=== PATIENT | female | born 1950 | race Caucasian/White ===

== ENCOUNTER → 2020-09-19 | Outpatient (CLI) | payer MEDICARE ==
[2020-09-19 16:04] LABS: African American GFR (CKD) >90 (>60 ml/min/1.73 sqM); Blood Urea Nitrogen 12 mg/dL (7-17); Non-African American GFR(CKD) >90 (>60 ml/min/1.73 sqM)
--- NOTE | 2020-09-20 07:43 | CT ---
EXAMINATION TYPE: CT ChestAbdPelvis w con DATE OF EXAM: 09/19/2020 COMPARISON: None HISTORY: Stomach ca, observe for mets CT DLP: 1131 mGycm CONTRAST: CT scan of the chest, abdomen and pelvis is performed with Oral Contrast and with IV Contrast, patien t injected with 100 mL of Isovue 300. CT Chest: LUNGS: The lungs are clear and free of infiltrate or atelectasis. No pulmonary nodule or mass is det ected. No pleural effusion or CT evidence of interstitial lung disease. MEDIASTINUM: Thoracic aorta is of normal caliber. The heart is not enlarged. No evidence for media stinal mass or adenopathy. HILAR STRUCTURES: No evidence for mass. No hilar adenopathy is appreciated. OTHER: No significant abnormality. CONTRAST CT ABDOMEN AND PELVIS FINDINGS: LIVER/GB: The gallbladder is surgically absent. No space occupying hepatic lesion. Biliary tree is of normal caliber. PANCREAS: No inflammation. No distinct mass. SPLEEN: No splenic enlargement. No lesion seen. ADRENALS: No nodule. There is evidence of bilateral adrenal glandular thickening which may reflect a drenal hyperplasia. KIDNEYS/BLADDER: No hydronephrosis. No nephrolithiasis. No disctinct renal mass. BOWEL: Partial gastrectomy changes are noted. There is a fluid collection noted adjacent to the liver at its caudate lobe measuring 5.8 x 1.9 cm. This could reflect a postoperative seroma. I do not see evidence for recurrent or residual mass. There is no evidence for obstruction. Contrast is noted to f low into the distal small bowel. GENITAL ORGANS: No gross abnormality. LYMPH NODES: No greater than 1cm abdominal or pelvic lymph nodes are appreciated. AORTA: No significant abnormality. OSSEOUS STRUCTURES: Degenerative changes lower lumbar spine with vacuum disc identified. OTHER: No significant additional abnormality is seen. IMPRESSION: 1. Partial gastrectomy changes are noted. There is a fluid collection noted adjacent to the liver at its caudate lobe measuring 5.8 x 1.9 cm. This could reflect a postoperative seroma. I do not see evid ence for recurrent or residual mass. 2. No evidence for metastatic disease.
== END | disposition home or self-care (01) ==
LOC: RADCTMAIN 15:19
PROVIDERS: ATTEND Internal Medicine Hematology & Oncology
DX: K76.89 Other specified diseases of liver (principal); Z90.3 Acquired absence of stomach [part of]; C16.3 Malignant neoplasm of pyloric antrum
CPT/HCPCS: 82565; 84520; 71260; 74177; 36415; Q9967

== ENCOUNTER → 2020-10-09 | Outpatient (CLI) | payer MEDICARE ==
--- NOTE | 2020-10-10 08:17 | MR ---
EXAMINATION TYPE: MR brain wo/w con DATE OF EXAM: 10/09/2020 COMPARISON: None HISTORY: Visual disturbances history stomach cancer CONTRAST: Performed utilizing 6 mL intravenous Gadavist gadolinium contrast. TECHNIQUE: Multiplanar, multiecho imaging on a 3.0 Vivienne magnet is performed through the brain. Stud y is performed within 24 hours of arrival to the hospital. The craniovertebral junction is normal. The pituitary is normal. Diffusion-weighted imaging is performed. No abnormal hyperintensity is present to suggest an acute i ntracranial infarct or acute ischemic change. Couple of subcortical hyperintensities are present not out of proportion patient age. Findings could be related to microvascular ischemic change. Abnormal enhancement is not identified at these locatio ns. Differential diagnosis could include but is not limited to multiple sclerosis, vasculitis, migrai ne headaches, Lyme disease. Ventricles and sulci are appropriate for the patient age. No suspicious enhancement is evident suggest metastatic disease. IMPRESSIONS: 1. No suspicious changes to suggest metastatic disease. 2. Scattered subcortical white matter changes most likely on the basis of chronic white matter ischem ic change.
== END | disposition home or self-care (01) ==
LOC: RADMRIMAIN 13:15
PROVIDERS: ATTEND Internal Medicine Hematology & Oncology
DX: C16.3 Malignant neoplasm of pyloric antrum (principal); R90.89 Other abnormal findings on diagnostic imaging of central nervous system; H53.9 Unspecified visual disturbance
CPT/HCPCS: 70553; A9585

== ENCOUNTER → 2020-10-09 | Outpatient (CLI) | payer MEDICARE | END | disposition home or self-care (01) | LOC: RADMRIMAIN 08:38 | PROVIDERS: ATTEND Internal Medicine Hematology & Oncology | DX: Z53.9 Procedure and treatment not carried out, unspecified reason (principal) ==

== ENCOUNTER → 2021-01-07 | Outpatient (CLI) | payer MEDICARE, OTHER ==
[2021-01-07 11:34] LABS: African American GFR (CKD) >90 (>60 ml/min/1.73 sqM); Blood Urea Nitrogen 13 mg/dL (7-17); Non-African American GFR(CKD) >90 (>60 ml/min/1.73 sqM)
--- NOTE | 2021-01-07 13:11 | CT ---
EXAMINATION TYPE: CT ChestAbdPelvis w con DATE OF EXAM: 01/07/2021 COMPARISON: 09/19/2020 HISTORY: Stomach CA CT DLP: 555.1 mGycm CONTRAST: CT scan of the chest, abdomen and pelvis is performed with Oral Contrast and with IV Contrast, patien t injected with 100 mL of Isovue 300. CT Chest: LUNGS: The lungs are clear and free of infiltrate or atelectasis. No pulmonary nodule or mass is det ected. No pleural effusion or CT evidence of interstitial lung disease. MEDIASTINUM: Thoracic aorta is of normal caliber. The heart is not enlarged. No evidence for media stinal mass or adenopathy. HILAR STRUCTURES: No evidence for mass. No hilar adenopathy is appreciated. OTHER: No significant abnormality. CONTRAST CT ABDOMEN AND PELVIS FINDINGS: LIVER/GB: The gallbladder is surgically absent. No space occupying hepatic lesion. Biliary tree is of normal caliber. PANCREAS: No inflammation. No distinct mass. SPLEEN: No splenic enlargement. No lesion seen. ADRENALS: No nodule. No thickening. KIDNEYS/BLADDER: No hydronephrosis. No nephrolithiasis. No disctinct renal mass. BOWEL: Normal appendix. Partial gastrectomy changes are redemonstrated. No evidence for recurrent or residual mass. Fluid collection seen previously adjacent to the liver has resolved. Gastrointestinal tract is of normal caliber. No inflammatory change seen. GENITAL ORGANS: No gross abnormality. LYMPH NODES: No greater than 1cm abdominal or pelvic lymph nodes are appreciated. AORTA: No significant abnormality. OSSEOUS STRUCTURES: No significant abnormality is seen. OTHER: No significant additional abnormality is seen. IMPRESSION: 1. Partial gastrectomy changes are redemonstrated. No evidence for recurrent or residual mass. Fluid collection seen previously adjacent to the liver has resolved. 2. No evidence for metastatic disease to the chest abdomen or pelvis at this time.
== END | disposition home or self-care (01) ==
LOC: RADPROMAIN 10:26
PROVIDERS: ATTEND Internal Medicine Hematology & Oncology
DX: C16.3 Malignant neoplasm of pyloric antrum (principal); Z90.3 Acquired absence of stomach [part of]
CPT/HCPCS: 82565; 84520; 71260; 74177; J1642; Q9967 ×2

== ENCOUNTER 2021-02-07 10:00 | Inpatient (IN) | payer MEDICARE, OTHER ==
[2021-02-07] MEDS ORDERED: HYDROmorphone 1 MG/ML 1 ML SYRINGE IVP STA ×2 (10:15→11:17)
--- NOTE | 2021-02-07 10:20 | ED ---
Fall HPI - General Chief Complaint: Fall Stated Complaint: Fall/R hip pain Time Seen by Provider: 02/07/21 10:03 Source: patient, EMS, RN notes reviewed Mode of arrival: EMS Limitations: physical limitation - History of Present Illness Initial Comments: This a 70-year-old female presents emergency Department chief complaint of trip and fall. Patient states her dog causing her to trip and fall onto her right hip. Patient has only complaint of right hip pain no head injury no loss consciousness no blood thinners. Patient states that she's had no prior orthopedic surgeries denies any abdominal pain denies back pain. Patient was given fentanyl by EMS states that did not help her pain at this time. - Related Data Home Medications Medication Instructions Recorded Confirmed Cyanocobalamin (Vitamin B-12) 1,000 mcg PO DAILY 02/07/21 02/07/21 [Vitamin B-12] Escitalopram Oxalate [Lexapro] 40 mg PO HS 02/07/21 02/07/21 Pantoprazole Sodium [Protonix] 40 mg PO DAILY 02/07/21 02/07/21 Vitamin E 400 unit PO DAILY 02/07/21 02/07/21 clonazePAM [KlonoPIN] 1 mg PO HS 02/07/21 02/07/21 Allergies Allergy/AdvReac Type Severity Reaction Status Date / Time No Known Allergies Allergy Verified 02/07/21 11:37 Review of Systems ROS Statement: Those systems with pertinent positive or pertinent negative responses have been documented in the HPI. ROS Other: All systems not noted in ROS Statement are negative. Past Medical History Past Medical History: Cancer, Hyperlipidemia Additional Past Medical History / Comment(s): stomach ca. History of Any Multi-Drug Resistant Organisms: None Reported Past Surgical History: Cholecystectomy, Orthopedic Surgery, Tonsillectomy Additional Past Surgical History / Comment(s): stomach resection, Past Psychological History: Anxiety, Depression Smoking Status: Never smoker Past Alcohol Use History: None Reported Past Drug Use History: None Reported General Exam Limitations: physical limitation General appearance: alert, in no apparent distress Head exam: Present: atraumatic, normocephalic, normal inspection Eye exam: Present: normal appearance, PERRL, EOMI. Absent: scleral icterus, conjunctival injection, periorbital swelling Neck exam: Present: normal inspection, full ROM. Absent: tenderness, meningismus, lymphadenopathy Respiratory exam: Present: normal lung sounds bilaterally. Absent: respiratory distress, wheezes, rales, rhonchi, stridor Cardiovascular Exam: Present: regular rate, normal rhythm, normal heart sounds. Absent: systolic murmur, diastolic murmur, rubs, gallop, clicks Extremities exam: Present: other (Patient's right leg is shortened, severe times the right hip pulses are palpable the lower extremities equal bilaterally) Neurological exam: Present: alert, reflexes normal. Absent: motor sensory deficit Skin exam: Present: warm, dry, intact, normal color. Absent: rash Course Vital Signs 02/07/21 02/07/21 02/07/21 10:01 10:32 11:20 Temperature 98.7 F Pulse Rate 62 88 88 Respiratory 20 18 18 Rate Blood Pressure 149/61 135/86 115/57 O2 Sat by Pulse 98 97 97 Oximetry Medical Decision Making - Medical Decision Making Patient has evidence of right hip fracture. Case discussed with lópez for [facility] orth[facility] will be admitted to Dr. Olsen with medicine consult Disposition Clinical Impression: Fall, Fracture of neck of left femur Disposition: ADMITTED IP TO THIS [facility] Condition: Fair Referrals: Aliyah Fink MD [Primary Care Provider] - 1-2 days
--- NOTE | 2021-02-07 10:58 | XR ---
EXAMINATION TYPE: XR Hip RT and AP Pelvis DATE OF EXAM: 02/07/2021 COMPARISON: CT January 07, 2021 HISTORY: Pelvic and right hip pain after fall injury. TECHNIQUE: A single AP view of the pelvis is obtained. Two views of the right hip are obtained. FINDINGS: There is acute displaced subcapital impacted fracture right proximal femur. No hip joint d islocation. Moderate to severe axial joint space loss right greater than left. Pubic symphysis intact . Sacroiliac joints maintained. Overlying soft tissue is unremarkable. IMPRESSION: There is acute impacted subcapital fracture right proximal femur.
[2021-02-07] MEDS ORDERED: NALOXONE 0.4 MG/ML 1 ML VIAL IV PRN (11:43)
[2021-02-07] MEDS ORDERED: ONDANSETRON 4 MG/2 ML VIAL IVP PRN (11:43)
[2021-02-07] MEDS ORDERED: HYDROmorphone 0.5 MG/0.5 ML SYRINGE IVP PRN (11:43)
--- NOTE | 2021-02-07 11:52 | XR ---
EXAMINATION TYPE: XR chest 1V portable DATE OF EXAM: 02/07/2021 COMPARISON: None INDICATION: Presurgical TECHNIQUE: Single frontal view of the chest is obtained. FINDINGS: The heart size is normal. The pulmonary vasculature is normal. The lungs are clear. IMPRESSION: 1. No acute pulmonary process.
[2021-02-07 11:58] LABS: Basophils % (A) 0 %; Eosinophils % (A) 0 %; HCT 38.1 % (34.0-46.0); HGB 12.7 gm/dL (11.4-16.0); Lymphocytes % (A) 22 %; MCH 30.5 pg (25.0-35.0); MCHC 33.4 g/dL (31.0-37.0); MCV 91.6 fL (80.0-100.0); Mean Platelet Volume 6.9; Monocytes # (A) 0.5 k/uL (0-1.0); Monocytes % (A) 5 %; Neutrophils # (A) 6.3 k/uL (1.3-7.7); Neutrophils % (A) 71 %; Platelet Count 238 k/uL (150-450); RBC 4.16 m/uL (3.80-5.40); RDW 13.7 % (11.5-15.5); WBC 8.9 k/uL (3.8-10.6)
[2021-02-07 12:09] LABS: ALT 15 U/L (4-34); AST 28 U/L (14-36); African American GFR (CKD) >90 (>60 ml/min/1.73 sqM); Albumin 3.7 g/dL (3.5-5.0); Alkaline Phosphatase 109 U/L (38-126); Anion Gap 6 mmol/L; Blood Urea Nitrogen 13 mg/dL (7-17); Calcium 9.2 mg/dL (8.4-10.2); Carbon Dioxide 27 mmol/L (22-30); Chloride 109 mmol/L (98-107); Glucose 106 mg/dL (74-99); Non-African American GFR(CKD) >90 (>60 ml/min/1.73 sqM); Potassium 4.3 mmol/L (3.5-5.1); Sodium 142 mmol/L (137-145); Total Bilirubin 0.6 mg/dL (0.2-1.3); Total Protein 6.1 g/dL (6.3-8.2)
[2021-02-07] MEDS: HYDROcodone/APAP 5-325MG 1 EACH TAB PO PRN ×2 (12:11→17:34)
[2021-02-07 12:29] LABS: Appearance,Urine Clear (Clear); Bilirubin,Urine Negative (Negative); Blood,Urine Negative (Negative); Color,Urine Yellow; Glucose,Urine (UA) Negative (Negative); Ketones,Urine Negative (Negative); Leukocyte Esterase,Urine Large (Negative); Mucus,Urine Rare /hpf; Nitrite,Urine Negative (Negative); Protein,Urine Negative (Negative); Specific Gravity,Urine 1.017 (1.001-1.035); Squamous Epithelial Cell,Urine 1 /hpf (0-4); Urobilinogen,Urine <2.0 mg/dL (<2.0); WBC,Urine 14 /hpf (0-5)
[2021-02-07 12:45] LABS: INR 0.9 (<1.2); Prothrombin Time 9.9 sec (9.0-12.0)
[2021-02-07] MEDS: HYDROmorphone 1 MG/ML 1 ML SYRINGE IVP PRN ×4 (13:07→23:29)
[2021-02-07] MEDS: CYANOCOBALAMIN 500 MCG TAB PO SCH (14:40)
[2021-02-07] MEDS: VITAMIN E (DL,TOCOPHERYL ACET) 400 UNIT CAP PO SCH (15:21)
--- NOTE | 2021-02-07 17:03 | P.HPOR ---
History of Present Illness H&P Date: 02/07/21 Chief Complaint: Right hip pain Patient is a 70-year-old female presenting to the ER today status post fall at house. Patient was playing with dog when dog bumped into her slipped and fell and landed on her hip. Patient states she came in the ER and has severe pain with this shortened externally rotated leg. She says pain is severe, 10/10. She denies any numbness or tingling in feet. She denies any loss of bladder/bowel control. She denies any perineal numbness/tingling. She denies any chest pain, shortness breath, fever, nausea, vomiting, change in vision. The pedal pulse present 2+. Patient denies any history of blood clots. Patient denies being on any blood thinning. She does have a history of gastric cancer she has been treated for an currently in remission. Review of Systems See HPI Past Medical History Past Medical History: Cancer, COPD, Hyperlipidemia, Osteoarthritis (OA) Additional Past Medical History / Comment(s): 03/2020 diagnosed with stomach ca ncer/had resection and chemo and is currently in remission/sees Dr. Bay every 6 weeks, benign colon polyps, hemorroids, bronchitis, UTIs History of Any Multi-Drug Resistant Organisms: None Reported Past Surgical History: Breast Surgery, Cholecystectomy, Orthopedic Surgery, Tonsillectomy Additional Past Surgical History / Comment(s): stomach resection, R upper chest port, EGD, colonoscopies/benign polypectomies, bilateral breast benign biopsies, RK bilateral eyes Past Anesthesia/Blood Transfusion Reactions: No Reported Reaction Additional Past Anesthesia/Blood Transfusion Reaction / Comment(s): Pt has clausterphobia Smoking Status: Former smoker - Past Family History Father Family Medical History: Cancer Additional Family Medical History / Comment(s): Stomach cancer. Father of blood clot that travelled to his heart. Mother Family Medical History: Cancer Additional Family Medical History / Comment(s): Bone cancer Sister(s) Family Medical History: Cancer Additional Family Medical History / Comment(s): Breast cancer Medications and Allergies Home Medications Medication Instructions Recorded Confirmed Type Cyanocobalamin (Vitamin B-12) 1,000 mcg PO DAILY 02/07/21 02/07/21 History [Vitamin B-12] Escitalopram Oxalate [Lexapro] 40 mg PO HS 02/07/21 02/07/21 History Pantoprazole Sodium [Protonix] 40 mg PO DAILY 02/07/21 02/07/21 History Vitamin E 400 unit PO DAILY 02/07/21 02/07/21 History clonazePAM [KlonoPIN] 1 mg PO HS 02/07/21 02/07/21 History Allergies Allergy/AdvReac Type Severity Reaction Status Date / Time No Known Allergies Allergy Verified 02/07/21 11:37 Physical Examination On examination right leg shortened and externally rotated. Patient has pain during external and internal rotation of hip. Patient is unable to logroll onto right side due to pain. During minimal flexion and extension of knee patient has severe pain at hip. Dorsalis pedis pulses present bilaterally 2+. Skin over hip is non-erythematous, no ecchymosis. No sign/evidence of open fracture. Results - Labs Labs: Abnormal Lab Results - Last 24 Hours (Table) 02/07/21 02/07/21 02/07/21 Range/Units 11:39 11:39 11:39 APTT 21.0 L (22.0-30.0) sec Chloride 109 H (98-107) mmol/L Glucose 106 H (74-99) mg/dL Total Protein 6.1 L (6.3-8.2) g/dL Ur Leukocyte Esterase Large H (Negative) Urine WBC 14 H (0-5) /hpf Urine Mucus Rare H (None) /hpf H & H 02/07/21 Range/Units 11:39 Hgb 12.7 (11.4-16.0) gm/dL Hct 38.1 (34.0-46.0) % Coagulation 02/07/21 Range/Units 11:39 INR 0.9 (<1.2) Result Diagrams: 02/07/21 11:39 02/07/21 11:39 Assessment and Plan Assessment: Displaced subcapital fracture right proximal femur Plan: 1. Displaced subcapital fracture right proximal femur - surgery planned for tomorrow, 02/08/2021. Nothing by mouth after midnight. PT INR ordered; CBC with differential ordered; EKG and chest x-ray ordered. Need cardiac and medical clearance 2. History of gastric cancer - patient has been treated for gastric cancer which is currently in remission. After surgery oncology will plan to follow up. 3. Appreciate medical management 4. Pain management - stable at this time 5. PT/OT - plan for after surgery Time with Patient: Less than 30
[2021-02-07] MEDS: clonazePAM 1 MG TAB PO SCH (20:37)
[2021-02-07] MEDS: ESCITALOPRAM 20 MG TAB PO SCH (21:08)
--- NOTE | 2021-02-07 21:58 | P.CONS ---
History of Present Illness - Reason for Consult Consult date: 02/07/21 Medical management. - Chief Complaint Fall and Rt hip pain - History of Present Illness Patient is a 70-year-old female with a known history of COPD, hyperlipidemia, osteoarthritis and history of gastric cancer diagnosed in March 2020 status post resection and chemo currently in remission, previous history of smoking presents to ER status post fall. Patient states that she was walking her dog and chain tangled into her legs and fell on her right hip. Denied any head injury. Denied any right rib cage pain. Denied any loss of consciousness. No palpitations or dizziness or lightheadedness. Denies any recent illnesses. No fever no chills. No cough or sputum production. No nausea vomiting abdominal pain or diarrhea. Denies any dysuria or hematuria. Blood pressure was 149/61 on admission and pulse ox 98% on room air. X-ray of the pelvis showed there is acute impacted subcapital fracture right proximal femur. EKG showed normal sinus rhythm with heart rate 65 Chest x-ray showed no acute cardiopulmonary process. Laboratory data showed WBC 8.9 hemoglobin 12.7 platelets 238 Sodium 142 potassium 4.3 chloride 103 blood glucose is 106 BUN 13 and creatinine 0.63 urinalysis showed large leukocyte esterase and WBCs 14. Review of Systems Constitutional: Patient denies any fever or chills . No generalized weakness or weight loss. Abdomen: Patient denied nausea vomiting and diarrhea and abdominal pain. Cardiovascular: Patient denies any chest pain or short of breath no palpitations. Respiratory: patient denied any cough or sputum production. No shortness of breath Neurologic: Patient denied any numbness or tingling headache. Musculoskeletal: Patient denies any complaints of joint swelling or deformity. Skin: Negative Psychiatric: Negative Endocrine: No heat or cold intolerance. No recent weight gain. Genitourinary: No dysuria or hematuria. All other 14 point ROS negative except the above Past Medical History Past Medical History: Cancer, COPD, Hyperlipidemia, Osteoarthritis (OA) Additional Past Medical History / Comment(s): 03/2020 diagnosed with stomach cancer/had resection and chemo and is currently in remission/sees Dr. Bay every 6 weeks, benign colon polyps, hemorroids, bronchitis, UTIs History of Any Multi-Drug Resistant Organisms: None Reported Past Surgical History: Breast Surgery, Cholecystectomy, Orthopedic Surgery, Tonsillectomy Additional Past Surgical History / Comment(s): stomach resection, R upper chest port, EGD, colonoscopies/benign polypectomies, bilateral breast benign biopsies, RK bilateral eyes Past Anesthesia/Blood Transfusion Reactions: No Reported Reaction Additional Past Anesthesia/Blood Transfusion Reaction / Comm: Pt has clausterphobia Smoking Status: Former smoker - Past Family History Father Family Medical History: Cancer Additional Family Medical History / Comment(s): Stomach cancer. Father of blood clot that travelled to his heart. Mother Family Medical History: Cancer Additional Family Medical History / Comment(s): Bone cancer Sister(s) Family Medical History: Cancer Additional Family Medical History / Comment(s): Breast cancer Medications and Allergies Home Medications Medication Instructions Recorded Confirmed Type Cyanocobalamin (Vitamin B-12) 1,000 mcg PO DAILY 02/07/21 02/07/21 History [Vitamin B-12] Escitalopram Oxalate [Lexapro] 40 mg PO HS 02/07/21 02/07/21 History Pantoprazole Sodium [Protonix] 40 mg PO DAILY 02/07/21 02/07/21 History Vitamin E 400 unit PO DAILY 02/07/21 02/07/21 History clonazePAM [KlonoPIN] 1 mg PO HS 02/07/21 02/07/21 History Allergies Allergy/AdvReac Type Severity Reaction Status Date / Time No Known Allergies Allergy Verified 02/07/21 11:37 Physical Exam Vitals: Vital Signs Temp Pulse Pulse Resp BP BP Pulse Ox 02/07/21 14:51 60 22 02/07/21 14:08 98.7 F 67 22 103/51 94 L 02/07/21 14:00 98.4 F 60 133/68 97 02/07/21 13:12 66 22 128/59 96 02/07/21 11:20 88 18 115/57 97 02/07/21 10:32 88 18 135/86 97 02/07/21 10:01 98.7 F 62 20 149/61 98 Intake and Output 02/07/21 02/07/21 02/07/21 06:59 14:59 22:59 Other: Voiding Method Indwelling Catheter Weight 62.596 kg PHYSICAL EXAMINATION: Patient is lying in the bed comfortably, no acute distress, awake alert and oriented.. HEENT: Normocephalic. Neck is supple. Pupils reactive. Nostrils clear. Oral cavity is moist. Ears reveal no drainage. Neck reveals no JVD, carotid bruits, or thyromegaly. CHEST EXAMINATION: Trachea is central. Symmetrical expansion. Bibasilar diminished sounds otherwise Lung yip clear to auscultation and percussion. CARDIAC: Normal S1, S2 with no gallops. No murmurs ABDOMEN: Soft. Bowel sounds normal. No organomegaly. No abdominal bruits. Extremities: reveal no edema. No clubbing or cyanosis Neurologically awake, alert, oriented x3 with well-coordinated movements. No f ocal deficits noted Skin: No rash or skin lesions. Psychiatric: Coperative. Nonsuicidal Musculoskeletal: No joint swelling or deformity. Tenderness over the right greater trochanter. Decreased range of motion of the right hip.. Results CBC & Chem 7: 02/07/21 11:39 02/07/21 11:39 Labs: Abnormal Lab Results - Last 24 Hours (Table) 02/07/21 02/07/21 02/07/21 Range/Units 11:39 11:39 11:39 APTT 21.0 L (22.0-30.0) sec Chloride 109 H (98-107) mmol/L Glucose 106 H (74-99) mg/dL Total Protein 6.1 L (6.3-8.2) g/dL Ur Leukocyte Esterase Large H (Negative) Urine WBC 14 H (0-5) /hpf Urine Mucus Rare H (None) /hpf Assessment and Plan Assessment: Status post mechanical fall subcapital fracture of right proximal femur. COPD with prior history of smoking Hyperlipidemia Osteoarthritis Gastric cancer diagnosed in December 2019 status post resection and chemo currently in remission. Anxiety/depression Prior history of smoking DVT prophylaxis Plan: Patient will be continued on pain management, bowel regimen. Will be started on incentive spirometry. Continue with home medications and GI/DVT prophylaxis. Patient does not have any active symptoms of chest pain or shortness of breath. Able to climb 1 flight of stairs without shortness of breath prior to fall. Renal function stable. No history of prior CVA are coronary artery disease. Patient is at low risk for moderate low risk orthopedic surgery. We will continue to follow and further recommendations based on the clinical course. Thank you for your consult. Time with Patient: Greater than 30
[2021-02-08] MEDS: HYDROcodone/APAP 5-325MG 1 EACH TAB PO PRN ×3 (00:05→19:50)
[2021-02-08] MEDS: HYDROmorphone 1 MG/ML 1 ML SYRINGE IVP PRN ×6 (02:23→21:05)
[2021-02-08] MEDS ORDERED: ePHEDrine SULFATE/0.9% NACL/PF 50 MG/5 ML SYRINGE IV ONE (09:17)
[2021-02-08] MEDS ORDERED: MIDAZOLAM 2 MG/2 ML VIAL ONE (09:17)
[2021-02-08] MEDS ORDERED: PROPOFOL 10 MG/ML 20 ML VIAL IV ONE (09:17)
[2021-02-08] MEDS ORDERED: KETAMINE 10 MG/ML 20 ML VIAL ONE (09:17)
[2021-02-08] MEDS ORDERED: LACTATED RINGERS 1,000 ML IV ONE ×2 (09:17→10:36)
[2021-02-08] MEDS ORDERED: SODIUM CHLORIDE 0.9% 50 ML with ceFAZolin 2,000 MG IV ONE ×2 (09:17)
[2021-02-08] MEDS ORDERED: NALOXONE 0.4 MG/ML 1 ML VIAL IV PRN (10:45)
--- NOTE | 2021-02-08 11:14 | P.OP ---
Date of Procedure: 02/08/21 Preoperative Diagnosis: Displaced right subcapital femoral neck fracture Postoperative Diagnosis: Same Procedure(s) Performed: Right total hip arthroplastypress-fitlateral approach Implants: Depuy Corail size 11 collared press-fit standard femoral stem, 36+1.5 cobalt chrome femoral head, 52 mm [place] acetabular shell with neutral polyethylene liner. Anesthesia: spinal Surgeon: Wilton Reed Manager Process Excellence #1: Ish Blackburn Estimated Blood Loss (ml): 150 Pathology: other (Femoral head) Condition: stable Disposition: PACU Indications for Procedure: The patient's a 70-year-old female presents after falling injuring her right hi p. Upon evaluation she was noted of evidence of a displaced subcapital femoral neck fracture. A discussion of the risks and benefits of operative intervention was made with the patient. She opted to proceed. Operative options were discussed to include hemiarthroplasty versus total hip arthroplasty. Due to her young age and high activity level she opted to proceed with total hip arthroplasty. Specific risks of surgery to include infection, neurovascular injury, development of blood clots, leg length discrepancy, fracture, instability, and possible need for subsequent procedures was discussed. Informed consent was obtained. Operative Findings: As below Description of Procedure: The patient was brought to the operating room, and after induction of spinal anesthesia was placed in a lateral decubitus position. The bony prominences were appropriately padded. The pelvis was stable perpendicular to the floor with a pegboard. The right lower extremity was prepped and draped in normal fashion. A 12 cm incision was then made centered over the greater trochanter extending superiorly to level the ASIS and distally in line with the femoral shaft. The skin and subcutaneous tissues were divided sharply. Electrocautery was used for hemostasis. The fascia eun and gluteus shey fascia was split in line with the skin incision. The muscle fibers were bluntly dissected proximally. A self-retaining retractor was placed. The anterior and posterior margins of the gluteus medius muscles identified and the anterior two thirds was detached from the greater trochanter with electrocautery. The gluteus minimus tendon was identified and detached in a similar fashion. A wide capsulotomy was performed. The femoral neck fracture was identified in the lower neck cut was made approximately 1 1/2 cm above the level of the lesser trochanter with a sagittal saw at a 45 the shaft. The head was then extracted with a corkscrew. Attention was then paid towards preparing the acetabular. Anterior and posterior retractors were placed. The remaining capsular labral tissues debrided sharply clearly defining the acetabular margins. Began reaming with a 45 mm reamer taking care to initially medialize, then reaming at 45 of abduction and 20 of anteversion. Sequential reaming is performed up to 51 mm. This was down to bleeding bony surface. A trial 52 mm acetabular shell was inserted at 45 of abduction and 20 of anteversion. This was fully seated. There was good rim fit and stability. A neutral polyethylene liner was then impacted. Care taken to avoid any soft tissue interposition. Attention was then paid towards preparing the proximal femur. A box chisel was used to open the metaphyseal region. A canal finder was used to find the femoral canal. Sequential broaching was performed up to a size 11. This is placed in 15 of anteversion with the leg perpendicular floor judging off the trans-epicondylar axis. There is good rotational stability. A calcar mill was used to fashion the medial calcar. A trial standard neck along with a 36 mm + 1.5 trial head was placed. The hip was gently reduced. It was taken through range of motion. I felt to be stable in flexion and extension with internal and external rotation. I felt there was adequate latter day of soft tissue tension. The hip was gently dislocated. The trial components removed. Pulsatile lavage was utilized. The final size 11 standard collared femoral stem was inserted again with the leg perpendicular to the floor in 15 of anteversion. Again there was good rotational stability. A 36 mm + 1.5 cobalt chrome femoral head was gently impacted. The hip was gently reduced. Again it was taken through motion and felt to be stable in flexion and extension with internal and external rotation. Pulsatile lavage was again utilized. With the leg in abduction the gluteus minimus and medius tendons reattached to the greater trochanter with #2 Ethibond suture. There was minimal drainage therefore a deep drain was not placed. The fascia eun and gluteus shey fascia was closed with #2 Ethibond suture. The subcutaneous tissues were reapproximated interrupted 2-0 Vicryl sutures. The skin was reapproximated with 3-0 subcuticular strata fix suture. Skin tape and adhesive was applied. A sterile dressing was applied. The patient was awoken from sedation and transferred to recovery room in good condition. Blood loss was estimated 150 mL. No complications were incurred. Sponge and needle counts were correct in the case. Ish HALEY assisted during the major composes case to include exposure, implantation, and closure.
[2021-02-08] MEDS ORDERED: HYDROmorphone 1 MG/ML 1 ML SYRINGE IVP ONE (11:21)
[2021-02-08] MEDS ORDERED: diphenhydrAMINE 50 MG/ML 1 ML VIAL IVP ONE (11:25)
--- NOTE | 2021-02-08 11:27 | XR ---
EXAMINATION TYPE: XR Hip Limited RT DATE OF EXAM: 02/08/2021 COMPARISON: None HISTORY: Post right hip replacement TECHNIQUE: AP right hip FINDINGS: Femoral prosthesis and acetabular component of the place. No acute fractures are evident. P ostsurgical soft tissue changes are present bilaterally. IMPRESSION: 1. No acute fractures post right hip replacement
[2021-02-08] MEDS: PANTOPRAZOLE 40 MG TABLET PO SCH (13:31)
[2021-02-08] MEDS: VITAMIN E (DL,TOCOPHERYL ACET) 400 UNIT CAP PO SCH (13:31)
[2021-02-08] MEDS: CYANOCOBALAMIN 500 MCG TAB PO SCH (13:31)
[2021-02-08] MEDS: clonazePAM 1 MG TAB PO SCH (21:04)
[2021-02-08] MEDS: ESCITALOPRAM 20 MG TAB PO SCH (21:05)
[2021-02-08] MEDS: SENNOSIDES-DOCUSATE SODIUM 1 EACH TAB PO SCH (21:05)
--- NOTE | 2021-02-08 22:33 | P.PN ---
Subjective Progress Note Date: 02/08/21 Principal diagnosis: Status post right total hip arthroplasty Patient is a 70-year-old female with a known history of COPD, hyperlipidemia, osteoarthritis and history of gastric cancer diagnosed in March 2020 status post resection and chemo currently in remission, previous history of smoking presents to ER status post fall. Patient states that she was walking her dog and chain tangled into her legs and fell on her right hip. Denied any head injury. Denied any right rib cage pain. Denied any loss of consciousness. No palpitations or dizziness or lightheadedness. Denies any recent illnesses. No fever no chills. No cough or sputum production. No nausea vomiting abdominal pain or diarrhea. Denies any dysuria or hematuria. Blood pressure was 149/61 on admission and pulse ox 98% on room air. X-ray of the pelvis showed there is acute impacted subcapital fracture right proximal femur. EKG showed normal sinus rhythm with heart rate 65 Chest x-ray showed no acute cardiopulmonary process. Laboratory data showed WBC 8.9 hemoglobin 12.7 platelets 238 Sodium 142 potassium 4.3 chloride 103 blood glucose is 106 BUN 13 and creatinine 0.63 urinalysis showed large leukocyte esterase and WBCs 14. 02/08/2021 Patient is currently lying in the bed awake alert and oriented but drowsy due to anesthesia. Status post right total hip arthroplasty. Pain is controlled with medications. Patient has been afebrile. Systolic blood pressure is in low 90s. Denies any dizziness or lightheadedness. Urine culture showed no growth. No complaints of chest pain or shortness of. Increase incentive spirometry. Follow-up CBC tomorrow. Patient is tolerating oral diet. Current medications reviewed. Objective - Vital Signs Vital signs: Vital Signs Temp 97.9 F 02/08/21 12:15 Pulse 78 02/08/21 12:48 Resp 16 02/08/21 12:15 BP 93/61 02/08/21 12:48 Pulse Ox 100 02/08/21 12:48 Intake & Output 02/07/21 02/08/21 02/08/21 18:59 06:59 18:59 Intake Total 480 0 1200 Output Total 240 300 275 Balance 240 -300 925 Weight 62.596 kg Intake: IV 1200 Oral 480 0 Output: Urine 240 300 125 Uretheral (Wilks) 300 Estimated Blood Loss 150 Other: Voiding Method Indwelling Catheter Indwelling Catheter Indwelling Catheter - Exam PHYSICAL EXAMINATION: Patient is lying in the bed comfortably, no acute distress, awake alert and oriented.. HEENT: Normocephalic. Neck is supple. Pupils reactive. Nostrils clear. Oral cavity is moist. Ears reveal no drainage. Neck reveals no JVD, carotid bruits, or thyromegaly. CHEST EXAMINATION: Trachea is central. Symmetrical expansion. Bibasilar diminished sounds otherwise Lung yip clear to auscultation and percussion. CARDIAC: Normal S1, S2 with no gallops. No murmurs ABDOMEN: Soft. Bowel sounds normal. No organomegaly. No abdominal bruits. Extremities: reveal no edema. No clubbing or cyanosis Neurologically awake, alert, oriented x3 with well-coordinated movements. No focal deficits noted Skin: No rash or skin lesions. Psychiatric: Coperative. Nonsuicidal Musculoskeletal: No joint swelling or deformity. Tenderness over the right greater trochanter. Decreased range of motion of the right hip..surgical site packed - Labs CBC & Chem 7: 02/07/21 11:39 02/07/21 11:39 Labs: Microbiology - Last 24 Hours (Table) 02/07/21 11:39 Urine Culture - Preliminary Urine,Voided Assessment and Plan Assessment: Status post mechanical fall subcapital fracture of right proximal femur.Status post right total hip arthroplasty on 02/08/21 COPD with prior history of smoking Hyperlipidemia Osteoarthritis Gastric cancer diagnosed in December 2019 status post resection and chemo currently in remission. Anxiety/depression Prior history of smoking DVT prophylaxis Plan: Patient will be continued on pain management, bowel regimen. continue on in centive spirometry. Avoid IV narcotic pain medication due to hypotension. Continue with home medications and GI/DVT prophylaxis. further recommendations based on the clinical course. Thank you for your consult.
[2021-02-09] MEDS: HYDROmorphone 1 MG/ML 1 ML SYRINGE IVP PRN ×3 (02:17→22:08)
[2021-02-09] MEDS: HYDROcodone/APAP 5-325MG 1 EACH TAB PO PRN ×3 (06:28→19:33)
[2021-02-09] MEDS ORDERED: CYCLOBENZAPRINE 10 MG TAB PO STA (07:02)
--- NOTE | 2021-02-09 07:44 | P.CONS ---
History of Present Illness - Reason for Consult Consult date: 02/09/21 gastric cancer, s/p hip surgery for fracture Requesting physician: Wilton Reed - Chief Complaint Fall - History of Present Illness Mrs. Mcconnell is a very's pleasant 70-year-old female with a history of gastric cancer, follows with Dr. Bay, status post chemo RT, as well as COPD, hyperlipidemia, osteoarthritis, who is here for fall. She tripped on her dog and fell. Workup revealed a hip fracture. She was taken to the OR and had surgery on 02/08/21. Continues to have severe pain and muscle spasms postop today. Otherwise has been doing well. She has a prior history of smoking, no current smoking. She does have family history of malignancy including gastric cancer in her father, breast cancer in her sister, and some type of bone cancer in her mother. Her cancer history is as follows: She follows with Dr. Bay. This is a very nice lady who was diagnosed with gastric cancer in when she presented with persistent nausea/vomting and weight loss of few months duration. On 03/14/2020,CT scan of abdomen/pelvis revealed gastric thickening at proximal duodenum and gastric distention. 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 On 03/29/2020,EUS revealed stage T3N0 disease. On 04/03/2020,CT scan of chest was negative. She started on FLOT regimen,had total of 4 cycles,repeat CT scan of chest/abdomen/plevis on 06/30/2020 revealed decrease in neoplastic process of gastric anrum and decrease in size of previosly borderline enlarged and morpholo gically abnormal gastric hepatic ligament nodes. On 07/25/2020,she underwent gastrectomy,pathology revealed poorly diferentiated carcinoma,diffuse type,10/12 nodes were positive,pT3N3a disease.Negative marigins,+LVI. The above treatment was done at [facility]. She moved to [place] to live close to her family and came to see me to resume treatment closer to home. She recovered from surgery well. On ,repeat CT scan of chest/abdomen/pelvis revealed postop seroma,no evidence of disease, She resumed adjuvant FLOT on 09/25/2020 until 10/08/2020 (stopped due to significant fatigue and progressing neuropathy),she had total of 6 cycles perioperatively. On 10/09/2020,brain MRI (done because of dizzyness) was negative for metastatic disease. On 01/07/2021,repeat CT scan of chest/abdomen/pelvis revealed no evidence of disease. Last seen 01/14/21. Doing well, and plan on continued surveillance. Past Medical History Past Medical History: Cancer, COPD, Hyperlipidemia, Osteoarthritis (OA) Additional Past Medical History / Comment(s): 03/2020 diagnosed with stomach cancer/had resection and chemo and is currently in remission/sees Dr. Bay every 6 weeks, benign colon polyps, hemorroids, bronchitis, UTIs History of Any Multi-Drug Resistant Organisms: None Reported Past Surgical History: Breast Surgery, Cholecystectomy, Orthopedic Surgery, Tonsillectomy Additional Past Surgical History / Comment(s): stomach resection, R upper chest port, EGD, colonoscopies/benign polypectomies, bilateral breast benign biopsies, RK bilateral eyes Past Anesthesia/Blood Transfusion Reactions: No Reported Reaction Additional Past Anesthesia/Blood Transfusion Reaction / Comm: Pt has clauste rphobia Smoking Status: Former smoker - Past Family History Father Family Medical History: Cancer Additional Family Medical History / Comment(s): Stomach cancer. Father of blood clot that travelled to his heart. Mother Family Medical History: Cancer Additional Family Medical History / Comment(s): Bone cancer Sister(s) Family Medical History: Cancer Additional Family Medical History / Comment(s): Breast cancer Medications and Allergies Home Medications Medication Instructions Recorded Confirmed Type Cyanocobalamin (Vitamin B-12) 1,000 mcg PO DAILY 02/07/21 02/07/21 History [Vitamin B-12] Escitalopram Oxalate [Lexapro] 40 mg PO HS 02/07/21 02/07/21 History Pantoprazole Sodium [Protonix] 40 mg PO DAILY 02/07/21 02/07/21 History Vitamin E 400 unit PO DAILY 02/07/21 02/07/21 History clonazePAM [KlonoPIN] 1 mg PO HS 02/07/21 02/07/21 History Allergies Allergy/AdvReac Type Severity Reaction Status Date / Time No Known Allergies Allergy Verified 02/07/21 11:37 Physical Exam Vitals: Vital Signs Temp Pulse Pulse Pulse Resp BP Pulse Ox 02/09/21 04:25 98.4 F 80 16 124/74 94 L 02/08/21 20:40 98.9 F 73 16 134/64 99 02/08/21 12:48 78 93/61 100 02/08/21 12:15 97.9 F 78 16 91/57 100 02/08/21 11:45 81 16 93/54 98 02/08/21 11:29 77 16 102/51 95 02/08/21 11:15 74 16 112/43 96 02/08/21 11:05 97.0 F L 83 16 101/61 93 L 02/08/21 08:00 66 16 Intake and Output 02/08/21 02/09/21 02/09/21 22:59 06:59 14:59 Intake Total 170 Output Total 400 Balance -400 170 Intake: Intake, IV Titration 170 Amount Lactated Ringers 1,000 ml 120 @ 0 mls/hr IV .[facility] Rx#:[id number] ceFAZolin 2 gm In Sodium 50 Chloride 0.9% 50 ml @ 100 mls/hr IVPB Q8HR [facility] Rx# :[id number] Output: Urine 400 Other: Voiding Method Indwelling Catheter Gen.: In mild distress due to hip pain. HEENT: Mucosa moist. Neck: Supple. Lungs: No respiratory distress. Heart: Regular rate. Abdomen: Soft. MSK: No obvious deformities. Neuro: Alert and oriented 3. Psych: Appropriate affect. Results CBC & Chem 7: 02/07/21 11:39 02/07/21 11:39 Labs: Microbiology - Last 24 Hours (Table) 02/07/21 11:39 Urine Culture - Final Urine,Voided Comments: Hip Xray upon admission with right proximal femoral fracture. Chest x-ray: report reviewed Assessment and Plan Assessment: 1. Traumatic hip fracture status post repair 2. Fall, mechanical 3. Gastric cancer currently in remission Plan: Ms. Mcconnell is a very pleasant 70 yo female who is here after traumatic fall, tripping over her dog, found to have a right hip fracture, s/p repair by Ortho on 02/08/21. She has a history of gastric cancer, s/p chemoRT, last scan from 01/2021 [facility]. She was seen by Dr. Bay on 01/14/21, and routine surveillance was recommended. Would recommend follow up with Dr. Bay after discharge as previously planned. She does have significant pain despite receiving norco and dilaudid about 30-60 min prior to my seeing her. Describes as muscle spasms. She is in some distress. Will give 1x order of flexeril and defer pain management to ortho surgery. Discussed with pt and she is agreeable to the plan.
[2021-02-09] MEDS: RIVAROXABAN 10 MG TAB PO SCH (08:03)
[2021-02-09] MEDS: CYANOCOBALAMIN 500 MCG TAB PO SCH (08:03)
[2021-02-09] MEDS: VITAMIN E (DL,TOCOPHERYL ACET) 400 UNIT CAP PO SCH (08:03)
[2021-02-09] MEDS: PANTOPRAZOLE 40 MG TABLET PO SCH (08:03)
[2021-02-09 08:12] LABS: Basophils % (A) 0 %; Eosinophils % (A) 0 %; HCT 31.3 % (34.0-46.0); HGB 10.8 gm/dL (11.4-16.0); Lymphocytes # (A) 1.3 k/uL (1.0-4.8); Lymphocytes % (A) 14 %; MCH 31.9 pg (25.0-35.0); MCHC 34.5 g/dL (31.0-37.0); MCV 92.5 fL (80.0-100.0); Mean Platelet Volume 7.3; Monocytes # (A) 0.8 k/uL (0-1.0); Monocytes % (A) 8 %; Neutrophils # (A) 7.3 k/uL (1.3-7.7); Neutrophils % (A) 77 %; Platelet Count 197 k/uL (150-450); RBC 3.38 m/uL (3.80-5.40); RDW 13.1 % (11.5-15.5); WBC 9.5 k/uL (3.8-10.6)
--- NOTE | 2021-02-09 12:51 | P.PN ---
Subjective Progress Note Date: 02/09/21 Principal diagnosis: Displaced subcapital fracture right proximal femur s/p fall postoperative day 1 - right total hip arthroplasty status post displaced subcapital fracture right proximal femur while entering room patient is lying supine in bed. She says her right hip is in pain. She says anytime she moves her leg even the contralateral leg that she gets pain referred to her right hip. She says she has not had anything to eat because she has not felt hungry. she does says she has been passing gas though. patient does say she has been drinking fluids. she says she has been using the incentive spirometer throughout the day. She says she did get up to chair for about an hour earlier this morning. She denies any saddle anesthesia. denies any chest pain, shortness of breath, fever, chills, change in vision. Objective - Vital Signs Vital signs: Vital Signs Temp 98.5 F 02/09/21 11:18 Pulse 95 02/09/21 11:18 Resp 18 02/09/21 11:18 BP 119/70 02/09/21 11:18 Pulse Ox 94 L 02/09/21 11:18 Intake & Output 02/08/21 02/09/21 02/09/21 18:59 06:59 18:59 Intake Total 1200 170 Output Total 675 700 Balance 525 -530 Intake: IV 1200 Intake, IV Titration 170 Amount Lactated Ringers 1,000 ml 120 @ 0 mls/hr IV [facility] Rx#:[id number] ceFAZolin 2 gm In Sodium 50 Chloride 0.9% 50 ml @ 100 mls/hr IVPB Q8HR [facility] Rx# :[id number] Output: Urine 525 700 Estimated Blood Loss 150 Other: Voiding Method Indwelling Catheter Indwelling Catheter Indwelling Catheter - Exam Incision is clean, dry, and intact. The exofin fusion tape is in good condition. There is minimal soft tissue swelling and ecchymosis surrounding the medial and lateral aspects of the incision. Calf is soft, no tenderness with palpation. Plantar flexion, dorsiflexion, EHL, FHL are intact. Sensory exam to light touch throughout the extremity is intact, dorsal pedis pulses 2+. - Labs CBC & Chem 7: 02/09/21 07:10 02/07/21 11:39 Labs: Abnormal Lab Results - Last 24 Hours (Table) 02/09/21 Range/Units 07:10 RBC 3.38 L (3.80-5.40) m/uL Hgb 10.8 L (11.4-16.0) gm/dL Hct 31.3 L (34.0-46.0) % Microbiology - Last 24 Hours (Table) 02/07/21 11:39 Urine Culture - Final Urine,Voided Assessment and Plan Assessment: right total hip arthroplasty status post Displaced subcapital fracture right proximal femur Plan: 1. Displaced subcapital fracture right proximal femur - right total hip arthroplasty performed yesterday, 02/08/2021. Incision site clean, dry, intact. 2. pain management - stable at this time 3. GI prophylaxis/ DVT prophylaxis - continue Xarelto while in hospital. we will monitor blood counts daily 4. appreciate medical management 5. PT/OT - up and out of bed 4 times a day 6. encourage incentive spirometer use 7. discharge planning Time with Patient: Less than 30
[2021-02-09] MEDS: ESCITALOPRAM 20 MG TAB PO SCH (19:33)
[2021-02-09] MEDS: SENNOSIDES-DOCUSATE SODIUM 1 EACH TAB PO SCH (19:33)
[2021-02-09] MEDS: clonazePAM 1 MG TAB PO SCH (22:08)
--- NOTE | 2021-02-09 22:26 | P.PN ---
Subjective Progress Note Date: 02/09/21 Principal diagnosis: Status post right total hip arthroplasty Patient is a 70-year-old female with a known history of COPD, hyperlipidemia, osteoarthritis and history of gastric cancer diagnosed in March 2020 status post resection and chemo currently in remission, previous history of smoking presents to ER status post fall. Patient states that she was walking her dog and chain tangled into her legs and fell on her right hip. Denied any head injury. Denied any right rib cage pain. Denied any loss of consciousness. No palpitations or dizziness or lightheadedness. Denies any recent illnesses. No fever no chills. No cough or sputum production. No nausea vomiting abdominal pain or diarrhea. Denies any dysuria or hematuria. Blood pressure was 149/61 on admission and pulse ox 98% on room air. X-ray of the pelvis showed there is acute impacted subcapital fracture right proximal femur. EKG showed normal sinus rhythm with heart rate 65 Chest x-ray showed no acute cardiopulmonary process. Laboratory data showed WBC 8.9 hemoglobin 12.7 platelets 238 Sodium 142 potassium 4.3 chloride 103 blood glucose is 106 BUN 13 and creatinine 0.63 urinalysis showed large leukocyte esterase and WBCs 14. 02/08/2021 Patient is currently lying in the bed awake alert and oriented but drowsy due to anesthesia. Status post right total hip arthroplasty. Pain is controlled with medications. Patient has been afebrile. Systolic blood pressure is in low 90s. Denies any dizziness or lightheadedness. Urine culture showed no growth. No complaints of chest pain or shortness of. Increase incentive spirometry. Follow-up CBC tomorrow. Patient is tolerating oral diet. 02/09/2021 Patient is postoperative day 1 right total hip arthroplasty. Patient was admitted with fall and found to have displaced subcapital fracture of the right proximal femur. Patient is currently resting in the bed. Complains of pain unable to move her right hip. No complaints of nausea vomiting abdominal pain or diarrhea. Patient is able to be use incentive spirometry. Patient was able to get out of bed. No complaints of chest pain or shortness of breath. Patient has been afebrile. Laboratory showed WBC 9.5 hemoglobin 10.8. Urine culture showed no growth. Current medications reviewed. Objective - Vital Signs Vital signs: Vital Signs Temp 98.2 F 02/09/21 20:00 Pulse 82 02/09/21 20:00 Resp 16 02/09/21 20:00 BP 138/72 02/09/21 20:00 Pulse Ox 99 02/09/21 20:00 Intake & Output 02/09/21 02/09/21 02/10/21 06:59 18:59 06:59 Intake Total 170 Output Total 700 1300 Balance -530 -1300 Intake: Intake, IV Titration 170 Amount Lactated Ringers 1,000 ml 120 @ 0 mls/hr IV .[facility] Rx#:[id number] ceFAZolin 2 gm In Sodium 50 Chloride 0.9% 50 ml @ 100 mls/hr IVPB Q8HR [facility] Rx# :[id number] Output: Urine 700 1300 Other: Voiding Method Indwelling Catheter Indwelling Catheter - Exam PHYSICAL EXAMINATION: Patient is lying in the bed comfortably, no acute distress, awake alert and oriented.. HEENT: Normocephalic. Neck is supple. Pupils reactive. Nostrils clear. Oral cavity is moist. Ears reveal no drainage. Neck reveals no JVD, carotid bruits, or thyromegaly. CHEST EXAMINATION: Trachea is central. Symmetrical expansion. Bibasilar diminished sounds otherwise Lung yip clear to auscultation and percussion. CARDIAC: Normal S1, S2 with no gallops. No murmurs ABDOMEN: Soft. Bowel sounds normal. No organomegaly. No abdominal bruits. Extremities: reveal no edema. No clubbing or cyanosis Neurologically awake, alert, oriented x3 with well-coordinated movements. No focal deficits noted Skin: No rash or skin lesions. Psychiatric: Coperative. Nonsuicidal Musculoskeletal: No joint swelling or deformity. Tenderness over the right greater trochanter. Decreased range of motion of the right hip..surgical site packed - Labs CBC & Chem 7: 02/09/21 07:10 02/07/21 11:39 Labs: Abnormal Lab Results - Last 24 Hours (Table) 02/09/21 Range/Units 07:10 RBC 3.38 L (3.80-5.40) m/uL Hgb 10.8 L (11.4-16.0) gm/dL Hct 31.3 L (34.0-46.0) % Microbiology - Last 24 Hours (Table) 02/07/21 11:39 Urine Culture - Final Urine,Voided Assessment and Plan Assessment: Status post mechanical fall subcapital fracture of right proximal femur.Status post right total hip arthroplasty on 02/08/21 COPD with prior history of smoking Hyperlipidemia Osteoarthritis Gastric cancer diagnosed in December 2019 status post resection and chemo currently in remission. Anxiety/depression Prior history of smoking DVT prophylaxis on Xarelto Plan: Patient will be continued on pain management, bowel regimen. continue on incentive spirometry. Avoid IV narcotic pain medication due to hypotension. Continue with home medications and GI/DVT prophylaxis. further recommendations based on the clinical course. We will continue to follow with you. Time with Patient: Greater than 30
[2021-02-10] MEDS: VITAMIN E (DL,TOCOPHERYL ACET) 400 UNIT CAP PO SCH (08:51)
[2021-02-10] MEDS: RIVAROXABAN 10 MG TAB PO SCH (08:51)
[2021-02-10] MEDS: PANTOPRAZOLE 40 MG TABLET PO SCH (08:51)
[2021-02-10] MEDS: CYANOCOBALAMIN 500 MCG TAB PO SCH (08:51)
--- NOTE | 2021-02-10 09:21 | P.PN ---
Subjective Progress Note Date: 02/10/21 Principal diagnosis: Displaced subcapital fracture right proximal femur s/p fall postoperative day 1 - right total hip arthroplasty status post displaced subcapital fracture right proximal femur On entering room, patient is lying semirecumbent in bed. She says she is doing a little bit better. She says yesterday she was able to get up and out of bed with assistance using walker 2 separate times and sitting in chair. She says she has been able to eat something and she was eating breakfast when I entered the room. She does say she has been using incentive spirometer. She denies any saddle anesthesia denies any chest pain, shortness of breath, fever, chills, change in vision Objective - Vital Signs Vital signs: Vital Signs Temp 98.5 F 02/10/21 04:10 Pulse 85 02/10/21 04:10 Resp 18 02/10/21 04:10 BP 129/74 02/10/21 04:10 Pulse Ox 99 02/10/21 04:10 Intake & Output 02/09/21 02/10/21 02/10/21 18:59 06:59 18:59 Intake Total 290 Output Total 1300 1000 Balance -1300 -710 Intake: Oral 290 Output: Urine 1300 1000 Uretheral ([place]) 1000 Other: Voiding Method Indwelling Catheter Indwelling Catheter - Exam Incision is clean, dry, and intact. The exofin fusion tape is in good condition. There is minimal soft tissue swelling and ecchymosis surrounding the medial and lateral aspects of the incision. Calf is soft, no tenderness with palpation. Plantar flexion, dorsiflexion, EHL, FHL are intact. Sensory exam to light touch throughout the extremity is intact, dorsal pedis pulses 2+. Patient is able to forward elevate the right leg pff of bed about 10 more than yesterday - Labs CBC & Chem 7: 02/09/21 07:10 02/07/21 11:39 Assessment and Plan Assessment: right total hip arthroplasty status post Displaced subcapital fracture right proximal femur Plan: 1. Displaced subcapital fracture right proximal femur - right total hip arthroplasty performed 02/08/2021. Incision site clean, dry, intact. 2. pain management - stable at this time 3. GI prophylaxis/ DVT prophylaxis - continue Xarelto while in hospital. we will monitor blood counts daily 4. appreciate medical management 5. PT/OT - up and out of bed 4 times a day 6. encourage incentive spirometer use 7. discharge planning Time with Patient: Less than 30
--- NOTE | 2021-02-10 10:27 | P.PN ---
Subjective Progress Note Date: 02/10/21 Principal diagnosis: Right hip fracture, status post orthopedic intervention Status post orthopedic intervention for right hip fracture after a fall. Patient completed treatment for gastric cancer a few months ago, is currently on surveillance, her scans last month showed no evidence of disease. In follow-up she is still experiencing pain but, she is anxious to get moving with some rehabilitation. She is on prophylactic postoperative dose of anticoagulation, she denies any acute bleeding. No other complaints. Objective - Vital Signs Vital signs: Vital Signs Temp 98.5 F 02/10/21 04:10 Pulse 85 02/10/21 04:10 Resp 18 02/10/21 04:10 BP 129/74 02/10/21 04:10 Pulse Ox 99 02/10/21 04:10 Intake & Output 02/09/21 02/10/21 02/10/21 18:59 06:59 18:59 Intake Total 290 Output Total 1300 1000 Balance -1300 -710 Intake: Oral 290 Output: Urine 1300 1000 Uretheral (Wilks) 1000 Other: Voiding Method Indwelling Catheter Indwelling Catheter Indwelling Catheter - Constitutional General appearance: Present: average body habitus, cooperative, no acute distress - EENT Eyes: Present: anicteric sclerae, EOMI ENT: Present: hearing grossly normal - Respiratory Respiratory: bilateral: CTA - Cardiovascular Heart sounds: normal: S1, S2 - Peripheral edema leg Peripheral Edema: bilateral: None - Gastrointestinal General gastrointestinal: Present: normal bowel sounds, soft - Neurologic Neurologic: Present: CNII-XII intact - Musculoskeletal Musculoskeletal: Present: generalized weakness - Psychiatric Psychiatric: Present: A&O x's 3, appropriate affect, intact judgment & insight - Labs CBC & Chem 7: 02/09/21 07:10 02/07/21 11:39 Assessment and Plan (1) Fall Current Visit: Yes Status: Acute Priority: High Code(s): W19.XXXA - UNSPECIFIED FALL, INITIAL ENCOUNTER SNOMED Code(s): 2053014 (2) Fracture of right hip requiring operative repair Narrative/Plan: Defer to Orthopedics for management of the same. Current Visit: Yes Status: Acute Priority: High Code(s): S72.001A - FRACTURE OF UNSP PART OF NECK OF RIGHT FEMUR, INIT SNOMED Code(s): 390221589 (3) Gastric adenocarcinoma Narrative/Plan: Patient's history of gastric cancer, status post treatment, currently on surveillance. Imaging last month, no evidence of disease. Plan is to continue follow-up and imaging as scheduled. Agree with postoperative anticoagulation. No need for full dose as patient does not have an active malignancy. Patient's CBC has remained fairly stable postoperatively. Continue to monitor. Bone marrow may have delayed response secondary to history of chemotherapy as well as additional stress including fracture and surgery. Current Visit: No Status: Chronic Priority: Low Code(s): C16.9 - MALIGNANT NEOPLASM OF STOMACH, UNSPECIFIED SNOMED Code(s): 857242253 Plan: Doctor attests: I performed a history and physical examination of this patient, developed impression and plan of care. Discussed with dictator. I agree with dictators note, documented as a scribe.
[2021-02-10] MEDS: HYDROcodone/APAP 5-325MG 1 EACH TAB PO PRN ×2 (18:03→21:59)
[2021-02-10 20:02] VITALS: RESP 16
[2021-02-10] MEDS: ESCITALOPRAM 20 MG TAB PO SCH (22:00)
[2021-02-10] MEDS: SENNOSIDES-DOCUSATE SODIUM 1 EACH TAB PO SCH (22:00)
[2021-02-10] MEDS: clonazePAM 1 MG TAB PO SCH (23:21)
[2021-02-11 04:30] VITALS: TEMP 98.7
[2021-02-11 07:04] LABS: Basophils % (A) 0 %; Eosinophils # (A) 0.1 k/uL (0-0.7); Eosinophils % (A) 1 %; HCT 27.8 % (34.0-46.0); HGB 9.7 gm/dL (11.4-16.0); Lymphocytes # (A) 1.6 k/uL (1.0-4.8); Lymphocytes % (A) 20 %; MCHC 34.8 g/dL (31.0-37.0); MCV 91.8 fL (80.0-100.0); Monocytes # (A) 0.5 k/uL (0-1.0); Monocytes % (A) 6 %; Neutrophils # (A) 5.6 k/uL (1.3-7.7); Neutrophils % (A) 71 %; Platelet Count 210 k/uL (150-450); RBC 3.03 m/uL (3.80-5.40); WBC 7.9 k/uL (3.8-10.6)
--- NOTE | 2021-02-11 07:37 | P.PN ---
Subjective Progress Note Date: 02/11/21 Principal diagnosis: status post right total hip arthroplasty Patient was evaluated today at bedside, she was sleeping upon arrival, she was easily awoken. I was contacted by nursing staff history regarding the need to keep the Wilks and due to her need for assistance with getting out of bed. I discussed the patient today that we need to start moving more, the urinary catheter will be discontinued this morning. We'll discontinue the IV narcotics. She remains on a low-dose [place] at this time. We discussed weight-bear as tolerated, out of bed for all meals. Our plan is for discharge to rehab today. Patient denies any headaches, lightheadedness, chest pain, shortness of breath, nausea vomiting, fever or chills. Objective - Vital Signs Vital signs: Vital Signs Temp 98.7 F 02/11/21 04:27 Pulse 72 02/11/21 04:27 Resp 16 02/11/21 04:27 BP 92/59 02/11/21 04:27 Pulse Ox 98 02/11/21 04:27 Intake & Output 02/10/21 02/11/21 02/11/21 18:59 06:59 18:59 Intake Total 400 Output Total 1775 1400 Balance -1775 -1000 Intake: Oral 400 Output: Urine 1775 1400 Uretheral (Wilks) 700 Other: Voiding Method Indwelling Catheter Indwelling Catheter - Exam Right lower extremity: Incision is clean, dry, and intact. The exofin fusion tape is in good condition. There is minimal soft tissue swelling and ecchymosis surrounding the medial and lateral aspects of the incision. Calf is soft, no tenderness with palpation. Plantar flexion, dorsiflexion, EHL, FHL are intact. Sensory exam to light touch throughout the extremity is intact, dorsal pedis pulses 2+. - Labs CBC & Chem 7: 02/11/21 06:34 02/07/21 11:39 Labs: Abnormal Lab Results - Last 24 Hours (Table) 02/11/21 Range/Units 06:34 RBC 3.03 L (3.80-5.40) m/uL Hgb 9.7 L (11.4-16.0) gm/dL Hct 27.8 L (34.0-46.0) % Assessment and Plan Assessment: Postoperative day #3 status post right total hip arthroplasty Plan: Pain control, plan for discharge on [place] 5 mg/325 mg GI and DVT prophylaxis, Eliquis 10 mg daily for 28 days Wound care instructions, please keep the exofin covered and dry while showering Weight-bear as tolerated with walker, posterior hip precautions Anticipated daily therapy at subacute rehab Medical recommendations Discharge planning: Plan for discharge today Time with Patient: Less than 30
[2021-02-11] MEDS: HYDROcodone/APAP 5-325MG 1 EACH TAB PO PRN (09:08)
[2021-02-11] MEDS: CYANOCOBALAMIN 500 MCG TAB PO SCH (09:09)
[2021-02-11] MEDS: PANTOPRAZOLE 40 MG TABLET PO SCH (09:09)
[2021-02-11] MEDS: VITAMIN E (DL,TOCOPHERYL ACET) 400 UNIT CAP PO SCH (09:09)
[2021-02-11] MEDS: RIVAROXABAN 10 MG TAB PO SCH (09:09)
[2021-02-11 11:47] VITALS: BP 95/61; PULSE 76
--- NOTE | 2021-02-12 13:22 | P.DS ---
Providers Date of admission: 02/07/21 11:45 Expected date of discharge: 02/11/21 Attending physician: Wilton Reed Consults: 02/07/21 11:43 Consult Physician Urgent Consulting Provider: Adam Palacios Consult Reason/Comments: Surgical clearance Do you want consulting provider notified?: Yes 02/08/21 10:55 Consult Physician Routine Consulting Provider: Aliyah Fink Consult Reason/Comments: Medical Management Do you want consulting provider notified?: Yes 02/08/21 10:56 Consult Physician Routine Consulting Provider: Nisha Bay Consult Reason/Comments: Medical Management - s/p right total hip arthroplasty Do you want consulting provider notified?: Yes Primary care physician: Aliyah Fink Hospital Course: Date of admission: 02/07/2021 Date of discharge: 02/11/2021 Admission diagnosis: Displaced right subcapital femur fracture Discharge diagnosis: Status post right total hip arthroplasty Attending physician: Dr. Reed Surgical procedures: Right total hip arthroplasty Brief history: Patient is a 70-year-old female who presented to [facility] after tripping over her dog at home and injuring her right lower extremity. It was determined after imaging test that the patient had a displaced subcapital femur fracture on the right side. She was admitted under orthopedic care with plan for surgical intervention. Hospital course: Details of patient's surgery can be found in operative report. Patient tolerated the procedure well and was subsequently transported to orthopedic floor. Patient's orthopeidc and medical care was provided daily. Patient had daily laboratory tests performed for evaluation of overall blood counts. Patient had daily physical therapy to include strengthening range of motion as well as education with walker ambulation. Patient was treated with Xarelto for their postoperative DVT prophylaxis during their inpatient stay. Patient was noted to have a relatively uneventful postoperative course. Patient reported satisfactory pain control with oral pain medications by postoperative day 0. Patient showed satisfactory progress with physical therapy. Patient moved steadily through the program and had no difficulty meeting the goals by postoperative day 1. Given patient's otherwise satisfactory course and having met physical therapy goals, plan is to discharge patient rehab on postoperative day 3. Discharge condition/disposition: Patient will be discharged to rehab in stable condition. Discharge medications: Instructions are given on resumption of patient's normal daily medications per primary care recommendation, in addition patient will be prescribed [place] 5 mg/325 mg, Xarelto 10 mg, Colace 100 mg. Discharge instructions: 1. Wound care and infection precautions, keep incision dry and covered while showering, no lotions, creams, moisturizers. No soaking, tubs, pools, hottubs. Do not scrub over the incision. 2. Weight-bear as tolerated with walker / cane until follow-up. Posterior hip precautions, this to include no sleeping on the right side, do not cross the right leg, avoid flexion of the hip past 90, avoid deep-seated chairs 3. Ice and elevate when necessary. Do not exceed 20 minutes per hour with ice pack. 4. Utilize compression sleeve until seen at first follow up appointment. 5. Visiting nursing care. 6. Home physical therapy. 7. Pain meds and anticoagulants per prescription. 8. Pain medication has potential to cause constipation. Increase oral fluid and fiber intake. Contact primary care provider if you have not had a bowel movement within 48 hours after discharge 9. No anti-inflammatory medication until discussed at first post operative visit, this including Motrin, Aleve, Mobic, Diclofenac. 10. Follow up in office at 2 weeks postop with Micah Pa PA-C/Ish Boyce 11. Follow up with your primary care doctor 7-10 days after discharge. 12. Contact [facility] with any questions, . Procedures: Right total hip arthroplasty, lateral approach Patient Condition at Discharge: Good Plan - Discharge Summary New Discharge Prescriptions: New HYDROcodone/APAP 5-325MG [[place] 5-325] 1 tab PO Q6HR PRN #28 tab PRN Reason: Pain Rivaroxaban [Xarelto] 10 mg PO DAILY #28 tab Docusate [Colace] 100 mg PO DAILY #30 capsule Ferrous Sulfate [Feosol] 325 mg PO DAILY #30 tab Continue Vitamin E 400 unit PO DAILY Pantoprazole Sodium [Protonix] 40 mg PO DAILY Cyanocobalamin (Vitamin B-12) [Vitamin B-12] 1,000 mcg PO DAILY Escitalopram Oxalate [Lexapro] 40 mg PO HS clonazePAM [KlonoPIN] 1 mg PO HS #3 tab Discharge Medication List Cyanocobalamin (Vitamin B-12) [Vitamin B-12] 1,000 mcg PO DAILY 02/07/21 [History] Escitalopram Oxalate [Lexapro] 40 mg PO HS 02/07/21 [History] Pantoprazole Sodium [Protonix] 40 mg PO DAILY 02/07/21 [History] Vitamin E 400 unit PO DAILY 02/07/21 [History] Docusate [Colace] 100 mg PO DAILY #30 capsule 02/11/21 [Rx] Ferrous Sulfate [Feosol] 325 mg PO DAILY #30 tab 02/11/21 [Rx] HYDROcodone/APAP 5-325MG [[place] 5-325] 1 tab PO Q6HR PRN #28 tab 02/11/21 [Rx] Rivaroxaban [Xarelto] 10 mg PO DAILY #28 tab 02/11/21 [Rx] clonazePAM [KlonoPIN] 1 mg PO HS #3 tab 02/11/21 [Rx] Follow up Appointment(s)/Referral(s): Aliyah Fink MD [Primary Care Provider] - 1-2 days Richy Pa PAC [PHYSICIAN VISUAL MANAGER] - 2 Weeks Nisha Bay MD [STAFF PHYSICIAN] - 02/18/21 9:00 am Activity/Diet/Wound Care/Special Instructions: Orthopedic Discharge Instructions: 1. Wound care and infection precautions, keep incision dry and covered while showering, no lotions, creams, moisturizers. No soaking, pools, hot tubs. Do not scrub over incision. 2. Weight-bear as tolerated with walker / cane until follow-up. 3. Ice and elevate when necessary. Do not exceed 20 minutes per hour with ice pack. 4. Utilize compression sleeve until seen at first follow up appointment. 5. Pain meds and anticoagulants per prescription. 6. Pain medication has potential to cause constipation. Increase oral fluid and fiber intake. Contact primary care provider if you have not had a bowel movement within 48 hours after discharge. 7. No anti-inflammatory medication until discussed at first post operative visit, this including Motrin, Aleve, Mobic, Diclofenac. 8. Follow up in office at 2 weeks postop with Micah Pa PA-C/Ish Blackburn PA-C 9. Follow up with your primary care doctor 7-10 days after discharge. 10. Contact [facility] with any questions, . Posterior hip precautions: 1. Avoid bending the waist 2. Avoid deep-seated chairs 3. Do not sleep on the right side 4. Avoid crossing the legs Discharge Disposition: TRANSFER TO SNF/ECF
== END 2021-02-11 14:30 | DRG 522 ==
LOC: EC 10:00 → 5NMEDONC 11:45
PROVIDERS: ADMIT Orthopaedic Surgery; ATTEND Orthopaedic Surgery
PROC: 0SR90JA Replacement of Right Hip Joint with Synthetic Substitute, Uncemented, Open Approach (ICD-10-PCS; principal; 2021-02-08 08:30)
DX: S72.011A Unspecified intracapsular fracture of right femur, initial encounter for closed fracture (principal); W01.0XXA Fall on same level from slipping, tripping and stumbling without subsequent striking against object, initial encounter; Z85.028 Personal history of other malignant neoplasm of stomach; Z87.891 Personal history of nicotine dependence; Z92.21 Personal history of antineoplastic chemotherapy; E78.5 Hyperlipidemia, unspecified; F32.9 Major depressive disorder, single episode, unspecified; F40.240 Claustrophobia; F41.9 Anxiety disorder, unspecified; M19.90 Unspecified osteoarthritis, unspecified site; J44.9 Chronic obstructive pulmonary disease, unspecified; Z79.899 Other long term (current) drug therapy; Z80.0 Family history of malignant neoplasm of digestive organs; Z80.3 Family history of malignant neoplasm of breast; Z86.010 Personal history of colon polyps; Z20.822 Contact with and (suspected) exposure to COVID-19; Z83.2 Family history of diseases of the blood and blood-forming organs and certain disorders involving the immune mechanism; Z87.440 Personal history of urinary (tract) infections; Z90.89 Acquired absence of other organs; Z90.49 Acquired absence of other specified parts of digestive tract
CPT/HCPCS: 36415; 71045; 73501; 73502; 80053; 81001; 85025; 85610; 85730; 87086; 87635; 88305; 88311; 93005; 94760; 96374; 99285

== ENCOUNTER → 2021-04-09 | Outpatient (CLI) | payer MEDICARE, OTHER ==
[2021-04-09 09:39] LABS: African American GFR (CKD) >90 (>60 ml/min/1.73 sqM); Blood Urea Nitrogen 10 mg/dL (7-17); Non-African American GFR(CKD) >90 (>60 ml/min/1.73 sqM)
--- NOTE | 2021-04-09 11:50 | CT ---
EXAMINATION TYPE: CT ChestAbdPelvis w con DATE OF EXAM: 04/09/2021 COMPARISON: 01/07/2021 HISTORY: follow up stomach cancer CT DLP: 532.4 mGycm CONTRAST: CT scan of the chest, abdomen and pelvis is performed with Oral Contrast and with IV Contrast, patien t injected with 100 mL of Isovue 300. CT Chest: LUNGS: The lungs are clear and free of infiltrate or atelectasis. Parenchymal scar left lower lobe. No pulmonary nodule or mass is detected. No pleural effusion or CT evidence of interstitial lung dis ease. MEDIASTINUM: Thoracic aorta is of normal caliber. The heart is not enlarged. No evidence for media stinal mass or adenopathy. HILAR STRUCTURES: No evidence for mass. No hilar adenopathy is appreciated. OTHER: No significant abnormality. CONTRAST CT ABDOMEN AND PELVIS FINDINGS: LIVER/GB: The gallbladder is surgically absent. All No space occupying hepatic lesion. Biliary tree i s of normal caliber. PANCREAS: No inflammation. No distinct mass. SPLEEN: No splenic enlargement. No lesion seen. ADRENALS: Bilateral adrenal nodularity is stable. KIDNEYS/BLADDER: No hydronephrosis. No nephrolithiasis. No disctinct renal mass. BOWEL: Partial gastrectomy changes redemonstrated. Normal appendix. Normal bowel caliber. No inflam mation. GENITAL ORGANS: No gross abnormality. LYMPH NODES: No greater than 1cm abdominal or pelvic lymph nodes are appreciated. AORTA: No significant abnormality. OSSEOUS STRUCTURES: Right hip prosthesis is in place. Severe degenerative change lumbar spine. OTHER: No significant additional abnormality is seen. IMPRESSION: 1. Stable appearance of the chest abdomen and pelvis without evidence for metastatic disease.
== END | disposition home or self-care (01) ==
LOC: RADCTMAIN 08:51
PROVIDERS: ATTEND Internal Medicine Hematology & Oncology
DX: C16.9 Malignant neoplasm of stomach, unspecified (principal)
CPT/HCPCS: 82565; 84520; 71260; 74177; J1642; Q9967

== ENCOUNTER → 2021-09-01 | Outpatient (CLI) | payer MEDICARE, OTHER ==
--- NOTE | 2021-09-01 14:44 | BD ---
EXAMINATION TYPE: Axial Bone Density DATE OF EXAM: 09/01/2021 COMPARISON: NONE CLINICAL HISTORY: Height: 5 FT 5 IN Weight: 128 FRAX RISK QUESTIONS: Alcohol (3 or more units per day): NO Family History (Parent hip fracture): NO Glucocorticoids (More than 3mos): NO (Ex: prednisone, prednisolone, methylprednisolone, dexamethasone, and hydrocortisone). History of Fracture in Adulthood: YES Secondary Osteoporosis: 1. Type 1 Diabetes: NO 2. Hyperthyroidism: NO 3. Menopause before 45: YES 4. Malnutrition: NO 5. Chronic liver disease: NO Rheumatoid Arthritis: NO Current Tobacco Use: NO RISK FACTORS HISTORY OF: Hip Fracture (Right/Left): RT HIP When: 2020 Surgery to Spine/Hip(right/left)/Wrist (right/left): RT HIP 2020 Family History of Osteoporosis: NO Active: YES Diet low in dairy products/other sources of calcium: NO Postmenopausal woman: YES Take estrogen and/or progesterone medications: TOOK HRT FOR APPROX 2 YEARS Lost more than 2 inches in height since high school: YES Frequent falls: NO Poor Health: GOOD Hyperparathyroidism: NO Adrenal Insufficiency: NO MEDICATIONS: Additional Medications: LOVASTATAN,EFFEXOR, PANTOPRAZOLE, XERALTO, B12,ALBUTEROL, Additional History: STOMACH CANCER 2020 CHEMO EXAM MEASUREMENTS: Bone mineral densitometry was performed using the Topera System. Bone mineral density as measured about the Lumbar spine is: ----- L1-L4(G/cm2): 1.072 T Score Values are as follows: ----- L2: -1.4 ----- L3: -0.4 ----- L4: -0.2 ----- L1-L4: -0.9 Bone mineral density has: DECREASED -9.3 % since study of: 2012 Bone mineral density about the L hip (g/cm2): 0.750 T Score values are as follows: -----L Neck: -2.1 -----L Total: -1.6 Bone mineral density has: DECREASED -6.6 % since study of: 2013 IMPRESSION: Osteopenia NOTE: T-SCORE=SD OF THE YOUNG ADULT MEAN.
--- NOTE | 2021-09-05 12:37 | MM ---
Reason for exam: screening (asymptomatic). Last mammogram was performed 2 years and 2 months ago. History: Patient is postmenopausal and history of other cancer. Family history of premenopausal breast cancer in sister at age 48. Benign right US cyst aspiration of the right breast, August 31, 2006. Benign stereotactic core biopsy of the left breast, November 21, 2001. 3 cyst aspirations of the left breast. Cyst aspiration of the right breast. Core biopsy of the left breast. Took estrogen for 2 years 3 months beginning at age 54. Took progesterone for 2 years 3 months beginning at age 54. Physical Findings: A clinical breast exam by your physician is recommended on an annual basis and results should be correlated with mammographic findings. MG 3D Screening Mammo W/Cad Bilateral CC and MLO view(s) were taken. Prior study comparison: February 22, 2013, CAD bilateral diagnostic mammogram. November 18, 2009, bilateral digital screening mammogram. The breast tissue is heterogeneously dense. This may lower the sensitivity of mammography. Previous mammotome biopsy in the left breast. No significant changes when compared with prior studies. ASSESSMENT: Benign, BI-RAD 2 RECOMMENDATION: Routine screening mammogram of both breasts in 1 year.
== END | disposition home or self-care (01) ==
LOC: RADMAMWWP 09:53
PROVIDERS: ATTEND Family Medicine
DX: Z12.31 Encounter for screening mammogram for malignant neoplasm of breast (principal); M85.89 Other specified disorders of bone density and structure, multiple sites; Z78.0 Asymptomatic menopausal state; Z80.3 Family history of malignant neoplasm of breast
CPT/HCPCS: 77063; 77067; 77080

== ENCOUNTER → 2021-09-01 | Outpatient (CLI) | payer MEDICARE, OTHER ==
[2021-09-01 11:51] LABS: African American GFR (CKD) >90 (>60 ml/min/1.73 sqM); Blood Urea Nitrogen 13 mg/dL (7-17); Non-African American GFR(CKD) >90 (>60 ml/min/1.73 sqM)
--- NOTE | 2021-09-03 20:52 | CT ---
EXAMINATION TYPE: CT ChestAbdPelvis w con DATE OF EXAM: 09/01/2021 INDICATION: Stomach carcinoma COMPARISON: 04/09/2021 CT DLP: 491.9 mGycm CONTRAST: Performed with Oral Contrast and with IV Contrast, patient injected with 100 mL of Isovue 300. TECHNIQUE: Axial images at 5 mm thick sections. Reconstructed images in the coronal plane. Delayed images through the kidneys. FINDINGS: CT CHEST: Portion of the thyroid visualized is normal. No suspicious lung nodules or focal infiltrates are present. No enlarged mediastinal or hilar adenopathy is evident. The ascending aorta diameter at the level of the main pulmonary artery is 3.4 cm. The main pulmonary artery diameter at the bifurcation is 2.6 cm. Mild coronary artery calcification is present CT ABDOMEN: There is diffuse thickening through the stomach. Stomach is nondistended which may limit the evaluation. Partial gastrectomy is evident distal stomach. Findings appear stable from comparison . Liver: Normal Spleen: Normal Pancreas: Normal Adrenal glands: Left adrenal gland is mildly prominent 1.2 cm. This is stable comparison. Right adren al may contain a small nodule inferiorly with a transverse dimension of 0.8 cm. Gallbladder: Not identified. Kidneys: No masses are evident. No hydronephrosis is present. No cysts are present. Delayed images were obtained through the kidneys, which remain unremarkable. Aorta: Vascular calcification is within the aorta. Inferior vena cava: Normal. CT PELVIS: Loops of bowel within the abdomen and pelvis are normal. Scattered diverticula within sigmoid colon There is incomplete distention of the sigmoid colon. Some mild colitis of the proximal sigmoid colon is not excluded. There are loops of bowel which are incompletely distended or lack oral contrast herrera iting their evaluation. Appendix: Not identified. No dilated tubular structure or inflammatory changes are evident. Urinary bladder: Normal. Genitourinary structures: Uterus is normal. Adnexa are normal. Osseous structures: No suspicious lytic or sclerotic lesions. The margin artifact from the right hip prosthesis is noted. Sacroiliac joints is some degenerative change. IMPRESSIONS: 1. Nondistended stomach may have some thickening through the fundus. Findings however are stable over the interval. Postsurgical changes are within the stomach. 2. No suspicious changes for metastatic gastric cancer.
== END | disposition home or self-care (01) ==
LOC: RADPROMAIN 09:22
PROVIDERS: ATTEND Internal Medicine Hematology & Oncology
DX: C16.3 Malignant neoplasm of pyloric antrum (principal)
CPT/HCPCS: 82565; 84520; 71260; 74177; J1642; Q9967

== ENCOUNTER → 2021-09-08 | Outpatient (CLI) | payer MEDICARE, OTHER ==
--- NOTE | 2021-09-10 08:49 | P.ARTDOP ---
Arterial Doppler LOWER EXTREMITY ARTERIAL DOPPLER: DATE OF SERVICE: 09/08/2021 Reason for study: Foot discoloration and decreased pressures. Doppler waveforms: Multiphasic bilaterally throughout.. Pulse volume recording: []. Pressure gradients: Mild gradient across the knee bilaterally. Ankle-brachial indices: 0.85 on the right and 0.82 on the left. Toe brachial indices: 0.62 on the right, 0.67 on the left Impression: Mild bilateral fem-pop disease. Tissue perfusion adequate for healing. Clinical correlation recommended..
== END | disposition home or self-care (01) ==
LOC: RADUSWWP 12:36
PROVIDERS: ATTEND Family Medicine
DX: R09.89 Other specified symptoms and signs involving the circulatory and respiratory systems (principal)
CPT/HCPCS: 93923

== ENCOUNTER 2021-09-23 07:57 | Day surgery (SDC) | payer MEDICARE, OTHER ==
[2021-09-19 10:11] VITALS: BMI 21.2
[~2021-09-23 07:57] MED LIST: LACTATED RINGERS 1,000 ML IV SCH; LIDOCAINE 1% (10MG/ML) FOR IV START INTRADERMA PRN
[2021-09-23 08:26] VITALS: RESP 16; TEMP 96.8
[2021-09-23] MEDS ORDERED: PROPOFOL 10 MG/ML 20 ML VIAL IV ONE (09:06)
--- NOTE | 2021-09-23 09:11 | P.GSHP ---
History of Present Illness H&P Date: 09/23/21 Chief Complaint: GERD, nausea 71-year-old female with history of gastric cancer. Underwent surgery last year in [place]. He has had persistent nausea and occasional episodes of vomiting since that procedure. Symptoms may have been worse lately. Also described some dysphasia. Past Medical History Past Medical History: Cancer, COPD, Hyperlipidemia, Osteoarthritis (OA) Additional Past Medical History / Comment(s): 03/2020 diagnosed with stomach cancer/had resection and chemo and is currently in remission/sees Dr. Bay every 6 weeks, hemorroids, UTIs, hx stomach ulcer History of Any Multi-Drug Resistant Organisms: None Reported Past Surgical History: Breast Surgery, Cholecystectomy, Joint Replacement, Orthopedic Surgery, Tonsillectomy Additional Past Surgical History / Comment(s): stomach resection, R upper chest port/later removed, EGD, colonoscopies, bilateral breast benign biopsies, RK bilateral eyes, rt hip replacement Past Anesthesia/Blood Transfusion Reactions: Motion Sickness Additional Past Anesthesia/Blood Transfusion Reaction / Comment(s): Pt has claustrophobia Smoking Status: Former smoker - Past Family History Father Family Medical History: Cancer, Deep Vein Thrombosis (DVT) Additional Family Medical History / Comment(s): Stomach cancer. Father of blood clot that travelled to his heart. Mother Family Medical History: Cancer Additional Family Medical History / Comment(s): Bone cancer Sister(s) Family Medical History: Cancer Additional Family Medical History / Comment(s): Breast cancer Medications and Allergies Home Medications Medication Instructions Recorded Confirmed Type Cyanocobalamin (Vitamin B-12) 1,000 mcg PO DAILY 02/07/21 09/19/21 History [Vitamin B-12] Vitamin E 400 unit PO DAILY 02/07/21 09/19/21 History Calcium +D3 1 tab PO DAILY 09/19/21 09/19/21 History [place] 3 1 cap PO DAILY 09/19/21 09/19/21 History Omeprazole 20 mg PO QAM 09/19/21 09/19/21 History Pramipexole Di-HCl [Mirapex] 0.125 mg PO HS 09/19/21 09/23/21 History Venlafaxine HCl [Effexor] 75 mg PO QAM 09/19/21 09/19/21 History Allergies Allergy/AdvReac Type Severity Reaction Status Date / Time No Known Allergies Allergy Verified 09/19/21 09:59 Surgical - Exam Vital Signs Temp Pulse Resp BP Pulse Ox 96.8 F L 82 16 121/70 97 09/23/21 08:25 09/23/21 08:25 09/23/21 08:25 09/23/21 08:25 09/23/21 08:25 Physical exam: General: Well-developed, well-nourished HEENT: Normocephalic, sclerae nonicteric Abdomen: Nontender, nondistended Extremities: No edema Neuro: Alert and oriented Assessment and Plan (1) Intractable nausea and vomiting Narrative/Plan: Will proceed with upper endoscopy at this time. Current Visit: Yes Status: Acute Code(s): R11.2 - NAUSEA WITH VOMITING, UNSPECIFIED SNOMED Code(s): 600486684
--- NOTE | 2021-09-23 09:19 | P.PCN ---
Date of Procedure: 09/23/21 Procedure(s) Performed: Preoperative Dx: Intractable nausea with history of cancer Postoperative Dx: Gastritis, Roman's esophagus Procedure: EGD with Bx Anesthesia: Sedation Endoscopist: Dr. Fink Specimens: Body of stomach, Roman's esophagus Endoscopic Procedure: The patient was on the endoscopy table in the left decubitus position. The Olympus gastroscope was inserted into the oropharynx and passed under direct visualization to the loop gastrojejunostomy. Both limbs of the jejunum appeared normal. The anastomosis was widely patent. Her was no evidence of marginal ulceration. The patient had a moderate amount of bile within the stomach. The distal aspect of the body of the stomach revealed mild inflammatory changes without ulcerations. Biopsies were taken. Retroflexion revealed a normal hiatus. The patient's esophagus was examined. There was a 2.5 cm length section of Roman's esophagus without inflammation or nodularity. Biopsies were taken. The remainder the esophagus appeared normal without evidence of neoplastic inflammatory or stricture. The patient was then taken to the recovery room in stable condition per anesthesia guidelines. Recommendations: Await biopsy results. Continue antiacid therapy. Add Carafate.
[2021-09-23 09:44] VITALS: BP 125/82; PULSE 68
== END 2021-09-23 10:30 | disposition home or self-care (01) ==
LOC: ORWHC2ENDO 07:57
PROVIDERS: ATTEND Surgery
DX: K22.70 Barrett's esophagus without dysplasia (principal); K29.70 Gastritis, unspecified, without bleeding; E61.1 Iron deficiency; G25.81 Restless legs syndrome; F41.9 Anxiety disorder, unspecified; K21.9 Gastro-esophageal reflux disease without esophagitis; J44.9 Chronic obstructive pulmonary disease, unspecified; E78.5 Hyperlipidemia, unspecified; M19.90 Unspecified osteoarthritis, unspecified site; Z87.440 Personal history of urinary (tract) infections; Z98.890 Other specified postprocedural states; Z85.028 Personal history of other malignant neoplasm of stomach; Z92.21 Personal history of antineoplastic chemotherapy; Z90.3 Acquired absence of stomach [part of]; Z80.0 Family history of malignant neoplasm of digestive organs; Z80.3 Family history of malignant neoplasm of breast; Z80.8 Family history of malignant neoplasm of other organs or systems; Z87.891 Personal history of nicotine dependence; K64.9 Unspecified hemorrhoids; Z87.11 Personal history of peptic ulcer disease; Z90.49 Acquired absence of other specified parts of digestive tract; Z96.641 Presence of right artificial hip joint; Z79.810 Long term (current) use of selective estrogen receptor modulators (SERMs); Z79.899 Other long term (current) drug therapy; Z82.49 Family history of ischemic heart disease and other diseases of the circulatory system
CPT/HCPCS: 88305; 43239; J1642; J2704

== ENCOUNTER → 2021-12-23 | Outpatient (CLI) | payer MEDICARE, OTHER ==
[2021-12-23 09:23] LABS: African American GFR (CKD) >90 (>60 ml/min/1.73 sqM); Blood Urea Nitrogen 12 mg/dL (7-17); Non-African American GFR(CKD) >90 (>60 ml/min/1.73 sqM)
--- NOTE | 2021-12-23 12:51 | CT ---
EXAMINATION TYPE: CT ChestAbdPelvis w con DATE OF EXAM: 12/23/2021 COMPARISON: CT dated 09/01/2021 HISTORY: Stomach cancer follow up, remission CT DLP: 1233 mGycm Automated exposure control for dose reduction was used. CONTRAST: CT scan of the chest, abdomen and pelvis is performed with Oral Contrast and with IV Contrast, patien t injected with 100 mL of Isovue 300. FINDINGS: LUNGS: Centrilobular emphysematous changes seen in the upper lobes, please correlate with smoking his tory. Grossly unremarkable lungs otherwise. Patent trachea and main bronchi. No pleural effusion MEDIASTINUM: No pathologically enlarged lymph nodes in the chest. No gross cardiomegaly. Right-sided Port-A-Cath with the tip is seen at the atriocaval junction. Arterial and coronary atherosclerotic ca lcifications. No pericardial effusion. OTHER: Osteopenia. No aggressive bone lesion. Chronic healed fracture of the humeral neck. LIVER/GB: No definite hepatic focal lesion. Previous cholecystectomy. PANCREAS: Subtle hypodensity seen in the uncinate process of the pancreas measuring 11 mm, not well a ppreciated previously. Underlying pancreatic lesion at that location can't be excluded. Recommend fur ther MRI assessment. Unremarkable remainder of the pancreas. SPLEEN: No significant abnormality is seen. ADRENALS: Unchanged bilateral adrenal nodular thickening. KIDNEYS: Unremarkable kidneys. BOWEL: Previous gastrojejunostomy with no evidence of local tumor recurrence. Thickening of the resi dual portion of the stomach, nonspecific without measurable mass. Unremarkable small bowel with no ev idence of bowel obstruction. Colonic diverticulosis with segments of nonspecific colonic wall thicken ing most evident seen in the sigmoid colon and right hemicolon, for correlation with colonoscopy resu lts. REPRODUCTIVE ORGANS: Obscured by right hip prosthesis. Congested left gonadal and left pelvic veins w hich could be due to varices or pelvic congestion syndrome. LYMPH NODES: No greater than 1 cm abdominal or pelvic lymph nodes are appreciated. OSSEOUS STRUCTURES: Osteopenia. Degenerative changes of the lower lumbar spine. Right total hip arthr oplasty. No aggressive bone lesion. OTHER: Arterial atherosclerotic calcifications. No sizable ascites. Small fat-containing umbilical he rnia. IMPRESSION: No evidence of local tumor recurrence or metastatic disease in the chest, abdomen or the pelvis. Subtle hypodensity seen in the uncinate process of the pancreas, not well appreciated previously and could represent artifact however a subtle underlying pancreatic lesion can't be excluded. Recommend f urther MRI assessment. Other incidental findings as described above.
== END | disposition home or self-care (01) ==
LOC: RADPROMAIN 08:13
PROVIDERS: ATTEND Internal Medicine Hematology & Oncology
DX: C16.3 Malignant neoplasm of pyloric antrum (principal)
CPT/HCPCS: 82565; 84520; 71260; 74177; J1642; Q9967

== ENCOUNTER 2022-03-25 19:05 | Inpatient (IN) | payer MEDICARE, OTHER ==
[2022-03-25] MEDS ORDERED: MORPHINE SULFATE 4 MG/ML SYRINGE IV STA ×2 (19:31→21:02)
[2022-03-25] MEDS ORDERED: ONDANSETRON 4 MG/2 ML VIAL IVP STA (19:31)
[2022-03-25] MEDS ORDERED: SODIUM CHLORIDE 0.9% 1,000 ML IV ONE (19:32)
--- NOTE | 2022-03-25 19:49 | ED ---
Abdominal Pain HPI - General Stated Complaint: Abd Pain Time Seen by Provider: 03/25/22 19:26 Source: RN notes reviewed - History of Present Illness Initial Comments: This is a pleasant 71-year-old female with a history of stomach cancer, status post resection, in remission. She presents to the emergency room today co mplaining of sharp left lower quadrant pain, constipation, nausea, and vomiting. Patient denying any chest pain. Denies any upper abdominal pain. Pain does radiate toward the back on the left flank. No hematochezia or melena. Patient is passing flatus. No hematemesis or coffee-ground emesis. She is describing bilious vomiting. She states is going on for about a week and seems to be getting worse. Patient states she has not been eating much as well. No headache, no fever or chills, no changes in vision or hearing, no sore throat or difficulty with speech, no neck pain, no chest pain or shortness of breath, no changes in urination, no numbness or tingling, no extremity pain, no skin rashes or lesions. MD Complaint: abdominal pain - Related Data Home Medications Medication Instructions Recorded Confirmed Cyanocobalamin (Vitamin B-12) 1,000 mcg PO DAILY 02/07/21 09/19/21 [Vitamin B-12] Vitamin E 400 unit PO DAILY 02/07/21 09/19/21 Calcium +D3 1 tab PO DAILY 09/19/21 09/19/21 [place] 3 1 cap PO DAILY 09/19/21 09/19/21 Omeprazole 20 mg PO QAM 09/19/21 09/19/21 Pramipexole Di-HCl [Mirapex] 0.125 mg PO HS 09/19/21 09/23/21 Venlafaxine HCl [Effexor] 75 mg PO QAM 09/19/21 09/19/21 Previous Rx's Medication Instructions Recorded Sucralfate [Carafate] 1 gm PO ACHS #60 tab 09/23/21 Allergies Allergy/AdvReac Type Severity Reaction Status Date / Time No Known Allergies Allergy Verified 09/19/21 09:59 Review of Systems ROS Statement: Those systems with pertinent positive or pertinent negative responses have been documented in the HPI. ROS Other: All systems not noted in ROS Statement are negative. Past Medical History Past Medical History: Cancer, COPD, Hyperlipidemia, Osteoarthritis (OA) Additional Past Medical History / Comment(s): 03/2020 diagnosed with stomach cancer/had resection and chemo and is currently in remission/sees Dr. Bay every 6 weeks, hemorroids, UTIs, hx stomach ulcer History of Any Multi-Drug Resistant Organisms: None Reported Past Surgical History: Breast Surgery, Cholecystectomy, Joint Replacement, Ortho pedic Surgery, Tonsillectomy Additional Past Surgical History / Comment(s): stomach resection, R upper chest port/later removed, EGD, colonoscopies, bilateral breast benign biopsies, RK bilateral eyes, rt hip replacement Past Anesthesia/Blood Transfusion Reactions: Motion Sickness Additional Past Anesthesia/Blood Transfusion Reaction / Comment(s): Pt has claustrophobia Smoking Status: Former smoker - Past Family History Father Family Medical History: Cancer, Deep Vein Thrombosis (DVT) Additional Family Medical History / Comment(s): Stomach cancer. Father of blood clot that travelled to his heart. Mother Family Medical History: Cancer Additional Family Medical History / Comment(s): Bone cancer Sister(s) Family Medical History: Cancer Additional Family Medical History / Comment(s): Breast cancer General Exam General appearance: alert, in distress Head exam: Present: atraumatic, normocephalic, normal inspection Eye exam: Present: normal appearance, PERRL, EOMI. Absent: scleral icterus, conjunctival injection, periorbital swelling ENT exam: Present: normal exam, mucous membranes moist, normal external ear exam Neck exam: Present: normal inspection, full ROM. Absent: tenderness, meningismus, lymphadenopathy Respiratory exam: Present: normal lung sounds bilaterally. Absent: respiratory distress, wheezes, rales, rhonchi, stridor, chest wall tenderness, accessory muscle use, decreased breath sounds, prolonged expiratory Cardiovascular Exam: Present: regular rate, normal rhythm, normal heart sounds. Absent: systolic murmur, diastolic murmur, rubs, gallop, clicks GI/Abdominal exam: Present: soft, tenderness (Left lower quadrant), guarding, normal bowel sounds. Absent: distended, rebound, rigid Extremities exam: Present: normal inspection, full ROM, normal capillary refill. Absent: tenderness, pedal edema, joint swelling, calf tenderness Back exam: Present: normal inspection Neurological exam: Present: alert, oriented X3, CN II-XII intact Psychiatric exam: Present: normal affect, normal mood Skin exam: Present: warm, dry, intact, normal color. Absent: rash Course Vital Signs 03/25/22 19:05 Temperature 98.3 F Pulse Rate 68 Respiratory 16 Rate Blood Pressure 156/72 O2 Sat by Pulse 100 Oximetry - Reevaluation(s) Reevaluation #1: 03/25/22 23:17 Medical record is reviewed Symptoms are improved here in the emergency department Patient is informed of results and questions answered Patient in no distress Reevaluation #2: 03/26/22 00:14 Medical record is reviewed Symptoms are improved here in the emergency department Patient is informed of results and questions answered Patient in no distress Medical Decision Making - Medical Decision Making General abdominal workup ordered. We'll order a CT based on the patient's previous history of cancer. The case was discussed in detail with ED attending physician. Presentation, findings, treatment plan discussed in detail. Senior Center Director, Dr. Fuchs The case was discussed in detail with ED attending physician. Presentation, findings, treatment plan discussed in detail. Case discussed in detail with Dr. Castro as well as on-call urology, Dr. Ga - Lab Data Result diagrams: 03/25/22 19:30 03/25/22 19:30 Lab Results 03/25/22 03/25/22 03/25/22 Range/Units 19:30 19:30 19:30 WBC 14.0 H (3.8-10.6) k/uL RBC 4.92 (3.80-5.40) m/uL Hgb 15.8 (11.4-16.0) gm/dL Hct 46.7 H (34.0-46.0) % MCV 94.9 (80.0-100.0) fL MCH 32.1 (25.0-35.0) pg MCHC 33.8 (31.0-37.0) g/dL RDW 12.7 (11.5-15.5) % Plt Count 271 (150-450) k/uL MPV 7.6 Neutrophils % 79 % Lymphocytes % 13 % Monocytes % 6 % Eosinophils % 0 % Basophils % 0 % Neutrophils # 11.1 H (1.3-7.7) k/uL Lymphocytes # 1.9 (1.0-4.8) k/uL Monocytes # 0.8 (0-1.0) k/uL Eosinophils # 0.1 (0-0.7) k/uL Basophils # 0.0 (0-0.2) k/uL Sodium 136 L (137-145) mmol/L Potassium 3.8 (3.5-5.1) mmol/L Chloride 102 (98-107) mmol/L Carbon Dioxide 27 (22-30) mmol/L Anion Gap 7 mmol/L BUN 13 (7-17) mg/dL Creatinine 0.89 (0.52-1.04) mg/dL Est GFR (CKD-EPI)AfAm 77 (>60 ml/min/1.73 sqM) Est GFR (CKD-EPI)NonAf 66 (>60 ml/min/1.73 sqM) Glucose 103 H (74-99) mg/dL Plasma Lactic Acid [place] 1.0 (0.7-2.0) mmol/L Calcium 9.3 (8.4-10.2) mg/dL Total Bilirubin 1.0 (0.2-1.3) mg/dL AST 26 (14-36) U/L ALT 16 (4-34) U/L Alkaline Phosphatase 117 (38-126) U/L Total Protein 6.5 (6.3-8.2) g/dL Albumin 4.1 (3.5-5.0) g/dL Lipase 67 (23-300) U/L Urine Color Urine Appearance (Clear) Urine pH (5.0-8.0) Ur Specific [place] (1.001-1.035) Urine Protein (Negative) Urine Glucose (UA) (Negative) Urine Ketones (Negative) Urine Blood (Negative) Urine Nitrite (Negative) Urine Bilirubin (Negative) Urine Urobilinogen (<2.0) mg/dL Ur Leukocyte Esterase (Negative) 03/25/22 Range/Units 22:45 WBC (3.8-10.6) k/uL RBC (3.80-5.40) m/uL Hgb (11.4-16.0) gm/dL Hct (34.0-46.0) % MCV (80.0-100.0) fL MCH (25.0-35.0) pg MCHC (31.0-37.0) g/dL RDW (11.5-15.5) % Plt Count (150-450) k/uL MPV Neutrophils % % Lymphocytes % % Monocytes % % Eosinophils % % Basophils % % Neutrophils # (1.3-7.7) k/uL Lymphocytes # (1.0-4.8) k/uL Monocytes # (0-1.0) k/uL Eosinophils # (0-0.7) k/uL Basophils # (0-0.2) k/uL Sodium (137-145) mmol/L Potassium (3.5-5.1) mmol/L Chloride (98-107) mmol/L Carbon Dioxide (22-30) mmol/L Anion Gap mmol/L BUN (7-17) mg/dL Creatinine (0.52-1.04) mg/dL Est GFR (CKD-EPI)AfAm (>60 ml/min/1.73 sqM) Est GFR (CKD-EPI)NonAf (>60 ml/min/1.73 sqM) Glucose (74-99) mg/dL Plasma Lactic Acid [place] (0.7-2.0) mmol/L Calcium (8.4-10.2) mg/dL Total Bilirubin (0.2-1.3) mg/dL AST (14-36) U/L ALT (4-34) U/L Alkaline Phosphatase (38-126) U/L Total Protein (6.3-8.2) g/dL Albumin (3.5-5.0) g/dL Lipase (23-300) U/L Urine Color Yellow Urine Appearance Clear (Clear) Urine pH 6.0 (5.0-8.0) Ur Specific [place] 1.018 (1.001-1.035) Urine Protein Trace H (Negative) Urine Glucose (UA) Negative (Negative) Urine Ketones 2+ H (Negative) Urine Blood Negative (Negative) Urine Nitrite Negative (Negative) Urine Bilirubin Negative (Negative) Urine Urobilinogen 2.0 (<2.0) mg/dL Ur Leukocyte Esterase Negative (Negative) - Radiology Data Radiology results: report reviewed, image reviewed Disposition Clinical Impression: Hydronephrosis, Obstructive uropathy, Constipation Disposition: ADMITTED IP TO THIS [facility] Condition: Fair Time of Disposition: 23:17 Decision to Admit Reason: Admit from EC Decision Time: 23:17
[2022-03-25 21:44] LABS: Basophils % (A) 0 %; Eosinophils # (A) 0.1 k/uL (0-0.7); Eosinophils % (A) 0 %; HCT 46.7 % (34.0-46.0); HGB 15.8 gm/dL (11.4-16.0); Lymphocytes # (A) 1.9 k/uL (1.0-4.8); Lymphocytes % (A) 13 %; MCH 32.1 pg (25.0-35.0); MCHC 33.8 g/dL (31.0-37.0); MCV 94.9 fL (80.0-100.0); Mean Platelet Volume 7.6; Monocytes # (A) 0.8 k/uL (0-1.0); Monocytes % (A) 6 %; Neutrophils # (A) 11.1 k/uL (1.3-7.7); Neutrophils % (A) 79 %; Platelet Count 271 k/uL (150-450); RBC 4.92 m/uL (3.80-5.40); RDW 12.7 % (11.5-15.5)
[2022-03-25 21:47] LABS: Albumin 4.1 g/dL (3.5-5.0); Calcium 9.3 mg/dL (8.4-10.2); Potassium 3.8 mmol/L (3.5-5.1); Total Protein 6.5 g/dL (6.3-8.2)
[2022-03-25] MEDS ORDERED: HYDROmorphone 1 MG/ML 1 ML SYRINGE IVP STA (21:56)
[2022-03-25 22:30] LABS: Appearance,Urine Clear (Clear); Bilirubin,Urine Negative (Negative); Blood,Urine Negative (Negative); Color,Urine Yellow; Glucose,Urine (UA) Negative (Negative); Ketones,Urine 2+ (Negative); Leukocyte Esterase,Urine Negative (Negative); Nitrite,Urine Negative (Negative); Protein,Urine Trace (Negative); Specific Gravity,Urine 1.018 (1.001-1.035)
--- NOTE | 2022-03-25 22:57 | CT ---
EXAMINATION TYPE: CT abdomen pelvis w con DATE OF EXAM: 03/25/2022 COMPARISON: 12/23/2021 HISTORY: pain CT DLP: 631 mGycm Automated exposure control for dose reduction was used. CONTRAST: Performed with IV Contrast, patient injected with 100 mL of Isovue 300. The lung bases are clear. No pleural effusion. Heart size is normal. No pericardial effusion. Liver spleen stomach and pancreas appear intact. The bile ducts are not dilated. There is no adrenal mass. There is bilateral enlargement of the left and right renal pelvis. Delayed images show a delayed left side pyelogram. I do not see a definite ureteral calculus. There is metal artifact which obscures the floor of the urinary bladder. There is a mild right-sided hydroureter wit hout evidence of a calculus. There is no retroperitoneal adenopathy. Abdominal aorta is atheromatous. There is some stranding in the right and left anterior pararenal space. No evidence of any significant fluid in the pelvis. No pelvic mass. No free air. I do not see evidence for a bowel obstruction. Appendix not seen. The lumbar vertebrae have normal alignment. No compression fracture. There is vacuum disc at L4-5 an d L5-S1. IMPRESSION: There is retroperitoneal fat stranding and fluid bilaterally. There is evidence for left-sided renal obstruction with delayed pyelogram. There is also right-sided hydronephrosis but no significant delay ed pyelogram. This could relate to bilateral acute and chronic renal obstructions. The retroperitonea l edema and fluid however is of uncertain origin and significance. No significant edema seen adjacent to the kidneys. I do not see evidence for pancreatitis.
[2022-03-25] MEDS ORDERED: MAGNESIUM CITRATE 296 ML BOTTLE PO ONE (23:16)
[2022-03-26] MEDS ORDERED: ACETAMINOPHEN TAB 325 MG TAB PO PRN (00:06)
[2022-03-26] MEDS ORDERED: DOCUSATE 100 MG CAP PO PRN (00:06)
[2022-03-26] MEDS ORDERED: MORPHINE SULFATE 4 MG/ML SYRINGE IV PRN (00:06)
[2022-03-26] MEDS ORDERED: NALOXONE 0.4 MG/ML 1 ML VIAL IV PRN (00:06)
[2022-03-26] MEDS ORDERED: NA PHOS,M-B/NA PHOS,DI-BA 133 ML ENEMA RECTAL PRN (00:06)
[2022-03-26] MEDS: ONDANSETRON 4 MG/2 ML VIAL IVP PRN ×2 (02:33→12:15)
[2022-03-26] MEDS: PRAMIPEXOLE 0.125 MG TAB PO SCH ×2 (03:57→20:37)
[2022-03-26] MEDS: SODIUM CHLORIDE 0.9% 1,000 ML IV SCH ×3 (08:30→17:01)
[2022-03-26] MEDS: HYDROmorphone 1 MG/ML 1 ML SYRINGE IVP PRN ×2 (08:30→20:36)
[2022-03-26] MEDS: PANTOPRAZOLE 40 MG TABLET PO SCH (08:30)
[2022-03-26] MEDS ORDERED: cefTRIAXone IN SWFI 1,000 MG/10 ML SYRINGE IVP SCH (09:00)
--- NOTE | 2022-03-26 10:03 | P.HPIM ---
History of Present Illness This is a pleasant 71 years old female with past medical history of COPD, Hyperlipidemia, Osteoarthritis (,on 03/2020 diagnosed with stomach cancer/had resection and chemo and is currently in remission/sees Dr. Bay every 6 weeks, hemorroids, UTIs, hx stomach ulcer s/p stomach resection, Patient states she came to the hospital because of left flank pain slightly getting worse over the last few days, pain radiates around to the back, felt severe 10/10 on admission, currently feels better with treatment down to 5/10. Characteristic is a stabbing. Associated with some suprapubic discomfort after voiding. No dysuria or change in frequency or urgency. Associated with recurrent vomiting since yesterday. No chest pain or dyspnea. No headache or dizziness or numbness or weakness. Denies drinking alcohol or illicit drugs however she smokes cigarettes and her smoking pack last three days, Patient is counseled and agrees to quit but she declined nicotine patch Admission vitals are stable and afebrile. Labs showed leukocytosis of 14 0. Rest of CBC is unremarkable. Sodium 136, rest of BMP, liver enzymes are unremarkable. Creatinine 1.0. Urinalysis showed 2+ ketones. CT of the abdomen and pelvis: There is retroperitoneal fat stranding and fluid bilaterally. There is evidence of left-sided renal obstruction with delayed pyelogram. There is also right sided hydronephrosis but no significant delayed pyelogram. This could relate to bilateral acute and chronic renal obstruction. Retroperitoneal edema and fluid however is of uncertain origin and significance. No significant edema seen adjacent to the kidneys. I don't see evidence for pancreatitis Review of Systems Review of systems CONSTITUTIONAL: No fever, no malaise, no fatigue. HEENT: No recent visual problems or hearing problems. Denied any sore throat. CARDIOVASCULAR: No orthopnea, PND, no palpitations, no syncope. PULMONARY: No shortness of breath, no cough, no hemoptysis. GASTROINTESTINAL: No diarrhea, no nausea, no vomiting, no abdominal pain. Normoactive bowel sounds. NEUROLOGICAL: No headaches, no weakness, no numbness. HEMATOLOGICAL: Denies any bleeding or petechiae. GENITOURINARY: Denies any burning micturition, frequency, or urgency. MUSCULOSKELETAL/RHEUMATOLOGICAL: Denies any joint pain, swelling, or any muscle pain. ENDOCRINE: Denies any polyuria or polydipsia. Past Medical History Past Medical History: Cancer, COPD, Hyperlipidemia, Osteoarthritis (OA) Additional Past Medical History / Comment(s): 03/2020 diagnosed with stomach cancer/had resection and chemo and is currently in remission/sees Dr. Bay every 6 weeks, hemorroids, UTIs, hx stomach ulcer History of Any Multi-Drug Resistant Organisms: None Reported Past Surgical History: Breast Surgery, Cholecystectomy, Joint Replacement, Orthopedic Surgery, Tonsillectomy Additional Past Surgical History / Comment(s): stomach resection, R upper chest port/later removed, EGD, colonoscopies, bilateral breast benign biopsies, RK bilateral eyes, rt hip replacement Past Anesthesia/Blood Transfusion Reactions: Motion Sickness Additional Past Anesthesia/Blood Transfusion Reaction / Comment(s): Pt has claustrophobia Smoking Status: Former smoker - Past Family History Father Family Medical History: Cancer, Deep Vein Thrombosis (DVT) Additional Family Medical History / Comment(s): Stomach cancer. Father of blood clot that travelled to his heart. Mother Family Medical History: Cancer Additional Family Medical History / Comment(s): Bone cancer Sister(s) Family Medical History: Cancer Additional Family Medical History / Comment(s): Breast cancer Medications and Allergies Home Medications Medication Instructions Recorded Confirmed Type Cyanocobalamin (Vitamin B-12) 1,000 mcg PO MOWEFR 02/07/21 03/26/22 History [Vitamin B-12] Vitamin E 400 unit PO DAILY 02/07/21 03/26/22 History [place] 3 1 cap PO DAILY 09/19/21 03/26/22 History Pramipexole Di-HCl [Mirapex] 0.125 mg PO HS 09/19/21 03/26/22 History Venlafaxine HCl [Effexor] 75 mg PO DAILY 09/19/21 03/26/22 History Albuterol Inhaler [Ventolin Hfa 2 puff INHALATION RT-Q6H PRN 03/26/22 03/26/22 History Inhaler] Lovastatin [Mevacor] 40 mg PO HS 03/26/22 03/26/22 History Sucralfate [Carafate] 1 gm PO BID 03/26/22 03/26/22 History Allergies Allergy/AdvReac Type Severity Reaction Status Date / Time No Known Allergies Allergy Verified 03/26/22 08:05 Physical Exam Vitals: Vital Signs Temp Pulse Resp BP Pulse Ox 03/25/22 19:05 98.3 F 68 16 156/72 100 Intake and Output 03/25/22 03/25/22 03/26/22 14:59 22:59 06:59 Other: Weight 59.5 kg GENERAL: The patient is alert and oriented x3, not in any acute distress. Well developed, well nourished. HEENT: Pupils are round and equally reacting to light. EOMI. No scleral icterus. No conjunctival pallor. Normocephalic, atraumatic. No pharyngeal erythema. No thyromegaly. CARDIOVASCULAR: S1 and S2 present. No murmurs, rubs, or gallops. PULMONARY: Chest is clear to auscultation, no wheezing or crackles. -ABDOMEN: Soft, nontender, nondistended, normoactive bowel sounds. No palpable organomegaly. Left flank tenderness MUSCULOSKELETAL: No joint swelling or deformity. EXTREMITIES: No cyanosis, clubbing, or pedal edema. NEUROLOGICAL: Gross neurological examination did not reveal any focal deficits. SKIN: No rashes. no petechiae. Results CBC & Chem 7: 03/25/22 19:30 03/25/22 19:30 Labs: Abnormal Lab Results - Last 24 Hours (Table) 03/25/22 03/25/22 03/25/22 Range/Units 19:30 19:30 22:45 WBC 14.0 H (3.8-10.6) k/uL Hct 46.7 H (34.0-46.0) % Neutrophils # 11.1 H (1.3-7.7) k/uL Sodium 136 L (137-145) mmol/L Glucose 103 H (74-99) mg/dL Urine Protein Trace H (Negative) Urine Ketones 2+ H (Negative) Assessment and Plan Assessment: Bilateral kidney disease with Left side renal obstruction and right-sided hydronephrosis without evidence of calculus Retroperitoneal fat stranding, Possible pyelonephritis History of stomach ulcer on chemotherapy. Hypertension Hyperlipidemia History of COPD, not acute issue. History of stomach ulcer Status post stomach resection Plan: This is a pleasant 71 years old female who presents with abdominal pain and evidence of hydronephrosis and renal obstruction. Continue with IV fluids and antibiotic urology consult Hematology/oncology team consult Check a pro-calcitonin Check bladder scan Labs and medication were reviewed.. Continue same treatment. Continue with symptomatic treatment. Resume home medication. Monitor lytes and vitals. DVT and GI prophylaxis. Further recommendations as per clinical course of the patient DVT prophylaxis: Subcutaneous heparin GI Prophylaxis: Pepcid PT/OT: Pending Prognosis is guarded
--- NOTE | 2022-03-26 20:02 | P.GSCN ---
History of Present Illness Consult date: 03/26/22 Reason for Consult: Hydronephrosis Requesting physician: Leo E Sheet History of present illness: The patient is a 71-year-old white female diagnosed with gastric cancer in March 2020. She underwent resection and has received systemic chemotherapy. She is followed by Dr. Bay and appears to be in remission. She is now admitted with a 3 day history of left-sided abdominal pain radiating to the left flank. She also reports diffuse abdominal cramping. She has been constipated for approximately 1 week. She also reports nausea and vomiting. She has been treated for UTIs in the past. She denies any history of urolithiasis. She denies dysuria and hematuria. Review of Systems - Constitutional Denies chills, Denies fever - Gastrointestinal Reports constipation, Reports nausea, Reports vomiting - Genitourinary Genitourinary: Reports as per HPI Past Medical History Past Medical History: Cancer, COPD, Hyperlipidemia, Osteoarthritis (OA) Additional Past Medical History / Comment(s): 03/2020 diagnosed with stomach cancer/had resection and chemo and is currently in remission/sees Dr. Bay every 6 weeks, hemorroids, UTIs, hx stomach ulcer History of Any Multi-Drug Resistant Organisms: None Reported Past Surgical History: Breast Surgery, Cholecystectomy, Joint Replacement, Orthopedic Surgery, Tonsillectomy Additional Past Surgical History / Comment(s): stomach resection, R upper chest port/later removed, EGD, colonoscopies, bilateral breast benign biopsies, RK bilateral eyes, rt hip replacement Past Anesthesia/Blood Transfusion Reactions: Motion Sickness Additional Past Anesthesia/Blood Transfusion Reaction / Comm: Pt has claustrophobia Smoking Status: Former smoker - Past Family History Father Family Medical History: Cancer, Deep Vein Thrombosis (DVT) Additional Family Medical History / Comment(s): Stomach cancer. Father of blood clot that travelled to his heart. Mother Family Medical History: Cancer Additional Family Medical History / Comment(s): Bone cancer Sister(s) Family Medical History: Cancer Additional Family Medical History / Comment(s): Breast cancer Medications and Allergies Home Medications Medication Instructions Recorded Confirmed Type Cyanocobalamin (Vitamin B-12) 1,000 mcg PO MOWEFR 02/07/21 03/26/22 History [Vitamin B-12] Vitamin E 400 unit PO DAILY 02/07/21 03/26/22 History [place] 3 1 cap PO DAILY 09/19/21 03/26/22 History Pramipexole Di-HCl [Mirapex] 0.125 mg PO HS 09/19/21 03/26/22 History Venlafaxine HCl [Effexor] 75 mg PO DAILY 09/19/21 03/26/22 History Albuterol Inhaler [Ventolin Hfa 2 puff INHALATION RT-Q6H PRN 03/26/22 03/26/22 History Inhaler] Lovastatin [Mevacor] 40 mg PO HS 03/26/22 03/26/22 History Sucralfate [Carafate] 1 gm PO BID 03/26/22 03/26/22 History Allergies Allergy/AdvReac Type Severity Reaction Status Date / Time No Known Allergies Allergy Verified 03/26/22 08:05 Surgical - Exam Vital Signs Temp Pulse Resp BP Pulse Ox 98.3 F 68 16 156/72 100 03/25/22 19:05 03/25/22 19:05 03/25/22 19:05 03/25/22 19:05 03/25/22 19:05 - General well developed, well nourished, moderate distress - Neck no masses, trachea midline - Respiratory normal respiratory effort - Abdomen Soft, non-distended, no mass. Diffuse tenderness, greater on the left, without guarding or rebound. - Psychiatric oriented to time, oriented to person, oriented to place, speech is normal, memory intact Results - Labs 03/25/22 19:30 03/25/22 19:30 Abnormal Lab Results - Last 24 Hours (Table) 03/25/22 03/25/22 03/25/22 Range/Units 19:30 19:30 22:45 WBC 14.0 H (3.8-10.6) k/uL Hct 46.7 H (34.0-46.0) % Neutrophils # 11.1 H (1.3-7.7) k/uL Sodium 136 L (137-145) mmol/L Glucose 103 H (74-99) mg/dL Urine Protein Trace H (Negative) Urine Ketones 2+ H (Negative) Diabetes panel 03/25/22 Range/Units 19:30 Sodium 136 L (137-145) mmol/L Potassium 3.8 (3.5-5.1) mmol/L Chloride 102 (98-107) mmol/L Carbon Dioxide 27 (22-30) mmol/L BUN 13 (7-17) mg/dL Creatinine 0.89 (0.52-1.04) mg/dL Glucose 103 H (74-99) mg/dL Calcium 9.3 (8.4-10.2) mg/dL AST 26 (14-36) U/L ALT 16 (4-34) U/L Alkaline Phosphatase 117 (38-126) U/L Total Protein 6.5 (6.3-8.2) g/dL Albumin 4.1 (3.5-5.0) g/dL Calcium panel 03/25/22 Range/Units 19:30 Calcium 9.3 (8.4-10.2) mg/dL Albumin 4.1 (3.5-5.0) g/dL Pituitary panel 03/25/22 Range/Units 19:30 Sodium 136 L (137-145) mmol/L Potassium 3.8 (3.5-5.1) mmol/L Chloride 102 (98-107) mmol/L Carbon Dioxide 27 (22-30) mmol/L BUN 13 (7-17) mg/dL Creatinine 0.89 (0.52-1.04) mg/dL Glucose 103 H (74-99) mg/dL Calcium 9.3 (8.4-10.2) mg/dL Adrenal panel 03/25/22 Range/Units 19:30 Sodium 136 L (137-145) mmol/L Potassium 3.8 (3.5-5.1) mmol/L Chloride 102 (98-107) mmol/L Carbon Dioxide 27 (22-30) mmol/L BUN 13 (7-17) mg/dL Creatinine 0.89 (0.52-1.04) mg/dL Glucose 103 H (74-99) mg/dL Calcium 9.3 (8.4-10.2) mg/dL Total Bilirubin 1.0 (0.2-1.3) mg/dL AST 26 (14-36) U/L ALT 16 (4-34) U/L Alkaline Phosphatase 117 (38-126) U/L Total Protein 6.5 (6.3-8.2) g/dL Albumin 4.1 (3.5-5.0) g/dL - Imaging CT scan - abdomen: report reviewed, image reviewed Assessment and Plan (1) Hydronephrosis Current Visit: Yes Status: Acute Code(s): N13.30 - UNSPECIFIED HYDRONEPHROSIS SNOMED Code(s): 45975834 Plan: I have reviewed Mrs. Mcconnell's CT scan, which shows bilateral hydroureteronephrosis down to the pelvic inlet, with delayed pyelogram on the left. I discussed these findings with Mrs. Mcconnell, explaining that she could have ureteral obstruction due to an intraluminal tumor, scarring, or extrinsic compression. No calculi are seen. I have suggested she undergo cystoscopy with bilateral retrograde pyelograms, possible ureteroscopy, possible ureteral stent insertion. The rationale for this approach has been reviewed with her, along with potential risks which include anesthesia and ureteral injury. She wishes to proceed, and I am hopeful that this can be performed tomorrow. Time with Patient: Greater than 30
--- NOTE | 2022-03-26 20:09 | P.CONS ---
History of Present Illness - Reason for Consult Consult date: 03/26/22 Gastric Cancer Requesting physician: Leo E Sheet - History of Present Illness his is a very nice lady who was diagnosed with gastric cancer in when she presented with persistent nausea/vomting and weight loss of few months duration. On 03/14/2020,CT scan of abdomen/pelvis revealed gastric thickening at proximal duodenum and gastric distention. 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 On 03/29/2020,EUS revealed stage T3N0 disease. On 04/03/2020,CT scan of chest was negative. She started on FLOT regimen,had total of 4 cycles,repeat CT scan of chest/abdomen/plevis on 06/30/2020 revealed decrease in neoplastic process of gastric anrum and decrease in size of previosly borderline enlarged and morphologically abnormal gastric hepatic ligament nodes. On 07/25/2020,she underwent gastrectomy,pathology revealed poorly diferentiated carcinoma,diffuse type,10/12 nodes were positive,pT3N3a disease.Negative marigins,+LVI. The above treatment was done at [facility]. She moved to [place] to live close to her family and came to see me to resume treatment closer to home. She recovered from surgery well. On ,repeat CT scan of chest/abdomen/pelvis revealed postop seroma,no evidence of disease, Her genetic testing were negative She resumed adjuvant FLOT on 09/25/2020 until 10/08/2020 (stopped due to significant fatigue and progressing neuropathy),she had total of 6 cycles perioperatively. On 10/09/2020,brain MRI (done because of dizzyness) was negative for metastatic disease. On 01/07/2021,repeat CT scan of chest/abdomen/pelvis revealed no evidence of disease. On 04/09/2021,repeat CT scan of chest/abdomen/pelvis revealed no evidence of d isease. On 09/03/2021,repeat CT scan of chest/abdomen/pelvis revealed no evidence of recurrence. On 09/23/2021,EGD revealed gastritis and Roman esophagous. Biopsy of small abdominal wall lesion in 12/2021 camce back negative. On 12/23/2021,CT scan of chest/abdomen/pelvis was negative for recurrence. She presented with pain in lower back and pelvis. CT of the abdomen and pelvis: There is retroperitoneal fat stranding and fluid bilaterally. There is evidence of left-sided renal obstruction with delayed pyelogram. There is also right sided hydronephrosis but no significant delayed pyelogram. This could relate to bilateral acute and chronic renal obstruction. Retroperitoneal edema and fluid however is of uncertain origin and significance. No significant edema seen adjacent to the kidneys. Radiologist notes no significant evidence for pancreatitis Review of Systems All systems: negative Constitutional: Reports as per HPI Past Medical History Past Medical History: Cancer, COPD, Hyperlipidemia, Osteoarthritis (OA) Additional Past Medical History / Comment(s): 03/2020 diagnosed with stomach cancer/had resection and chemo and is currently in remission/sees Dr. Bay every 6 weeks, hemorroids, UTIs, hx stomach ulcer History of Any Multi-Drug Resistant Organisms: None Reported Past Surgical History: Breast Surgery, Cholecystectomy, Joint Replacement, Orthopedic Surgery, Tonsillectomy Additional Past Surgical History / Comment(s): stomach resection, R upper chest port/later removed, EGD, colonoscopies, bilateral breast benign biopsies, RK bilateral eyes, rt hip replacement Past Anesthesia/Blood Transfusion Reactions: Motion Sickness Additional Past Anesthesia/Blood Transfusion Reaction / Comm: Pt has claustropho tiara Smoking Status: Former smoker - Past Family History Father Family Medical History: Cancer, Deep Vein Thrombosis (DVT) Additional Family Medical History / Comment(s): Stomach cancer. Father of blood clot that travelled to his heart. Mother Family Medical History: Cancer Additional Family Medical History / Comment(s): Bone cancer Sister(s) Family Medical History: Cancer Additional Family Medical History / Comment(s): Breast cancer Medications and Allergies Home Medications Medication Instructions Recorded Confirmed Type Cyanocobalamin (Vitamin B-12) 1,000 mcg PO MOWEFR 02/07/21 03/26/22 History [Vitamin B-12] Vitamin E 400 unit PO DAILY 02/07/21 03/26/22 History [place] 3 1 cap PO DAILY 09/19/21 03/26/22 History Pramipexole Di-HCl [Mirapex] 0.125 mg PO HS 09/19/21 03/26/22 History Venlafaxine HCl [Effexor] 75 mg PO DAILY 09/19/21 03/26/22 History Albuterol Inhaler [Ventolin Hfa 2 puff INHALATION RT-Q6H PRN 03/26/22 03/26/22 History Inhaler] Lovastatin [Mevacor] 40 mg PO HS 03/26/22 03/26/22 History Sucralfate [Carafate] 1 gm PO BID 03/26/22 03/26/22 History Allergies Allergy/AdvReac Type Severity Reaction Status Date / Time No Known Allergies Allergy Verified 03/26/22 08:05 Physical Exam Vitals: Vital Signs Temp Pulse Pulse Resp BP BP Pulse Ox 03/26/22 08:00 98 F 68 16 130/77 94 L 03/25/22 19:05 98.3 F 68 16 156/72 100 Intake and Output 03/25/22 03/26/22 03/26/22 22:59 06:59 14:59 Other: Weight 59.5 kg - Constitutional General appearance: cooperative, no acute distress - EENT Eyes: EOMI, PERRLA ENT: NA/AT, normal oropharynx - Neck Neck: normal ROM - Respiratory Respiratory: bilateral: CTA - Cardiovascular Rhythm: regular - Gastrointestinal General gastrointestinal: soft, tenderness - Integumentary Integumentary: pale - Neurologic Neurologic: CNII-XII intact - Musculoskeletal Musculoskeletal: generalized weakness - Psychiatric Psychiatric: A&O x's 3 Results CBC & Chem 7: 03/25/22 19:30 03/25/22 19:30 Labs: Abnormal Lab Results - Last 24 Hours (Table) 03/25/22 03/25/22 03/25/22 Range/Units 19:30 19:30 22:45 WBC 14.0 H (3.8-10.6) k/uL Hct 46.7 H (34.0-46.0) % Neutrophils # 11.1 H (1.3-7.7) k/uL Sodium 136 L (137-145) mmol/L Glucose 103 H (74-99) mg/dL Urine Protein Trace H (Negative) Urine Ketones 2+ H (Negative) CT scan - abdomen: report reviewed CT scan - pelvis: report reviewed Assessment and Plan Plan: Leukocytosis: - Reactive to infectious/inflammatory process ?pyelo Pelvis and Abdominal Pain: - CT with concern of renal obstruction, hydronephrosis - Urology has been consulted Hx: Gastric Cancer: - No recurrence on CT scan earlier this year Will follow i event this is related to recurrence, await urlogy
[2022-03-27] MEDS: SODIUM CHLORIDE 0.9% 1,000 ML IV SCH ×3 (05:10→17:03)
[2022-03-27] MEDS: HYDROmorphone 1 MG/ML 1 ML SYRINGE IVP PRN (08:00)
[2022-03-27] MEDS: PANTOPRAZOLE 40 MG TABLET PO SCH (08:00)
[2022-03-27 10:39] LABS: Basophils # (A) 0.03 X 10*3/uL (0.00-0.10); Basophils % (A) 0.3 %; Eosinophils # (A) 0.04 X 10*3/uL (0.04-0.35); Eosinophils % (A) 0.4 %; HGB 11.8 g/dL (12.0-15.0); Immature Grans, Automated 0.4 %; Lymphocytes # (A) 2.08 X 10*3/uL (0.90-5.00); Lymphocytes % (A) 23.1 %; MCH 30.8 pg (27.0-32.0); MCHC 31.9 g/dL (32.0-37.0); MCV 96.6 fL (80.0-97.0); Mean Platelet Volume 10.1 fL (9.5-12.2); Monocytes # (A) 0.77 X 10*3/uL (0.20-1.00); Monocytes % (A) 8.5 %; NRBC Per 100 WBC 0 /100 WBCS (0.0-0.0); Neutrophils # (A) 6.06 X 10*3/uL (1.80-7.70); Neutrophils % (A) 67.3 %; Platelet Count 232 X 10*3/uL (140-440); RBC 3.83 X 10*6/uL (4.10-5.20); WBC 9.02 X 10*3/uL (4.50-10.00)
[2022-03-27 10:58] LABS: African American GFR (CKD) 89.6 (60.0-200.0); Albumin 3.4 g/dL (3.8-4.9); Albumin/Globulin Ratio 1.91 (1.60-3.17); BUN/Creat Ratio 14.45 Ratio (12.00-20.00); Blood Urea Nitrogen 11.3 mg/dL (9.0-27.0); Calcium 8.4 mg/dL (8.7-10.3); Carbon Dioxide 24.5 mmol/L (20.0-27.5); Globulin 1.8 g/dL (1.6-3.3); Magnesium 2.2 mg/dL (1.5-2.4); Non-African American GFR(CKD) 77.3 (60.0-200.0); Phosphorus 2.4 mg/dL (2.4-5.1); Potassium 4.3 mmol/L (3.5-5.5); Total Bilirubin 0.3 mg/dL (0.30-1.20); Total Protein 5.2 g/dL (6.2-8.2)
[2022-03-27] MEDS: HYDROmorphone 0.5 MG/0.5 ML SYRINGE IVP PRN ×2 (11:53→19:21)
[2022-03-27] MEDS ORDERED: LACTATED RINGERS 1,000 ML IV ONE (12:44)
[2022-03-27] MEDS ORDERED: DEXAMETHASONE SOD PHOSPHATE 4 MG/ML 1 ML VIAL IVP ONE ×2 (12:45→12:55)
[2022-03-27] MEDS ORDERED: ONDANSETRON 4 MG/2 ML VIAL IVP ONE ×2 (12:45→12:55)
[2022-03-27] MEDS ORDERED: GLYCOPYRROLATE 0.2 MG/ML 2 ML VIAL ONE (13:42)
[2022-03-27] MEDS ORDERED: MIDAZOLAM 2 MG/2 ML VIAL ONE (13:42)
[2022-03-27] MEDS ORDERED: NEOSTIGMINE 1 MG/ML 10 ML VIAL ONE (13:42)
[2022-03-27] MEDS ORDERED: PROPOFOL 10 MG/ML 20 ML VIAL IV ONE (13:42)
[2022-03-27] MEDS ORDERED: ROCURONIUM 10 MG/ML (5 ML VIAL) IV ONE (13:42)
[2022-03-27] MEDS ORDERED: SUCCINYLCHOLINE CHLORIDE 100 MG/5 ML SYR IV ONE (13:42)
[2022-03-27] MEDS ORDERED: LIDOCAINE 2% INJ 20 MG/ML (2 ML VIAL) ONE (13:42)
[2022-03-27] MEDS ORDERED: fentaNYL (PF) 50 MCG/ML 2 ML AMP ONE (13:42)
[2022-03-27] MEDS ORDERED: IOPAMIDOL-370 50ML BTL IRRIGATION ONE (14:06)
--- NOTE | 2022-03-27 15:07 | P.OP ---
Date of Procedure: 03/27/22 Preoperative Diagnosis: Bilateral hydronephrosis Postoperative Diagnosis: Same Procedure(s) Performed: Cystoscopy, bilateral retrograde pyelograms, right ureteroscopy, bilateral ureteral stent insertion Anesthesia: ALVERTO Surgeon: Ming Ga Estimated Blood Loss (ml): 0 IV fluids (ml): 400 Pathology: none sent Condition: stable Disposition: PACU Indications for Procedure: The patient is a 71-year-old white female diagnosed with gastric cancer in March 2020. She underwent resection and has received systemic chemotherapy. She is followed by Dr. Bay and appears to be in remission. She is now admitted with a 3 day history of left-sided abdominal pain radiating to the left flank. She also reports diffuse abdominal cramping and constipation. CT scan shows bilateral hydroureteronephrosis down to the pelvic inlet, with delayed pyelogram on the left. She now comes for cystoscopy with bilateral retrograde pyelograms and possible ureteral stent insertion. Operative Findings: Bilateral ureteral narrowing with proximal hydroureteronephrosis. On the right side, the level of obstruction is at the iliac vessels, and the ureter proximal to this is significantly dilated and tortuous. On the left side, there is moderate hydroureteronephrosis down to the level of L5, where the ureter tapers to a normal caliber. Description of Procedure: The patient was taken to the operating room and placed in the dorsolithotomy position, with legs supported in Josh stirrups. The external genitalia was prepped and draped sterilely. The 30 lens was used to introduce the 22-Croatian Stortz cystoscopic sheath through the urethra and into the bladder under direct vision. The bladder was examined in its entirety. Both ureteral orifices were of normal anatomic location and configuration, and clear urine effluxed from both. No tumors or foreign bodies were seen. Using a 10-Croatian cone-tipped catheter, bilateral retrograde pyelograms were performed. The caliber of the distal ureter was normal bilaterally. On the left side, there was evidence of moderate hydroureteronephrosis down to the level of L5, where the ureter tapered to a normal caliber. On the right side, there was significant right hydroureteronephrosis with tortuosity of the ureter down to the level of the iliac vessels. The ACMI semirigid ureteroscope was advanced into the bladder, and the right ureteral orifice was cannulated. The ureteroscope could only be advanced approximately 2 cm due to diminished caliber of the ureter. Balloon dilation to allow ureteroscopy to be performed did not seem warranted, as no filling defects were seen on either side and the transition from ureteral dilation to normal could best be described as a smooth tapering bilaterally, consistent with scarring. A 0.035 inch Glidewire was passed through the cystoscope. The right ureteral orifice was cannulated, and the Glidewire was slowly advanced up to the renal pelvis. A 26 cm, 6-Croatian double-J ureteral stent was placed over the wire, but it was obviously too long. Therefore, it was exchanged for a 24 cm, 6-Croatian double-J ureteral stent which was an appropriate length. Proper stent positioning was verified fluoroscopically and endoscopically. A 24 cm, 6-Croatian double-J ureteral stent was then placed on the contralateral side. The bladder was emptied and the cystoscope removed. The patient tolerated the procedure well was taken to the recovery room in stable condition.
[2022-03-27] MEDS ORDERED: HYDROmorphone 0.5 MG/0.5 ML SYRINGE IVP ONE ×2 (15:31→15:43)
[2022-03-27] MEDS: VENLAFAXINE HCL ER 75 MG CAP PO SCH (17:38)
--- NOTE | 2022-03-27 20:07 | P.PN ---
Subjective This is a pleasant 71 years old female with past medical history of COPD, Hyperlipidemia, Osteoarthritis (,on 03/2020 diagnosed with stomach cancer/had resection and chemo and is currently in remission/sees Dr. Bay every 6 weeks, hemorroids, UTIs, hx stomach ulcer s/p stomach resection, Patient states she came to the hospital because of left flank pain slightly getting worse over the last few days, pain radiates around to the back, felt s evere 10/10 on admission, currently feels better with treatment down to 5/10. Characteristic is a stabbing. Associated with some suprapubic discomfort after voiding. No dysuria or change in frequency or urgency. Associated with recurrent vomiting since yesterday. No chest pain or dyspnea. No headache or dizziness or numbness or weakness. Denies drinking alcohol or illicit drugs however she smokes cigarettes and her smoking pack last three days, Patient is counseled and agrees to quit but she declined nicotine patch Admission vitals are stable and afebrile. Labs showed leukocytosis of 14 0. Rest of CBC is unremarkable. Sodium 136, rest of BMP, liver enzymes are unremarkable. Creatinine 1.0. Urinalysis showed 2+ ketones. CT of the abdomen and pelvis: There is retroperitoneal fat stranding and fluid bilaterally. There is evidence of left-sided renal obstruction with delayed pyelogram. There is also right sided hydronephrosis but no significant delayed pyelogram. This could relate to bilateral acute and chronic renal obstruction. Retroperitoneal edema and fluid however is of uncertain origin and significance. No significant edema seen adjacent to the kidneys. I don't see evidence for pancreatitis 03/27/2022 Patient today underwent procedure with cystoscopy and bilateral pyelograms and right ureteroscopy and bilateral stent ureteral placement and the result of cystotomy showing no tumor, or foreign body. Vitals stable. Creatinine normal 0.8, hemoglobin 11.8, WBCs back to normal at 9.0 with evidence of hemodilution. Percalcitonin is negative at 0.04. Objective - Vital Signs Vital signs: Vital Signs Temp 97.4 F L 03/27/22 16:17 Pulse 58 L 03/27/22 16:17 Resp 16 03/27/22 16:08 BP 167/74 03/27/22 16:17 Pulse Ox 91 L 03/27/22 16:17 FiO2 Intake & Output 0603/27/22 03/27/22 18:59 06:59 18:59 Intake Total 0 900 Output Total 0 Balance 0 900 Weight 59.5 kg 59.5 kg Intake: IV 900 Oral 0 Output: Estimated Blood Loss 0 Other: Voiding Method Toilet Toilet # Voids 2 1 - Exam GENERAL: The patient is alert and oriented x3, not in any acute distress. Well developed, well nourished. HEENT: Pupils are round and equally reacting to light. EOMI. No scleral icterus. No conjunctival pallor. Normocephalic, atraumatic. No pharyngeal erythema. No thyromegaly. CARDIOVASCULAR: S1 and S2 present. No murmurs, rubs, or gallops. PULMONARY: Chest is clear to auscultation, no wheezing or crackles. ABDOMEN: Soft, nontender, nondistended, normoactive bowel sounds. No palpable organomegaly. MUSCULOSKELETAL: No joint swelling or deformity. EXTREMITIES: No cyanosis, clubbing, or pedal edema. NEUROLOGICAL: Gross neurological examination did not reveal any focal deficits. SKIN: No rashes. no petechiae. - Labs CBC & Chem 7: 03/27/22 07:18 03/27/22 07:18 Labs: Abnormal Lab Results - Last 24 Hours (Table) 03/27/22 03/27/22 Range/Units 07:18 07:18 RBC 3.83 L (4.10-5.20) X 10*6/uL Hgb 11.8 L (12.0-15.0) g/dL Hct 37.0 L (37.2-46.3) % MCHC 31.9 L (32.0-37.0) g/dL Anion Gap 9.00 L (10.00-18.00) mmol/L Calcium 8.4 L (8.7-10.3) mg/dL Total Protein 5.2 L (6.2-8.2) g/dL Albumin 3.4 L (3.8-4.9) g/dL Microbiology - Last 24 Hours (Table) 03/26/22 01:05 Blood Culture - Preliminary Blood No Growth after 24 hours 03/26/22 00:12 Blood Culture - Preliminary Blood No Growth after 24 hours Assessment and Plan Assessment: Bilateral kidney disease with Left side renal obstruction and right-sided hydronephrosis without evidence of calculus, no evidence of tumor or foreign body. Status post bilateral ureteral stents UTI/perinephric this is felt most likely. History of stomach ulcer on chemotherapy. Hypertension Hyperlipidemia History of COPD, not acute issue. History of stomach ulcer Status post stomach resection Plan: This is a pleasant 71 years old female who presents with abdominal pain and evidence of hydronephrosis and renal obstruction. Continue with IV fluids and antibiotic urology consult Hematology/oncology team consult Check a pro-calcitonin Patient currently with ceftriaxone. We will reassess tomorrow Labs and medication were reviewed.. Continue same treatment. Continue with symptomatic treatment. Resume home medication. Monitor lytes and vitals. DVT and GI prophylaxis. Further recommendations as per clinical course of the patient DVT prophylaxis: Subcutaneous heparin GI Prophylaxis: Pepcid patient will need to follow up with urologist as an outpatient
[2022-03-27] MEDS: PRAMIPEXOLE 0.125 MG TAB PO SCH (20:31)
[2022-03-28] MEDS: SODIUM CHLORIDE 0.9% 1,000 ML IV SCH ×2 (00:18→08:30)
[2022-03-28] MEDS: HYDROmorphone 0.5 MG/0.5 ML SYRINGE IVP PRN ×2 (01:02→08:28)
[2022-03-28 02:55] VITALS: TEMP 98.3
[2022-03-28] MEDS ORDERED: HEPARIN SODIUM,PORCINE/PF 5,000 UNIT/0.5 ML SYRINGE SQ SCH (07:00)
--- NOTE | 2022-03-28 07:37 | FL ---
EXAMINATION TYPE: FL urography retrograde DATE OF EXAM: 03/27/2022 COMPARISON: NONE HISTORY: BILAT RETROGRADE PYELOGRAM TECHNIQUE: Fluoroscopy. FINDINGS: Fluoroscopic guidance was provided during procedure performed . A total of 131 seconds of fluoroscopic time was utilized during the procedure and 15 spot images was acquired. IMPRESSION: As Above.
[2022-03-28 07:59] VITALS: BP 157/60; PULSE 64; RESP 18
[2022-03-28] MEDS: VENLAFAXINE HCL ER 75 MG CAP PO SCH (08:29)
[2022-03-28] MEDS: PANTOPRAZOLE 40 MG TABLET PO SCH (08:29)
--- NOTE | 2022-03-28 11:27 | P.PN ---
Progress Note - Text Progress Note Date: 03/28/22 Mrs. Mcconnell reports that her left flank pain is improved following stent placement yesterday. However, she does report suprapubic discomfort associated with urinary frequency and urgency, undoubtedly due to her stents. I explained to her that it appears her hydronephrosis is due to ureteral scarring, and that the optimal way to manage this is with ureteral stents unless she chooses to undergo a significant reconstructive procedure. Her blood cultures are negative, and she remains afebrile. From my standpoint, she is urologically stable for discharge. I intend to prescribe oxybutynin chloride to improve her irritative voiding symptoms. She will follow up with me in several weeks. Ple ase notify me if I can be of any further assistance.
[2022-03-28] MEDS ORDERED: OXYBUTYNIN 10 MG TAB.ER.24 PO SCH (11:30)
[2022-03-28 13:07] LABS: African American GFR (CKD) 102.5 (60.0-200.0); BUN/Creat Ratio 16.71 Ratio (12.00-20.00); Blood Urea Nitrogen 11.7 mg/dL (9.0-27.0); Calcium 8.7 mg/dL (8.7-10.3); Non-African American GFR(CKD) 88.4 (60.0-200.0); Potassium 4.3 mmol/L (3.5-5.5)
--- NOTE | 2022-03-29 00:23 | P.DS ---
Providers Date of admission: 03/26/22 00:38 Attending physician: Leo Castro MD Consults: 03/26/22 00:06 Consult Physician Stat Consulting Provider: Ming Ga Consult Reason/Comments: Obstructive uropathy left, bilateral hydronephrosis Do you want consulting provider notified?: Already Contacted 03/26/22 00:36 Consult Physician Routine Consulting Provider: Juni Manning Consult Reason/Comments: stomach cancer Do you want consulting provider notified?: Yes, Notify in am Primary care physician: Aliyah Fink [facility] Course: Diagnoses: Bilateral kidney disease with Left side renal obstruction and right-sided hydronephrosis without evidence of calculus, no evidence of tumor or foreign body. Status post bilateral ureteral stents UTI/perinephric this is felt most likely. History of stomach ulcer on chemotherapy. Hypertension Hyperlipidemia History of COPD, not acute issue. History of stomach ulcer Status post stomach resection Hospital course: This is a pleasant 71 years old female with past medical history of COPD, Hyperlipidemia, Osteoarthritis (,on 03/2020 diagnosed with stomach cancer/had resection and chemo and is currently in remission/sees Dr. Bay every 6 weeks, hemorroids, UTIs, hx stomach ulcer s/p stomach resection, Patient states she came to the hospital because of left flank pain . CT of the abdomen showed evidence of bilateral hydronephrosis, she's been evaluated by urologist and she underwent cystoscopy with bilateral pyelograms and ureter stent placement. She tolerated the procedure well, her symptoms of flank pain has resolved, she has some suprapubic pain and tenderness which is expected per neurologist. Patient will be discharged on short course of pain medication upon patient request as well. On the day of discharge other than some mild suprapubic discomfort and tenderness she denies any other symptoms. No chest pain or dyspnea. No change in bowel habits. No fever. Patient was cleared for discharge by urologist Problems and management plan were discussed with the patient and he verbalized understanding and acceptance Patient was found stable and can be discharged home however he needs follow-up as an outpatient. Patient was instructed to follow up with PCP Dr. Aliyah Henriquez within one week and patient agrees Patient was instructed to follow up with urologist in 3 weeks and she agrees to call and make appointment as today is weakened. Pain medication prescription is provided and upon patient request Physical exam Gen: patient is a AAOx3, no distress CVS: S1-S2, RRR, no murmur Lungs: B/L CTA, no wheezing Abdomen: soft, no distention, no tenderness, positive bowel sounds Extremity: no leg edema or induration Time spent more than 35 minutes Patient Condition at Discharge: Fair Plan - Discharge Summary Discharge Rx Participant: Yes New Discharge Prescriptions: New Oxybutynin Chloride [Oxybutynin Chloride ER] 10 mg PO DAILY #30 tab Ibuprofen [Motrin] 400 mg PO Q6HR PRN 3 Days #10 tab PRN Reason: Pain HYDROcodone/APAP 5-325MG [[place] 5-325] 1 tab PO Q6HR PRN 2 Days #8 tab PRN Reason: Severe Pain Continue Vitamin E 400 unit PO DAILY Pramipexole Di-HCl [Mirapex] 0.125 mg PO HS Albuterol Inhaler [Ventolin Hfa Inhaler] 2 puff INHALATION RT-Q6H PRN PRN Reason: Shortness Of Breath Cyanocobalamin (Vitamin B-12) [Vitamin B-12] 1,000 mcg PO MOWEFR [place] 3 1 cap PO DAILY Sucralfate [Carafate] 1 gm PO BID Lovastatin [Mevacor] 40 mg PO HS Venlafaxine HCl [Effexor XR] 75 mg PO DAILY Discharge Medication List Cyanocobalamin (Vitamin B-12) [Vitamin B-12] 1,000 mcg PO MOWEFR 02/07/21 [History] Vitamin E 400 unit PO DAILY 02/07/21 [History] [place] 3 1 cap PO DAILY 09/19/21 [History] Pramipexole Di-HCl [Mirapex] 0.125 mg PO HS 09/19/21 [History] Albuterol Inhaler [Ventolin Hfa Inhaler] 2 puff INHALATION RT-Q6H PRN 03/26/22 [History] Lovastatin [Mevacor] 40 mg PO HS 03/26/22 [History] Sucralfate [Carafate] 1 gm PO BID 03/26/22 [History] Venlafaxine HCl [Effexor XR] 75 mg PO DAILY 03/27/22 [History] HYDROcodone/APAP 5-325MG [[place] 5-325] 1 tab PO Q6HR PRN 2 Days #8 tab 03/28/22 [Rx] Ibuprofen [Motrin] 400 mg PO Q6HR PRN 3 Days #10 tab 03/28/22 [Rx] Oxybutynin Chloride [Oxybutynin Chloride ER] 10 mg PO DAILY #30 tab 03/28/22 [Rx] Follow up Appointment(s)/Referral(s): Ming Ga MD [STAFF PHYSICIAN] - 3 Weeks Aliyah Fink MD [Primary Care Provider] - 1-2 days Patient Instructions/Handouts: *Surgery [facility] - Cystoscopy Discharge Instructions Activity/Diet/Wound Care/Special Instructions: Heart healthy diet Activity is restricted till you see your doctor Discharge Disposition: HOME SELF-CARE
== END 2022-03-28 14:47 | disposition home or self-care (01) | DRG 660 ==
LOC: EC 19:05 → 4SSUR 03-26 00:38 → 6NMEDSUR 03-26 10:14
PROVIDERS: ADMIT Internal Medicine; ATTEND Internal Medicine
PROC: 0T788DZ Dilation of Bilateral Ureters with Intraluminal Device, Via Natural or Artificial Opening Endoscopic (ICD-10-PCS; principal; 2022-03-27 07:30)
PROC: BT141ZZ Fluoroscopy of Kidneys, Ureters and Bladder using Low Osmolar Contrast (ICD-10-PCS; 2022-03-27 07:30)
DX: N13.1 Hydronephrosis with ureteral stricture, not elsewhere classified (principal); C16.4 Malignant neoplasm of pylorus; I10 Essential (primary) hypertension; J44.9 Chronic obstructive pulmonary disease, unspecified; F17.210 Nicotine dependence, cigarettes, uncomplicated; E78.5 Hyperlipidemia, unspecified; K59.00 Constipation, unspecified; F40.240 Claustrophobia; Z96.641 Presence of right artificial hip joint; Z71.6 Tobacco abuse counseling; Z79.899 Other long term (current) drug therapy; Z87.440 Personal history of urinary (tract) infections; Z87.19 Personal history of other diseases of the digestive system; Z85.028 Personal history of other malignant neoplasm of stomach; Z90.49 Acquired absence of other specified parts of digestive tract; Z90.3 Acquired absence of stomach [part of]; Z83.2 Family history of diseases of the blood and blood-forming organs and certain disorders involving the immune mechanism; Z80.3 Family history of malignant neoplasm of breast; Z80.0 Family history of malignant neoplasm of digestive organs
CPT/HCPCS: 36415; 74177; 74420; 80048; 80053; 81003; 83605; 83690; 83735; 84100; 84145; 85025; 87040; 94760; 96361; 96374; 96375; 96376; 99285

== ENCOUNTER 2022-06-25 11:06 | Day surgery (SDC) | payer MEDICARE, OTHER ==
[2022-06-25] MEDS ORDERED: LACTATED RINGERS 1,000 ML IV SCH (11:30)
[2022-06-25 11:38] VITALS: RESP 16; TEMP 98.6
[2022-06-25] MEDS ORDERED: LIDOCAINE 1% (10MG/ML) FOR IV START INTRADERMA ONE (11:39)
[2022-06-25] MEDS ORDERED: PROPOFOL 10 MG/ML 20 ML VIAL IV ONE (12:35)
[2022-06-25] MEDS ORDERED: LIDOCAINE 2% INJ 20 MG/ML (2 ML VIAL) ONE (12:35)
--- NOTE | 2022-06-25 12:50 | P.PCN ---
Date of Procedure: 06/25/22 Procedure(s) Performed: Preoperative Dx: Epigastric pain, dysphagia Postoperative Dx: Anastomotic ulcer, gastritis Procedure: EGD with Bx Anesthesia: Sedation Endoscopist: Dr. Fink Specimens: Gastrojejunostomy, obviously Endoscopic Procedure: The patient was on the endoscopy table in the left decubitus position. The Olympus gastroscope was inserted into the oropharynx and passed under direct visualization to the previously identified gastrojejunostomy. The scope was advanced beyond the anastomosis into the jejunum appeared normal. Approximately 5 cm distal to the anastomosis however the wall of the jejunum became thickened and there was circumferential edema and ulceration present at the anastomosis site. This appeared more than a typical marginal ulcer appearance. Multiple biopsies were taken of the gastrojejunostomy site to rule out recurrent gastric cancer. The stomach itself demonstrated thickening of the mucosa throughout and biopsies of the body of the stomach took place. The esophagus itself appeared normal. The patient was then taken to the recovery room in stable condition per anesthesia guidelines. Recommendations: Await biopsy results. Patient may require admission because of persistent dysphagia and subsequent dehydration. We'll discuss further with the patient and her family.
[2022-06-25 13:21] VITALS: BP 157/75; PULSE 63
== END 2022-06-25 13:49 | disposition home or self-care (01) ==
LOC: ORWHC2ENDO 11:06
PROVIDERS: ATTEND Surgery
DX: K29.50 Unspecified chronic gastritis without bleeding (principal); E86.0 Dehydration; R13.10 Dysphagia, unspecified; E78.5 Hyperlipidemia, unspecified; K22.70 Barrett's esophagus without dysplasia; Z90.49 Acquired absence of other specified parts of digestive tract; Z85.028 Personal history of other malignant neoplasm of stomach; Z90.3 Acquired absence of stomach [part of]; Z98.890 Other specified postprocedural states; Z80.3 Family history of malignant neoplasm of breast; Z80.8 Family history of malignant neoplasm of other organs or systems; Z79.01 Long term (current) use of anticoagulants; Z79.899 Other long term (current) drug therapy; M19.90 Unspecified osteoarthritis, unspecified site; Z79.891 Long term (current) use of opiate analgesic
CPT/HCPCS: 88305; 43239; J2704; J2001

== ENCOUNTER → 2022-07-01 | Outpatient (CLI) | payer MEDICARE, OTHER ==
[2022-07-01 18:03] LABS: Basophils # (A) 0.04 X 10*3/uL (0.00-0.10); Basophils % (A) 0.4 %; Eosinophils # (A) 0.03 X 10*3/uL (0.04-0.35); Eosinophils % (A) 0.3 %; HGB 13.9 g/dL (12.0-15.0); Immature Grans, Automated 0.6 %; Lymphocytes # (A) 2.05 X 10*3/uL (0.90-5.00); Lymphocytes % (A) 19.5 %; MCH 30.4 pg (27.0-32.0); MCHC 33.1 g/dL (32.0-37.0); MCV 91.9 fL (80.0-97.0); Mean Platelet Volume 10.5 fL (9.5-12.2); Monocytes # (A) 0.78 X 10*3/uL (0.20-1.00); Monocytes % (A) 7.4 %; NRBC Per 100 WBC 0 /100 WBCS (0.0-0.0); Neutrophils # (A) 7.54 X 10*3/uL (1.80-7.70); Neutrophils % (A) 71.8 %; Platelet Count 324 X 10*3/uL (140-440); RBC 4.57 X 10*6/uL (4.10-5.20); RDW 14.7 % (11.5-14.5)
[2022-07-01 18:07] LABS: African American GFR (CKD) 102.5 (60.0-200.0); Anion Gap 13.7 mmol/L (10.00-18.00); BUN/Creat Ratio 15.43 Ratio (12.00-20.00); Blood Urea Nitrogen 10.8 mg/dL (9.0-27.0); Calcium 9.9 mg/dL (8.7-10.3); Carbon Dioxide 25.3 mmol/L (20.0-27.5); Non-African American GFR(CKD) 88.4 (60.0-200.0); Potassium 3.3 mmol/L (3.5-5.5)
[2022-07-01 20:36] LABS: Bacteria,Urine None Seen /HPF (None Seen)
[2022-07-01 20:37] LABS: Appearance,Urine Turbid (Clear); Bilirubin,Urine Small (Negative); Blood,Urine Large (Negative); Color,Urine Orange (Yellow); Ketones,Urine 15 mg/dL (Negative); Nitrite,Urine Negative (Negative); Specific Gravity,Urine 1.018 (1.001-1.030)
== END | disposition home or self-care (01) ==
LOC: LABPAT 10:12
PROVIDERS: ATTEND Urology
DX: Z01.812 Encounter for preprocedural laboratory examination (principal); N13.1 Hydronephrosis with ureteral stricture, not elsewhere classified
CPT/HCPCS: 36415; 80048; 81001; 85025; 87086

== ENCOUNTER 2022-07-09 05:43 | Day surgery (SDC) | payer MEDICARE, OTHER ==
--- NOTE | 2022-07-06 06:47 | P.GSHP ---
History of Present Illness H&P Date: 07/06/22 Chief Complaint: Hydronephrosis The patient is a 71-year-old white female diagnosed with gastric cancer in March 2020. She underwent resection and has received systemic chemotherapy. She has not received radiation therapy. She is followed by Dr. Bay and appears to be in remission. She was admitted in March with a 3 day history of left-sided abdominal pain radiating to the left flank. She also reported diffuse abdominal cramping, constipation, nausea and vomiting. She has been treated for UTIs in the past. She denies any history of urolithiasis. She denies dysuria and hematuria. On March 27, she underwent cystoscopy, bilateral retrograde pyelograms, bilateral ureteroscopy, bilateral ureteral stent insertion. She was found to have bilateral ureteral narrowing with proximal hydroureteronephrosis. On the right side, the level of obstruction is at the iliac vessels, and the ureter proximal to this is significantly dilated and tortuous. On the left side, there is moderate hydroureteronephrosis down to the level of L5, where the ureter tapers to a normal caliber. - Constitutional Constitutional: Denies chills, Denies fever - Gastrointestinal Gastrointestinal: Reports nausea, Reports vomiting - Genitourinary (Female) Genitourinary: Reports as per HPI Past Medical History Past Medical History: Cancer, COPD, Hyperlipidemia, Osteoarthritis (OA) Additional Past Medical History / Comment(s): 03/2020 diagnosed with stomach cancer/had resection and chemo and is currently in remission/sees Dr. Bay every 6 weeks, hemorroids, UTIs, hx stomach ulcer History of Any Multi-Drug Resistant Organisms: None Reported Past Surgical History: Breast Surgery, Cholecystectomy, Joint Replacement, Orthopedic Surgery, Tonsillectomy Additional Past Surgical History / Comment(s): stomach resection, R upper chest port/later removed, EGD, colonoscopies, bilateral breast benign biopsies, RK bilateral eyes, rt hip replacement Past Anesthesia/Blood Transfusion Reactions: Motion Sickness Additional Past Anesthesia/Blood Transfusion Reaction / Comment(s): Pt has claustrophobia Smoking Status: Former smoker - Past Family History Father Family Medical History: Cancer, Deep Vein Thrombosis (DVT) Additional Family Medical History / Comment(s): Stomach cancer. Father of blood clot that travelled to his heart. Mother Family Medical History: Cancer Additional Family Medical History / Comment(s): Bone cancer Sister(s) Family Medical History: Cancer Additional Family Medical History / Comment(s): Breast cancer Medications and Allergies Home Medications Medication Instructions Recorded Confirmed Type Cyanocobalamin (Vitamin B-12) 1,000 mcg PO MOWEFR 02/07/21 06/25/22 History [Vitamin B-12] Vitamin E 400 unit PO DAILY 02/07/21 06/25/22 History [place] 3 1 cap PO DAILY 09/19/21 06/25/22 History Pramipexole Di-HCl [Mirapex] 0.125 mg PO HS 09/19/21 06/25/22 History Albuterol Inhaler [Ventolin Hfa 2 puff INHALATION RT-Q6H PRN 03/26/22 06/25/22 History Inhaler] Sucralfate [Carafate] 1 gm PO BID 03/26/22 06/25/22 History Venlafaxine HCl [Effexor XR] 75 mg PO DAILY 03/27/22 06/25/22 History HYDROcodone/APAP 5-325MG [[place] 1 tab PO Q6HR PRN 2 Days #8 tab 03/28/22 06/25/22 Rx 5-325] Oxybutynin Chloride [Oxybutynin 10 mg PO DAILY #30 tab 03/28/22 06/25/22 Rx Chloride ER] Omeprazole [PriLOSEC] 20 mg PO AC-BRKFST #90 cap 06/25/22 Rx Allergies Allergy/AdvReac Type Severity Reaction Status Date / Time No Known Allergies Allergy Verified 06/25/22 11:38 Surgical - Exam - General well developed, well nourished - Respiratory normal respiratory effort - Abdomen Soft, non-distended, no mass. Diffuse tenderness, greater on the left, without guarding or rebound. - Genitourinary normal external genitalia - Psychiatric oriented to time, oriented to person, oriented to place, speech is normal, memory intact Results - Imaging CT scan - abdomen: report reviewed, image reviewed Assessment and Plan (1) Hydronephrosis with ureteral stricture, not elsewhere classified Status: Acute Code(s): N13.1 - HYDRONEPHROSIS W URETERAL STRICTURE, NEC SNOMED Code(s): 72222765 Plan: Cystoscopy, bilateral ureteral balloon dilation, bilateral ureteral stent change. The procedure has been reviewed in detail with the patient. She has been made aware of potential risks, which include anesthesia, bleeding, infection, and ureteral injury. She is also aware that her ureteral strictures may persist despite balloon dilation.
[2022-07-07 10:21] VITALS: BMI 21.1
[2022-07-09] MEDS ORDERED: LACTATED RINGERS 1,000 ML IV SCH (06:05)
[2022-07-09] MEDS ORDERED: DEXAMETHASONE SOD PHOSPHATE 4 MG/ML 1 ML VIAL IV ONE (06:05)
[2022-07-09] MEDS ORDERED: ONDANSETRON 4 MG/2 ML VIAL IVP ONE (06:05)
[2022-07-09] MEDS ORDERED: HYDROmorphone 0.5 MG/0.5 ML SYRINGE IVP PRN (06:05)
[2022-07-09] MEDS ORDERED: LIDOCAINE 1% (10MG/ML) FOR IV START INTRADERMA ONE (06:39)
[2022-07-09] MEDS ORDERED: PROPOFOL 10 MG/ML 20 ML VIAL IV ONE (06:55)
[2022-07-09] MEDS ORDERED: GLYCOPYRROLATE 0.2 MG/ML 2 ML VIAL ONE (06:55)
[2022-07-09] MEDS ORDERED: HYDROmorphone (PF) 1 MG/ML ONE (06:55)
[2022-07-09] MEDS ORDERED: LABETALOL 5 MG/ML VIAL MDV ONE (06:55)
[2022-07-09] MEDS ORDERED: ROCURONIUM 10 MG/ML (5 ML VIAL) IV ONE (06:55)
[2022-07-09] MEDS ORDERED: SUCCINYLCHOLINE CHLORIDE 200 MG/10 ML VIAL IV ONE (06:55)
[2022-07-09] MEDS ORDERED: LIDOCAINE 2% INJ 20 MG/ML (2 ML VIAL) ONE (06:55)
[2022-07-09] MEDS ORDERED: fentaNYL (PF) 50 MCG/ML 2 ML AMP ONE (06:55)
[2022-07-09] MEDS ORDERED: NEOSTIGMINE 1 MG/ML 10 ML VIAL ONE (06:55)
[2022-07-09] MEDS ORDERED: IOPAMIDOL-370 50ML BTL IRRIGATION ONE (07:28)
[2022-07-09] MEDS ORDERED: LACTATED RINGERS 1,000 ML IV ONE ×2 (08:22)
--- NOTE | 2022-07-09 08:34 | FL ---
Intraoperative/procedural fluoroscopic services were provided for bilateral ureteral dilation with bi lateral stent insertion. Total fluoroscopy time is 3.55 minutes with a total of 12 submitted images t o PACS. Please see the operative note for further details.
[2022-07-09 08:52] VITALS: TEMP 96.9
[2022-07-09 08:54] VITALS: RESP 16
--- NOTE | 2022-07-09 08:55 | P.OP ---
Date of Procedure: 07/09/22 Preoperative Diagnosis: Bilateral hydronephrosis secondary to ureteral strictures Postoperative Diagnosis: Same Procedure(s) Performed: Cystoscopy, balloon dilation of bilateral ureteral strictures, right ureteroscopy, bilateral ureteral stent change Anesthesia: ROXA Surgeon: Ming Ga Estimated Blood Loss (ml): 10 IV fluids (ml): 900 Pathology: none sent Condition: stable Disposition: PACU Indications for Procedure: The patient is a 71-year-old white female diagnosed with gastric cancer in March 2020. She underwent resection and has received systemic chemotherapy. She has not received radiation therapy. She is followed by Dr. Bay and appears to be in remission. She was admitted in March with a 3 day history of left-sided abdominal pain radiating to the left flank. She also reported diffuse abdominal cramping, constipation, nausea and vomiting. She has been treated for UTIs in the past. She denies any history of urolithiasis. She denies dysuria and hematuria. On March 27, she underwent cystoscopy, bilateral retrograde pyelogram s, bilateral ureteroscopy, bilateral ureteral stent insertion. She was found to have bilateral ureteral narrowing with proximal hydroureteronephrosis. On the right side, the level of obstruction is at the iliac vessels, and the ureter proximal to this is significantly dilated and tortuous. On the left side, there is moderate hydroureteronephrosis down to the level of L5, where the ureter tapers to a normal caliber. Her serum creatinine level is 0.7. Operative Findings: Right ureteral stricture at the level of the iliac vessels. Left proximal ureteral strictures. Strictures successfully balloon dilated. Description of Procedure: The patient was taken to the operating room and placed in the dorsolithotomy position, with legs supported in Josh stirrups. The external genitalia was prepped and draped sterilely. The 30 lens was used to introduce the 22-Jamaican Stortz cystoscopic sheath through the urethra and into the bladder under direct vision. The bladder was examined in its entirety. The distal end of the ureteral stents were visualized. No tumors were seen. Grasping forceps were used to grasp the distal end of the right ureteral stent, which was removed along with the cystoscope. A 0.038 inch Glidewire was passed through the stent and up to the right renal pelvis. The stent was removed, and an 18-Jamaican, 10 cm balloon dilating catheter was passed over the wire and advanced to the level of the iliac vessels. Balloon dilation was performed for a duration of 5 minutes. There was initially a waist where the stricture was located, which opened up with balloon dilation. As the balloon dilating catheter was removed, the Glidewire migrated distally and could not be advanced beyond the mid ureter. Therefore, ureteroscopy was performed and it was then possible to pass the Glidewire through the ureteroscope and up to the renal pelvis. The Glidewire was then backloaded into the cystoscope, which was passed into the bladder. A 24 cm, 6-Jamaican double-J ureteral stent was placed over the wire. Proper stent positioning was verified fluoroscopically and endoscopically. An identical procedure was then performed of the left side. The entire left proximal ureter was dilated. There appeared to be several strictures, all of which opened up. However, imaging of the balloon showed some irregularity consistent with a longer distance of stricture. After dilating the ureter for 5 minutes, the balloon dilating catheter was removed and a 24 cm, 6-Jamaican double- J ureteral stent was placed over the wire. Proper stent positioning was verified fluoroscopically and endoscopically. The bladder was emptied and the cystoscope removed. Patient tolerated the procedure well was taken to the recovery in stable condition.
[2022-07-09 10:12] VITALS: BP 138/73; PULSE 69
== END 2022-07-09 10:50 | disposition home or self-care (01) ==
LOC: OR 05:43
PROVIDERS: ATTEND Urology
DX: N13.1 Hydronephrosis with ureteral stricture, not elsewhere classified (principal); J44.9 Chronic obstructive pulmonary disease, unspecified; E78.5 Hyperlipidemia, unspecified; M19.90 Unspecified osteoarthritis, unspecified site; Z79.899 Other long term (current) drug therapy; Z79.51 Long term (current) use of inhaled steroids; Z79.890 Hormone replacement therapy; Z87.440 Personal history of urinary (tract) infections; Z87.891 Personal history of nicotine dependence
CPT/HCPCS: 52344; 52332; C2625; C1769 ×2; J0330; J1100; J2710; J0690; J2405; J3010; J1170; J2704; Q9967; J2001

== ENCOUNTER 2022-07-26 19:48 | Inpatient (IN) | payer MEDICARE, OTHER ==
--- NOTE | 2022-07-26 20:32 | ED ---
General Adult HPI - General Chief complaint: Abdominal Pain Stated complaint: Nausea, vomiting Source: patient, EMS Mode of arrival: EMS Limitations: no limitations - History of Present Illness Initial comments: Patient presents to the ED by ambulance for evaluation. Patient states that she has "stomach cancer", and she states that she is followed by Dr. Bay. Patient states that she has had generalized abdominal pain, nausea and vomiting for a couple of months now, and she states that her pain and nausea/vomiting have become more severe today. Patient also states that she has been constipated, and she has been having small, hard bowel movements recently. Patient states that she has not been able to keep anything down today. Patient denies trauma or injury, fever or chills, headache, focal numbness/weakness/neuro deficit, chest pain or pressure, dyspnea, cough or cold symptoms, dizziness, back or flank pain, diarrhea, bloody or melanotic stool, hematemesis, dy suria/hematuria/urinary frequency/urinary symptoms, decreased urine output, or any other symptoms or complaints. Patient states that she last had chemotherapy 5 days ago. - Related Data Home Medications Medication Instructions Recorded Confirmed Cyanocobalamin (Vitamin B-12) 1,000 mcg PO MOWEFR 02/07/21 07/09/22 [Vitamin B-12] Vitamin E 400 unit PO DAILY 02/07/21 07/09/22 [place] 3 1 cap PO DAILY 09/19/21 07/09/22 Pramipexole Di-HCl [Mirapex] 0.125 mg PO HS 09/19/21 07/09/22 Albuterol Inhaler [Ventolin Hfa 2 puff INHALATION RT-Q6H PRN 03/26/22 07/09/22 Inhaler] Sucralfate [Carafate] 1 gm PO BID 03/26/22 07/09/22 Venlafaxine HCl [Effexor XR] 75 mg PO DAILY 03/27/22 07/09/22 Previous Rx's Medication Instructions Recorded HYDROcodone/APAP 5-325MG [[place] 1 tab PO Q6HR PRN 2 Days #8 tab 03/28/22 5-325] Oxybutynin Chloride [Oxybutynin 10 mg PO DAILY #30 tab 03/28/22 Chloride ER] Omeprazole [PriLOSEC] 20 mg PO AC-BRKFST #90 cap 06/25/22 Allergies Allergy/AdvReac Type Severity Reaction Status Date / Time No Known Allergies Allergy Verified 07/09/22 06:27 Review of Systems ROS Statement: Those systems with pertinent positive or pertinent negative responses have been documented in the HPI. ROS Other: All systems not noted in ROS Statement are negative. Past Medical History Past Medical History: Cancer, COPD, Hyperlipidemia, Osteoarthritis (OA) Additional Past Medical History / Comment(s): 03/2020 diagnosed with stomach cancer/had resection and chemo and is currently in remission/sees Dr. Bay every 6 weeks, hemorroids, UTIs, hx stomach ulcer, FOOD GETS STUCK IN THROAT AND PT THROWS IT BACK UP, KIDNEY STONES History of Any Multi-Drug Resistant Organisms: None Reported Past Surgical History: Breast Surgery, Cholecystectomy, Joint Replacement, Orthopedic Surgery, Tonsillectomy Additional Past Surgical History / Comment(s): stomach resection, R upper chest port/later removed, EGD, colonoscopies, bilateral breast benign biopsies, RK bilateral eyes, rt hip replacement, EGD-06/25/22 Past Anesthesia/Blood Transfusion Reactions: Motion Sickness Additional Past Anesthesia/Blood Transfusion Reaction / Comment(s): Pt has claustrophobia Past Psychological History: Anxiety, Depression Smoking Status: Current some day smoker - Past Family History Father Family Medical History: Cancer, Deep Vein Thrombosis (DVT) Additional Family Medical History / Comment(s): Stomach cancer. Father of blood clot that travelled to his heart. Mother Family Medical History: Cancer Additional Family Medical History / Comment(s): Bone cancer Sister(s) Family Medical History: Cancer Additional Family Medical History / Comment(s): Breast cancer General Exam Limitations: no limitations General appearance: alert, in no apparent distress Head exam: Present: atraumatic, normocephalic Eye exam: Present: normal appearance, EOMI ENT exam: Present: mucous membranes moist Neck exam: Present: other (Trachea is in midline) Respiratory exam: Present: normal lung sounds bilaterally. Absent: respiratory distress, wheezes, rales, rhonchi, stridor Cardiovascular Exam: Present: regular rate, normal rhythm, normal heart sounds, other (Normal radial pulses bilaterally) GI/Abdominal exam: Present: soft, diminished bowel sounds, other (Moderate generalized abdominal tenderness). Absent: distended, guarding, rebound Extremities exam: Absent: tenderness, pedal edema, calf tenderness Back exam: Absent: CVA tenderness (R), CVA tenderness (L) Neurological exam: Present: alert, oriented X3. Absent: motor sensory deficit Psychiatric exam: Present: normal affect, normal mood Skin exam: Present: warm, dry, intact, normal color Course Vital Signs 07/26/22 07/26/22 07/26/22 19:55 20:00 20:01 Temperature 98.5 F Pulse Rate 96 Respiratory 18 Rate Blood Pressure 123/84 O2 Sat by Pulse 98 Oximetry 07/26/22 23:17 Temperature Pulse Rate 83 Respiratory 18 Rate Blood Pressure 174/61 O2 Sat by Pulse 96 Oximetry - Reevaluation(s) Reevaluation #1: 07/26/22 23:17 Case, H&P, test results and ED management were discussed with [employer] Natalya Tran. She accepts hospital admission on behalf of herself and Dr. Dee. She agrees with oncology consultation. She has no further recommendations at this time. 07/26/22 23:22 Patient states that her symptoms have improved with ED treatment. Patient denies development of any new symptoms while in the ED. Patient continues to have a nonsurgical abdominal exam. Patient is aware of her test results, and she agrees with hospital admission at this time. Medical Decision Making - Medical Decision Making Patient is afebrile and without leukocytosis. Patient has a soft and nonsurgical abdominal exam. I suspect that the patient's symptoms and CT finding of ascites is likely secondary to her history of malignancy. Will admit the patient to the hospital for symptom control and oncology consultation. [employer] BIOLOGIST Ntaalya Tran has accepted hospital admission on behalf of herself and Dr. Dee. - Lab Data Result diagrams: 07/26/22 20:45 07/26/22 20:45 Lab Results 07/26/22 07/26/22 07/26/22 Range/Units 20:45 20:45 20:45 WBC 8.0 (3.8-10.6) k/uL RBC 4.57 (3.80-5.40) m/uL Hgb 14.3 (11.4-16.0) gm/dL Hct 40.6 (34.0-46.0) % MCV 88.9 (80.0-100.0) fL MCH 31.2 (25.0-35.0) pg MCHC 35.1 (31.0-37.0) g/dL RDW 12.6 (11.5-15.5) % Plt Count 223 (150-450) k/uL MPV 8.1 Neutrophils % 81 % Lymphocytes % 14 % Monocytes % 3 % Eosinophils % 1 % Basophils % 0 % Neutrophils # 6.4 (1.3-7.7) k/uL Lymphocytes # 1.1 (1.0-4.8) k/uL Monocytes # 0.2 (0-1.0) k/uL Eosinophils # 0.1 (0-0.7) k/uL Basophils # 0.0 (0-0.2) k/uL Sodium 137 (137-145) mmol/L Potassium 3.4 L (3.5-5.1) mmol/L Chloride 103 (98-107) mmol/L Carbon Dioxide 22 (22-30) mmol/L Anion Gap 12 mmol/L BUN 17 (7-17) mg/dL Creatinine 0.54 (0.52-1.04) mg/dL Est GFR (CKD-EPI)AfAm >90 (>60 ml/min/1.73 sqM) Est GFR (CKD-EPI)NonAf >90 (>60 ml/min/1.73 sqM) Glucose 100 H (74-99) mg/dL Plasma Lactic Acid Janak 1.3 (0.7-2.0) mmol/L Calcium 8.4 (8.4-10.2) mg/dL Total Bilirubin 1.1 (0.2-1.3) mg/dL AST 26 (14-36) U/L ALT 17 (4-34) U/L Alkaline Phosphatase 128 H (38-126) U/L Total Protein 5.7 L (6.3-8.2) g/dL Albumin 3.6 (3.5-5.0) g/dL Lipase 57 (23-300) U/L - Radiology Data CT abdomen/pelvis with IV contrast: Compared to the old examination there is development of large amount of abdominal ascites fluid. The biliary tree is mildly enlarged compared to last exam. No obstructing lesion seen. Disposition Clinical Impression: Abdominal pain, Nausea and vomiting, Ascites Disposition: ADMITTED IP TO THIS HOSP Condition: Stable Is patient prescribed a controlled substance at d/c from ED?: No Referrals: Aliyah Fink MD [Primary Care Provider] - 1-2 days Time of Disposition: 23:17
[2022-07-26] MEDS ORDERED: SODIUM CHLORIDE 0.9% 1,000 ML IV STA (20:42)
[2022-07-26] MEDS ORDERED: HYDROmorphone 1 MG/ML 1 ML SYRINGE IVP STA (20:42)
[2022-07-26] MEDS ORDERED: ONDANSETRON 4 MG/2 ML VIAL IVP STA (20:42)
[2022-07-26 20:58] LABS: Basophils % (A) 0 %; Eosinophils # (A) 0.1 k/uL (0-0.7); Eosinophils % (A) 1 %; HCT 40.6 % (34.0-46.0); HGB 14.3 gm/dL (11.4-16.0); Lymphocytes # (A) 1.1 k/uL (1.0-4.8); Lymphocytes % (A) 14 %; MCH 31.2 pg (25.0-35.0); MCHC 35.1 g/dL (31.0-37.0); MCV 88.9 fL (80.0-100.0); Mean Platelet Volume 8.1; Monocytes # (A) 0.2 k/uL (0-1.0); Monocytes % (A) 3 %; Neutrophils # (A) 6.4 k/uL (1.3-7.7); Neutrophils % (A) 81 %; Platelet Count 223 k/uL (150-450); RBC 4.57 m/uL (3.80-5.40); RDW 12.6 % (11.5-15.5)
[2022-07-26 21:11] LABS: ALT 17 U/L (4-34); AST 26 U/L (14-36); African American GFR (CKD) >90 (>60 ml/min/1.73 sqM); Albumin 3.6 g/dL (3.5-5.0); Alkaline Phosphatase 128 U/L (38-126); Anion Gap 12 mmol/L; Blood Urea Nitrogen 17 mg/dL (7-17); Calcium 8.4 mg/dL (8.4-10.2); Carbon Dioxide 22 mmol/L (22-30); Chloride 103 mmol/L (98-107); Glucose 100 mg/dL (74-99); Lipase 57 U/L (23-300); Non-African American GFR(CKD) >90 (>60 ml/min/1.73 sqM); Potassium 3.4 mmol/L (3.5-5.1); Sodium 137 mmol/L (137-145); Total Bilirubin 1.1 mg/dL (0.2-1.3); Total Protein 5.7 g/dL (6.3-8.2)
--- NOTE | 2022-07-26 22:17 | CT ---
EXAMINATION TYPE: CT abdomen pelvis w con DATE OF EXAM: 07/26/2022 COMPARISON: 05/27/2022 HISTORY: abdominal pain, nausea, vomiting, stomach ca CT DLP: 631.2 mGycm Automated exposure control for dose reduction was used. CONTRAST: Performed with IV Contrast, patient injected with 100 mL of Isovue 300. Lung bases are clear. No pleural effusion. Heart size is normal. No pericardial effusion. There is mi ld enlargement of the bile ducts. No pancreatic mass seen. There is moderate amount of abdominal asci emiliano fluid. Spleen is intact. There is apparent partial gastrectomy. No adrenal mass. Kidneys show sat isfactory contrast opacification. There is bilateral ureteral stents. There are a few sigmoid diverti cula. No diverticulitis. No evidence of a bowel obstruction. Fecal pattern is normal. There is disc s pace narrowing at L5-S1 with vacuum disc and spur formation. IMPRESSION: Compared to the old examination there is development of large amount of abdominal ascites fluid. The biliary tree is mildly enlarged compared to last exam. No obstructing lesion seen.
[2022-07-26] MEDS ORDERED: NALOXONE 0.4 MG/ML 1 ML VIAL IV PRN (23:17)
[2022-07-26 23:56] LABS: Appearance,Urine Clear (Clear); Bilirubin,Urine Negative (Negative); Blood,Urine Large (Negative); Color,Urine Light Red; Glucose,Urine (UA) Negative (Negative); Ketones,Urine 3+ (Negative); Leukocyte Esterase,Urine Small (Negative); Mucus,Urine Rare /hpf; Nitrite,Urine Negative (Negative); PH, Urine 6.5 (5.0-8.0); Protein,Urine 1+ (Negative); RBC,Urine >182 /hpf (0-5); Squamous Epithelial Cell,Urine 4 /hpf (0-4); Urobilinogen,Urine <2.0 mg/dL (<2.0); WBC,Urine 59 /hpf (0-5)
[2022-07-27 00:03] LABS: Specific Gravity,Urine >1.050 (1.001-1.035)
[2022-07-27] MEDS: SODIUM CHLORIDE 0.9% 1,000 ML IV SCH ×2 (00:12→13:18)
[2022-07-27] MEDS: ONDANSETRON 4 MG/2 ML VIAL IVP PRN ×2 (00:13→18:10)
[2022-07-27] MEDS: MORPHINE SULFATE 4 MG/ML SYRINGE IV PRN ×3 (00:14→08:46)
[2022-07-27 06:51] LABS: Basophils % (A) 0 %; Eosinophils # (A) 0.2 k/uL (0-0.7); Eosinophils % (A) 2 %; HCT 39.7 % (34.0-46.0); HGB 13.5 gm/dL (11.4-16.0); Lymphocytes # (A) 1.5 k/uL (1.0-4.8); Lymphocytes % (A) 22 %; MCH 31.1 pg (25.0-35.0); MCV 91.5 fL (80.0-100.0); Monocytes # (A) 0.3 k/uL (0-1.0); Monocytes % (A) 4 %; Neutrophils # (A) 4.8 k/uL (1.3-7.7); Neutrophils % (A) 71 %; Platelet Count 220 k/uL (150-450); RBC 4.34 m/uL (3.80-5.40); RDW 12.7 % (11.5-15.5); WBC 6.8 k/uL (3.8-10.6)
[2022-07-27 07:06] LABS: ALT 16 U/L (4-34); AST 21 U/L (14-36); African American GFR (CKD) >90 (>60 ml/min/1.73 sqM); Albumin 3.3 g/dL (3.5-5.0); Alkaline Phosphatase 113 U/L (38-126); Anion Gap 9 mmol/L; Blood Urea Nitrogen 13 mg/dL (7-17); Calcium 7.9 mg/dL (8.4-10.2); Carbon Dioxide 23 mmol/L (22-30); Chloride 107 mmol/L (98-107); Glucose 86 mg/dL (74-99); Non-African American GFR(CKD) >90 (>60 ml/min/1.73 sqM); Potassium 3.2 mmol/L (3.5-5.1); Sodium 139 mmol/L (137-145); Total Bilirubin 0.9 mg/dL (0.2-1.3); Total Protein 5.3 g/dL (6.3-8.2)
[2022-07-27] MEDS: HYDROmorphone 0.5 MG/0.5 ML SYRINGE IVP PRN ×3 (13:16→22:14)
[2022-07-27 15:06] LABS: INR 0.9 (<1.2); Prothrombin Time 10.2 sec (9.0-12.0)
[2022-07-27] MEDS: PANTOPRAZOLE 40 MG/10 ML VIAL IVP SCH (21:12)
--- NOTE | 2022-07-27 21:21 | P.CONS ---
History of Present Illness - Reason for Consult Consult date: 07/27/22 abdominal pain, intractable n/v, gastric cancer - History of Present Illness the patient is a 71-year-old white female, well known to our service. She is followed by Dr Bay in the office. her oncology history is as follows: - diagnosed with gastric cancer in when she presented with persistent nausea/vomting and weight loss of few months duration. On 03/14/2020,CT scan of abdomen/pelvis revealed gastric thickening at proximal duodenum and gastric distention. 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 On 03/29/2020,EUS revealed stage T3N0 disease. On 04/03/2020,CT scan of chest was negative. She started on FLOT regimen,had total of 4 cycles,repeat CT scan of chest/abdomen/plevis on 06/30/2020 revealed decrease in neoplastic process of gastric anrum and decrease in size of previosly borderline enlarged and morphologically abnormal gastric hepatic ligament nodes. On 07/25/2020,she underwent gastrectomy,pathology revealed poorly diferentiated carcinoma,diffuse type,10/12 nodes were positive,pT3N3a disease.Negative marigins,+LVI. The above treatment was done at [facility].She moved to [place] to live close to her family and came to see Dr Bay to resume treatment closer to home. On ,repeat CT scan of chest/abdomen/pelvis revealed postop seroma,no evidence of disease. Her genetic testing was negative She resumed adjuvant FLOT on 09/25/2020 until 10/08/2020 (stopped due to significant fatigue and progressing neuropathy),she had total of 6 cycles perioperatively. she was then placed on surveillance. On 10/09/2020,brain MRI (done because of dizzyness) was negative for metastatic disease.On 09/23/2021,EGD revealed gastritis and Roman esophagus. Biopsy of small abdominal wall lesion in 12/2021 came back negative She presented with pain in lower back and pelvis, the patient was admitted to the hospital in 03/25. CT of the abdomen and pelvis: retroperitoneal fat stranding and fluid bilaterally. There is evidence of left-sided renal obstruction with delayed pyelogram. There is also right sided hydronephrosis but no significant delayed pyelogram. This could relate to bilateral acute and chronic renal obstruction. the patient underwent cystoscopy with bilateral stent placement, with improvement in renal function. Certainly she developed issues with progressive intolerance of oral intake, with early satiety, distention, followed by nausea and vomiting. She underwent EGD on 06/25/22, revealing narrowing and thickening of the gastric esophageal junction. The lumen was still patent however. Biopsy was positive for recurrent gastric adenocarcinoma. the patient was started back on treatment with FOLFOX/ Opdivo was on 07/21/22 and is status post 1 cycle. She came into the hospital because of progression of her complaints, spec ifically abdominal distention, abdominal pain, inability to eat and recurrent nausea and vomiting. The patient states that she is constipated for several days at a time followed by intermittent passage of small hard stools. She is able to pass gas without a problem. She denies any hematemesis or blood in stool. She states that she can tolerate small sips of fluid a time, but otherwise developed nausea and vomiting with anything more advanced. She states that she has lost about 8-10 pounds She had repeat CT of the abdomen and pelvis, which showed development of ascites. This did not show any definite evidence of predominantly lesions, new parenchymal lesions or adenopathy. There was no evidence of edouard bowel obstruction Review of Systems Constitutional: Reports chronic pain, Reports fatigue, Reports poor appetite, Reports weight loss Eyes: denies blurred vision, denies pain Ears: deny: decreased hearing Ears, nose, mouth and throat: Denies headache, Denies sore throat Cardiovascular: Reports decreased exercise tolerance Respiratory: Denies cough Gastrointestinal: Reports abdominal pain, Reports bloating, Reports constipation, Reports nausea, Reports vomiting Genitourinary: Denies dysuria, Denies hematuria Menstruation: Reports postmenopausal Musculoskeletal: Reports muscle weakness Integumentary: Denies pruritus, Denies rash Neurological: Reports weakness Psychiatric: Reports anxiety Endocrine: Reports fatigue, Reports weight change Hematologic/Lymphatic: Reports as per HPI Past Medical History Past Medical History: Cancer, COPD, Hyperlipidemia, Osteoarthritis (OA) Additional Past Medical History / Comment(s): 03/2020 diagnosed with stomach cancer/had resection and chemo and is currently in remission/sees Dr. Bay every 6 weeks, hemorroids, UTIs, hx stomach ulcer, FOOD GETS STUCK IN THROAT AND PT THROWS IT BACK UP, KIDNEY STONES History of Any Multi-Drug Resistant Organisms: None Reported Past Surgical History: Breast Surgery, Cholecystectomy, Joint Replacement, Orthopedic Surgery, Tonsillectomy Additional Past Surgical History / Comment(s): stomach resection, R upper chest port/later removed, EGD, colonoscopies, bilateral breast benign biopsies, RK bilateral eyes, rt hip replacement, EGD-06/25/22 Past Anesthesia/Blood Transfusion Reactions: Motion Sickness Additional Past Anesthesia/Blood Transfusion Reaction / Comm: Pt has claustrophobia Past Psychological History: Anxiety, Depression Smoking Status: Current some day smoker - Past Family History Father Family Medical History: Cancer, Deep Vein Thrombosis (DVT) Additional Family Medical History / Comment(s): Stomach cancer. Father of blood clot that travelled to his heart. Mother Family Medical History: Cancer Additional Family Medical History / Comment(s): Bone cancer Sister(s) Family Medical History: Cancer Additional Family Medical History / Comment(s): Breast cancer Medications and Allergies Home Medications Medication Instructions Recorded Confirmed Type Cyanocobalamin (Vitamin B-12) 1,000 mcg PO DAILY 02/07/21 07/27/22 History [Vitamin B-12] Vitamin E 400 unit PO DAILY 02/07/21 07/27/22 History Pramipexole Di-HCl [Mirapex] 0.125 mg PO HS 09/19/21 07/27/22 History Albuterol Inhaler [Ventolin Hfa 2 puff INHALATION RT-Q6H PRN 03/26/22 07/27/22 History Inhaler] Sucralfate [Carafate] 1 gm PO BID 03/26/22 07/27/22 History Venlafaxine HCl [Effexor XR] 75 mg PO DAILY 03/27/22 07/27/22 History Oxybutynin Chloride [Oxybutynin 10 mg PO DAILY #30 tab 03/28/22 07/27/22 Rx Chloride ER] Omeprazole [PriLOSEC] 20 mg PO AC-BRKFST #90 cap 06/25/22 07/27/22 Rx Calcium Carbonate/Vitamin D3 1 cap PO DAILY 07/27/22 07/27/22 History [Calcium 600 mg-D3 10 Mcg (400 Iu)] Lovastatin [Mevacor] 40 mg PO HS 07/27/22 07/27/22 History Stonewall-3 Fatty Acids [Stonewall-3] 1,000 mg PO DAILY 07/27/22 07/27/22 History Ondansetron [Zofran] 4 mg PO Q12HR PRN 07/27/22 07/27/22 History Allergies Allergy/AdvReac Type Severity Reaction Status Date / Time No Known Allergies Allergy Verified 07/27/22 07:27 Physical Exam Vitals: Vital Signs Temp Pulse Pulse Resp BP BP Pulse Ox 07/27/22 03:01 98.7 F 82 17 151/90 96 07/26/22 23:17 83 18 174/61 96 07/26/22 20:01 98.5 F 07/26/22 20:00 123/84 07/26/22 19:55 96 18 98 Intake and Output 07/26/22 07/27/22 07/27/22 22:59 06:59 14:59 Other: Weight 53.524 kg - Constitutional General appearance: no acute distress - EENT Eyes: EOMI, PERRLA ENT: hearing grossly normal, normal oropharynx - Neck Neck: no lymphadenopathy Thyroid: bilateral: normal size - Respiratory Respiratory: bilateral: CTA - Cardiovascular Rhythm: regular Heart sounds: normal: S1, S2 - Gastrointestinal Free fluid +ve General gastrointestinal: decreased bowel sounds, distended - Integumentary Integumentary: normal - Neurologic Neurologic: CNII-XII intact - Musculoskeletal Musculoskeletal: generalized weakness, strength equal bilaterally - Psychiatric Psychiatric: A&O x's 3, appropriate affect Results CBC & Chem 7: 07/27/22 06:04 07/27/22 06:04 Labs: Abnormal Lab Results - Last 24 Hours (Table) 07/26/22 07/26/22 07/27/22 Range/Units 20:45 23:14 06:04 Potassium 3.4 L 3.2 L (3.5-5.1) mmol/L Creatinine 0.48 L (0.52-1.04) mg/dL Glucose 100 H (74-99) mg/dL Calcium 7.9 L (8.4-10.2) mg/dL Alkaline Phosphatase 128 H (38-126) U/L Total Protein 5.7 L 5.3 L (6.3-8.2) g/dL Albumin 3.3 L (3.5-5.0) g/dL Ur Specific [place] >1.050 H (1.001-1.035) Urine Protein 1+ H (Negative) Urine Ketones 3+ H (Negative) Urine Blood Large H (Negative) Ur Leukocyte Esterase Small H (Negative) Urine RBC >182 H (0-5) /hpf Urine WBC 59 H (0-5) /hpf Urine Mucus Rare H (None) /hpf CT scan - abdomen: report reviewed CT scan - pelvis: report reviewed Assessment and Plan (1) Nausea and vomiting Narrative/Plan: this has been slowly progressive, since onset of symptoms in 06/25. The patient had an EGD with results as described. Her CT scan today shows new ascites, but no evidence of any edouard obstruction. Her ascites is most likely malignant. However her symptoms are present even before the ascites had developed. -The results of the CT scan were discussed with her. At this time clinically and feels that she most likely has decreased emptying of the stomach and probably the proximal small bowel because of tumor recurrence causing stiffness and decreased motility. She may also have predominant disease, which is not visible on the CT scan causing at least some ileus. -The patient confirmed that she was not having any nausea or vomiting when she does not eat. - IV fluids - IV antibiotics. - Restrict PO intake to sips for now - if the patient has localized recurrence, she will potentially be treated with the placement of a J-tube. However it is possible that she may have more extensive disease (especially given the development of ascites) measurement this procedure quite difficult. In addition the surgery could potentially delay her chemotherapy - We'll therefore try to advance her diet to clears after drainage of ascites. if the patient is able to tolerate at least that, when she can continue on the same with the possibility that symptoms can improve as that is cytoreduction with chemotherapy. TPN can also be considered transiently, till improvement in tolerance of orals with treatment, if covered by insurance. Current Visit: Yes Status: Acute Code(s): R11.2 - NAUSEA WITH VOMITING, UNSPECIFIED SNOMED Code(s): 47508532 (2) Ascites Narrative/Plan: this appears to be moderate, as the abdomen was not especially tense. There is doubtful that this is a cause of her symptoms, as she was having those even prior to the ascites. However this is likely making her symptoms worse. Paracentesis with cytology will be ordered Current Visit: Yes Status: Acute Code(s): R18.8 - OTHER ASCITES SNOMED Code(s): 295817177 (3) Gastric adenocarcinoma Narrative/Plan: the treatment is currently on hold until her acute condition is managed appropriately. The patient was supposed to have a PET scan tomorrow, which will be rescheduled. Monitor counts for any cytopenias developing due to chemotherapy. Current Visit: No Status: Chronic Priority: Low Code(s): C16.9 - MALIGNANT NEOPLASM OF STOMACH, UNSPECIFIED SNOMED Code(s): 542128932
[2022-07-27] MEDS: PRAMIPEXOLE 0.125 MG TAB PO SCH (22:10)
[2022-07-28] MEDS: SODIUM CHLORIDE 0.9% 1,000 ML IV SCH ×2 (00:15→13:19)
[2022-07-28] MEDS: ONDANSETRON 4 MG/2 ML VIAL IVP PRN ×2 (04:21→16:55)
[2022-07-28] MEDS: HYDROmorphone 0.5 MG/0.5 ML SYRINGE IVP PRN (04:22)
--- NOTE | 2022-07-28 05:54 | HP ---
HISTORY AND PHYSICAL CHIEF COMPLAINT: Abdominal pain. HISTORY OF PRESENT ILLNESS: This 71-year-old woman with a past medical history of stomach cancer with surgery, was on chemotherapy by Dr. Bay. The patient complaining of abdominal pain. The patient came to [facility]. The patient has had a large amount of ascites in the CT scan, and the Oncology evaluation in progress. There is no history of any fever, rigors, or chills. PAST MEDICAL HISTORY: Reviewed and include stomach cancer surgery, COPD, other multiple medical issues. The rest of the history and rest of the chart is also reviewed. HOME MEDICATIONS: Reviewed and include oxybutynin, dose and rest of medication noted. ALLERGIES: None. FAMILY HISTORY: History of DVT, rest reviewed. SOCIAL HISTORY: History of smoking. REVIEW OF SYSTEMS: A 14-point review of systems is negative as mentioned earlier. PHYSICAL EXAMINATION: VITAL SIGNS: Pulse is 82, blood pressure , respirations 17. HEENT: Conjunctivae normal. Oral mucosa moist. NECK: No JVD. CARDIOVASCULAR: S1, S2. RESPIRATIONS: Clear to auscultation. ABDOMEN: Soft, status post surgery. Diffuse distention especially in the lower part. Nontender. No guarding. No rigidity. Diffuse mass palpable. Ascites present. LEGS: No edema. No swelling. NERVOUS SYSTEM: Nonfocal. SKIN: No ulcer, rash, bleeding. JOINTS: No active deforming arthropathy. LABORATORY DATA: Reviewed. ASSESSMENT: 1. Abdominal pain, ascites, possibly metastatic gastric cancer. 2. Gastric cancer, status post surgery. 3. Rule out acute gastritis. 4. History of stomach ulcer. 5. Chronic obstructive pulmonary disease. RECOMMENDATIONS: I recommend to continue current medications, continue symptomatic treatment. Otherwise at this time, I would recommend Protonix and consult with Hematology/Oncology for possible interventional radiology tapping of the ascitic fluid and consult Surgery for possible EGD. Symptomatic treatment provided. Home medications were continued. Prognosis guarded because of multiple complex medical conditions. Further recommendations to follow. See orders for further details. MMODL / IJN: [id number] /
[2022-07-28 08:53] LABS: Basophils # (A) 0.02 X 10*3/uL (0.00-0.10); Basophils % (A) 0.2 %; Eosinophils # (A) 0.15 X 10*3/uL (0.04-0.35); Eosinophils % (A) 1.8 %; HCT 37.5 % (37.2-46.3); HGB 12.5 g/dL (12.0-15.0); Immature Grans, Automated 0.6 %; Lymphocytes # (A) 1.34 X 10*3/uL (0.90-5.00); Lymphocytes % (A) 15.9 %; MCH 30.6 pg (27.0-32.0); MCHC 33.3 g/dL (32.0-37.0); MCV 91.9 fL (80.0-97.0); Mean Platelet Volume 9.6 fL (9.5-12.2); Monocytes % (A) 5.9 %; NRBC Per 100 WBC 0 /100 WBCS (0.0-0.0); Neutrophils # (A) 6.39 X 10*3/uL (1.80-7.70); Neutrophils % (A) 75.6 %; Platelet Count 221 X 10*3/uL (140-440); RBC 4.08 X 10*6/uL (4.10-5.20); RDW 13.2 % (11.5-14.5); WBC 8.45 X 10*3/uL (4.50-10.00)
[2022-07-28 10:25] LABS: African American GFR (CKD) 108.7 (60.0-200.0); Albumin 3.5 g/dL (3.8-4.9); Albumin/Globulin Ratio 2.01 (1.60-3.17); Anion Gap 13.6 mmol/L (10.00-18.00); BUN/Creat Ratio 21.2 Ratio (12.00-20.00); Blood Urea Nitrogen 12.4 mg/dL (9.0-27.0); Calcium 8.6 mg/dL (8.7-10.3); Carbon Dioxide 22.4 mmol/L (20.0-27.5); Globulin 1.7 g/dL (1.6-3.3); Non-African American GFR(CKD) 93.8 (60.0-200.0); Potassium 3.9 mmol/L (3.5-5.5); Total Bilirubin 0.5 mg/dL (0.30-1.20); Total Protein 5.2 g/dL (6.2-8.2)
[2022-07-28] MEDS: HYDROmorphone 1 MG/ML 1 ML SYRINGE IVP PRN ×3 (11:42→20:32)
--- NOTE | 2022-07-28 12:46 | US ---
EXAMINATION TYPE: US paracentesis abd w/image DATE OF EXAM: 07/28/2022 COMPARISON: NONE HISTORY: Ascites. PROCEDURE: Maximal barrier technique was utilized. The skin overlying a suitable pocket of fluid was localized with ultrasound and the overlying skin was prepped and draped. Ultrasound was utilized with sterile technique. Lidocaine was used for local anesthesia and a skin kameron made with a scalpel. Catheter was advanced under direct ultrasound guidance into a suitable pocket of fluid and approximately 2.3 liter s of yellow fluid were removed. Catheter was withdrawn and hemostasis achieved. There is no immedia te complication; the patient is discharged in stable condition. IMPRESSION: STATUS POST ULTRASOUND GUIDED PARACENTESIS FOR PALLIATION OF ASCITES. THIS PROCEDURE WA S PERFORMED BY THE UNDERSIGNED. Specimen obtained for laboratory analysis
[2022-07-28] MEDS: PANTOPRAZOLE 40 MG/10 ML VIAL IVP SCH ×2 (12:54→22:09)
[2022-07-28] MEDS: VENLAFAXINE HCL ER 75 MG CAP PO SCH (12:55)
[2022-07-28] MEDS: OXYBUTYNIN 10 MG TAB.ER.24 PO SCH (13:18)
--- NOTE | 2022-07-28 14:14 | P.GSCN ---
History of Present Illness Consult date: 07/28/22 History of present illness: CHIEF COMPLAINT: Abdominal pain HISTORY OF PRESENT ILLNESS: This is a 71-year-old female with a known history of gastric cancer status post partial gastrectomy at [place] in 2019. Patient has been undergoing chemotherapy. Her last chemotherapy treatment was 5 days ago. Patient presents to the hospital with complaints of upper abdominal pain with nausea and vomiting. Patient reports that she is having difficulty with eating. She has a fullness sensation and food seems to be getting stuck. She is able to tolerate water. She is having flatus. She has been dealing with constipation. She has a bowel movement about every 5 days. She had a computed tomography scan abdomen and pelvis that has shown development of a large amount of abdominal ascites fluid. The biliary tree is mildly enlarged compared to last exam. No obstructing lesion seen. Patient is scheduled for paracentesis today. She denies any fever chills or sweats. Oncology service is following patient. PAST MEDICAL HISTORY: See list. PAST SURGICAL HISTORY: See list. MEDICATIONS: See list. ALLERGIES: See list. SOCIAL HISTORY: No illicit drug use. REVIEW OF SYSTEMS: CONSTITUTIONAL: Denies fever or chills. HEENT: Denies blurred vision, vision changes, or eye pain. Denies hemoptysis CARDIOVASCULAR: Denies chest pain or pressure. RESPIRATORY: No shortness of breath. GASTROINTESTINAL: See HPI for pertinent findings HEMATOLOGIC: Denies bleeding disorders. GENITOURINARY: Denies any blood in urine or increased urinary frequency. SKIN: Denies pruitis. Denies rash. PHYSICAL EXAM: VITAL SIGNS: Reviewed GENERAL: Well-developed in no acute distress. HEENT: No sclera icterus. Extraocular movements grossly intact. Moist buccal mucosa. Head is atraumatic, normocephalic. No nasal drainage. ABDOMEN: Soft. Nondistended. Tenderness with palpation of the epigastric and right upper quadrants area. She is also tender across the lower abdomen. NEUROLOGIC: Alert and oriented. Cranial nerves II through XII grossly intact. LABORATORY DATA: WBC is 8.45 Hgb is 12.5 platelets 221 Sodium is 140 potassium is 3.2 up to 3.9 creatinine 0.6 Magnesium is 1.8 LFTs normal lipase 57 Urine culture pending IMAGING: Computed tomography scan results as stated above ASSESSMENT: 1. Nausea and vomiting 2. History of gastric cancer with possible recurrence 3. Abdominal ascites PLAN: -Patient is scheduled for paracentesis today -Continue supportive care -Further recommendations forthcoming per surgeon Physician [employer] [place] note has been reviewed by physician. Signing provider agrees with the documented findings, assessment, and plan of care. I have personally seen and examined the patient, reviewed the HOSE TURNER /PAs history, exam and MDM and agree with the assessment and plan as written. Based on total visit time, I have performed more than 50% of the visit. As above: Patient having intermittent spastic abdominal pain. Goes from the upper mid abdomen to the back. I suspect this is all related to the patient's recurrent cancer. Agree with plans for paracentesis. Would consider starting TPN as per oncology's note. Continue chemotherapy. We'll follow. Past Medical History Past Medical History: Cancer, COPD, Hyperlipidemia, Osteoarthritis (OA) Additional Past Medical History / Comment(s): 03/2020 diagnosed with stomach cancer/had resection and chemo and is currently in remission/sees Dr. Bay every 6 weeks, hemorroids, UTIs, hx stomach ulcer, FOOD GETS STUCK IN THROAT AND PT THROWS IT BACK UP, KIDNEY STONES History of Any Multi-Drug Resistant Organisms: None Reported Past Surgical History: Breast Surgery, Cholecystectomy, Joint Replacement, Orthopedic Surgery, Tonsillectomy Additional Past Surgical History / Comment(s): stomach resection, R upper chest port/later removed, EGD, colonoscopies, bilateral breast benign biopsies, RK bilateral eyes, rt hip replacement, EGD-06/25/22 Past Anesthesia/Blood Transfusion Reactions: Motion Sickness Additional Past Anesthesia/Blood Transfusion Reaction / Comm: Pt has claustrophobia Past Psychological History: Anxiety, Depression Smoking Status: Current some day smoker - Past Family History Father Family Medical History: Cancer, Deep Vein Thrombosis (DVT) Additional Family Medical History / Comment(s): Stomach cancer. Father of blood clot that travelled to his heart. Mother Family Medical History: Cancer Additional Family Medical History / Comment(s): Bone cancer Sister(s) Family Medical History: Cancer Additional Family Medical History / Comment(s): Breast cancer Medications and Allergies Home Medications Medication Instructions Recorded Confirmed Type Cyanocobalamin (Vitamin B-12) 1,000 mcg PO DAILY 02/07/21 07/27/22 History [Vitamin B-12] Vitamin E 400 unit PO DAILY 02/07/21 07/27/22 History Pramipexole Di-HCl [Mirapex] 0.125 mg PO HS 09/19/21 07/27/22 History Albuterol Inhaler [Ventolin Hfa 2 puff INHALATION RT-Q6H PRN 03/26/22 07/27/22 History Inhaler] Sucralfate [Carafate] 1 gm PO BID 03/26/22 07/27/22 History Venlafaxine HCl [Effexor XR] 75 mg PO DAILY 03/27/22 07/27/22 History Oxybutynin Chloride [Oxybutynin 10 mg PO DAILY #30 tab 03/28/22 07/27/22 Rx Chloride ER] Omeprazole [PriLOSEC] 20 mg PO AC-BRKFST #90 cap 06/25/22 07/27/22 Rx Calcium Carbonate/Vitamin D3 1 cap PO DAILY 07/27/22 07/27/22 History [Calcium 600 mg-D3 10 Mcg (400 Iu)] Lovastatin [Mevacor] 40 mg PO HS 07/27/22 07/27/22 History Cool-3 Fatty Acids [Cool-3] 1,000 mg PO DAILY 07/27/22 07/27/22 History Ondansetron [Zofran] 4 mg PO Q12HR PRN 07/27/22 07/27/22 History Allergies Allergy/AdvReac Type Severity Reaction Status Date / Time morphine AdvReac Itching Verified 07/28/22 10:21 Surgical - Exam Vital Signs Pulse Resp Pulse Ox 96 18 98 07/26/22 19:55 07/26/22 19:55 07/26/22 19:55 Results - Labs 07/28/22 05:33 07/28/22 05:33 Abnormal Lab Results - Last 24 Hours (Table) 07/28/22 07/28/22 Range/Units 05:33 05:33 RBC 4.08 L (4.10-5.20) X 10*6/uL Immature Gran # 0.05 H (0.00-0.04) X 10*3/uL BUN/Creatinine Ratio 21.20 H (12.00-20.00) Ratio Calcium 8.6 L (8.7-10.3) mg/dL Total Protein 5.2 L (6.2-8.2) g/dL Albumin 3.5 L (3.8-4.9) g/dL Microbiology - Last 24 Hours (Table) 07/26/22 23:14 Urine Culture - Final Urine,Voided Diabetes panel 07/28/22 Range/Units 05:33 Sodium 140 (135-145) mmol/L Potassium 3.9 (3.5-5.5) mmol/L Chloride 104 (96-109) mmol/L Carbon Dioxide 22.4 (20.0-27.5) mmol/L BUN 12.4 (9.0-27.0) mg/dL Creatinine 0.6 (0.6-1.5) mg/dL Glucose 77 (70-110) mg/dL Calcium 8.6 L (8.7-10.3) mg/dL AST 22 (13-35) U/L ALT 14 (8-44) U/L Alkaline Phosphatase 118 (41-126) U/L Total Protein 5.2 L (6.2-8.2) g/dL Albumin 3.5 L (3.8-4.9) g/dL Calcium panel 07/28/22 Range/Units 05:33 Calcium 8.6 L (8.7-10.3) mg/dL Albumin 3.5 L (3.8-4.9) g/dL Pituitary panel 07/28/22 Range/Units 05:33 Sodium 140 (135-145) mmol/L Potassium 3.9 (3.5-5.5) mmol/L Chloride 104 (96-109) mmol/L Carbon Dioxide 22.4 (20.0-27.5) mmol/L BUN 12.4 (9.0-27.0) mg/dL Creatinine 0.6 (0.6-1.5) mg/dL Glucose 77 (70-110) mg/dL Calcium 8.6 L (8.7-10.3) mg/dL Adrenal panel 07/28/22 Range/Units 05:33 Sodium 140 (135-145) mmol/L Potassium 3.9 (3.5-5.5) mmol/L Chloride 104 (96-109) mmol/L Carbon Dioxide 22.4 (20.0-27.5) mmol/L BUN 12.4 (9.0-27.0) mg/dL Creatinine 0.6 (0.6-1.5) mg/dL Glucose 77 (70-110) mg/dL Calcium 8.6 L (8.7-10.3) mg/dL Total Bilirubin 0.50 (0.30-1.20) mg/dL AST 22 (13-35) U/L ALT 14 (8-44) U/L Alkaline Phosphatase 118 (41-126) U/L Total Protein 5.2 L (6.2-8.2) g/dL Albumin 3.5 L (3.8-4.9) g/dL
[2022-07-28] MEDS: PRAMIPEXOLE 0.125 MG TAB PO SCH ×2 (20:34→21:20)
[2022-07-29] MEDS: ONDANSETRON 4 MG/2 ML VIAL IVP PRN ×2 (01:10→08:44)
[2022-07-29] MEDS: HYDROmorphone 1 MG/ML 1 ML SYRINGE IVP PRN ×2 (01:10→07:46)
[2022-07-29] MEDS: SODIUM CHLORIDE 0.9% 1,000 ML IV SCH ×2 (01:11→14:19)
[2022-07-29] MEDS: OXYBUTYNIN 10 MG TAB.ER.24 PO SCH (07:46)
[2022-07-29] MEDS: PANTOPRAZOLE 40 MG/10 ML VIAL IVP SCH ×2 (07:46→21:30)
[2022-07-29] MEDS: VENLAFAXINE HCL ER 75 MG CAP PO SCH (08:41)
[2022-07-29 09:00] LABS: Basophils # (A) 0.01 X 10*3/uL (0.00-0.10); Basophils % (A) 0.2 %; Eosinophils # (A) 0.09 X 10*3/uL (0.04-0.35); Eosinophils % (A) 1.9 %; HCT 34.1 % (37.2-46.3); HGB 11.8 g/dL (12.0-15.0); Immature Grans, Automated 0.2 %; Lymphocytes # (A) 1.42 X 10*3/uL (0.90-5.00); Lymphocytes % (A) 30.5 %; MCH 30.9 pg (27.0-32.0); MCHC 34.6 g/dL (32.0-37.0); MCV 89.3 fL (80.0-97.0); Mean Platelet Volume 9.6 fL (9.5-12.2); Monocytes # (A) 0.55 X 10*3/uL (0.20-1.00); Monocytes % (A) 11.8 %; NRBC Per 100 WBC 0 /100 WBCS (0.0-0.0); Neutrophils # (A) 2.57 X 10*3/uL (1.80-7.70); Neutrophils % (A) 55.4 %; Platelet Count 191 X 10*3/uL (140-440); RBC 3.82 X 10*6/uL (4.10-5.20); WBC 4.65 X 10*3/uL (4.50-10.00)
[2022-07-29 09:07] LABS: African American GFR (CKD) 114.5 (60.0-200.0); BUN/Creat Ratio 15.6 Ratio (12.00-20.00); Blood Urea Nitrogen 7.8 mg/dL (9.0-27.0); Non-African American GFR(CKD) 98.8 (60.0-200.0)
[2022-07-29 10:00] LABS: Appearance,BF Clear
[2022-07-29] MEDS: diphenhydrAMINE 25 MG CAP PO SCH ×3 (10:54→21:28)
[2022-07-29] MEDS: MORPHINE SULFATE 4 MG/ML SYRINGE IV PRN ×4 (11:04→19:41)
[2022-07-29] MEDS: SCOPOLAMINE 1 MG/72 HR PATCH TRANSDERM SCH (11:39)
--- NOTE | 2022-07-29 11:44 | P.PN ---
Subjective Progress Note Date: 07/29/22 CHIEF COMPLAINT: Abdominal pain HISTORY OF PRESENT ILLNESS: Patient continues to have nausea and vomiting and crampy abdominal pain. She had 2.3 L of fluid removed from yesterday's paracentesis. Patient reports that she feels like her abdomen is feeling back up again. Afebrile. WBC is 4.65 hemoglobin 11.8 platelets 191 sodium is 141 potassium is 3.0 creatinine 0.5 Mg 1.8 PHYSICAL EXAM: VITAL SIGNS: Reviewed. GENERAL: Well-developed in no acute distress. HEENT: No sclera icterus. Extraocular movements grossly intact. Moist buccal mucosa. Head is atraumatic, normocephalic. ABDOMEN: Soft. Distended. Tenderness to palpation of upper abdomen NEUROLOGIC: Alert and oriented. Cranial nerves II through XII grossly intact. ASSESSMENT: 1. Nausea and vomiting 2. History of gastric cancer with possible recurrence 3. Abdominal ascites PLAN: -Reglan and scopolamine patch added for nausea and vomiting -Zofran changed every 6 hours as needed -Agree with TPN for nutrition support -Continue pain medication as needed. Further pain medication adjustment per oncology service -Continue clear liquids Physician Claims Account Manager note has been reviewed by physician. Signing provider agrees with the documented findings, assessment, and plan of care. I have personally seen and examined the patient, reviewed the PARTS PROFESSIONAL /PAs history, exam and MDM and agree with the assessment and plan as written. Based on total visit time, I have performed more than 50% of the visit. As above: Patient's pain is better today. She has had some increased abdominal bloating and she is concerned the fluid has built up again. Cytology pending. Agree with plans for TPN. May utilize Port-A-Cath for that reason. Continue analgesics. No plans for surgical intervention at this time. Objective - Vital Signs Vital signs: Vital Signs Temp 98.8 F 07/29/22 11:20 Pulse 74 07/29/22 11:20 Resp 16 07/29/22 11:20 BP 145/73 07/29/22 11:20 Pulse Ox 93 L 07/29/22 11:20 FiO2 Intake & Output 07/28/22 07/29/22 07/29/22 18:59 06:59 18:59 Intake Total 710 Balance 710 Weight 53.524 kg Intake: Intake, IV Titration 590 Amount Sodium Chloride 0.9% 1, 590 000 ml @ 80 mls/hr IV . [id number] [facility] Rx#:[id number] Oral 120 Other: # Voids 1 - Labs CBC & Chem 7: 07/29/22 06:21 07/29/22 06:21 Labs: Abnormal Lab Results - Last 24 Hours (Table) 07/29/22 07/29/22 Range/Units 06:21 06:21 RBC 3.82 L (4.10-5.20) X 10*6/uL Hgb 11.8 L (12.0-15.0) g/dL Hct 34.1 L (37.2-46.3) % Potassium 3.0 L (3.5-5.5) mmol/L BUN 7.8 L (9.0-27.0) mg/dL Creatinine 0.5 L (0.6-1.5) mg/dL Calcium 8.0 L (8.7-10.3) mg/dL Microbiology - Last 24 Hours (Table) 07/28/22 11:00 Body Fluid Culture - Preliminary Paracentesis Fluid 07/28/22 11:00 Anaerobic Culture - Preliminary Paracentesis Fluid 07/26/22 23:14 Urine Culture - Final Urine,Voided
[2022-07-29] MEDS: POTASSIUM CHLORIDE ER 20 MEQ TAB.ER PO SCH ×3 (13:01→18:09)
[2022-07-29] MEDS: METOCLOPRAMIDE 5 MG/ML 2 ML VIAL IVP SCH ×2 (13:01→18:08)
--- NOTE | 2022-07-29 18:57 | P.PN ---
Subjective Progress Note Date: 07/29/22 Principal diagnosis: N,V, abd pain In f/u today pt is having lower abd cramping post 2.3 L paracentesis. Pain medications are not providing her much relief and don't last very long. She is still having difficulty tolerating food, causes her nausea a short time afterward, denies fever, SOB. Objective - Vital Signs Vital signs: Vital Signs Temp 98.8 F 07/29/22 11:20 Pulse 74 07/29/22 11:20 Resp 16 07/29/22 11:20 BP 145/73 07/29/22 11:20 Pulse Ox 93 L 07/29/22 11:20 FiO2 Intake & Output 07/28/22 07/29/22 07/29/22 18:59 06:59 18:59 Intake Total 710 Balance 710 Weight 53.524 kg Intake: Intake, IV Titration 590 Amount Sodium Chloride 0.9% 1, 590 000 ml @ 80 mls/hr IV . [id number] [facility] Rx#:[id number] Oral 120 Other: # Voids 1 - Constitutional General appearance: Present: average body habitus, cooperative, mild distress - EENT Eyes: Present: anicteric sclerae, EOMI ENT: Present: hearing grossly normal - Respiratory Respiratory: bilateral: CTA - Cardiovascular Rhythm: regular Heart sounds: normal: S1, S2 Abnormal Heart Sounds: Absent: systolic murmur, diastolic murmur, rub, S3 Gallop, S4 Gallop, click, other - Peripheral edema foot Peripheral Edema: bilateral: None - Gastrointestinal General gastrointestinal: Present: distended, hyperactive bowel sounds, soft, tenderness - Integumentary Integumentary: Present: normal - Neurologic Neurologic: Present: CNII-XII intact - Musculoskeletal Musculoskeletal: Present: strength equal bilaterally - Psychiatric Psychiatric: Present: A&O x's 3, appropriate affect, intact judgment & insight - Labs CBC & Chem 7: 07/29/22 06:21 07/29/22 06:21 Labs: Abnormal Lab Results - Last 24 Hours (Table) 07/29/22 07/29/22 Range/Units 06:21 06:21 RBC 3.82 L (4.10-5.20) X 10*6/uL Hgb 11.8 L (12.0-15.0) g/dL Hct 34.1 L (37.2-46.3) % Potassium 3.0 L (3.5-5.5) mmol/L BUN 7.8 L (9.0-27.0) mg/dL Creatinine 0.5 L (0.6-1.5) mg/dL Calcium 8.0 L (8.7-10.3) mg/dL Microbiology - Last 24 Hours (Table) 07/28/22 11:00 Body Fluid Culture - Preliminary Paracentesis Fluid 07/28/22 11:00 Anaerobic Culture - Preliminary Paracentesis Fluid 07/26/22 23:14 Urine Culture - Final Urine,Voided Assessment and Plan (1) Abdominal pain Current Visit: Yes Status: Acute Priority: High Code(s): R10.9 - UNSPECIFIED ABDOMINAL PAIN SNOMED Code(s): 70744903 (2) Ascites Current Visit: Yes Status: Acute Priority: High Code(s): R18.8 - OTHER CITES SNOMED Code(s): 891626150 (3) Nausea and vomiting Current Visit: Yes Status: Acute Priority: High Code(s): R11.2 - NAUSEA WITH VOMITING, UNSPECIFIED SNOMED Code(s): 48622968 (4) Gastric adenocarcinoma Current Visit: Yes Status: Chronic Priority: Medium Code(s): C16.9 - MALIGNANT NEOPLASM OF STOMACH, UNSPECIFIED SNOMED Code(s): 825103650 Plan: Abd pain-medications adjusted, will cont to titrate for adequate pain control then convert to long/short acting oral formula. Medications for prevention of narcotic induced constipation Case discussed at length with Surgical PA. Surgeon and Oncologist agree that will start pt on clears and try reglan for now. As for nutrition, TPN is felt to be the best option. Unsure what malignant process exactly is happening in the gut and this could prove to be problematic if J-tube placement attempted. Surgery will also delay treatment. Pt is needing to be on treatment for malignancy symptoms. Pt is unable to tolerate solid foods or adequate nutrition 2/2 bowel dysmotility. Did speak with CM about obtaining TPN for pt. Anticipate approx 12-14 weeks on TPN to allow adequate time for chemotherapy to impact disease enough for bowel relief. Hope is for pt to be able to resume oral intake. Plan to resume treatment as soon as able. Time with Patient: Greater than 30
[2022-07-29] MEDS ORDERED: MAGNESIUM HYDROXIDE 2,400 MG/10 ML CUP PO PRN (18:58)
[2022-07-29] MEDS: PRAMIPEXOLE 0.125 MG TAB PO SCH (21:27)
[2022-07-29] MEDS ORDERED: POTASSIUM CHLORIDE ER 20 MEQ TAB.ER PO STA (22:10)
[2022-07-29] MEDS: SALT AND SODA MOUTHWASH 1,000 ML PO SCH (22:45)
[2022-07-30] MEDS: METOCLOPRAMIDE 5 MG/ML 2 ML VIAL IVP SCH ×4 (00:40→17:07)
[2022-07-30] MEDS: SODIUM CHLORIDE 0.9% 1,000 ML IV SCH ×2 (00:41→15:28)
[2022-07-30] MEDS: SALT AND SODA MOUTHWASH 1,000 ML PO SCH ×5 (00:41→20:10)
[2022-07-30] MEDS: MORPHINE SULFATE 4 MG/ML SYRINGE IV PRN ×6 (00:47→21:59)
[2022-07-30] MEDS: PANTOPRAZOLE 40 MG/10 ML VIAL IVP SCH ×2 (08:14→20:10)
[2022-07-30] MEDS: diphenhydrAMINE 25 MG CAP PO SCH ×3 (08:14→21:59)
[2022-07-30] MEDS: POTASSIUM CHLORIDE ER 20 MEQ TAB.ER PO SCH ×2 (08:14→20:10)
[2022-07-30] MEDS: OXYBUTYNIN 10 MG TAB.ER.24 PO SCH (08:15)
[2022-07-30 08:37] LABS: African American GFR (CKD) >90 (>60 ml/min/1.73 sqM); Anion Gap 9 mmol/L; Blood Urea Nitrogen 7 mg/dL (7-17); Calcium 8.1 mg/dL (8.4-10.2); Carbon Dioxide 24 mmol/L (22-30); Chloride 104 mmol/L (98-107); Glucose 119 mg/dL (74-99); Non-African American GFR(CKD) >90 (>60 ml/min/1.73 sqM); Sodium 137 mmol/L (137-145)
[2022-07-30 08:42] LABS: Potassium 3.8 mmol/L (3.5-5.1)
--- NOTE | 2022-07-30 10:10 | P.PN ---
Subjective Progress Note Date: 07/28/22 Patient is a 71-year-old female with a known history of gastric cancer status post surgery and chemotherapy. Presents to ER with complaints of abdominal pain. Patient was found have large amount of ascites seen the computed tomography scan. Otherwise patient denied any nausea or vomiting. No fever no chills. No cough or sputum production. No chest pain or shortness of breath. 07/28/2022 Patient is currently lying in the bed. Awake alert and oriented 3. Abdominal discomfort is better after paracentesis. Patient is status post ultrasound- guided paracentesis with 2.3 L of fluid removed. Patient has been afebrile. Pain is controlled with medications. No nausea vomiting or diarrhea. Laboratory data showed WBC 8.4 hemoglobin 12.5 platelets 221 Sodium 140 potassium 3.9 chloride 104 bicarb is 22.4 BUN 1.4 and creatinine 0.6 and blood sugar is 77. Oncology is on board. Current medications reviewed. Objective - Vital Signs Vital signs: Vital Signs Temp 98.4 F 07/28/22 14:00 Pulse 69 07/28/22 14:00 Resp 16 07/28/22 19:30 BP 143/79 07/28/22 14:00 Pulse Ox 94 L 07/28/22 14:00 FiO2 Intake & Output 07/28/22 07/28/22 07/29/22 06:59 18:59 06:59 Weight 53.524 kg - Exam PHYSICAL EXAMINATION: Patient is lying in the bed comfortably, no acute distress, awake alert and oriented.. HEENT: Normocephalic. Neck is supple. Pupils reactive. Nostrils clear. Oral cavity is moist. Neck reveals no JVD, carotid bruits, or thyromegaly. CHEST EXAMINATION: Trachea is central. Symmetrical expansion. Lung yip clear to auscultation and percussion. CARDIAC: Normal S1, S2 with no gallops. No murmurs ABDOMEN: Soft. Bowel sounds normal. Mild distention and tenderness in the epigastric region. No organomegaly. No abdominal bruits. Extremities: reveal no edema. No clubbing or cyanosis Neurologically awake, alert, oriented x3 with well-coordinated movements. No focal deficits noted Skin: No rash or skin lesions. Psychiatric: Coperative. Nonsuicidal Musculoskeletal: No joint swelling or deformity. Normal range of motion. - Labs CBC & Chem 7: 07/29/22 06:21 07/30/22 08:06 Labs: Abnormal Lab Results - Last 24 Hours (Table) 07/28/22 07/28/22 Range/Units 05:33 05:33 RBC 4.08 L (4.10-5.20) X 10*6/uL Immature Gran # 0.05 H (0.00-0.04) X 10*3/uL BUN/Creatinine Ratio 21.20 H (12.00-20.00) Ratio Calcium 8.6 L (8.7-10.3) mg/dL Total Protein 5.2 L (6.2-8.2) g/dL Albumin 3.5 L (3.8-4.9) g/dL Microbiology - Last 24 Hours (Table) 07/26/22 23:14 Urine Culture - Final Urine,Voided Assessment and Plan Assessment: Abdominal pain and ascites likely due to prostatic gastric cancer History of gastric cancer status post surgery History of gastric ulcer COPD Hyperlipidemia Osteoarthritis Anxiety/depression Currently is on day smoker DVT prophylaxis Plan: Patient is status post paracentesis with those 2.3 L fluid removal. Continue with pain management. Follow-up fluid analysis and culture report. Continue with PPI and encourage oral intake as tolerated. Oncology is on board. Follow up closely. Prognosis is guarded. Time with Patient: Greater than 30
--- NOTE | 2022-07-30 10:12 | P.PN ---
Subjective Progress Note Date: 07/29/22 Patient is a 71-year-old female with a known history of gastric cancer status post surgery and chemotherapy. Presents to ER with complaints of abdominal pain. Patient was found have large amount of ascites seen the computed tomography scan. Otherwise patient denied any nausea or vomiting. No fever no chills. No cough or sputum production. No chest pain or shortness of breath. 07/28/2022 Patient is currently lying in the bed. Awake alert and oriented 3. Abdominal discomfort is better after paracentesis. Patient is status post ultrasound- guided paracentesis with 2.3 L of fluid removed. Patient has been afebrile. Pain is controlled with medications. No nausea vomiting or diarrhea. Laboratory data showed WBC 8.4 hemoglobin 12.5 platelets 221 Sodium 140 potassium 3.9 chloride 104 bicarb is 22.4 BUN 1.4 and creatinine 0.6 and blood sugar is 77. Oncology is on board. 07/29/2022 Patient is currently lying in the bed. He still complains of abdominal pain and pain medications not lasting longer. Patient has difficulty tolerating oral diet and still having nausea. Otherwise denied any complains of fever or chills. No complaints of chest pain or shortness of breath. The urinalysis is negative for infection. Culture is pending. Follow fluid cytology as well. Oncology is on board. Patient is being continued on IV hydration and monitor respiratory status closely. Laboratory data showed WBC 4.6 hemoglobin 10.8 and platelets 191 sodium 141 potassium 3.0 just being replaced. BUN 7.8 and creatinine 0.5- blood sugar 81 Current medications reviewed. Objective - Vital Signs Vital signs: Vital Signs Temp 98.2 F 07/29/22 19:15 Pulse 91 07/29/22 19:15 Resp 15 07/29/22 19:15 BP 156/81 07/29/22 19:15 Pulse Ox 93 L 07/29/22 19:15 FiO2 Intake & Output 07/29/22 07/29/22 07/30/22 06:59 18:59 06:59 Intake Total 710 960 Balance 710 960 Intake: Intake, IV Titration 590 960 Amount Sodium Chloride 0.9% 1, 590 960 000 ml @ 80 mls/hr IV . [id number] [facility] Rx#:[id number] Oral 120 Other: # Voids 1 - Exam PHYSICAL EXAMINATION: Patient is lying in the bed comfortably, no acute distress, awake alert and oriented.. HEENT: Normocephalic. Neck is supple. Pupils reactive. Nostrils clear. Oral cavity is moist. Neck reveals no JVD, carotid bruits, or thyromegaly. CHEST EXAMINATION: Trachea is central. Symmetrical expansion. Lung yip clear to auscultation and percussion. CARDIAC: Normal S1, S2 with no gallops. No murmurs ABDOMEN: Soft. Bowel sounds normal. Mild distention and tenderness in the epigastric region. No organomegaly. No abdominal bruits. Extremities: reveal no edema. No clubbing or cyanosis Neurologically awake, alert, oriented x3 with well-coordinated movements. No focal deficits noted Skin: No rash or skin lesions. Psychiatric: Coperative. Nonsuicidal Musculoskeletal: No joint swelling or deformity. Normal range of motion. - Labs CBC & Chem 7: 07/29/22 06:21 07/30/22 08:06 Labs: Abnormal Lab Results - Last 24 Hours (Table) 07/29/22 07/29/22 Range/Units 06:21 06:21 RBC 3.82 L (4.10-5.20) X 10*6/uL Hgb 11.8 L (12.0-15.0) g/dL Hct 34.1 L (37.2-46.3) % Potassium 3.0 L (3.5-5.5) mmol/L BUN 7.8 L (9.0-27.0) mg/dL Creatinine 0.5 L (0.6-1.5) mg/dL Calcium 8.0 L (8.7-10.3) mg/dL Microbiology - Last 24 Hours (Table) 07/28/22 11:00 Gram Stain - Preliminary Paracentesis Fluid Body Fluid Culture - Preliminary 07/28/22 11:00 Anaerobic Culture - Preliminary Paracentesis Fluid Assessment and Plan Assessment: Abdominal pain and ascites likely due to prostatic gastric cancer History of gastric cancer status post surgery History of gastric ulcer COPD Hyperlipidemia Osteoarthritis Anxiety/depression Currently is on day smoker DVT prophylaxis Plan: Patient is status post paracentesis with those 2.3 L fluid removal. Continue with pain management. Fluid analysis is negative for infection.. Continue with PPI and encourage oral intake as tolerated. Oncology is on board. Follow up closely. Continue with symptomatic management. Gentle IV hydration. Prognosis is guarded. Time with Patient: Greater than 30
--- NOTE | 2022-07-30 11:02 | P.PN ---
Subjective Progress Note Date: 07/30/22 CHIEF COMPLAINT: Abdominal pain HISTORY OF PRESENT ILLNESS: Patient sitting up in bed. She reports feeling a little better today. She was able to tolerate a small amount of the liquid diet. She did have an episode of vomiting earlier this morning. She reports the nausea and vomiting is less than yesterday. She continues to have the epigastric pain that radiates to her back. But again reports pain is better controlled today and yesterday. She is having flatus. No bowel movement. She does feel that the abdominal fluid is building back up again. Afebrile. Heart rate 108 sodium 137 potassium is up from 3.0-3.8 creatinine 0.51 fluid cytology results pending PHYSICAL EXAM: VITAL SIGNS: Reviewed. GENERAL: Well-developed in no acute distress. HEENT: No sclera icterus. Extraocular movements grossly intact. Moist buccal mucosa. Head is atraumatic, normocephalic. ABDOMEN: Soft. Distended. Tenderness to palpation of upper abdomen NEUROLOGIC: Alert and oriented. Cranial nerves II through XII grossly intact. ASSESSMENT: 1. Nausea and vomiting 2. History of gastric cancer with possible recurrence 3. Abdominal ascites PLAN: -Follow up on fluid cytology results -Continue current antibiotics -Continue clear liquid diet -Oncology service is looking into TPN arrangements -Effexor discontinued yesterday because it interacts with the Reglan. This was discussed with medicine service -Discussed case with oncology service. Agree with clear liquid diet and Reglan. Agree with arranging TPN to be continued outpatient for nutrition support -No surgical intervention planned Physician Drafter Civil note has been reviewed by physician. Signing provider agrees with the documented findings, assessment, and plan of care. I have personally seen and examined the patient, reviewed the RESEARCH ASSOCIATE QUALITY CONTROL QC /PAs history, exam and MDM and agree with the assessment and plan as written. Based on total visit time, I have performed more than 50% of the visit. As above: Patient still having some intermittent abdominal pain. Tolerating clear liquids currently however vomited earlier today. TPN is apparently ordered. Cytology pending. We'll follow. Objective - Vital Signs Vital signs: Vital Signs Temp 98.3 F 07/30/22 04:28 Pulse 108 H 07/30/22 04:28 Resp 15 07/30/22 04:28 BP 123/71 07/30/22 04:28 Pulse Ox 92 L 07/30/22 04:28 FiO2 Intake & Output 07/29/22 07/30/22 07/30/22 18:59 06:59 18:59 Intake Total 960 Balance 960 Intake: Intake, IV Titration 960 Amount Sodium Chloride 0.9% 1, 960 000 ml @ 80 mls/hr IV . [id number] [facility] Rx#:[id number] Other: # Voids 1 - Labs CBC & Chem 7: 07/29/22 06:21 07/30/22 08:06 Labs: Abnormal Lab Results - Last 24 Hours (Table) 07/30/22 Range/Units 08:06 Creatinine 0.51 L (0.52-1.04) mg/dL Glucose 119 H (74-99) mg/dL Calcium 8.1 L (8.4-10.2) mg/dL Microbiology - Last 24 Hours (Table) 07/28/22 11:00 Gram Stain - Preliminary Paracentesis Fluid Body Fluid Culture - Preliminary
[2022-07-30] MEDS: ONDANSETRON 4 MG/2 ML VIAL IVP PRN ×2 (15:29→20:29)
--- NOTE | 2022-07-30 19:14 | P.PN ---
Subjective Progress Note Date: 07/30/22 Principal diagnosis: N,V, abd pain In f/u today pt is having lower abd cramping post 2.3 L paracentesis. Pain medications are not providing her much relief and don't last very long. She is still having difficulty tolerating food, causes her nausea a short time afterward, denies fever, SOB. is still complaining of pain,score around 4/5 out of 10. She does appear to be in better spirits today though, she is smiling. He has started clear liquids. No vomiting. Still pending paracentesis cytology results. Objective - Vital Signs Vital signs: Vital Signs Temp 97.9 F 07/30/22 18:54 Pulse 100 07/30/22 18:54 Resp 21 07/30/22 18:54 BP 150/84 07/30/22 18:54 Pulse Ox 91 L 07/30/22 18:54 FiO2 Intake & Output 07/30/22 07/30/22 07/31/22 06:59 18:59 06:59 Other: # Voids 1 1 - Constitutional General appearance: Present: average body habitus, cooperative, no acute distress - EENT Eyes: Present: anicteric sclerae, EOMI ENT: Present: hearing grossly normal - Respiratory Respiratory: bilateral: CTA - Cardiovascular Rhythm: regular Heart sounds: normal: S1, S2 Abnormal Heart Sounds: Absent: systolic murmur, diastolic murmur, rub, S3 Gallop, S4 Gallop, click, other - Gastrointestinal General gastrointestinal: Present: decreased bowel sounds, distended, soft, tenderness - Integumentary Integumentary: Present: normal - Neurologic Neurologic: Present: CNII-XII intact - Musculoskeletal Musculoskeletal: Present: strength equal bilaterally - Psychiatric Psychiatric: Present: A&O x's 3, appropriate affect, intact judgment & insight - Labs CBC & Chem 7: 07/29/22 06:21 07/30/22 08:06 Labs: Abnormal Lab Results - Last 24 Hours (Table) 07/30/22 Range/Units 08:06 Creatinine 0.51 L (0.52-1.04) mg/dL Glucose 119 H (74-99) mg/dL Calcium 8.1 L (8.4-10.2) mg/dL Microbiology - Last 24 Hours (Table) 07/28/22 11:00 Gram Stain - Preliminary Paracentesis Fluid Body Fluid Culture - Preliminary Assessment and Plan (1) Abdominal pain Current Visit: Yes Status: Acute Priority: High Code(s): R10.9 - UNSPECIFIED ABDOMINAL PAIN SNOMED Code(s): 14929683 (2) Ascites Current Visit: Yes Status: Acute Priority: High Code(s): R18.8 - OTHER ASCITES SNOMED Code(s): 148208420 (3) Nausea and vomiting Current Visit: Yes Status: Acute Priority: High Code(s): R11.2 - NAUSEA WITH VOMITING, UNSPECIFIED SNOMED Code(s): 32373106 (4) Gastric adenocarcinoma Current Visit: Yes Status: Chronic Priority: Medium Code(s): C16.9 - MALIGNANT NEOPLASM OF STOMACH, UNSPECIFIED SNOMED Code(s): 014967268 Plan: Abd pain-analgesics adjusted again today, long acting pain medication added. Will cont to titrate for adequate pain control. Medications for prevention of narcotic induced constipation continue, added daily miralax. patient was started on the Reglan, she has had some clear liquids, no vomiting, abdominal pain is stable. Orders for TPN will be completed. Discussed with Case Management, plan is for this at home for several months while patient receives treatment, hopeful that treatment will afford patient's some disease control and relief of malignancy symptoms. Plan to resume treatment as soon as able. She did have a PET scan scheduled, this will be rescheduled when she is close to discharge.
[2022-07-30] MEDS: polyethylene glycoL 3350 17 GM POWD.PACK PO SCH (19:55)
[2022-07-30] MEDS: PRAMIPEXOLE 0.125 MG TAB PO SCH (20:10)
[2022-07-31] MEDS: METOCLOPRAMIDE 5 MG/ML 2 ML VIAL IVP SCH ×5 (00:45→23:59)
[2022-07-31] MEDS: SALT AND SODA MOUTHWASH 1,000 ML PO SCH ×5 (00:49→21:06)
--- NOTE | 2022-07-31 01:05 | P.PN ---
Subjective Progress Note Date: 07/30/22 Patient is a 71-year-old female with a known history of gastric cancer status post surgery and chemotherapy. Presents to ER with complaints of abdominal pain. Patient was found have large amount of ascites seen the computed tomography scan. Otherwise patient denied any nausea or vomiting. No fever no chills. No cough or sputum production. No chest pain or shortness of breath. 07/28/2022 Patient is currently lying in the bed. Awake alert and oriented 3. Abdominal discomfort is better after paracentesis. Patient is status post ultrasound- guided paracentesis with 2.3 L of fluid removed. Patient has been afebrile. Pain is controlled with medications. No nausea vomiting or diarrhea. Laboratory data showed WBC 8.4 hemoglobin 12.5 platelets 221 Sodium 140 potassium 3.9 chloride 104 bicarb is 22.4 BUN 1.4 and creatinine 0.6 and blood sugar is 77. Oncology is on board. 07/29/2022 Patient is currently lying in the bed. He still complains of abdominal pain and pain medications not lasting longer. Patient has difficulty tolerating oral diet and still having nausea. Otherwise denied any complains of fever or chills. No complaints of chest pain or shortness of breath. The urinalysis is negative for infection. Culture is pending. Follow fluid cytology as well. Oncology is on board. Patient is being continued on IV hydration and monitor respiratory status closely. Laboratory data showed WBC 4.6 hemoglobin 10.8 and platelets 191 sodium 141 potassium 3.0 just being replaced. BUN 7.8 and creatinine 0.5- blood sugar 81 07/30/2022 Patient is currently lying in bed. Awake alert and oriented x3. Still complains of abdominal pain. Difficulty tolerating oral diet and also complains of nausea and episode of vomiting. Patient has been afebrile. No chest pain or shortness of breath. Paracentesis fluid cytology is pending. Cultures negative. Patient was started on clear liquid diet. Laboratory data showed sodium 138 potassium 3.8 chloride 104, BUN 70 creatinine 0.59 calcium 8.1. General surgery and oncology on board. Current medications reviewed. Objective - Vital Signs Vital signs: Vital Signs Temp 98.8 F 07/30/22 12:14 Pulse 104 H 07/30/22 12:14 Resp 16 07/30/22 12:14 BP 118/73 07/30/22 12:14 Pulse Ox 93 L 07/30/22 12:14 FiO2 Intake & Output 07/29/22 07/30/22 07/30/22 18:59 06:59 18:59 Intake Total 960 Balance 960 Intake: Intake, IV Titration 960 Amount Sodium Chloride 0.9% 1, 960 000 ml @ 80 mls/hr IV . [id number] [facility] Rx#:[id number] Other: # Voids 1 - Exam PHYSICAL EXAMINATION: Patient is lying in the bed comfortably, no acute distress, awake alert and oriented.. HEENT: Normocephalic. Neck is supple. Pupils reactive. Nostrils clear. Oral cavity is moist. Neck reveals no JVD, carotid bruits, or thyromegaly. CHEST EXAMINATION: Trachea is central. Symmetrical expansion. Lung yip clear to auscultation and percussion. CARDIAC: Normal S1, S2 with no gallops. No murmurs ABDOMEN: Soft. Bowel sounds normal. Mild distention and tenderness in the epigastric region. No organomegaly. No abdominal bruits. Extremities: reveal no edema. No clubbing or cyanosis Neurologically awake, alert, oriented x3 with well-coordinated movements. No focal deficits noted Skin: No rash or skin lesions. Psychiatric: Coperative. Nonsuicidal Musculoskeletal: No joint swelling or deformity. Normal range of motion. - Labs CBC & Chem 7: 07/29/22 06:21 07/30/22 08:06 Labs: Abnormal Lab Results - Last 24 Hours (Table) 07/30/22 Range/Units 08:06 Creatinine 0.51 L (0.52-1.04) mg/dL Glucose 119 H (74-99) mg/dL Calcium 8.1 L (8.4-10.2) mg/dL Microbiology - Last 24 Hours (Table) 07/28/22 11:00 Gram Stain - Preliminary Paracentesis Fluid Body Fluid Culture - Preliminary Assessment and Plan Assessment: Abdominal pain and ascites likely due to prostatic gastric cancer History of gastric cancer status post surgery History of gastric ulcer COPD Hyperlipidemia Osteoarthritis Anxiety/depression Currently is on day smoker DVT prophylaxis Plan: Patient is status post paracentesis with those 2.3 L fluid removal. Continue with pain management. Fluid analysis is negative for infection..Fluid cytology is pending. Continue with PPI and encourage oral intake as tolerated. Oncology is on board. Follow up closely. Continue with symptomatic management. Gentle IV hydration. Prognosis is guarded.
[2022-07-31] MEDS: MORPHINE SULFATE 4 MG/ML SYRINGE IV PRN ×3 (03:56→21:10)
[2022-07-31] MEDS: SODIUM CHLORIDE 0.9% 1,000 ML IV SCH ×2 (03:56→17:07)
[2022-07-31] MEDS: OXYBUTYNIN 10 MG TAB.ER.24 PO SCH (08:37)
[2022-07-31] MEDS: diphenhydrAMINE 25 MG CAP PO SCH ×3 (08:37→21:04)
[2022-07-31] MEDS: PANTOPRAZOLE 40 MG/10 ML VIAL IVP SCH ×2 (08:37→21:04)
[2022-07-31] MEDS: ONDANSETRON 4 MG/2 ML VIAL IVP PRN ×2 (08:41→15:14)
[2022-07-31] MEDS: polyethylene glycoL 3350 17 GM POWD.PACK PO SCH (08:45)
[2022-07-31 08:59] LABS: African American GFR (CKD) 113.9 (60.0-200.0); Anion Gap 10.2 mmol/L (10.00-18.00); BUN/Creat Ratio 16.92 Ratio (12.00-20.00); Blood Urea Nitrogen 8.6 mg/dL (9.0-27.0); Calcium 8.1 mg/dL (8.7-10.3); Carbon Dioxide 22.4 mmol/L (20.0-27.5); Non-African American GFR(CKD) 98.3 (60.0-200.0); Potassium 3.9 mmol/L (3.5-5.5)
[2022-07-31 09:55] VITALS: BMI 19.6
[2022-07-31 10:04] LABS: Basophils # (A) 0.07 X 10*3/uL (0.00-0.10); Eosinophils # (A) 0.04 X 10*3/uL (0.04-0.35); Eosinophils % (A) 1.2 %; HCT 37.6 % (37.2-46.3); HGB 13.1 g/dL (12.0-15.0); Immature Grans, Automated 0.6 %; Lymphocytes # (A) 1.07 X 10*3/uL (0.90-5.00); MCH 31.1 pg (27.0-32.0); MCHC 34.8 g/dL (32.0-37.0); MCV 89.3 fL (80.0-97.0); Mean Platelet Volume 9.9 fL (9.5-12.2); Monocytes # (A) 1.03 X 10*3/uL (0.20-1.00); Monocytes % (A) 29.9 %; NRBC Per 100 WBC 0 /100 WBCS (0.0-0.0); Neutrophils # (A) 1.22 X 10*3/uL (1.80-7.70); Neutrophils % (A) 35.3 %; Platelet Count 209 X 10*3/uL (140-440); RBC 4.21 X 10*6/uL (4.10-5.20); RBC Morphology NORMAL; RDW 13.4 % (11.5-14.5); WBC 3.45 X 10*3/uL (4.50-10.00)
--- NOTE | 2022-07-31 11:00 | P.PN ---
Subjective Progress Note Date: 07/31/22 CHIEF COMPLAINT: Abdominal pain HISTORY OF PRESENT ILLNESS: Patient sitting up in bed. Patient continues to have nausea and vomiting. She does report it is better since admission. She is able to keep some of the liquids down. She still complains of abdominal pain and is requiring the IV morphine. Oncology service did add fentanyl patch. Patient did not tolerate the MiraLAX. She is having flatus. No bowel movement. Afebrile. WBC 3.45 Hgb 13.1 platelets 209 sodium is 139 potassium 3.9 creatin ine 0.5 abdominal fluid cytology results pending PHYSICAL EXAM: VITAL SIGNS: Reviewed. GENERAL: Well-developed in no acute distress. HEENT: No sclera icterus. Extraocular movements grossly intact. Moist buccal mucosa. Head is atraumatic, normocephalic. ABDOMEN: Soft. Distended. Tenderness to palpation of upper abdomen NEUROLOGIC: Alert and oriented. Cranial nerves II through XII grossly intact. ASSESSMENT: 1. Nausea and vomiting 2. History of gastric cancer with possible recurrence 3. Abdominal ascites PLAN: -Follow up on fluid cytology results -Continue clear liquid diet -Oncology service is looking into TPN arrangements -Continue antiemetics -Continue supportive care -sales program manager working on arranging TPN for outpatient -No surgical intervention planned Physician [employer] Worker note has been reviewed by physician. Signing provider agrees with the documented findings, assessment, and plan of care. I have personally seen and examined the patient, reviewed the BLADDER TRIMMER /PAs history, exam and MDM and agree with the assessment and plan as written. Based on total visit time, I have performed more than 50% of the visit. As above: No vomiting yet today. Tolerating clears. TPN is being arranged. Plan is for TPN as outpatient. Chemotherapy next week. Await cytology. Objective - Vital Signs Vital signs: Vital Signs Temp 98.3 F 07/31/22 05:00 Pulse 98 07/31/22 05:00 Resp 16 07/31/22 05:00 BP 133/81 07/31/22 05:00 Pulse Ox 94 L 07/31/22 05:00 FiO2 Intake & Output 07/30/22 07/31/22 07/31/22 18:59 06:59 18:59 Intake Total 590 Balance 590 Weight 53.524 kg Intake: Oral 590 Other: # Voids 1 2 - Labs CBC & Chem 7: 07/31/22 06:21 07/31/22 06:21 Labs: Abnormal Lab Results - Last 24 Hours (Table) 07/31/22 07/31/22 Range/Units 06:21 06:21 WBC 3.45 L (4.50-10.00) X 10*3/uL Neutrophils # 1.22 L (1.80-7.70) X 10*3/uL Monocytes # 1.03 H (0.20-1.00) X 10*3/uL BUN 8.6 L (9.0-27.0) mg/dL Creatinine 0.5 L (0.6-1.5) mg/dL Glucose 127 H (70-110) mg/dL Calcium 8.1 L (8.7-10.3) mg/dL Microbiology - Last 24 Hours (Table) 07/28/22 11:00 Anaerobic Culture - Preliminary Paracentesis Fluid 07/28/22 11:00 Gram Stain - Preliminary Paracentesis Fluid Body Fluid Culture - Preliminary
[2022-07-31 13:45] LABS: Magnesium 1.6 mg/dL (1.5-2.4); Phosphorus 1.8 mg/dL (2.4-5.1); Triglycerides 91.4 mg/dL (0.00-149.00)
--- NOTE | 2022-07-31 14:13 | P.PN ---
Subjective Progress Note Date: 07/31/22 Principal diagnosis: N,V, abd pain In f/u today pt is is smiling, she is reviewed reporting a little bit more manageable abdominal pain, she did have some watery stool today, denied blood, mucus or cramping with the movement. She is tolerating liquids, she is tolerating the Reglan. She does not tolerate some medications that are used for prevention of constipation. Encouraged to ask for whatever she thinks will help her to have a BM. Encouraged to take something every day for prevention/treatment of constipation. Objective - Vital Signs Vital signs: Vital Signs Temp 98.3 F 07/31/22 05:00 Pulse 98 07/31/22 05:00 Resp 16 07/31/22 05:00 BP 133/81 07/31/22 05:00 Pulse Ox 94 L 07/31/22 05:00 FiO2 Intake & Output 07/30/22 07/31/22 07/31/22 18:59 06:59 18:59 Intake Total 590 Output Total 2 Balance 590 -2 Weight 53.524 kg Intake: Oral 590 Output: Emesis 2 Other: # Voids 1 2 - Constitutional General appearance: Present: average body habitus, cooperative, no acute distr ess - EENT Eyes: Present: anicteric sclerae, EOMI ENT: Present: hearing grossly normal - Respiratory Respiratory: bilateral: CTA - Cardiovascular Rhythm: regular Heart sounds: normal: S1, S2 Abnormal Heart Sounds: Absent: systolic murmur, diastolic murmur, rub, S3 Gallop, S4 Gallop, click, other - Peripheral edema leg Peripheral Edema: bilateral: None - Gastrointestinal General gastrointestinal: Present: decreased bowel sounds, distended, soft, tenderness - Integumentary Integumentary: Present: normal - Neurologic Neurologic: Absent: CNII-XII intact, focal deficits - Musculoskeletal Musculoskeletal: Present: generalized weakness - Psychiatric Psychiatric: Present: A&O x's 3, appropriate affect, intact judgment & insight - Labs CBC & Chem 7: 07/31/22 06:21 07/31/22 06:21 Labs: Abnormal Lab Results - Last 24 Hours (Table) 07/31/22 07/31/22 07/31/22 Range/Units 06:21 06:21 06:21 WBC 3.45 L (4.50-10.00) X 10*3/uL Neutrophils # 1.22 L (1.80-7.70) X 10*3/uL Monocytes # 1.03 H (0.20-1.00) X 10*3/uL BUN 8.6 L (9.0-27.0) mg/dL Creatinine 0.5 L (0.6-1.5) mg/dL Glucose 127 H (70-110) mg/dL Calcium 8.1 L (8.7-10.3) mg/dL Phosphorus 1.8 L (2.4-5.1) mg/dL Albumin 3.0 L (3.8-4.9) g/dL Microbiology - Last 24 Hours (Table) 07/28/22 11:00 Anaerobic Culture - Preliminary Paracentesis Fluid 07/28/22 11:00 Gram Stain - Preliminary Paracentesis Fluid Body Fluid Culture - Preliminary Assessment and Plan (1) Abdominal pain Current Visit: Yes Status: Acute Priority: High Code(s): R10.9 - UNSPECIFIED ABDOMINAL PAIN SNOMED Code(s): 00958971 (2) Ascites Current Visit: Yes Status: Acute Priority: High Code(s): R18.8 - OTHER ASCITES SNOMED Code(s): 266453577 (3) Nausea and vomiting Current Visit: Yes Status: Acute Priority: High Code(s): R11.2 - NAUSEA WITH VOMITING, UNSPECIFIED SNOMED Code(s): 92391166 (4) Gastric adenocarcinoma Current Visit: Yes Status: Chronic Priority: Medium Code(s): C16.9 - MALIGNANT NEOPLASM OF STOMACH, UNSPECIFIED SNOMED Code(s): 070375045 Plan: Abd pain-analgesic regimen seems to be providing patient with fairly decent pain control. PharmD will convert IV pain medications to oral. Ensured that pain control is adequate when converting over. Medications for prevention of narcotic induced constipation continue. Pt states that she did have a watery stool. No cramping with that stool or blood. Reglan started. She seems to be tolerating small amt of clear liquids, no vomiting, abdominal pain is stable. Orders for TPN completed by Dietitian. Pt will start TPN today. Labs tomorrow to ensure electrolytes balanced. Okay for discharge after. Discussed with Case Management, may not be able to discharged home over the weekend with TPN orders but, she will investigate this further. Plan is for TPN at home for several months while patient receives chemotherapy, hopeful that treatment will afford patient's some disease control and relief of malignancy symptoms. Dr. Bay wants to resume treatment as soon as able. Cancelling PET scan. Starting treatment to get control of patient's symptoms is felt to be the best course of action for pt. Will get pt a new date and time for chemo. Patient and sister verbalized understanding the plan. attests: I have seen and examined patient, performed H & P, developed impression and plan of care. Discussed with dictator. Agree with documentation, dictated as a scribe
[2022-07-31] MEDS ORDERED: MVI, ADULT NO.4 WITH VIT K 10 ML, TRACE (CONC-1ML/DOSE) 1 ML in AMINO ACID 5%-D15W+LYTE... IV ONE ×3 (15:00)
[2022-07-31] MEDS: MAGNESIUM SULFATE-D5W PMX 1 GM in DEXTROSE/WATER 1 100ML.BAG IVPB SCH ×2 (15:59→17:06)
[2022-07-31] MEDS ORDERED: FAT EMULSION 20% 500 ML in EMPTY BAG 1 BAG IV SCH (16:00)
[2022-07-31] MEDS: MORPHINE SULFATE IR 15 MG TABLET PO PRN (16:43)
[2022-07-31 18:00] LABS: Glucose,Whole Blood 143 mg/dL (70-110)
[2022-07-31] MEDS: SODIUM PHOSPHATE 10 MMOL in SODIUM CHLORIDE 0.9% 100 ML IVPB SCH ×2 (18:11→21:05)
--- NOTE | 2022-07-31 18:34 | P.PN ---
Subjective Progress Note Date: 07/31/22 71-year-old female with a known history of gastric cancer status post surgery and chemotherapy. Presents to ER with complaints of abdominal pain. Patient was found have large amount of ascites seen the computed tomography scan. Otherwise patient denied any nausea or vomiting. No fever no chills. No cough or sputum production. No chest pain or shortness of breath. Objective - Vital Signs Vital signs: Vital Signs Temp 98.3 F 07/31/22 05:00 Pulse 98 07/31/22 05:00 Resp 16 07/31/22 05:00 BP 133/81 07/31/22 05:00 Pulse Ox 94 L 07/31/22 05:00 FiO2 Intake & Output 07/30/22 07/31/22 07/31/22 18:59 06:59 18:59 Intake Total 590 Output Total 2 Balance 590 -2 Weight 53.524 kg Intake: Oral 590 Output: Emesis 2 Other: # Voids 1 2 - Exam HEENT: Normocephalic. Neck is supple. Pupils reactive. Nostrils clear. Oral cavi ty is moist. Neck reveals no JVD, carotid bruits, or thyromegaly. CHEST EXAMINATION: Trachea is central. Symmetrical expansion. Lung yip clear to auscultation and percussion. CARDIAC: Normal S1, S2 with no gallops. No murmurs ABDOMEN: Soft. Bowel sounds normal. Mild distention and tenderness in the epigastric region. No organomegaly. No abdominal bruits. Extremities: reveal no edema. No clubbing or cyanosis Neurologically awake, alert, oriented x3 with well-coordinated movements. No focal deficits noted Skin: No rash or skin lesions. Psychiatric: Coperative. Nonsuicidal Musculoskeletal: No joint swelling or deformity. Normal range of motion. - Labs CBC & Chem 7: 07/31/22 06:21 07/31/22 06:21 Labs: Abnormal Lab Results - Last 24 Hours (Table) 07/31/22 07/31/22 07/31/22 Range/Units 06:21 06:21 06:21 WBC 3.45 L (4.50-10.00) X 10*3/uL Neutrophils # 1.22 L (1.80-7.70) X 10*3/uL Monocytes # 1.03 H (0.20-1.00) X 10*3/uL BUN 8.6 L (9.0-27.0) mg/dL Creatinine 0.5 L (0.6-1.5) mg/dL Glucose 127 H (70-110) mg/dL Calcium 8.1 L (8.7-10.3) mg/dL Phosphorus 1.8 L (2.4-5.1) mg/dL Albumin 3.0 L (3.8-4.9) g/dL Microbiology - Last 24 Hours (Table) 07/28/22 11:00 Anaerobic Culture - Preliminary Paracentesis Fluid 07/28/22 11:00 Gram Stain - Preliminary Paracentesis Fluid Body Fluid Culture - Preliminary Assessment and Plan Assessment: Abdominal pain and ascites likely due to prostatic gastric cancer History of gastric cancer status post surgery History of gastric ulcer COPD Hyperlipidemia Osteoarthritis Anxiety/depression Currently is on day smoker DVT prophylaxis Plan: Patient is status post paracentesis with those 2.3 L fluid removal. Continue wi th pain management. Fluid analysis is negative for infection..Fluid cytology is pending. Continue with PPI and encourage oral intake as tolerated. Oncology is on board. Follow up closely. Continue with symptomatic management. Gentle IV hydration. Prognosis is guarded.
[2022-07-31] MEDS: PRAMIPEXOLE 0.125 MG TAB PO SCH (21:04)
[2022-08-01] MEDS: MORPHINE SULFATE 4 MG/ML SYRINGE IV PRN ×3 (00:19→16:22)
[2022-08-01 00:44] LABS: Glucose,Whole Blood 145 mg/dL (70-110)
[2022-08-01] MEDS: METOCLOPRAMIDE 5 MG/ML 2 ML VIAL IVP SCH ×4 (06:22→23:12)
[2022-08-01] MEDS: SALT AND SODA MOUTHWASH 1,000 ML PO SCH ×6 (06:23→23:14)
[2022-08-01] MEDS: SODIUM CHLORIDE 0.9% 1,000 ML IV SCH ×2 (06:24→17:02)
[2022-08-01 06:44] LABS: Glucose,Whole Blood 170 mg/dL (70-110)
[2022-08-01 06:45] LABS: ALT 19 U/L (4-34); AST 19 U/L (14-36); African American GFR (CKD) >90 (>60 ml/min/1.73 sqM); Albumin 2.7 g/dL (3.5-5.0); Albumin/Globulin Ratio 1.4; Alkaline Phosphatase 96 U/L (38-126); Anion Gap 7 mmol/L; Blood Urea Nitrogen 8 mg/dL (7-17); Calcium 7.9 mg/dL (8.4-10.2); Carbon Dioxide 26 mmol/L (22-30); Chloride 100 mmol/L (98-107); Glucose 158 mg/dL (74-99); Magnesium 1.9 mg/dL (1.6-2.3); Non-African American GFR(CKD) >90 (>60 ml/min/1.73 sqM); Phosphorus 2.3 mg/dL (2.5-4.5); Potassium 2.9 mmol/L (3.5-5.1); Sodium 133 mmol/L (137-145); Total Bilirubin 0.7 mg/dL (0.2-1.3); Total Protein 4.7 g/dL (6.3-8.2)
[2022-08-01] MEDS: POTASSIUM CHLORIDE 20 MEQ in WATER FOR INJECTION 1 100ML.BAG IVPB SCH ×2 (08:25→12:07)
[2022-08-01] MEDS: polyethylene glycoL 3350 17 GM POWD.PACK PO SCH (08:26)
[2022-08-01] MEDS: MORPHINE SULFATE IR 15 MG TABLET PO PRN (08:26)
[2022-08-01] MEDS: PANTOPRAZOLE 40 MG/10 ML VIAL IVP SCH ×2 (08:26→20:49)
[2022-08-01] MEDS: ONDANSETRON 4 MG/2 ML VIAL IVP PRN ×2 (08:26→16:22)
[2022-08-01] MEDS: diphenhydrAMINE 25 MG CAP PO SCH ×3 (08:27→20:49)
[2022-08-01] MEDS: OXYBUTYNIN 10 MG TAB.ER.24 PO SCH (08:27)
--- NOTE | 2022-08-01 09:25 | P.PN ---
Progress Note - Text Progress Note Date: 08/01/22 Patient had a large emesis while I was rounding. She states she feels nauseated On exam vital signs appear stable. Her abdomen soft distended with some minimal tenderness. The patient should have a nasogastric tube placed for gastric decompression. Patient is reluctant to do this is planned. If she agrees later today this we placed by the nursing staff.
[2022-08-01] MEDS: SCOPOLAMINE 1 MG/72 HR PATCH TRANSDERM SCH (12:07)
[2022-08-01] MEDS: 1: MVI, ADULT NO.4 WITH VIT K 10 ML, TRACE (CONC-1ML/DOSE) 1 ML in AMINO ACID 5%-D15W+LY IV SCH ×3 (17:02)
[2022-08-01 17:29] LABS: Glucose,Whole Blood 136 mg/dL (70-110)
[2022-08-01] MEDS: PRAMIPEXOLE 0.125 MG TAB PO SCH (20:49)
[2022-08-02 00:01] LABS: Glucose,Whole Blood 197 mg/dL (70-110)
[2022-08-02] MEDS: MORPHINE SULFATE 4 MG/ML SYRINGE IV PRN ×2 (00:05→05:18)
[2022-08-02] MEDS: 1: MVI, ADULT NO.4 WITH VIT K 10 ML, TRACE (CONC-1ML/DOSE) 1 ML in AMINO ACID 5%-D15W+LY IV SCH ×6 (02:40→13:40)
[2022-08-02] MEDS: METOCLOPRAMIDE 5 MG/ML 2 ML VIAL IVP SCH ×3 (05:17→17:34)
[2022-08-02] MEDS: SALT AND SODA MOUTHWASH 1,000 ML PO SCH ×4 (05:19→21:42)
[2022-08-02 06:50] LABS: Glucose,Whole Blood 168 mg/dL (70-110)
[2022-08-02] MEDS: diphenhydrAMINE 25 MG CAP PO SCH ×3 (08:34→21:41)
[2022-08-02] MEDS: PANTOPRAZOLE 40 MG/10 ML VIAL IVP SCH ×2 (08:34→21:42)
[2022-08-02] MEDS: ONDANSETRON 4 MG/2 ML VIAL IVP PRN ×2 (08:34→15:08)
[2022-08-02] MEDS: OXYBUTYNIN 10 MG TAB.ER.24 PO SCH (08:35)
[2022-08-02] MEDS: SODIUM CHLORIDE 0.9% 1,000 ML IV SCH ×2 (08:35→18:44)
[2022-08-02] MEDS: polyethylene glycoL 3350 17 GM POWD.PACK PO SCH (08:35)
[2022-08-02 11:42] LABS: HCT 33.9 % (37.2-46.3); HGB 11.5 g/dL (12.0-15.0); MCH 30.4 pg (27.0-32.0); MCHC 33.9 g/dL (32.0-37.0); MCV 89.7 fL (80.0-97.0); Mean Platelet Volume 10.1 fL (9.5-12.2); NRBC Per 100 WBC 0.5 /100 WBCS (0.0-0.0); Platelet Count 165 X 10*3/uL (140-440); RBC 3.78 X 10*6/uL (4.10-5.20); RDW 13.5 % (11.5-14.5); WBC 3.78 X 10*3/uL (4.50-10.00)
[2022-08-02 11:49] LABS: Basophils # (A) 0.01 X 10*3/uL (0.00-0.10); Basophils % (A) 0.3 %; Eosinophils # (A) 0.03 X 10*3/uL (0.04-0.35); Eosinophils % (A) 0.8 %; Immature Grans, Automated 3.7 %; Lymphocytes # (A) 1.19 X 10*3/uL (0.90-5.00); Lymphocytes % (A) 31.5 %; Monocytes # (A) 1.03 X 10*3/uL (0.20-1.00); Monocytes % (A) 27.2 %; Neutrophils # (A) 1.38 X 10*3/uL (1.80-7.70); Neutrophils % (A) 36.5 %
[2022-08-02 11:50] LABS: RBC Morphology NORMAL
[2022-08-02 12:08] LABS: Glucose,Whole Blood 114 mg/dL (70-110)
[2022-08-02 12:25] LABS: Magnesium 1.9 mg/dL (1.5-2.4); Phosphorus 2.1 mg/dL (2.4-5.1)
[2022-08-02 13:00] LABS: African American GFR (CKD) 116.2 (60.0-200.0); Albumin 2.4 g/dL (3.8-4.9); Albumin/Globulin Ratio 1.58 (1.60-3.17); Anion Gap 8.7 mmol/L (10.00-18.00); BUN/Creat Ratio 33.68 Ratio (12.00-20.00); Blood Urea Nitrogen 16.1 mg/dL (9.0-27.0); Calcium 7.8 mg/dL (8.7-10.3); Carbon Dioxide 26.2 mmol/L (20.0-27.5); Globulin 1.5 g/dL (1.6-3.3); Non-African American GFR(CKD) 100.2 (60.0-200.0); Potassium 3.3 mmol/L (3.5-5.5); Total Bilirubin 0.6 mg/dL (0.30-1.20); Total Protein 3.9 g/dL (6.2-8.2)
--- NOTE | 2022-08-02 13:51 | P.PN ---
Progress Note - Text Progress Note Date: 08/02/22 Patient feels slightly better today. She has not tolerated any by mouth diet. She is not drinking clear liquids. On exam vital signs are stable. Abdomen soft distended Ileus versus partial small bowel obstruction. Patient is adamant that she does not wish to have an NG tube. Patient will be observed.
[2022-08-02] MEDS ORDERED: POTASSIUM PHOSPHATE 10 MMOL in SODIUM CHLORIDE 0.9% 250 ML IV ONE (14:00)
[2022-08-02] MEDS: MORPHINE SULFATE IR 15 MG TABLET PO PRN (15:52)
[2022-08-02 18:18] LABS: Glucose,Whole Blood 123 mg/dL (70-110)
[2022-08-02] MEDS: HYDROmorphone 1 MG/ML 1 ML SYRINGE IVP PRN (18:38)
--- NOTE | 2022-08-02 19:19 | P.PN ---
Subjective Progress Note Date: 08/01/22 71-year-old female with a known history of gastric cancer status post surgery and chemotherapy. Presents to ER with complaints of abdominal pain. Patient was found have large amount of ascites seen the computed tomography scan. Otherwise patient denied any nausea or vomiting. No fever no chills. No cough or sputum production. No chest pain or shortness of breath. 08/01/2022 Patient is seen and evaluated in room at bedside; continues to complain of several episodes of vomiting; somewhat improved pain control Vital signs are stable Patient continues to have episodes of large emesis; general surgery on board and recommending NG tube for gastric these compression; this has been discussed with the patient remains reluctant We will continue with current management Objective - Vital Signs Vital signs: Vital Signs Temp 98.2 F 08/01/22 05:00 Pulse 92 08/01/22 05:00 Resp 16 08/01/22 05:00 BP 149/79 08/01/22 05:00 Pulse Ox 93 L 08/01/22 05:00 FiO2 Intake & Output 07/31/22 08/01/22 08/01/22 18:59 06:59 18:59 Intake Total 590 Output Total 2 150 140 Balance -2 440 -140 Weight 53.524 kg Intake: Oral 590 Output: Emesis 2 140 Oral Regurgitation 150 Other: Voiding Method Bedside Commode Bedside Commode # Voids 2 2 - Exam HEENT: Normocephalic. Neck is supple. Pupils reactive. Nostrils clear. Oral cavity is moist. Neck reveals no JVD, carotid bruits, or thyromegaly. CHEST EXAMINATION: Trachea is central. Symmetrical expansion. Lung yip clear to auscultation and percussion. CARDIAC: Normal S1, S2 with no gallops. No murmurs ABDOMEN: Soft. Bowel sounds normal. Mild distention and tenderness in the epigastric region. No organomegaly. No abdominal bruits. Extremities: reveal no edema. No clubbing or cyanosis Neurologically awake, alert, oriented x3 with well-coordinated movements. No focal deficits noted Skin: No rash or skin lesions. Psychiatric: Coperative. Nonsuicidal Musculoskeletal: No joint swelling or deformity. Normal range of motion. - Labs CBC & Chem 7: 08/02/22 07:21 08/02/22 07:21 Labs: Abnormal Lab Results - Last 24 Hours (Table) 07/31/22 07/31/22 08/01/22 Range/Units 06:21 17:58 00:42 Sodium (137-145) mmol/L Potassium (3.5-5.1) mmol/L Creatinine (0.52-1.04) mg/dL Glucose (74-99) mg/dL POC Glucose (mg/dL) 143 H 145 H (70-110) mg/dL Calcium (8.4-10.2) mg/dL Phosphorus 1.8 L (2.4-5.1) mg/dL Total Protein (6.3-8.2) g/dL Albumin 3.0 L (3.8-4.9) g/dL 08/01/22 08/01/22 Range/Units 05:49 06:42 Sodium 133 L (137-145) mmol/L Potassium 2.9 L (3.5-5.1) mmol/L Creatinine 0.46 L (0.52-1.04) mg/dL Glucose 158 H (74-99) mg/dL POC Glucose (mg/dL) 170 H (70-110) mg/dL Calcium 7.9 L (8.4-10.2) mg/dL Phosphorus 2.3 L (2.4-5.1) mg/dL Total Protein 4.7 L (6.3-8.2) g/dL Albumin 2.7 L (3.8-4.9) g/dL Microbiology - Last 24 Hours (Table) 07/28/22 11:00 Gram Stain - Preliminary Paracentesis Fluid Body Fluid Culture - Preliminary Assessment and Plan Assessment: Abdominal pain and ascites likely due to prostatic gastric cancer History of gastric cancer status post surgery History of gastric ulcer COPD Hyperlipidemia Osteoarthritis Anxiety/depression Currently is on day smoker DVT prophylaxis Plan: Patient is status post paracentesis with those 2.3 L fluid removal. Continue with pain management. Fluid analysis is negative for infection..Fluid cytology is pending. Continue with PPI and encourage oral intake as tolerated. Oncology is on board. Follow up closely. Continue with symptomatic management. Gentle IV hydration. Prognosis is guarded.
--- NOTE | 2022-08-02 19:22 | P.PN ---
Subjective Progress Note Date: 08/02/22 71-year-old female with a known history of gastric cancer status post surgery and chemotherapy. Presents to ER with complaints of abdominal pain. Patient was found have large amount of ascites seen the computed tomography scan. Otherwise patient denied any nausea or vomiting. No fever no chills. No cough or sputum production. No chest pain or shortness of breath. 08/01/2022 Patient is seen and evaluated in room at bedside; continues to complain of several episodes of vomiting; somewhat improved pain control Vital signs are stable Patient continues to have episodes of large emesis; general surgery on board and recommending NG tube for gastric these compression; this has been discussed with the patient remains reluctant We will continue with current management 08/02/2022 Patient is seen and evaluated in room resting in bed; discussed with nursing staff; per RN patient has not had as frequent episodes of emesis as yesterday; patient reports uncontrolled pain also Vital signs are reviewed and remained stable - Surgery evaluated patient and recommending NG tube for ileus versus partial small bowel obstruction; patient continues to diffuse - Continues to complain of uncontrolled pain; patient is on fentanyl patch and IV morphine; we will transition to Dilaudid; we will discontinue oral pain medications Recommend palliative care consult for pain management Objective - Vital Signs Vital signs: Vital Signs Temp 98.6 F 08/02/22 11:54 Pulse 105 H 08/02/22 11:54 Resp 18 08/02/22 11:54 BP 157/66 08/02/22 11:54 Pulse Ox 91 L 08/02/22 11:54 FiO2 Intake & Output 08/01/22 08/02/22 08/02/22 18:59 06:59 18:59 Intake Total 867 Output Total 140 Balance -140 867 Intake: Intake, IV Titration 867 Amount Amino Acid 5%-D15w+Lytes* 867 E* 1,000 ml @ 90 mls/hr IV .BY DURATION [facility] Rx#: [id number] Output: Emesis 140 Other: Voiding Method Bedside Commode Bedside Commode Bedside Commode # Voids 2 4 1 - Exam HEENT: Normocephalic. Neck is supple. Pupils reactive. Nostrils clear. Oral cavity is moist. Neck reveals no JVD, carotid bruits, or thyromegaly. CHEST EXAMINATION: Trachea is central. Symmetrical expansion. Lung yip clear to auscultation and percussion. CARDIAC: Normal S1, S2 with no gallops. No murmurs ABDOMEN: Soft. Bowel sounds normal. Mild distention and tenderness in the epigastric region. No organomegaly. No abdominal bruits. Extremities: reveal no edema. No clubbing or cyanosis Neurologically awake, alert, oriented x3 with well-coordinated movements. No focal deficits noted Skin: No rash or skin lesions. Psychiatric: Coperative. Nonsuicidal Musculoskeletal: No joint swelling or deformity. Normal range of motion. - Labs CBC & Chem 7: 08/02/22 07:21 08/02/22 07:21 Labs: Abnormal Lab Results - Last 24 Hours (Table) 08/01/22 08/01/22 08/02/22 Range/Units 17:27 23:59 06:49 WBC (4.50-10.00) X 10*3/uL RBC (4.10-5.20) X 10*6/uL Hgb (12.0-15.0) g/dL Hct (37.2-46.3) % Absolute Nucleated RBC (0.00-0.00) X 10*3/uL Immature Gran # (0.00-0.04) X 10*3/uL Neutrophils # (1.80-7.70) X 10*3/uL Monocytes # (0.20-1.00) X 10*3/uL Eosinophils # (0.04-0.35) X 10*3/uL NRBC/100 WBC Diff (0.0-0.0) /100 WBCS Potassium (3.5-5.5) mmol/L Anion Gap (10.00-18.00) mmol/L Creatinine (0.6-1.5) mg/dL BUN/Creatinine Ratio (12.00-20.00) Ratio Glucose (70-110) mg/dL POC Glucose (mg/dL) 136 H 197 H 168 H (70-110) mg/dL Calcium (8.7-10.3) mg/dL Phosphorus (2.4-5.1) mg/dL AST (13-35) U/L Total Protein (6.2-8.2) g/dL Albumin (3.8-4.9) g/dL Globulin (1.6-3.3) g/dL Albumin/Globulin Ratio (1.60-3.17) g/dL 08/02/22 08/02/22 08/02/22 Range/Units 07:21 07:21 11:57 WBC 3.78 L (4.50-10.00) X 10*3/uL RBC 3.78 L (4.10-5.20) X 10*6/uL Hgb 11.5 L (12.0-15.0) g/dL Hct 33.9 L (37.2-46.3) % Absolute Nucleated RBC 0.02 H (0.00-0.00) X 10*3/uL Immature Gran # 0.14 H (0.00-0.04) X 10*3/uL Neutrophils # 1.38 L (1.80-7.70) X 10*3/uL Monocytes # 1.03 H (0.20-1.00) X 10*3/uL Eosinophils # 0.03 L (0.04-0.35) X 10*3/uL NRBC/100 WBC Diff 0.5 H (0.0-0.0) /100 WBCS Potassium 3.3 L (3.5-5.5) mmol/L Anion Gap 8.70 L (10.00-18.00) mmol/L Creatinine 0.5 L (0.6-1.5) mg/dL BUN/Creatinine Ratio 33.68 H (12.00-20.00) Ratio Glucose 158 H (70-110) mg/dL POC Glucose (mg/dL) 114 H (70-110) mg/dL Calcium 7.8 L (8.7-10.3) mg/dL Phosphorus 2.1 L (2.4-5.1) mg/dL AST 12 L (13-35) U/L Total Protein 3.9 L (6.2-8.2) g/dL Albumin 2.4 L (3.8-4.9) g/dL Globulin 1.5 L (1.6-3.3) g/dL Albumin/Globulin Ratio 1.58 L (1.60-3.17) g/dL Microbiology - Last 24 Hours (Table) 07/28/22 11:00 Anaerobic Culture - Final Paracentesis Fluid 07/28/22 11:00 Gram Stain - Final Paracentesis Fluid Body Fluid Culture - Final Assessment and Plan Assessment: Abdominal pain and ascites likely due to prostatic gastric cancer History of gastric cancer status post surgery History of gastric ulcer COPD Hyperlipidemia Osteoarthritis Anxiety/depression Currently is on day smoker DVT prophylaxis Plan: Patient is status post paracentesis with those 2.3 L fluid removal. Continue with pain management. Fluid analysis is negative for infection..Fluid cytology is pending. Continue with PPI and encourage oral intake as tolerated. Oncology is on board. Follow up closely. Continue with symptomatic management. Gentle IV hydration. Prognosis is guarded.
[2022-08-02] MEDS: PRAMIPEXOLE 0.125 MG TAB PO SCH (21:41)
[2022-08-03 00:45] LABS: Glucose,Whole Blood 130 mg/dL (70-110)
[2022-08-03] MEDS: METOCLOPRAMIDE 5 MG/ML 2 ML VIAL IVP SCH ×4 (01:02→18:29)
[2022-08-03] MEDS: SALT AND SODA MOUTHWASH 1,000 ML PO SCH ×5 (01:03→23:03)
[2022-08-03] MEDS: 1: MVI, ADULT NO.4 WITH VIT K 10 ML, TRACE (CONC-1ML/DOSE) 1 ML in AMINO ACID 5%-D15W+LY IV SCH ×6 (01:03→12:09)
[2022-08-03] MEDS: HYDROmorphone 1 MG/ML 1 ML SYRINGE IVP PRN ×5 (01:14→21:04)
[2022-08-03] MEDS: SODIUM CHLORIDE 0.9% 1,000 ML IV SCH ×2 (06:14→23:01)
[2022-08-03 06:29] LABS: Glucose,Whole Blood 134 mg/dL (70-110)
[2022-08-03] MEDS: PANTOPRAZOLE 40 MG/10 ML VIAL IVP SCH ×2 (07:44→20:55)
[2022-08-03] MEDS: diphenhydrAMINE 25 MG CAP PO SCH ×3 (07:44→20:55)
[2022-08-03] MEDS: ONDANSETRON 4 MG/2 ML VIAL IVP PRN ×3 (07:44→20:59)
[2022-08-03] MEDS: polyethylene glycoL 3350 17 GM POWD.PACK PO SCH (07:45)
[2022-08-03] MEDS: OXYBUTYNIN 10 MG TAB.ER.24 PO SCH (07:45)
[2022-08-03 08:56] LABS: Glucose,Whole Blood 161 mg/dL (70-110)
[2022-08-03 09:40] LABS: African American GFR (CKD) 123.2 (60.0-200.0); Albumin 2.3 g/dL (3.8-4.9); Albumin/Globulin Ratio 1.35 (1.60-3.17); Anion Gap 8.7 mmol/L (10.00-18.00); BUN/Creat Ratio 41.25 Ratio (12.00-20.00); Blood Urea Nitrogen 16.5 mg/dL (9.0-27.0); Carbon Dioxide 28.3 mmol/L (20.0-27.5); Globulin 1.7 g/dL (1.6-3.3); Magnesium 1.9 mg/dL (1.5-2.4); Non-African American GFR(CKD) 106.3 (60.0-200.0); Phosphorus 2.6 mg/dL (2.4-5.1); Total Bilirubin 0.4 mg/dL (0.30-1.20)
--- NOTE | 2022-08-03 10:51 | P.PN ---
Subjective Progress Note Date: 08/03/22 CHIEF COMPLAINT: Abdominal pain HISTORY OF PRESENT ILLNESS: Patient sitting up in bed. Patient continues to have nausea and vomiting. She has abdominal pain and reports that it is starting to move she has more pain on the right side of abdomen. She is having flatus. It is been a few days since her last bowel movement. She reports feeling more distended. Her last episode of vomiting was last night. She does have TPN. She is eating very minimal liquids. Afebrile. Mild tachycardia. Sodium 138 potassium 3.0 creatinine 0.4 glucose 133 magnesium 1.9 phosphorus 2.6 cytology still pending PHYSICAL EXAM: VITAL SIGNS: Reviewed. GENERAL: Well-developed in no acute distress. HEENT: No sclera icterus. Extraocular movements grossly intact. Moist buccal mucosa. Head is atraumatic, normocephalic. ABDOMEN: More distended. Tenderness to palpation in the right side of the abdomen. Ascites present NEUROLOGIC: Alert and oriented. Cranial nerves II through XII grossly intact. ASSESSMENT: 1. Nausea and vomiting 2. History of gastric cancer with possible recurrence 3. Abdominal ascites PLAN: -Abdominal x-ray ordered for abdominal distention -Discussed case with oncology service that patient may benefit from abdominal ultrasound and possible paracentesis -Continue clear liquid diet -Continue TPN for nutrition support -Continue antiemetics -Continue supportive care -No surgical intervention planned Physician Recreation Programmer note has been reviewed by physician. Signing provider agrees with the documented findings, assessment, and plan of care. I have personally seen and examined the patient, reviewed the BANK COURIER /PAs history, exam and MDM and agree with the assessment and plan as written. Based on total visit time, I have performed more than 50% of the visit. As above: Patient with further vomiting and some distention at this time. Check abdominal ultrasound. Check abdominal x-rays. Objective - Vital Signs Vital signs: Vital Signs Temp 98.4 F 08/03/22 06:16 Pulse 88 08/03/22 06:16 Resp 16 08/03/22 06:16 BP 117/64 08/03/22 06:16 Pulse Ox 91 L 08/03/22 06:16 FiO2 Intake & Output 08/02/22 08/03/22 08/03/22 18:59 06:59 18:59 Intake Total 990 2270 Output Total 60 Balance 930 2270 Intake: IV 1140 Amino Acid 5%-D15w+Lytes* 540 E* 1,000 ml @ 90 mls/hr IV .BY DURATION [facility] Rx#: [id number] Sodium Chloride 0.9% 1, 600 000 ml @ 80 mls/hr IV . [id number] [facility] Rx#:[id number] Intake, IV Titration 990 540 Amount Amino Acid 5%-D15w+Lytes* 990 E* 1,000 ml @ 90 mls/hr IV .BY DURATION [facility] Rx#: [id number] Mvi, Adult No.4 with Vit 540 K 10 ml Trace (Conc-1Ml/ Dose) 1 ml In Amino Acid 5%-D15w+Lytes*E* 1,000 ml @ 90 mls/hr IV .BY DURATION [facility] Rx#: [id number] Oral 590 Output: Emesis 60 Other: Voiding Method Bedside Commode Bedside Commode # Voids 1 2 - Labs CBC & Chem 7: 08/02/22 07:21 08/03/22 06:15 Labs: Abnormal Lab Results - Last 24 Hours (Table) 08/01/22 08/02/22 08/02/22 Range/Units 12:24 07:21 07:21 WBC 3.78 L (4.50-10.00) X 10*3/uL RBC 3.78 L (4.10-5.20) X 10*6/uL Hgb 11.5 L (12.0-15.0) g/dL Hct 33.9 L (37.2-46.3) % Absolute Nucleated RBC 0.02 H (0.00-0.00) X 10*3/uL Immature Gran # 0.14 H (0.00-0.04) X 10*3/uL Neutrophils # 1.38 L (1.80-7.70) X 10*3/uL Monocytes # 1.03 H (0.20-1.00) X 10*3/uL Eosinophils # 0.03 L (0.04-0.35) X 10*3/uL NRBC/100 WBC Diff 0.5 H (0.0-0.0) /100 WBCS Potassium 3.3 L (3.5-5.5) mmol/L Carbon Dioxide (20.0-27.5) mmol/L Anion Gap 8.70 L (10.00-18.00) mmol/L Creatinine 0.5 L (0.6-1.5) mg/dL BUN/Creatinine Ratio 33.68 H (12.00-20.00) Ratio Glucose 158 H (70-110) mg/dL POC Glucose (mg/dL) 161 H (70-110) mg/dL Calcium 7.8 L (8.7-10.3) mg/dL Phosphorus 2.1 L (2.4-5.1) mg/dL AST 12 L (13-35) U/L Total Protein 3.9 L (6.2-8.2) g/dL Albumin 2.4 L (3.8-4.9) g/dL Globulin 1.5 L (1.6-3.3) g/dL Albumin/Globulin Ratio 1.58 L (1.60-3.17) g/dL 08/02/22 08/02/22 08/03/22 Range/Units 11:57 17:57 00:44 WBC (4.50-10.00) X 10*3/uL RBC (4.10-5.20) X 10*6/uL Hgb (12.0-15.0) g/dL Hct (37.2-46.3) % Absolute Nucleated RBC (0.00-0.00) X 10*3/uL Immature Gran # (0.00-0.04) X 10*3/uL Neutrophils # (1.80-7.70) X 10*3/uL Monocytes # (0.20-1.00) X 10*3/uL Eosinophils # (0.04-0.35) X 10*3/uL NRBC/100 WBC Diff (0.0-0.0) /100 WBCS Potassium (3.5-5.5) mmol/L Carbon Dioxide (20.0-27.5) mmol/L Anion Gap (10.00-18.00) mmol/L Creatinine (0.6-1.5) mg/dL BUN/Creatinine Ratio (12.00-20.00) Ratio Glucose (70-110) mg/dL POC Glucose (mg/dL) 114 H 123 H 130 H (70-110) mg/dL Calcium (8.7-10.3) mg/dL Phosphorus (2.4-5.1) mg/dL AST (13-35) U/L Total Protein (6.2-8.2) g/dL Albumin (3.8-4.9) g/dL Globulin (1.6-3.3) g/dL Albumin/Globulin Ratio (1.60-3.17) g/dL 08/03/22 08/03/22 Range/Units 06:11 06:15 WBC (4.50-10.00) X 10*3/uL RBC (4.10-5.20) X 10*6/uL Hgb (12.0-15.0) g/dL Hct (37.2-46.3) % Absolute Nucleated RBC (0.00-0.00) X 10*3/uL Immature Gran # (0.00-0.04) X 10*3/uL Neutrophils # (1.80-7.70) X 10*3/uL Monocytes # (0.20-1.00) X 10*3/uL Eosinophils # (0.04-0.35) X 10*3/uL NRBC/100 WBC Diff (0.0-0.0) /100 WBCS Potassium 3.0 L (3.5-5.5) mmol/L Carbon Dioxide 28.3 H (20.0-27.5) mmol/L Anion Gap 8.70 L (10.00-18.00) mmol/L Creatinine 0.4 L (0.6-1.5) mg/dL BUN/Creatinine Ratio 41.25 H (12.00-20.00) Ratio Glucose 133 H (70-110) mg/dL POC Glucose (mg/dL) 134 H (70-110) mg/dL Calcium 8.0 L (8.7-10.3) mg/dL Phosphorus (2.4-5.1) mg/dL AST (13-35) U/L Total Protein 4.0 L (6.2-8.2) g/dL Albumin 2.3 L (3.8-4.9) g/dL Globulin (1.6-3.3) g/dL Albumin/Globulin Ratio 1.35 L (1.60-3.17) g/dL
[2022-08-03 12:02] LABS: Glucose,Whole Blood 94 mg/dL (70-110)
--- NOTE | 2022-08-03 12:06 | US ---
EXAMINATION TYPE: US abdomen limited DATE OF EXAM: 08/03/2022 COMPARISON: NONE CLINICAL HISTORY: 71-year-old female to assess for fluid pocket. Ascites. Technique: Multiple sonographic images of the 4 abdominal quadrants for assessment of ascites. FINDINGS: Moderate abdominal ascites is visualized. Largest pocket right lower quadrant. IMPRESSION: Moderate abdominal ascites.
[2022-08-03] MEDS: POTASSIUM CHLORIDE 20 MEQ in WATER FOR INJECTION 1 100ML.BAG IVPB SCH ×2 (12:10→14:25)
[2022-08-03 12:45] LABS: Appearance,Urine Clear (Clear); Bilirubin,Urine Negative (Negative); Blood,Urine Large (Negative); Color,Urine Yellow; Glucose,Urine (UA) Trace (Negative); Ketones,Urine Negative (Negative); Leukocyte Esterase,Urine Negative (Negative); Mucus,Urine Occasional /hpf; Nitrite,Urine Negative (Negative); Protein,Urine Trace (Negative); RBC,Urine 59 /hpf (0-5); Specific Gravity,Urine 1.016 (1.001-1.035); Squamous Epithelial Cell,Urine 1 /hpf (0-4); Urobilinogen,Urine <2.0 mg/dL (<2.0); WBC,Urine 1 /hpf (0-5)
--- NOTE | 2022-08-03 14:11 | US ---
Ultrasound-guided paracentesis. DATE OF EXAM: 08/03/2022 CLINICAL HISTORY: Ascites Preliminary ultrasound demonstrated no sizable fluid collection. There were multiple dilated bowel lo ops. There is no significant percutaneous access for paracentesis. IMPRESSION: 1. Discontinue paracentesis due to insufficient fluid.
--- NOTE | 2022-08-03 15:36 | XR ---
EXAMINATION TYPE: XR abdomen 2V DATE OF EXAM: 08/03/2022 CLINICAL DATA: 71 year-old female abdominal distention, pain in the mid and upper abdomen, [facility] COMPARISON: CT 07/26/2022 FINDINGS: Dilated small bowel loops with air-fluid levels. However, prominent colonic gas also remains with air -fluid levels. Small bowel is dilated up to 5.2 cm. Air extends distally to the rectum. Bilateral ure teral stents. Cholecystectomy clips. Increased density of the abdomen suggesting ascites fluid. Parti ally visualized right hip arthroplasty. IMPRESSION: 1. Air-fluid levels throughout. Small bowel loops are dilated up to 5.2 cm. Consider marked generaliz ed ileus or enteritis. The presence of colonic air makes small bowel obstruction less likely at this time. Ongoing follow-up can be performed. 2. Bilateral ureteral stents. Cholecystectomy clips.
[2022-08-03] MEDS ORDERED: HYDROmorphone 1 MG/ML 1 ML SYRINGE IVP STA (16:21)
[2022-08-03 18:03] LABS: Glucose,Whole Blood 124 mg/dL (70-110)
--- NOTE | 2022-08-03 18:38 | P.PN ---
Subjective Progress Note Date: 08/03/22 Principal diagnosis: N,V, abd pain In f/u today pt is up in chair. Reporting more tolerable abd pain most of the time, the pain will increase at times. Pt is also back on IV dilaudid, vomiting with oral morphine, but has also vomited with the IV dilaudid per her daughter. She prefers applesauce, yogurt and pudding as her food choices. i Objective - Vital Signs Vital signs: Vital Signs Temp 98.4 F 08/03/22 11:40 Pulse 86 08/03/22 13:34 Resp 16 08/03/22 13:34 BP 115/66 08/03/22 13:34 Pulse Ox 93 L 08/03/22 13:34 FiO2 Intake & Output 08/02/22 08/03/22 08/03/22 18:59 06:59 18:59 Intake Total 990 3270 Output Total 60 Balance 930 3270 Intake: IV 1140 Amino Acid 5%-D15w+Lytes* 540 E* 1,000 ml @ 90 mls/hr IV .BY DURATION [facility] Rx#: [id number] Sodium Chloride 0.9% 1, 600 000 ml @ 80 mls/hr IV . [id number] [facility] Rx#:[id number] Intake, IV Titration 990 1540 Amount Amino Acid 5%-D15w+Lytes* 990 1000 E* 1,000 ml @ 90 mls/hr IV .BY DURATION [facility] Rx#: [id number] Mvi, Adult No.4 with Vit 540 K 10 ml Trace (Conc-1Ml/ Dose) 1 ml In Amino Acid 5%-D15w+Lytes*E* 1,000 ml @ 90 mls/hr IV .BY DURATION [facility] Rx#: [id number] Oral 590 Output: Emesis 60 Other: Voiding Method Bedside Commode Bedside Commode # Voids 1 2 1 - Constitutional General appearance: Present: no acute distress - EENT Eyes: Present: anicteric sclerae, EOMI ENT: Present: hearing grossly normal - Respiratory Respiratory: bilateral: CTA - Cardiovascular Rhythm: regular Heart sounds: normal: S1, S2 Abnormal Heart Sounds: Absent: systolic murmur, diastolic murmur, rub, S3 Ga llop, S4 Gallop, click, other - Gastrointestinal Gastrointestinal Comment(s): distant bowel sounds General gastrointestinal: Present: distended, soft, tenderness - Integumentary Integumentary: Present: normal - Neurologic Neurologic: Present: CNII-XII intact - Musculoskeletal Musculoskeletal: Present: generalized weakness - Psychiatric Psychiatric: Present: A&O x's 3, appropriate affect, intact judgment & insight - Labs CBC & Chem 7: 08/02/22 07:21 08/03/22 06:15 Labs: Abnormal Lab Results - Last 24 Hours (Table) 08/01/22 08/02/22 08/03/22 Range/Units 12:24 17:57 00:44 Potassium (3.5-5.5) mmol/L Carbon Dioxide (20.0-27.5) mmol/L Anion Gap (10.00-18.00) mmol/L Creatinine (0.6-1.5) mg/dL BUN/Creatinine Ratio (12.00-20.00) Ratio Glucose (70-110) mg/dL POC Glucose (mg/dL) 161 H 123 H 130 H (70-110) mg/dL Calcium (8.7-10.3) mg/dL Total Protein (6.2-8.2) g/dL Albumin (3.8-4.9) g/dL Albumin/Globulin Ratio (1.60-3.17) g/dL Urine Protein (Negative) Urine Glucose (UA) (Negative) Urine Blood (Negative) Urine RBC (0-5) /hpf Urine Mucus (None) /hpf 08/03/22 08/03/22 08/03/22 Range/Units 06:11 06:15 10:17 Potassium 3.0 L (3.5-5.5) mmol/L Carbon Dioxide 28.3 H (20.0-27.5) mmol/L Anion Gap 8.70 L (10.00-18.00) mmol/L Creatinine 0.4 L (0.6-1.5) mg/dL BUN/Creatinine Ratio 41.25 H (12.00-20.00) Ratio Glucose 133 H (70-110) mg/dL POC Glucose (mg/dL) 134 H (70-110) mg/dL Calcium 8.0 L (8.7-10.3) mg/dL Total Protein 4.0 L (6.2-8.2) g/dL Albumin 2.3 L (3.8-4.9) g/dL Albumin/Globulin Ratio 1.35 L (1.60-3.17) g/dL Urine Protein Trace H (Negative) Urine Glucose (UA) Trace H (Negative) Urine Blood Large H (Negative) Urine RBC 59 H (0-5) /hpf Urine Mucus Occasional H (None) /hpf 08/03/22 Range/Units 18:01 Potassium (3.5-5.5) mmol/L Carbon Dioxide (20.0-27.5) mmol/L Anion Gap (10.00-18.00) mmol/L Creatinine (0.6-1.5) mg/dL BUN/Creatinine Ratio (12.00-20.00) Ratio Glucose (70-110) mg/dL POC Glucose (mg/dL) 124 H (70-110) mg/dL Calcium (8.7-10.3) mg/dL Total Protein (6.2-8.2) g/dL Albumin (3.8-4.9) g/dL Albumin/Globulin Ratio (1.60-3.17) g/dL Urine Protein (Negative) Urine Glucose (UA) (Negative) Urine Blood (Negative) Urine RBC (0-5) /hpf Urine Mucus (None) /hpf Assessment and Plan (1) Abdominal pain Current Visit: Yes Status: Acute Priority: High Code(s): R10.9 - UNSPECIFIED ABDOMINAL PAIN SNOMED Code(s): 79125527 (2) Ascites Current Visit: Yes Status: Acute Priority: High Code(s): R18.8 - OTHER ASCITES SNOMED Code(s): 905190734 (3) Nausea and vomiting Current Visit: Yes Status: Acute Priority: High Code(s): R11.2 - NAUSEA WITH VOMITING, UNSPECIFIED SNOMED Code(s): 12071072 (4) Gastric adenocarcinoma Current Visit: Yes Status: Chronic Priority: Medium Code(s): C16.9 - MALIGNANT NEOPLASM OF STOMACH, UNSPECIFIED SNOMED Code(s): 185808120 Plan: Abd pain 2/2 rigidity of GI tract from malignancy. TPN has been started, may have to consider making pt completely NPO. Pending US and possible paracente sis. Did speak with Surgical PA, abd xray ordered. Pt so far has tolerated fentanyl. She was vomiting after taking oral morphine so, she was placed back on IV dilaudid. Medications for prevention of narcotic induced constipation continue. Reglan started, clear liquids only. She cannot stand how sugary the clear liquid diet is. Pt is wanting pudding, applesauce and yogurt-pending outcomes of testing. Pt may have to be NPO. At times she seems to be tolerating small amt of clear liquids, without vomiting or abdominal pain, then at other times she does not. Orders for TPN completed by Dietitian. TPN started. Tolerating well so far. Plan is for TPN at home for several months while patient receives chemotherapy, hopeful that treatment will afford patient's some disease control and relief of malignancy symptoms. Dr. Bay wants to resume treatment as soon as able. Cancelling PET scan. Starting treatment to get control of patient's symptoms is felt to be the best course of action for pt. Pt is tentatively on the chemo schedule for Wednesday After seeing pt, cytology was resulted-positive for adenocarcinoma. I did talk to her daughter on the phone. We discussed the + fluid cytology, which only confirms what was suspected-peritoneal involvement. Daughter asked what are expected outcomes. Treatment will not cure cancer, it is meant only to palliate symptoms. Pt can try treatment and if she does not tolerate treatment it is reasonable to stop. If she tolerates treatment and it helps her symptoms then cont, knowing that at some point the treatment will not be effective and the cancer will return. Keeping the pt comfortable/hospice, is reasonable at any time. We will discuss the + peritoneal fluid with pt tomorrow. We will also review the discussion we had with her daughter. attests: I have seen and examined patient, performed H & P, developed impression and plan of care. Discussed with dictator. Agree with documentation, dictated as a scribe Time with Patient: Greater than 30
[2022-08-03] MEDS: PRAMIPEXOLE 0.125 MG TAB PO SCH (20:55)
--- NOTE | 2022-08-03 22:25 | P.PN ---
Subjective 71-year-old female with a known history of gastric cancer status post surgery and chemotherapy. Presents to ER with complaints of abdominal pain. Patient was found have large amount of ascites seen the computed tomography scan. Otherwise patient denied any nausea or vomiting. No fever no chills. No cough or sputum production. No chest pain or shortness of breath. 08/01/2022 Patient is seen and evaluated in room at bedside; continues to complain of several episodes of vomiting; somewhat improved pain control Vital signs are stable Patient continues to have episodes of large emesis; general surgery on board and recommending NG tube for gastric these compression; this has been discussed with the patient remains reluctant We will continue with current management 08/02/2022 Patient is seen and evaluated in room resting in bed; discussed with nursing staff; per RN patient has not had as frequent episodes of emesis as yesterday; patient reports uncontrolled pain also Vital signs are reviewed and remained stable - Surgery evaluated patient and recommending NG tube for ileus versus partial small bowel obstruction; patient continues to diffuse - Continues to complain of uncontrolled pain; patient is on fentanyl patch and IV morphine; we will transition to Dilaudid; we will discontinue oral pain medications 08/03/2022 pt is a known case of gastric cancer s/p surgical resection and chemotherapy pt with abd pain and distension , with tenderness , with abdominal xray is suggestive of small bowel ilues versus enteritis , dilaudid is added for pain still on liquid diet no fever or leukocytosis , no anitbiotic is added for now, but we will check labs and procalcitonin in am still on normal saline surgery and oncology team on the case Objective - Vital Signs Vital signs: Vital Signs Temp 98.4 F 08/03/22 06:16 Pulse 88 08/03/22 06:16 Resp 16 08/03/22 06:16 BP 117/64 08/03/22 06:16 Pulse Ox 91 L 08/03/22 06:16 FiO2 Intake & Output 08/02/22 08/03/22 08/03/22 18:59 06:59 18:59 Intake Total 990 2270 Output Total 60 Balance 930 2270 Intake: IV 1140 Amino Acid 5%-D15w+Lytes* 540 E* 1,000 ml @ 90 mls/hr IV .BY DURATION [facility] Rx#: [id number] Sodium Chloride 0.9% 1, 600 000 ml @ 80 mls/hr IV . [id number] [facility] Rx#:[id number] Intake, IV Titration 990 540 Amount Amino Acid 5%-D15w+Lytes* 990 E* 1,000 ml @ 90 mls/hr IV .BY DURATION [facility] Rx#: [id number] Mvi, Adult No.4 with Vit 540 K 10 ml Trace (Conc-1Ml/ Dose) 1 ml In Amino Acid 5%-D15w+Lytes*E* 1,000 ml @ 90 mls/hr IV .BY DURATION [facility] Rx#: [id number] Oral 590 Output: Emesis 60 Other: Voiding Method Bedside Commode Bedside Commode # Voids 1 2 2 - Exam GENERAL: The patient is alert and oriented x3, not in any acute distress. Well developed, well nourished. HEENT: Pupils are round and equally reacting to light. EOMI. No scleral icterus. No conjunctival pallor. Normocephalic, atraumatic. No pharyngeal erythema. No thyromegaly. CARDIOVASCULAR: S1 and S2 present. No murmurs, rubs, or gallops. PULMONARY: Chest is clear to auscultation, no wheezing or crackles. -ABDOMEN: Soft, abd tenderness , mildly distended, normoactive bowel sounds. No palpable organomegaly. MUSCULOSKELETAL: No joint swelling or deformity. EXTREMITIES: No cyanosis, clubbing, or pedal edema. NEUROLOGICAL: Gross neurological examination did not reveal any focal deficits. SKIN: No rashes. no petechiae. - Labs CBC & Chem 7: 08/02/22 07:21 08/03/22 06:15 Labs: Abnormal Lab Results - Last 24 Hours (Table) 08/01/22 08/02/22 08/02/22 Range/Units 12:24 07:21 07:21 WBC 3.78 L (4.50-10.00) X 10*3/uL RBC 3.78 L (4.10-5.20) X 10*6/uL Hgb 11.5 L (12.0-15.0) g/dL Hct 33.9 L (37.2-46.3) % Absolute Nucleated RBC 0.02 H (0.00-0.00) X 10*3/uL Immature Gran # 0.14 H (0.00-0.04) X 10*3/uL Neutrophils # 1.38 L (1.80-7.70) X 10*3/uL Monocytes # 1.03 H (0.20-1.00) X 10*3/uL Eosinophils # 0.03 L (0.04-0.35) X 10*3/uL NRBC/100 WBC Diff 0.5 H (0.0-0.0) /100 WBCS Potassium 3.3 L (3.5-5.5) mmol/L Carbon Dioxide (20.0-27.5) mmol/L Anion Gap 8.70 L (10.00-18.00) mmol/L Creatinine 0.5 L (0.6-1.5) mg/dL BUN/Creatinine Ratio 33.68 H (12.00-20.00) Ratio Glucose 158 H (70-110) mg/dL POC Glucose (mg/dL) 161 H (70-110) mg/dL Calcium 7.8 L (8.7-10.3) mg/dL Phosphorus 2.1 L (2.4-5.1) mg/dL AST 12 L (13-35) U/L Total Protein 3.9 L (6.2-8.2) g/dL Albumin 2.4 L (3.8-4.9) g/dL Globulin 1.5 L (1.6-3.3) g/dL Albumin/Globulin Ratio 1.58 L (1.60-3.17) g/dL 08/02/22 08/02/22 08/03/22 Range/Units 11:57 17:57 00:44 WBC (4.50-10.00) X 10*3/uL RBC (4.10-5.20) X 10*6/uL Hgb (12.0-15.0) g/dL Hct (37.2-46.3) % Absolute Nucleated RBC (0.00-0.00) X 10*3/uL Immature Gran # (0.00-0.04) X 10*3/uL Neutrophils # (1.80-7.70) X 10*3/uL Monocytes # (0.20-1.00) X 10*3/uL Eosinophils # (0.04-0.35) X 10*3/uL NRBC/100 WBC Diff (0.0-0.0) /100 WBCS Potassium (3.5-5.5) mmol/L Carbon Dioxide (20.0-27.5) mmol/L Anion Gap (10.00-18.00) mmol/L Creatinine (0.6-1.5) mg/dL BUN/Creatinine Ratio (12.00-20.00) Ratio Glucose (70-110) mg/dL POC Glucose (mg/dL) 114 H 123 H 130 H (70-110) mg/dL Calcium (8.7-10.3) mg/dL Phosphorus (2.4-5.1) mg/dL AST (13-35) U/L Total Protein (6.2-8.2) g/dL Albumin (3.8-4.9) g/dL Globulin (1.6-3.3) g/dL Albumin/Globulin Ratio (1.60-3.17) g/dL 08/03/22 08/03/22 Range/Units 06:11 06:15 WBC (4.50-10.00) X 10*3/uL RBC (4.10-5.20) X 10*6/uL Hgb (12.0-15.0) g/dL Hct (37.2-46.3) % Absolute Nucleated RBC (0.00-0.00) X 10*3/uL Immature Gran # (0.00-0.04) X 10*3/uL Neutrophils # (1.80-7.70) X 10*3/uL Monocytes # (0.20-1.00) X 10*3/uL Eosinophils # (0.04-0.35) X 10*3/uL NRBC/100 WBC Diff (0.0-0.0) /100 WBCS Potassium 3.0 L (3.5-5.5) mmol/L Carbon Dioxide 28.3 H (20.0-27.5) mmol/L Anion Gap 8.70 L (10.00-18.00) mmol/L Creatinine 0.4 L (0.6-1.5) mg/dL BUN/Creatinine Ratio 41.25 H (12.00-20.00) Ratio Glucose 133 H (70-110) mg/dL POC Glucose (mg/dL) 134 H (70-110) mg/dL Calcium 8.0 L (8.7-10.3) mg/dL Phosphorus (2.4-5.1) mg/dL AST (13-35) U/L Total Protein 4.0 L (6.2-8.2) g/dL Albumin 2.3 L (3.8-4.9) g/dL Globulin (1.6-3.3) g/dL Albumin/Globulin Ratio 1.35 L (1.60-3.17) g/dL Assessment and Plan Assessment: small bowel ileus vs enteritis Abdominal pain and ascites likely due to gastric cancer. status post paracentesis with those 2.3 L fluid removal. repeat us: no more fluids History of gastric cancer status post surgery History of gastric ulcer COPD Hyperlipidemia Osteoarthritis Anxiety/depression Currently is on day smoker DVT prophylaxis Plan: Patient is Continue with pain management. Fluid analysis is negative for infection..Fluid cytology is pending. continue on liquid diet , surgical team on the case . f/u abd xray in morning Continue with PPI and encourage oral intake as tolerated. Oncology is on board. Follow up closely. Continue with symptomatic management. Gentle IV hydration. Prognosis is guarded.
[2022-08-03] MEDS ORDERED: AMOXIC-POT CLAV 200-28.5MG/5ML 100 ML BOTTLE PO SCH (22:30)
[2022-08-03] MEDS: 1: MVI, ADULT NO.4 WITH VIT K 10 ML, TRACE (CONC-1ML/DOSE) 1 ML, POTASSIUM CHLORIDE 30 M IV SCH ×4 (22:50)
[2022-08-03 23:59] LABS: Glucose,Whole Blood 132 mg/dL (70-110)
[2022-08-04] MEDS: METOCLOPRAMIDE 5 MG/ML 2 ML VIAL IVP SCH ×5 (00:52→23:17)
[2022-08-04] MEDS: SALT AND SODA MOUTHWASH 1,000 ML PO SCH ×6 (00:52→23:18)
[2022-08-04] MEDS: HYDROmorphone 1 MG/ML 1 ML SYRINGE IVP PRN ×4 (02:20→20:44)
[2022-08-04 05:43] LABS: Glucose,Whole Blood 129 mg/dL (70-110)
[2022-08-04 07:22] LABS: African American GFR (CKD) >90 (>60 ml/min/1.73 sqM); Anion Gap 6 mmol/L; Blood Urea Nitrogen 17 mg/dL (7-17); Calcium 7.6 mg/dL (8.4-10.2); Carbon Dioxide 28 mmol/L (22-30); Chloride 100 mmol/L (98-107); Glucose 121 mg/dL (74-99); Magnesium 1.8 mg/dL (1.6-2.3); Non-African American GFR(CKD) >90 (>60 ml/min/1.73 sqM); Phosphorus 3.3 mg/dL (2.5-4.5); Potassium 3.6 mmol/L (3.5-5.1); Sodium 134 mmol/L (137-145)
[2022-08-04] MEDS: polyethylene glycoL 3350 17 GM POWD.PACK PO SCH (10:50)
[2022-08-04] MEDS: diphenhydrAMINE 25 MG CAP PO SCH ×3 (11:06→20:48)
[2022-08-04] MEDS: PANTOPRAZOLE 40 MG/10 ML VIAL IVP SCH ×2 (11:08→20:47)
[2022-08-04] MEDS: SODIUM CHLORIDE 0.9% 1,000 ML IV SCH ×2 (11:10→20:56)
[2022-08-04] MEDS: SCOPOLAMINE 1 MG/72 HR PATCH TRANSDERM SCH (11:11)
[2022-08-04] MEDS: ALBUTEROL NEBULIZED 2.5 MG/3 ML INHALATION PRN (11:21)
[2022-08-04] MEDS: 1: MVI, ADULT NO.4 WITH VIT K 10 ML, TRACE (CONC-1ML/DOSE) 1 ML, POTASSIUM CHLORIDE 30 M IV SCH ×8 (11:21→22:04)
[2022-08-04 12:07] LABS: Glucose,Whole Blood 118 mg/dL (70-110)
[2022-08-04 12:09] LABS: Basophils # (A) 0.01 X 10*3/uL (0.00-0.10); Basophils % (A) 0.1 %; Eosinophils % (A) 0.8 %; HCT 33.7 % (37.2-46.3); HGB 11.1 g/dL (12.0-15.0); Immature Grans, Automated 4.1 %; Lymphocytes % (A) 17.6 %; MCH 30.7 pg (27.0-32.0); MCHC 32.9 g/dL (32.0-37.0); MCV 93.1 fL (80.0-97.0); Mean Platelet Volume 10.6 fL (9.5-12.2); Monocytes # (A) 1.74 X 10*3/uL (0.20-1.00); Monocytes % (A) 13.9 %; NRBC Per 100 WBC 0 /100 WBCS (0.0-0.0); Neutrophils # (A) 7.94 X 10*3/uL (1.80-7.70); Neutrophils % (A) 63.5 %; Platelet Count 226 X 10*3/uL (140-440); RBC 3.62 X 10*6/uL (4.10-5.20)
--- NOTE | 2022-08-04 12:16 | P.PN ---
Subjective Progress Note Date: 08/04/22 CHIEF COMPLAINT: Abdominal pain HISTORY OF PRESENT ILLNESS: Patient reports that she is having diarrhea. She feels less sick today after having bowel movements. She's had no further vomiting since yesterday. She does have nausea. Complains of pain in the epigastric area. Her abdominal distention is slightly decreased today. She is undergoing a small bowel follow-through x-ray. Abdominal ultrasound had shown moderate ascites. Apparently there was not enough fluid for patient to undergo a paracentesis. She is currently receiving TPN. Oncology is planning to restart chemotherapy on Wednesday. Her pathology from peritoneal fluid did show evidence of adenocarcinoma consistent with upper GI tract origin. Abdominal x- ray from yesterday air-fluid levels throughout. Small bowel loops are dilated at 5.2 cm consider generalized ileus or enteritis. Afebrile. WBC is up at 12.5 hemoglobin 11.1 platelets 226 sodium 134 potassium 3.6 creatinine 0.39 glucose 118 magnesium 1.8 PHYSICAL EXAM: VITAL SIGNS: Reviewed. GENERAL: Well-developed in no acute distress. HEENT: No sclera icterus. Extraocular movements grossly intact. Moist buccal mucosa. Head is atraumatic, normocephalic. ABDOMEN: Less distended. Tenderness to palpation in the right side of the abdomen. Ascites present NEUROLOGIC: Alert and oriented. Cranial nerves II through XII grossly intact. ASSESSMENT: 1. Nausea and vomiting 2. History of gastric cancer with possible recurrence 3. Abdominal ascites fluid pathology showing adenocarcinoma PLAN: -Follow up on small bowel follow-through x-ray -Continue clear liquid diet -Continue TPN for nutrition support -Continue antiemetics -Continue supportive care -No surgical intervention planned Physician Encoding Clerk note has been reviewed by physician. Signing provider agrees with the documented findings, assessment, and plan of care. I have personally seen and examined the patient, reviewed the PUMPER GAGER /PAs history, exam and MDM and agree with the assessment and plan as written. Based on total visit time, I have performed more than 50% of the visit. As above: Patient has had her small bowel series initiated. Results pending at this time. No vomiting today. Pain is better controlled. TPN is ongoing. Await small bowel series results. Objective - Vital Signs Vital signs: Vital Signs Temp 98.1 F 08/04/22 04:17 Pulse 93 11/01/22 11:29 Resp 18 08/04/22 04:17 BP 118/72 08/04/22 04:17 Pulse Ox 92 L 08/04/22 04:17 FiO2 Intake & Output 08/03/22 08/04/22 08/04/22 18:59 06:59 18:59 Intake Total 2540 350 1015 Balance 2540 350 1015 Intake: IV 2040 Amino Acid 5%-D15w+Lytes* 1080 E* 1,000 ml @ 90 mls/hr IV .BY DURATION [facility] Rx#: [id number] Sodium Chloride 0.9% 1, 960 000 ml @ 80 mls/hr IV . [id number] [facility] Rx#:[id number] Intake, IV Titration 1015 Amount Potassium Chloride 30 meq 1015 In Amino Acid 5%-D15w+ Lytes*E* 1,000 ml @ 90 mls/hr IV .BY DURATION [facility] Rx#:[id number] Oral 500 350 Other: Voiding Method Bedside Commode Bedside Commode Bedside Commode # Voids 1 3 - Labs CBC & Chem 7: 08/04/22 06:44 08/04/22 06:44 Labs: Abnormal Lab Results - Last 24 Hours (Table) 08/03/22 08/03/22 08/03/22 Range/Units 10:17 18:01 23:52 WBC (4.50-10.00) X 10*3/uL RBC (4.10-5.20) X 10*6/uL Hgb (12.0-15.0) g/dL Hct (37.2-46.3) % Immature Gran # (0.00-0.04) X 10*3/uL Neutrophils # (1.80-7.70) X 10*3/uL Monocytes # (0.20-1.00) X 10*3/uL Sodium (137-145) mmol/L Creatinine (0.52-1.04) mg/dL Glucose (74-99) mg/dL POC Glucose (mg/dL) 124 H 132 H (70-110) mg/dL Calcium (8.4-10.2) mg/dL Urine Protein Trace H (Negative) Urine Glucose (UA) Trace H (Negative) Urine Blood Large H (Negative) Urine RBC 59 H (0-5) /hpf Urine Mucus Occasional H (None) /hpf 08/04/22 08/04/22 08/04/22 Range/Units 05:41 06:44 06:44 WBC 12.50 H (4.50-10.00) X 10*3/uL RBC 3.62 L (4.10-5.20) X 10*6/uL Hgb 11.1 L (12.0-15.0) g/dL Hct 33.7 L (37.2-46.3) % Immature Gran # 0.51 H (0.00-0.04) X 10*3/uL Neutrophils # 7.94 H (1.80-7.70) X 10*3/uL Monocytes # 1.74 H (0.20-1.00) X 10*3/uL Sodium 134 L (137-145) mmol/L Creatinine 0.39 L (0.52-1.04) mg/dL Glucose 121 H (74-99) mg/dL POC Glucose (mg/dL) 129 H (70-110) mg/dL Calcium 7.6 L (8.4-10.2) mg/dL Urine Protein (Negative) Urine Glucose (UA) (Negative) Urine Blood (Negative) Urine RBC (0-5) /hpf Urine Mucus (None) /hpf 08/04/22 Range/Units 12:05 WBC (4.50-10.00) X 10*3/uL RBC (4.10-5.20) X 10*6/uL Hgb (12.0-15.0) g/dL Hct (37.2-46.3) % Immature Gran # (0.00-0.04) X 10*3/uL Neutrophils # (1.80-7.70) X 10*3/uL Monocytes # (0.20-1.00) X 10*3/uL Sodium (137-145) mmol/L Creatinine (0.52-1.04) mg/dL Glucose (74-99) mg/dL POC Glucose (mg/dL) 118 H (70-110) mg/dL Calcium (8.4-10.2) mg/dL Urine Protein (Negative) Urine Glucose (UA) (Negative) Urine Blood (Negative) Urine RBC (0-5) /hpf Urine Mucus (None) /hpf
[2022-08-04] MEDS: OXYBUTYNIN 10 MG TAB.ER.24 PO SCH (12:52)
[2022-08-04 18:07] LABS: Glucose,Whole Blood 120 mg/dL (70-110)
--- NOTE | 2022-08-04 20:07 | P.PN ---
Subjective Progress Note Date: 08/04/22 Principal diagnosis: N,V, abd pain In f/u today pt was at small bowel imaging testing. I discussed pt with RN, then called and spoke to pt and her sister. Pt reported no nausea today, but she also admitted that she did not eat or drink much because of procedures. She asked about advancing her diet which was eaplained to her, is the likely cause for her nausea and vomiting as gut mobility/motility is not working properly. She reported diarrhea x 1 today with some relief in abd distension, pressure. No fever, cough, chest pain. Objective - Vital Signs Vital signs: Vital Signs Temp 98.2 F 08/04/22 14:50 Pulse 79 08/04/22 14:50 Resp 15 08/04/22 14:50 BP 100/61 08/04/22 14:50 Pulse Ox 95 08/04/22 14:50 FiO2 Intake & Output 08/03/22 08/04/22 08/04/22 18:59 06:59 18:59 Intake Total 2540 350 1015 Balance 2540 350 1015 Weight 53.524 kg Intake: IV 2040 Amino Acid 5%-D15w+Lytes* 1080 E* 1,000 ml @ 90 mls/hr IV .BY DURATION [facility] Rx#: [id number] Sodium Chloride 0.9% 1, 960 000 ml @ 80 mls/hr IV . [id number] [facility] Rx#:[id number] Intake, IV Titration 1015 Amount Potassium Chloride 30 meq 1015 In Amino Acid 5%-D15w+ Lytes*E* 1,000 ml @ 90 mls/hr IV .BY DURATION [facility] Rx#:[id number] Oral 500 350 Other: Voiding Method Bedside Commode Bedside Commode Bedside Commode # Voids 1 3 - Labs CBC & Chem 7: 08/04/22 06:44 08/04/22 06:44 Labs: Abnormal Lab Results - Last 24 Hours (Table) 08/03/22 08/03/22 08/04/22 Range/Units 18:01 23:52 05:41 WBC (4.50-10.00) X 10*3/uL RBC (4.10-5.20) X 10*6/uL Hgb (12.0-15.0) g/dL Hct (37.2-46.3) % Immature Gran # (0.00-0.04) X 10*3/uL Neutrophils # (1.80-7.70) X 10*3/uL Monocytes # (0.20-1.00) X 10*3/uL Sodium (137-145) mmol/L Creatinine (0.52-1.04) mg/dL Glucose (74-99) mg/dL POC Glucose (mg/dL) 124 H 132 H 129 H (70-110) mg/dL Calcium (8.4-10.2) mg/dL 08/04/22 08/04/22 08/04/22 Range/Units 06:44 06:44 12:05 WBC 12.50 H (4.50-10.00) X 10*3/uL RBC 3.62 L (4.10-5.20) X 10*6/uL Hgb 11.1 L (12.0-15.0) g/dL Hct 33.7 L (37.2-46.3) % Immature Gran # 0.51 H (0.00-0.04) X 10*3/uL Neutrophils # 7.94 H (1.80-7.70) X 10*3/uL Monocytes # 1.74 H (0.20-1.00) X 10*3/uL Sodium 134 L (137-145) mmol/L Creatinine 0.39 L (0.52-1.04) mg/dL Glucose 121 H (74-99) mg/dL POC Glucose (mg/dL) 118 H (70-110) mg/dL Calcium 7.6 L (8.4-10.2) mg/dL Assessment and Plan (1) Abdominal pain Current Visit: Yes Status: Acute Priority: High Code(s): R10.9 - UNSPECIFIED ABDOMINAL PAIN SNOMED Code(s): 44617011 (2) Ascites Current Visit: Yes Status: Acute Priority: High Code(s): R18.8 - OTHER ASCITES SNOMED Code(s): 106626512 (3) Nausea and vomiting Current Visit: Yes Status: Acute Priority: High Code(s): R11.2 - NAUSEA WITH VOMITING, UNSPECIFIED SNOMED Code(s): 89450716 (4) Gastric adenocarcinoma Current Visit: Yes Status: Chronic Priority: Medium Code(s): C16.9 - MALIGNANT NEOPLASM OF STOMACH, UNSPECIFIED SNOMED Code(s): 529830747 Plan: Abd pain 2/2 rigidity of GI tract from malignancy. TPN has been started in anticipation of pt starting chemotherapy. Discussed with pt that she may have to consider keeping herself NPO other then some small amounts of liquid for pleasure. Ascitic fluid results were discussed with pt and then her sister-at pt request. It is confirmed, cytology positive for adenocarcinoma, and confirms suspected peritoneal involvement. Reviewed options for care and intent. Treatment will not cure cancer, it is meant only to palliate symptoms. Pt can try treatment and if she does not tolerate treatment it is reasonable to stop. If she tolerates treatment and it helps her symptoms then cont, knowing that at some point the treatment will not be effective and the cancer will return. Keeping the pt comfortable/hospice, is reasonable at any time. All of sisters questions were answered to her satisfaction. She states she will discuss with pt and come to a decision. . For pain mgmt, cont fentanyl. Not sure if nausea and vomiting is completely secondary to morphine-maybe just oral intake. Cont IV dilaudid for now. Medications for prevention of narcotic induced constipation continue. Reglan cont. Small amounts of clear liquids only. The diet changes she was hoping for are not realistic at this time and will likely cause more discomfort. Orders for TPN completed by Dietitian. TPN started. Tolerating well so far. Plan is for TPN at home for several months while patient receives chemotherapy, hopeful that treatment will afford patient's some disease control and relief of malignancy symptoms. If pt opts for comfort measures only TPN will be discontinued as it will not provide pt with any benefit and, the longer she receives it, can be a source infection as well as stress on liver. If she does what to give treatment a try, this can be scheduled for her. PET scan cancelled. Starting treatment to get control of patient's symptoms is felt to be the best course of action for pt. Time with Patient: Greater than 30
[2022-08-04] MEDS: PRAMIPEXOLE 0.125 MG TAB PO SCH (22:04)
--- NOTE | 2022-08-04 23:41 | P.PN ---
Subjective 71-year-old female with a known history of gastric cancer status post surgery and chemotherapy. Presents to ER with complaints of abdominal pain. Patient was found have large amount of ascites seen the computed tomography scan. Otherwise patient denied any nausea or vomiting. No fever no chills. No cough or sputum production. No chest pain or shortness of breath. 08/01/2022 Patient is seen and evaluated in room at bedside; continues to complain of several episodes of vomiting; somewhat improved pain control Vital signs are stable Patient continues to have episodes of large emesis; general surgery on board and recommending NG tube for gastric these compression; this has been discussed with the patient remains reluctant We will continue with current management 08/02/2022 Patient is seen and evaluated in room resting in bed; discussed with nursing staff; per RN patient has not had as frequent episodes of emesis as yesterday; patient reports uncontrolled pain also Vital signs are reviewed and remained stable - Surgery evaluated patient and recommending NG tube for ileus versus partial small bowel obstruction; patient continues to diffuse - Continues to complain of uncontrolled pain; patient is on fentanyl patch and IV morphine; we will transition to Dilaudid; we will discontinue oral pain medications 08/03/2022 pt is a known case of gastric cancer s/p surgical resection and chemotherapy pt with abd pain and distension , with tenderness , with abdominal xray is suggestive of small bowel ilues versus enteritis , dilaudid is added for pain still on liquid diet no fever or leukocytosis , no anitbiotic is added for now, but we will check labs and procalcitonin in am still on normal saline surgery and oncology team on the case 08/04/2022 Patient awake and alert, she looks comfortable and pleasant, she had a big bowel movement as she states and her abdomen was tense and distended although she still have some tenderness and not completely resolve distention. Because of her stomach cancer and malignant ascites, TPN is recommended for her for several minutes as per oncology team She remains on liquid diet Objective - Vital Signs Vital signs: Vital Signs Temp 97.8 F 08/04/22 11:54 Pulse 97 08/04/22 11:54 Resp 18 08/04/22 04:17 BP 115/73 08/04/22 11:54 Pulse Ox 98 08/04/22 11:54 FiO2 Intake & Output 08/03/22 08/04/22 08/04/22 18:59 06:59 18:59 Intake Total 2540 350 1015 Balance 2540 350 1015 Intake: IV 2040 Amino Acid 5%-D15w+Lytes* 1080 E* 1,000 ml @ 90 mls/hr IV .BY DURATION [facility] Rx#: [id number] Sodium Chloride 0.9% 1, 960 000 ml @ 80 mls/hr IV . [id number] [facility] Rx#:[id number] Intake, IV Titration 1015 Amount Potassium Chloride 30 meq 1015 In Amino Acid 5%-D15w+ Lytes*E* 1,000 ml @ 90 mls/hr IV .BY DURATION [facility] Rx#:[id number] Oral 500 350 Other: Voiding Method Bedside Commode Bedside Commode Bedside Commode # Voids 1 3 - Exam GENERAL: The patient is alert and oriented x3, not in any acute distress. Well developed, well nourished. HEENT: Pupils are round and equally reacting to light. EOMI. No scleral icterus. No conjunctival pallor. Normocephalic, atraumatic. No pharyngeal erythema. No thyromegaly. CARDIOVASCULAR: S1 and S2 present. No murmurs, rubs, or gallops. PULMONARY: Chest is clear to auscultation, no wheezing or crackles. -ABDOMEN: Soft, abd tenderness , mildly distended, normoactive bowel sounds. No palpable organomegaly. MUSCULOSKELETAL: No joint swelling or deformity. EXTREMITIES: No cyanosis, clubbing, or pedal edema. NEUROLOGICAL: Gross neurological examination did not reveal any focal deficits. SKIN: No rashes. no petechiae. - Labs CBC & Chem 7: 08/04/22 06:44 08/04/22 06:44 Labs: Abnormal Lab Results - Last 24 Hours (Table) 08/03/22 08/03/22 08/04/22 Range/Units 18:01 23:52 05:41 WBC (4.50-10.00) X 10*3/uL RBC (4.10-5.20) X 10*6/uL Hgb (12.0-15.0) g/dL Hct (37.2-46.3) % Immature Gran # (0.00-0.04) X 10*3/uL Neutrophils # (1.80-7.70) X 10*3/uL Monocytes # (0.20-1.00) X 10*3/uL Sodium (137-145) mmol/L Creatinine (0.52-1.04) mg/dL Glucose (74-99) mg/dL POC Glucose (mg/dL) 124 H 132 H 129 H (70-110) mg/dL Calcium (8.4-10.2) mg/dL 08/04/22 08/04/22 08/04/22 Range/Units 06:44 06:44 12:05 WBC 12.50 H (4.50-10.00) X 10*3/uL RBC 3.62 L (4.10-5.20) X 10*6/uL Hgb 11.1 L (12.0-15.0) g/dL Hct 33.7 L (37.2-46.3) % Immature Gran # 0.51 H (0.00-0.04) X 10*3/uL Neutrophils # 7.94 H (1.80-7.70) X 10*3/uL Monocytes # 1.74 H (0.20-1.00) X 10*3/uL Sodium 134 L (137-145) mmol/L Creatinine 0.39 L (0.52-1.04) mg/dL Glucose 121 H (74-99) mg/dL POC Glucose (mg/dL) 118 H (70-110) mg/dL Calcium 7.6 L (8.4-10.2) mg/dL Assessment and Plan Assessment: small bowel ileus vs enteritis Abdominal pain and ascites likely due to gastric cancer. status post paracentesis with those 2.3 L fluid removal. repeat us: no more fluids History of gastric cancer status post surgery History of gastric ulcer COPD Hyperlipidemia Osteoarthritis Anxiety/depression Currently is on day smoker DVT prophylaxis Plan: Patient is Continue with pain management. Fluid analysis is negative for infection no fever no leukocytosis, no antibiotics needed for now Oncology team recommended TPN Several months upon discharge continue on liquid diet , surgical team on the case . Continue with PPI and encourage oral intake as tolerated. Oncology is on board. Follow up closely. Continue with symptomatic management. Gentle IV hydration. Prognosis is guarded.
[2022-08-05] LABS: Glucose,Whole Blood 120 mg/dL (70-110)
[2022-08-05] MEDS: HYDROmorphone 1 MG/ML 1 ML SYRINGE IVP PRN ×2 (01:48→08:56)
[2022-08-05] MEDS: ALBUTEROL NEBULIZED 2.5 MG/3 ML INHALATION PRN ×3 (02:05→19:49)
[2022-08-05 05:52] LABS: Glucose,Whole Blood 109 mg/dL (70-110)
[2022-08-05] MEDS: SALT AND SODA MOUTHWASH 1,000 ML PO SCH ×5 (06:01→23:09)
[2022-08-05] MEDS: METOCLOPRAMIDE 5 MG/ML 2 ML VIAL IVP SCH ×4 (06:05→23:03)
[2022-08-05] MEDS: PANTOPRAZOLE 40 MG/10 ML VIAL IVP SCH ×2 (08:55→21:19)
[2022-08-05] MEDS: diphenhydrAMINE 25 MG CAP PO SCH (08:56)
[2022-08-05] MEDS: OXYBUTYNIN 10 MG TAB.ER.24 PO SCH (08:56)
--- NOTE | 2022-08-05 09:01 | FL ---
EXAMINATION TYPE: FL small bowel follow through DATE OF EXAM: 08/05/2022 CLINICAL HISTORY: History of gastric cancer 2020 and peritoneal involvement presents with pain and sw elling, last chemotherapy 10 days ago TECHNIQUE: A single contrast small bowel follow through is performed utilizing barium. 0 minutes o f fluoro time and 11 images obtained. COMPARISON: Most recent CT July 26, 2022 FINDINGS: Tuber Machine Operator image of the abdomen redemonstrates bilateral double-J ureter stents. There is redem onstration of partial visualization of metallic hardware from right hip surgery. Gas prominent small bowel loops in the left lower quadrant and pelvis are noted. The small bowel study shows delay in transit to the colon in between 10 hours and 24 hours. There is a normal mucosal fold pattern throughout the small bowel. Slightly prominent bowel loops in the pelv is and left lower quadrant are identified. No distinct transition point. Eventual contrast reaches no ndistended colon and rectum. IMPRESSION: Findings consistent with diffuse ileus versus partial mid to distal small bowel obstructi on.
[2022-08-05 09:34] LABS: African American GFR (CKD) >90 (>60 ml/min/1.73 sqM); Anion Gap 4 mmol/L; Blood Urea Nitrogen 15 mg/dL (7-17); Calcium 7.4 mg/dL (8.4-10.2); Carbon Dioxide 30 mmol/L (22-30); Chloride 99 mmol/L (98-107); Glucose 114 mg/dL (74-99); Magnesium 1.8 mg/dL (1.6-2.3); Non-African American GFR(CKD) >90 (>60 ml/min/1.73 sqM); Phosphorus 3.4 mg/dL (2.5-4.5); Potassium 3.9 mmol/L (3.5-5.1); Sodium 133 mmol/L (137-145)
[2022-08-05] MEDS: polyethylene glycoL 3350 17 GM POWD.PACK PO SCH (10:05)
[2022-08-05] MEDS: SODIUM CHLORIDE 0.9% 1,000 ML IV SCH ×2 (10:05→22:44)
[2022-08-05] MEDS: 1: MVI, ADULT NO.4 WITH VIT K 10 ML, TRACE (CONC-1ML/DOSE) 1 ML, POTASSIUM CHLORIDE 30 M IV SCH ×8 (10:39→22:44)
[2022-08-05 12:02] LABS: Glucose,Whole Blood 114 mg/dL (70-110)
--- NOTE | 2022-08-05 12:25 | P.PN ---
Subjective Progress Note Date: 08/05/22 CHIEF COMPLAINT: Abdominal pain HISTORY OF PRESENT ILLNESS: The patient reports having diarrhea. She's had no vomiting yesterday or this morning. She's had some occasional nausea but it is decreased. Her pain is controlled. Afebrile. Sodium 133 potassium 3.9 creatinine 0.38 magnesium 1.8 phosphorus 3.4 WBC 12.5 yesterday. Small bowel follow-through findings consistent with diffuse ileus versus partial mid to distal small bowel obstruction. PHYSICAL EXAM: VITAL SIGNS: Reviewed. GENERAL: Well-developed in no acute distress. HEENT: No sclera icterus. Extraocular movements grossly intact. Moist buccal mucosa. Head is atraumatic, normocephalic. ABDOMEN: Soft. Mildly distended. Epigastric tenderness NEUROLOGIC: Alert and oriented. Cranial nerves II through XII grossly intact. ASSESSMENT: 1. Nausea and vomiting 2. History of gastric cancer with possible recurrence 3. Abdominal ascites fluid pathology showing adenocarcinoma 4. Ileus PLAN: -Okay to resume clear liquid diet. Patient can be discharged from surgical standpoint if tolerating clear liquid diet. Patient being discharged with TPN. -Continue TPN for nutrition support -Continue antiemetics -Continue supportive care -No surgical intervention planned Physician Senior Sales Consultant note has been reviewed by physician. Signing provider agrees with the documented findings, assessment, and plan of care. Objective - Vital Signs Vital signs: Vital Signs Temp 98.5 F 08/05/22 04:45 Pulse 86 08/05/22 11:27 Resp 14 08/05/22 04:45 BP 99/61 08/05/22 04:45 Pulse Ox 94 L 08/05/22 04:45 FiO2 Intake & Output 08/04/22 08/05/22 08/05/22 18:59 06:59 18:59 Intake Total 1615 1015 Balance 1615 1015 Weight 53.524 kg Intake: IV 600 Sodium Chloride 0.9% 1, 600 000 ml @ 80 mls/hr IV . [id number] [facility] Rx#:[id number] Intake, IV Titration 1015 1015 Amount Potassium Chloride 30 meq 1015 1015 In Amino Acid 5%-D15w+ Lytes*E* 1,000 ml @ 90 mls/hr IV .BY DURATION MIKEL Rx#:[id number] Other: Voiding Method Bedside Commode Bedside Commode # Voids 1 # Bowel Movements 1 1 - Labs CBC & Chem 7: 08/04/22 06:44 08/05/22 08:31 Labs: Abnormal Lab Results - Last 24 Hours (Table) 08/04/22 08/04/22 08/05/22 Range/Units 18:06 23:58 08:31 Sodium 133 L (137-145) mmol/L Creatinine 0.38 L (0.52-1.04) mg/dL Glucose 114 H (74-99) mg/dL POC Glucose (mg/dL) 120 H 120 H (70-110) mg/dL Calcium 7.4 L (8.4-10.2) mg/dL 08/05/22 Range/Units 11:42 Sodium (137-145) mmol/L Creatinine (0.52-1.04) mg/dL Glucose (74-99) mg/dL POC Glucose (mg/dL) 114 H (70-110) mg/dL Calcium (8.4-10.2) mg/dL
--- NOTE | 2022-08-05 12:29 | P.PN ---
Subjective Progress Note Date: 08/05/22 Principal diagnosis: N,V, abd pain In f/u today pt was at small bowel imaging testing. I discussed pt with RN, then called and spoke to pt and her sister. Pt reported no nausea today, but she also admitted that she did not eat or drink much because of procedures. She asked about advancing her diet which was eaplained to her, is the likely cause for her nausea and vomiting as gut mobility/motility is not working properly. She reported diarrhea x 1 today with some relief in abd distension, pressure. No fever, cough, chest pain. Objective - Vital Signs Vital signs: Vital Signs Temp 98.0 F 08/05/22 11:36 Pulse 84 08/05/22 11:36 Resp 14 08/05/22 11:36 BP 115/68 08/05/22 11:36 Pulse Ox 96 08/05/22 11:36 FiO2 Intake & Output 08/04/22 08/05/22 08/05/22 18:59 06:59 18:59 Intake Total 1615 1015 Balance 1615 1015 Weight 53.524 kg Intake: IV 600 Sodium Chloride 0.9% 1, 600 000 ml @ 80 mls/hr IV . [id number] [facility] Rx#:[id number] Intake, IV Titration 1015 1015 Amount Potassium Chloride 30 meq 1015 1015 In Amino Acid 5%-D15w+ Lytes*E* 1,000 ml @ 90 mls/hr IV .BY DURATION MIKEL Rx#:[id number] Other: Voiding Method Bedside Commode Bedside Commode # Voids 1 # Bowel Movements 1 1 - Labs CBC & Chem 7: 08/04/22 06:44 08/05/22 08:31 Labs: Abnormal Lab Results - Last 24 Hours (Table) 08/04/22 08/04/22 08/05/22 Range/Units 18:06 23:58 08:31 Sodium 133 L (137-145) mmol/L Creatinine 0.38 L (0.52-1.04) mg/dL Glucose 114 H (74-99) mg/dL POC Glucose (mg/dL) 120 H 120 H (70-110) mg/dL Calcium 7.4 L (8.4-10.2) mg/dL 08/05/22 Range/Units 11:42 Sodium (137-145) mmol/L Creatinine (0.52-1.04) mg/dL Glucose (74-99) mg/dL POC Glucose (mg/dL) 114 H (70-110) mg/dL Calcium (8.4-10.2) mg/dL Assessment and Plan (1) Abdominal pain Current Visit: Yes Status: Acute Priority: High Code(s): R10.9 - UNSPECIFIED ABDOMINAL PAIN SNOMED Code(s): 86500243 (2) Ascites Current Visit: Yes Status: Acute Priority: High Code(s): R18.8 - OTHER ASCITES SNOMED Code(s): 039811437 (3) Nausea and vomiting Current Visit: Yes Status: Resolved Priority: High Code(s): R11.2 - NAUSEA WITH VOMITING, UNSPECIFIED SNOMED Code(s): 73054085 (4) Gastric adenocarcinoma Current Visit: Yes Status: Acute Priority: Medium Code(s): C16.9 - MALIGNANT NEOPLASM OF STOMACH, UNSPECIFIED SNOMED Code(s): 451054439 Plan: Abd pain 2/2 rigidity of GI tract from malignancy. Discussed case with PharmD. Converted IV dilaudid to oral. This has been ordered with communication to Nursing to use oral route to see if pt achieves pain control. Reviewed fentanyl dose with Pharmacist. Pt has been on narcotics for a week now, dose adjustment from 12mcg to 25mcg felt to be reasonable. Medications for prevention of narcotic induced constipation continue. There are documented BMs, mostly liquid. Pt stated her sister reviewed with her that ascitic fluid was positive for adenocarcinoma, and confirms suspected peritoneal involvement. They discussed options for care and intent. Pt reports today that she would like to try treatment. TPN will continue. Reinforced with pt that she will want to consi karla staying NPO, other then some small amounts of liquid for pleasure and meds, to see if that reduces frequency and intensity of her abd pain, N and V. Treatment will not cure cancer, it is meant only to palliate symptoms. Reglan cont. PET scan cancelled. Plan to start next week as her treatment consists of 3 days. Discussed case with Case Delores. TPN, home care and DME needs reviewed. Pt will be sent home with light weight wheelchair, she is unable to self propel a standard weight w/c. Wheelchair will help with ADL's and able to be resolved with cane or walker.
[2022-08-05] MEDS: HYDROmorphone 2 MG TAB PO PRN ×2 (15:51→21:20)
[2022-08-05 17:15] LABS: Glucose,Whole Blood 108 mg/dL (70-110)
[2022-08-05] MEDS: PRAMIPEXOLE 0.125 MG TAB PO SCH (21:19)
[2022-08-05] MEDS: HEPARIN SODIUM,PORCINE/PF 5,000 UNIT/0.5 ML SYRINGE SQ SCH (23:03)
[2022-08-05 23:48] LABS: Glucose,Whole Blood 117 mg/dL (70-110)
--- NOTE | 2022-08-06 00:05 | US ---
EXAMINATION TYPE: US venous doppler duplex LE DATE OF EXAM: 08/05/2022 11:48 PM COMPARISON: NONE CLINICAL HISTORY: leg swelling. bilateral leg swelling since tonight SIDE PERFORMED: Bilateral TECHNIQUE: The lower extremity deep venous system is examined utilizing real time linear array sonog marielos with graded compression, doppler sonography and color-flow sonography. VESSELS IMAGED: Common Femoral Vein Deep Femoral Vein Greater Saphenous Vein * Femoral Vein Popliteal Vein Small Saphenous Vein * Proximal Calf Veins (* superficial vessels) Right Leg: Negative for DVT, edema seen throughout leg Left Leg: Negative for DVT IMPRESSION: There is right leg edema. No evidence of deep vein thrombosis in both legs.
[2022-08-06] MEDS: HYDROmorphone 2 MG TAB PO PRN ×6 (00:32→21:19)
[2022-08-06] MEDS: ONDANSETRON 4 MG/2 ML VIAL IVP PRN ×3 (02:23→22:54)
[2022-08-06] MEDS ORDERED: FUROSEMIDE 10 MG/ML 4 ML VIAL IV STA (04:39)
--- NOTE | 2022-08-06 04:41 | P.PN ---
Subjective 71-year-old female with a known history of gastric cancer status post surgery and chemotherapy. Presents to ER with complaints of abdominal pain. Patient was found have large amount of ascites seen the computed tomography scan. Otherwise patient denied any nausea or vomiting. No fever no chills. No cough or sputum production. No chest pain or shortness of breath. 08/01/2022 Patient is seen and evaluated in room at bedside; continues to complain of several episodes of vomiting; somewhat improved pain control Vital signs are stable Patient continues to have episodes of large emesis; general surgery on board and recommending NG tube for gastric these compression; this has been discussed with the patient remains reluctant We will continue with current management 08/02/2022 Patient is seen and evaluated in room resting in bed; discussed with nursing staff; per RN patient has not had as frequent episodes of emesis as yesterday; patient reports uncontrolled pain also Vital signs are reviewed and remained stable - Surgery evaluated patient and recommending NG tube for ileus versus partial small bowel obstruction; patient continues to diffuse - Continues to complain of uncontrolled pain; patient is on fentanyl patch and IV morphine; we will transition to Dilaudid; we will discontinue oral pain medications 08/03/2022 pt is a known case of gastric cancer s/p surgical resection and chemotherapy pt with abd pain and distension , with tenderness , with abdominal xray is suggestive of small bowel ilues versus enteritis , dilaudid is added for pain still on liquid diet no fever or leukocytosis , no anitbiotic is added for now, but we will check labs and procalcitonin in am still on normal saline surgery and oncology team on the case 08/04/2022 Patient awake and alert, she looks comfortable and pleasant, she had a big bowel movement as she states and her abdomen was tense and distended although she still have some tenderness and not completely resolve distention. Because of her stomach cancer and malignant ascites, TPN is recommended for her for several minutes as per oncology team She remains on liquid diet 08/05/2022 Today patient is doing better, she looks calm awake alert and comfortable, she is having bowel movement, actually she is having diarrhea about 4 times since morning. C. diff history is negative. Abdominal x-ray reviewed, I discussed the case with the surgery Dr. Fink and he cleared the patient for discharge. Patient was receiving TPN through her port however her co-pay was high and she patient could not afford it. For discharge today was. Also patient has bilateral leg swelling, we will check ultrasound. Most likely secondary to IV fluids IV Dilaudid changed to oral dose. She has bilateral leg swelling, ultrasound was negative for DVT. She is an normal saline 75 mL/h. We'll give Lasix 1 tonight Objective - Vital Signs Vital signs: Vital Signs Temp 98.0 F 08/05/22 11:36 Pulse 84 08/05/22 11:36 Resp 14 08/05/22 11:36 BP 115/68 08/05/22 11:36 Pulse Ox 96 08/05/22 11:36 FiO2 Intake & Output 08/04/22 08/05/22 08/05/22 18:59 06:59 18:59 Intake Total 1615 1015 Balance 1615 1015 Weight 53.524 kg Intake: IV 600 Sodium Chloride 0.9% 1, 600 000 ml @ 80 mls/hr IV . [id number] [facility] Rx#:[id number] Intake, IV Titration 1015 1015 Amount Potassium Chloride 30 meq 1015 1015 In Amino Acid 5%-D15w+ Lytes*E* 1,000 ml @ 90 mls/hr IV .BY DURATION [facility] Rx#:[id number] Other: Voiding Method Bedside Commode Bedside Commode # Voids 1 # Bowel Movements 1 1 - Exam GENERAL: The patient is alert and oriented x3, not in any acute distress. Well developed, well nourished. HEENT: Pupils are round and equally reacting to light. EOMI. No scleral icterus. No conjunctival pallor. Normocephalic, atraumatic. No pharyngeal erythema. No thyromegaly. CARDIOVASCULAR: S1 and S2 present. No murmurs, rubs, or gallops. PULMONARY: Chest is clear to auscultation, no wheezing or crackles. -ABDOMEN: Soft, abd tenderness , mildly distended, normoactive bowel sounds. No palpable organomegaly. MUSCULOSKELETAL: No joint swelling or deformity. EXTREMITIES: No cyanosis, clubbing, or pedal edema. NEUROLOGICAL: Gross neurological examination did not reveal any focal deficits. SKIN: No rashes. no petechiae. - Labs CBC & Chem 7: 08/04/22 06:44 08/05/22 08:31 Labs: Abnormal Lab Results - Last 24 Hours (Table) 08/04/22 08/04/22 08/05/22 Range/Units 18:06 23:58 08:31 Sodium 133 L (137-145) mmol/L Creatinine 0.38 L (0.52-1.04) mg/dL Glucose 114 H (74-99) mg/dL POC Glucose (mg/dL) 120 H 120 H (70-110) mg/dL Calcium 7.4 L (8.4-10.2) mg/dL 08/05/22 Range/Units 11:42 Sodium (137-145) mmol/L Creatinine (0.52-1.04) mg/dL Glucose (74-99) mg/dL POC Glucose (mg/dL) 114 H (70-110) mg/dL Calcium (8.4-10.2) mg/dL Assessment and Plan Assessment: small bowel ileus vs enteritis Abdominal pain and ascites likely due to gastric cancer. status post paracentesis with those 2.3 L fluid removal. repeat us: no more fluids History of gastric cancer status post surgery History of gastric ulcer COPD Hyperlipidemia Osteoarthritis Anxiety/depression Currently is on day smoker DVT prophylaxis Plan: Patient is Continue with pain management. Change IV to oral Dilaudid Oncology team recommended TPN Several months upon discharge, however patient cannot afford the co-pay. We'll keep monitoring and review recommendation surgical team on the case . Continue with PPI and encourage oral intake as tolerated. Oncology is on board. Follow up closely. Continue with symptomatic management. Prognosis is guarded.
[2022-08-06] MEDS: SODIUM CHLORIDE 0.9% 1,000 ML IV SCH (04:53)
[2022-08-06 05:46] LABS: Glucose,Whole Blood 106 mg/dL (70-110)
[2022-08-06] MEDS: SALT AND SODA MOUTHWASH 1,000 ML PO SCH ×4 (05:51→21:21)
[2022-08-06] MEDS: METOCLOPRAMIDE 5 MG/ML 2 ML VIAL IVP SCH ×3 (05:51→17:39)
[2022-08-06 07:05] LABS: African American GFR (CKD) >90 (>60 ml/min/1.73 sqM); Anion Gap 7 mmol/L; Blood Urea Nitrogen 15 mg/dL (7-17); Carbon Dioxide 28 mmol/L (22-30); Chloride 99 mmol/L (98-107); Glucose 99 mg/dL (74-99); Magnesium 1.9 mg/dL (1.6-2.3); Non-African American GFR(CKD) >90 (>60 ml/min/1.73 sqM); Phosphorus 4.3 mg/dL (2.5-4.5); Potassium 4.3 mmol/L (3.5-5.1); Sodium 134 mmol/L (137-145)
[2022-08-06] MEDS: HEPARIN SODIUM,PORCINE/PF 5,000 UNIT/0.5 ML SYRINGE SQ SCH ×2 (08:55→21:21)
[2022-08-06] MEDS: polyethylene glycoL 3350 17 GM POWD.PACK PO SCH (08:56)
[2022-08-06] MEDS: PANTOPRAZOLE 40 MG/10 ML VIAL IVP SCH ×2 (08:56→21:22)
[2022-08-06] MEDS: OXYBUTYNIN 10 MG TAB.ER.24 PO SCH (08:57)
[2022-08-06] MEDS: 1: MVI, ADULT NO.4 WITH VIT K 10 ML, TRACE (CONC-1ML/DOSE) 1 ML, POTASSIUM CHLORIDE 30 M IV SCH ×4 (09:24)
[2022-08-06 11:54] LABS: Glucose,Whole Blood 114 mg/dL (70-110)
--- NOTE | 2022-08-06 12:25 | P.PN ---
Subjective Progress Note Date: 08/06/22 CHIEF COMPLAINT: Abdominal pain HISTORY OF PRESENT ILLNESS: Patient reports she is feeling better today. She has tolerated clear liquid diet. She still had no vomiting. She is having bowel movements. She reports her pain is tolerable. Patient feels ready for discharge. She is refusing TPN at discharge because she is unable to afford the cost. Afebrile. Stool for C. diff negative PHYSICAL EXAM: VITAL SIGNS: Reviewed. GENERAL: Well-developed in no acute distress. HEENT: No sclera icterus. Extraocular movements grossly intact. Moist buccal mucosa. Head is atraumatic, normocephalic. ABDOMEN: Soft. Mildly distended. Epigastric tenderness NEUROLOGIC: Alert and oriented. Cranial nerves II through XII grossly intact. ASSESSMENT: 1. Nausea and vomiting improved 2. History of gastric cancer with recurrence 3. Abdominal ascites fluid pathology showing adenocarcinoma 4. Ileus PLAN: -Continue clear liquid diet -Okay to discharge from surgical standpoint when medically cleared -Continue antiemetics and good bowel regimen at home -Continue supportive care -No surgical intervention planned Physician Director Of Placement note has been reviewed by physician. Signing provider agrees with the documented findings, assessment, and plan of care. I have personally seen and examined the patient, reviewed the LABEL FUSER TENDER /PAs history, exam and MDM and agree with the assessment and plan as written. Based on total visit time, I have performed more than 50% of the visit. As above: Apparently TPN was not a covered benefit for this patient. For that reason her diet is being advanced and she is being discharged to tolerates. Certainly I remain concerned that the patient will not maintain her attritional status without parenteral nutrition. Will follow. Objective - Vital Signs Vital signs: Vital Signs Temp 97.6 F 08/06/22 04:34 Pulse 84 08/06/22 04:34 Resp 14 08/06/22 04:34 BP 101/58 08/06/22 04:34 Pulse Ox 95 08/06/22 04:34 FiO2 Intake & Output 08/05/22 08/06/22 08/06/22 18:59 06:59 18:59 Intake Total 1015 960 Balance 1015 960 Intake: Intake, IV Titration 1015 960 Amount Potassium Chloride 30 meq 1015 960 In Amino Acid 5%-D15w+ Lytes*E* 1,000 ml @ 90 mls/hr IV .BY DURATION MIKEL Rx#:[id number] Other: Voiding Method Toilet Toilet # Voids 4 1 # Bowel Movements 1 - Labs CBC & Chem 7: 08/04/22 06:44 08/06/22 05:59 Labs: Abnormal Lab Results - Last 24 Hours (Table) 08/05/22 08/06/22 08/06/22 Range/Units 23:46 05:59 11:53 Sodium 134 L (137-145) mmol/L Creatinine 0.40 L (0.52-1.04) mg/dL POC Glucose (mg/dL) 117 H 114 H (70-110) mg/dL Calcium 8.0 L (8.4-10.2) mg/dL
--- NOTE | 2022-08-06 17:54 | P.PN ---
Subjective Progress Note Date: 08/06/22 Principal diagnosis: N,V, abd pain In f/u today pt is rather hyper-verbal. She seems anxious about going home. She continues to say that she doesn't understand what is going on. Currently, she is not describing any acute symptoms, no nausea at this time, she continues to have liquid bowel movements today, she thinks 3. Objective - Vital Signs Vital signs: Vital Signs Temp 98.4 F 08/06/22 12:05 Pulse 79 08/06/22 12:05 Resp 18 08/06/22 12:05 BP 115/70 08/06/22 12:05 Pulse Ox 98 08/06/22 12:05 FiO2 Intake & Output 08/05/22 08/06/22 08/06/22 18:59 06:59 18:59 Intake Total 1015 960 Balance 1015 960 Intake: Intake, IV Titration 1015 960 Amount Potassium Chloride 30 meq 1015 960 In Amino Acid 5%-D15w+ Lytes*E* 1,000 ml @ 90 mls/hr IV .BY DURATION MIKEL Rx#:[id number] Other: Voiding Method Toilet Toilet # Voids 4 1 # Bowel Movements 1 - Constitutional General appearance: Present: average body habitus, cooperative, no acute distress - EENT Eyes: Present: anicteric sclerae, EOMI ENT: Present: hearing grossly normal - Respiratory Respiratory: bilateral: CTA - Cardiovascular Rhythm: regular - Gastrointestinal General gastrointestinal: Present: decreased bowel sounds, soft - Neurologic Neurologic: Present: CNII-XII intact - Musculoskeletal Musculoskeletal: Present: generalized weakness - Psychiatric Psychiatric Comment(s): Patient is hyperactive today Psychiatric: Present: A&O x's 3 - Labs CBC & Chem 7: 08/04/22 06:44 08/06/22 05:59 Labs: Abnormal Lab Results - Last 24 Hours (Table) 08/05/22 08/06/22 08/06/22 Range/Units 23:46 05:59 11:53 Sodium 134 L (137-145) mmol/L Creatinine 0.40 L (0.52-1.04) mg/dL POC Glucose (mg/dL) 117 H 114 H (70-110) mg/dL Calcium 8.0 L (8.4-10.2) mg/dL - Imaging and Cardiology Venous US: report reviewed Small bowel x-ray report reviewed Assessment and Plan (1) Abdominal pain Current Visit: Yes Status: Acute Priority: High Code(s): R10.9 - UNSPECIFIED ABDOMINAL PAIN SNOMED Code(s): 01822725 (2) Ascites Current Visit: Yes Status: Acute Priority: High Code(s): R18.8 - OTHER ASCITES SNOMED Code(s): 203005298 (3) Nausea and vomiting Current Visit: Yes Status: Resolved Priority: High Code(s): R11.2 - NAUSEA WITH VOMITING, UNSPECIFIED SNOMED Code(s): 98674995 (4) Gastric adenocarcinoma Current Visit: Yes Status: Acute Priority: Medium Code(s): C16.9 - MALIGNANT NEOPLASM OF STOMACH, UNSPECIFIED SNOMED Code(s): 868758441 Plan: Spent a lot of time today reviewing her hospital course, plans for the future, pain medications, prevention of constipation as well as recommended diet. Patient's vomiting is not associated with any 1 medication, fluid or food. It happens at any time. It happens regardless of medications that she is on. Pt agrees. Explained to patient the reason for her nausea, vomiting and abdominal pain is because of rigidity of the stomach as well as disease around the bowels causing decreased motility. He was explained to her that time she may tolerate something and at others she may not. She verbalized understanding. Reviewed patient's medication list. Fentanyl was inadvertently discontinued, rather than having the dose being increased to 25 g. Patient was found to still have a 12 g patch on her abdomen so, order placed to continue 12 g pa tch. Patient was instructed to date and time the patch for when it needs to come off. Prescriptions for fentanyl, Reglan, Dilaudid and scopolamine were all sent to [facility]. They were sent from the office through secured [facility] as patient is not going to be in the office for about a week. 3 days prescriptions through hospital EMR are not enough to get patient to her next visit. Did ask nursing to please go through all of the medications again with the patient. Reviewed narcotic-induced constipation and prevention of the same. Reviewed with patient recommended diet of clear liquids, low residual foods as patient has refused TPN. Did speak with dietitian about the case. They provided patient with written options for intake. Dietitian is also going to try warmed solid foods with the patient to see how she tolerates. Chemotherapy appointment for next week is in the discharge plan Home care recommended to help patient with her complicated medications. attests: I seen and examined patient, performed H&P, developed impression and plan of care. Discussed with dictator. Agree with documentation, dictated as a scribe Time with Patient: Greater than 30
[2022-08-06 18:09] LABS: Glucose,Whole Blood 93 mg/dL (70-110)
[2022-08-06] MEDS: ALBUTEROL NEBULIZED 2.5 MG/3 ML INHALATION PRN (20:56)
[2022-08-06] MEDS: PRAMIPEXOLE 0.125 MG TAB PO SCH (21:22)
[2022-08-06] MEDS ORDERED: MELATONIN 3 MG TABLET PO SCH (21:45)
[2022-08-06] MEDS: NICOTINE 14MG/24HR PATCH TRANSDERM SCH (21:54)
[2022-08-06] MEDS: VENLAFAXINE HCL 75 MG TAB PO SCH (21:54)
[2022-08-07] MEDS: METOCLOPRAMIDE 5 MG/ML 2 ML VIAL IVP SCH ×3 (00:37→11:54)
[2022-08-07] MEDS: HYDROmorphone 2 MG TAB PO PRN ×4 (00:37→12:55)
[2022-08-07] MEDS: [UNRECOGNIZED DRUG - REMARK] IV SCH ×8 (00:38→10:21)
[2022-08-07] MEDS: SALT AND SODA MOUTHWASH 1,000 ML PO SCH ×4 (00:55→16:23)
[2022-08-07] MEDS: SODIUM CHLORIDE 0.9% 1,000 ML IV SCH ×2 (00:56→16:24)
[2022-08-07 01:00] LABS: Glucose,Whole Blood 153 mg/dL (70-110)
[2022-08-07 05:15] VITALS: PULSE 79; RESP 16
[2022-08-07 06:30] LABS: ALT 36 U/L (4-34); AST 39 U/L (14-36); African American GFR (CKD) >90 (>60 ml/min/1.73 sqM); Albumin 2.5 g/dL (3.5-5.0); Albumin/Globulin Ratio 1.1; Alkaline Phosphatase 103 U/L (38-126); Anion Gap 6 mmol/L; Blood Urea Nitrogen 14 mg/dL (7-17); Calcium 7.8 mg/dL (8.4-10.2); Carbon Dioxide 27 mmol/L (22-30); Chloride 98 mmol/L (98-107); Globulin 2.3 g/dL; Glucose 108 mg/dL (74-99); Magnesium 1.8 mg/dL (1.6-2.3); Non-African American GFR(CKD) >90 (>60 ml/min/1.73 sqM); Phosphorus 3.8 mg/dL (2.5-4.5); Potassium 4.7 mmol/L (3.5-5.1); Sodium 131 mmol/L (137-145); Total Bilirubin 0.6 mg/dL (0.2-1.3); Total Protein 4.8 g/dL (6.3-8.2)
[2022-08-07 07:10] LABS: Glucose,Whole Blood 141 mg/dL (70-110)
[2022-08-07] MEDS: HEPARIN SODIUM,PORCINE/PF 5,000 UNIT/0.5 ML SYRINGE SQ SCH (08:51)
[2022-08-07] MEDS: PANTOPRAZOLE 40 MG/10 ML VIAL IVP SCH (08:51)
[2022-08-07] MEDS: ONDANSETRON 4 MG/2 ML VIAL IVP PRN (08:51)
[2022-08-07] MEDS: OXYBUTYNIN 10 MG TAB.ER.24 PO SCH (08:52)
[2022-08-07] MEDS: NICOTINE 14MG/24HR PATCH TRANSDERM SCH (08:53)
[2022-08-07] MEDS ORDERED: FAT EMULSION 20% 250 ML in EMPTY BAG 1 BAG IV SCH (09:00)
[2022-08-07] MEDS: polyethylene glycoL 3350 17 GM POWD.PACK PO SCH (09:06)
--- NOTE | 2022-08-07 10:05 | P.PN ---
Subjective Progress Note Date: 08/07/22 CHIEF COMPLAINT: Abdominal pain HISTORY OF PRESENT ILLNESS: Patient is sitting up in bed comfortably. She did eat oatmeal this morning. She had reported some mild nausea. She's had no vomiting. She has had a bowel movement. Her pain is controlled. She does feel a little distended. Afebrile. Sodium 131 potassium is 4.7 creatinine 0.49 TPN not covered by patient's insurance. PHYSICAL EXAM: VITAL SIGNS: Reviewed. GENERAL: Well-developed in no acute distress. HEENT: No sclera icterus. Extraocular movements grossly intact. Moist buccal mucosa. Head is atraumatic, normocephalic. ABDOMEN: Soft. Mildly distended. Epigastric tenderness NEUROLOGIC: Alert and oriented. Cranial nerves II through XII grossly intact. ASSESSMENT: 1. Nausea and vomiting 2. History of gastric cancer with recurrence 3. Abdominal ascites fluid pathology showing adenocarcinoma 4. Ileus PLAN: -Continue low fiber diet -Continue protein drinks -Continue antiemetics and good bowel regimen -Continue supportive care -No surgical intervention planned -Ok for discharge when medically cleared Physician Clubhouse Attendant note has been reviewed by physician. Signing provider agrees with the documented findings, assessment, and plan of care. I have personally seen and examined the patient, reviewed the OUTSIDE SALES ENGINEER /PAs history, exam and MDM and agree with the assessment and plan as written. Based on total visit time, I have performed more than 50% of the visit. As above: Patient has not had vomiting. She is eating some of her foods. Plan for discharge with outpatient palliative chemotherapy. Objective - Vital Signs Vital signs: Vital Signs Temp 98.3 F 08/06/22 18:55 Pulse 79 08/07/22 05:14 Resp 16 08/07/22 05:14 BP 105/63 08/07/22 05:14 Pulse Ox 93 L 08/07/22 05:14 FiO2 Intake & Output 08/06/22 08/07/22 08/07/22 18:59 06:59 18:59 Intake Total 960 Balance 960 Intake: Intake, IV Titration 960 Amount Potassium Chloride 30 meq 960 In Amino Acid 5%-D15w+ Lytes*E* 1,000 ml @ 90 mls/hr IV .BY DURATION MIKEL Rx#:[id number] Other: Voiding Method Toilet Toilet # Voids 2 1 - Labs CBC & Chem 7: 11/01/22 06:44 08/07/22 05:50 Labs: Abnormal Lab Results - Last 24 Hours (Table) 08/06/22 08/07/22 08/07/22 Range/Units 11:53 00:58 05:50 Sodium 131 L (137-145) mmol/L Creatinine 0.49 L (0.52-1.04) mg/dL Glucose 108 H (74-99) mg/dL POC Glucose (mg/dL) 114 H 153 H (70-110) mg/dL Calcium 7.8 L (8.4-10.2) mg/dL AST 39 H (14-36) U/L ALT 36 H (4-34) U/L Total Protein 4.8 L (6.3-8.2) g/dL Albumin 2.5 L (3.5-5.0) g/dL 08/07/22 Range/Units 07:08 Sodium (137-145) mmol/L Creatinine (0.52-1.04) mg/dL Glucose (74-99) mg/dL POC Glucose (mg/dL) 141 H (70-110) mg/dL Calcium (8.4-10.2) mg/dL AST (14-36) U/L ALT (4-34) U/L Total Protein (6.3-8.2) g/dL Albumin (3.5-5.0) g/dL
[2022-08-07] MEDS: VENLAFAXINE HCL 75 MG TAB PO SCH (10:27)
--- NOTE | 2022-08-07 10:47 | CDI ---
ATTENTION: The Clinical Documentation Specialists (CDI) and [facility] Coding Staff appreciate your assistance in clarifying documentation. Please respond to the clarification below the line at the bottom and electronically sign. The CDI & [facility] Coding staff will review the response and follow-up if needed. Please note: Queries are made part of the Legal Health Record. If you have any questions, please contact the author of this message via ITS. Dr. Osiel Dee The Registered Dietitian assessment on 08/04 documented severe malnutrition in the context of chronic illness. Based on this information and the findings below, is there an additional diagnosis that is clinically appropriate for this patient? History/Risk Factors: Patient has gastric adenocarcinoma Clinical Indicators: RD Consult Assessment 08/04 decreased intake, fluid retention, N/V, Cancer cachexia and chemo Current BMI: 19.6 Insufficient energy intake: poor po intake 0-25% per RD, pt started TPN Weight Loss: 13# (9.9%) over 4 months Treatment: Patient started TPN in the hospital on 07/30 Patient refusing TPN at home due to cost per oncology PN 08/06 Reglan 10 mg IVP q6h started 07/29 Enlive Ensure supplement TID ordered 08/06 Is there an additional diagnosis that is clinically appropriate for this patient? [ ] Severe Protein-Calorie Malnutrition [ ] Other condition, please specify [ ] Unable to Determine mild Protein-Calorie Malnutrition MTDD
[2022-08-07 11:12] LABS: Glucose,Whole Blood 111 mg/dL (70-110)
[2022-08-07] MEDS: SCOPOLAMINE 1 MG/72 HR PATCH TRANSDERM SCH (11:55)
--- NOTE | 2022-08-07 11:58 | P.PN ---
Subjective Progress Note Date: 08/07/22 Principal diagnosis: N,V, abd pain, Metastatic gastric cancer In f/u today pt appears to be comfortable. She did not report any vomiting. Plan is for discharge today. Objective - Vital Signs Vital signs: Vital Signs Temp 98.3 F 08/06/22 18:55 Pulse 79 08/07/22 05:14 Resp 16 08/07/22 05:14 BP 105/63 08/07/22 05:14 Pulse Ox 93 L 08/07/22 05:14 FiO2 Intake & Output 08/06/22 08/07/22 08/07/22 18:59 06:59 18:59 Intake Total 960 Balance 960 Intake: Intake, IV Titration 960 Amount Potassium Chloride 30 meq 960 In Amino Acid 5%-D15w+ Lytes*E* 1,000 ml @ 90 mls/hr IV .BY DURATION MIKEL Rx#:[id number] Other: Voiding Method Toilet Toilet # Voids 2 1 - Constitutional General appearance: Present: average body habitus, cooperative, no acute distress - EENT Eyes: Present: anicteric sclerae, EOMI ENT: Present: hearing grossly normal - Respiratory Details: Respirations even and unlabored - Neurologic Neurologic: Present: CNII-XII intact - Musculoskeletal Musculoskeletal: Present: generalized weakness, strength equal bilaterally - Psychiatric Psychiatric: Present: A&O x's 3 - Labs CBC & Chem 7: 08/04/22 06:44 08/07/22 05:50 Labs: Abnormal Lab Results - Last 24 Hours (Table) 08/06/22 08/07/22 08/07/22 Range/Units 11:53 00:58 05:50 Sodium 131 L (137-145) mmol/L Creatinine 0.49 L (0.52-1.04) mg/dL Glucose 108 H (74-99) mg/dL POC Glucose (mg/dL) 114 H 153 H (70-110) mg/dL Calcium 7.8 L (8.4-10.2) mg/dL AST 39 H (14-36) U/L ALT 36 H (4-34) U/L Total Protein 4.8 L (6.3-8.2) g/dL Albumin 2.5 L (3.5-5.0) g/dL 08/07/22 Range/Units 07:08 Sodium (137-145) mmol/L Creatinine (0.52-1.04) mg/dL Glucose (74-99) mg/dL POC Glucose (mg/dL) 141 H (70-110) mg/dL Calcium (8.4-10.2) mg/dL AST (14-36) U/L ALT (4-34) U/L Total Protein (6.3-8.2) g/dL Albumin (3.5-5.0) g/dL Assessment and Plan (1) Abdominal pain Current Visit: Yes Status: Acute Priority: High Code(s): R10.9 - UNSPECIFIED ABDOMINAL PAIN SNOMED Code(s): 19333506 (2) Ascites Current Visit: Yes Status: Acute Priority: High Code(s): R18.8 - OTHER ASCITES SNOMED Code(s): 494618344 (3) Nausea and vomiting Current Visit: Yes Status: Resolved Priority: High Code(s): R11.2 - NAUSEA WITH VOMITING, UNSPECIFIED SNOMED Code(s): 37177582 (4) Gastric adenocarcinoma Current Visit: Yes Status: Acute Priority: Medium Code(s): C16.9 - MALIGNANT NEOPLASM OF STOMACH, UNSPECIFIED SNOMED Code(s): 707424254 Plan: Reviewed I's and O's in detail. There is no documented emesis since 08/02. Patient is being discharged today. Chemotherapy appointment is in the discharge plan All of patient's narcotics and hospital initiated medications have been sent to [facility] pharmacy. Prior authorization as needed for patient's fentanyl patch. This will be completed.
[2022-08-07 12:25] VITALS: BP 122/59; TEMP 98.1
[2022-08-07] MEDS ORDERED: 1: MVI, ADULT NO.4 WITH VIT K 10 ML, TRACE (CONC-1ML/DOSE) 1 ML, SODIUM CHLORIDE 4MEQ/ML IV SCH ×4 (20:00)
== END 2022-08-07 18:33 | disposition home health service (06) | DRG 375 ==
LOC: EC 19:48 → 5NMEDONC 23:17
PROVIDERS: ADMIT Hospitalist; ATTEND Hospitalist
PROC: 0W9G3ZX Drainage of Peritoneal Cavity, Percutaneous Approach, Diagnostic (ICD-10-PCS; principal; 2022-07-28)
PROC: 3E0436Z Introduction of Nutritional Substance into Central Vein, Percutaneous Approach (ICD-10-PCS; 2022-07-30)
DX: C78.6 Secondary malignant neoplasm of retroperitoneum and peritoneum (principal); C16.9 Malignant neoplasm of stomach, unspecified; R18.0 Malignant ascites; K56.7 Ileus, unspecified; N13.30 Unspecified hydronephrosis; E44.1 Mild protein-calorie malnutrition; Z68.1 Body mass index [BMI] 19.9 or less, adult; R11.2 Nausea with vomiting, unspecified; E78.5 Hyperlipidemia, unspecified; D75.9 Disease of blood and blood-forming organs, unspecified; F17.210 Nicotine dependence, cigarettes, uncomplicated; F32.A Depression, unspecified; F40.240 Claustrophobia; J44.9 Chronic obstructive pulmonary disease, unspecified; R68.81 Early satiety; M19.90 Unspecified osteoarthritis, unspecified site; T45.1X5A Adverse effect of antineoplastic and immunosuppressive drugs, initial encounter; Z53.20 Procedure and treatment not carried out because of patient's decision for unspecified reasons; Z79.899 Other long term (current) drug therapy; Z80.0 Family history of malignant neoplasm of digestive organs; Z80.3 Family history of malignant neoplasm of breast; Z87.11 Personal history of peptic ulcer disease; Z87.442 Personal history of urinary calculi; Z90.3 Acquired absence of stomach [part of]; Z96.641 Presence of right artificial hip joint; Z87.440 Personal history of urinary (tract) infections; Z88.5 Allergy status to narcotic agent; Z71.3 Dietary counseling and surveillance; Z53.29 Procedure and treatment not carried out because of patient's decision for other reasons
CPT/HCPCS: 36415; 49083; 74019; 74177; 74250; 76705; 80048; 80053; 81001; 82040; 82330; 83605; 83690; 83735; 84100; 84478; 85025; 85610; 87070; 87075; 87086; 87205; 87324; 88108; 88305; 88341; 88342; 89050; 93970; 94640; 94760; 96361; 96374; 96375; 96376; 99285

== ENCOUNTER → 2022-10-23 | Outpatient (CLI) | payer MEDICARE, OTHER ==
[2022-10-23 15:36] LABS: African American GFR (CKD) >90 (>60 ml/min/1.73 sqM); Blood Urea Nitrogen 15 mg/dL (7-17); Non-African American GFR(CKD) >90 (>60 ml/min/1.73 sqM)
--- NOTE | 2022-10-24 08:01 | CT ---
EXAMINATION TYPE: CT ChestAbdPelvis w con DATE OF EXAM: 10/23/2022 COMPARISON: None HISTORY: Terminal Stomach CA. CT DLP: 740 mGycm Automated exposure control for dose reduction was used. CONTRAST: CT scan of the chest, abdomen and pelvis is performed with Oral Contrast and with IV Contrast, patien t injected with 63cc mL of Isovue 300. FINDINGS: Chest CT: The lungs are clear of consolidative/airspace density or abnormal interstitial density. There is no p leural effusion, pleural thickening or pneumothorax. The great vessels of the chest are normal and th ere is no mediastinal, hilar or axillary adenopathy. There is a Mediport catheter on the right The osseous structures of the thorax are intact. Abdomen/pelvis CT: There is a small pleural effusion seen adjacent to the liver. There are surgical absence of gallbladd er no biliary ductal dilatation. There is no organomegaly or mass involving the liver, pancreas, spleen. There is mild thickening of t he adrenal glands. Caliber of the abdominal aorta is normal. There are bilateral ureteral stents. No solid renal masses are seen. There is oral contrast throughout the small bowel and colon to the level of the splenic flexure. The descending colon and sigmoid colon wall is diffusely thickened and appears edematous.. There is a right hip prosthesis. There is moderate osteoarthritic change of the left hip. No focal ly tic or blastic osseous abnormalities are seen. IMPRESSION: 1. Normal chest CT. 2. Acute changes within the abdomen with ischemic or infectious colitis involving the descending and sigmoid colon. 3. Small amount of ascites adjacent to the liver. 4. Bilateral ureteral stents.
== END | disposition home or self-care (01) ==
LOC: RADCTMAIN 14:18
PROVIDERS: ATTEND Internal Medicine Hematology & Oncology
DX: C16.3 Malignant neoplasm of pyloric antrum (principal); E61.1 Iron deficiency; A09 Infectious gastroenteritis and colitis, unspecified; G25.81 Restless legs syndrome; F41.9 Anxiety disorder, unspecified; Z96.0 Presence of urogenital implants; R18.8 Other ascites
CPT/HCPCS: 82565; 84520; 71260; 74177; J1642; Q9967 ×2

== ENCOUNTER → 2023-01-01 | Outpatient (CLI) | payer MEDICARE, OTHER ==
[2023-01-01 09:17] LABS: African American GFR (CKD) >90 (>60 ml/min/1.73 sqM); Blood Urea Nitrogen 25 mg/dL (7-17); Non-African American GFR(CKD) 90 (>60 ml/min/1.73 sqM)
--- NOTE | 2023-01-01 10:39 | CT ---
EXAMINATION TYPE: CT ChestAbdPelvis w con DATE OF EXAM: 01/01/2023 COMPARISON: Most recent CT October 23, 2022 and older studies HISTORY: follow up to gastric CA CT DLP: 496.9 mGycm. Automated Exposure Control for Dose Reduction was Utilized. CONTRAST: CT scan of the thorax, abdomen and pelvis is performed with oral and with IV Contrast, patient inject ed with 70 mL of Isovue 300. FINDINGS: LUNGS: Mild to moderate underlying emphysematous change is redemonstrated. No new greater than 5 mm p ulmonary nodules or masses. No pleural effusion or pneumothorax. MEDIASTINUM: There are no greater than 1 cm hilar or mediastinal lymph nodes. No intramedullary or pericardial effusion is seen. There is severe three-vessel coronary artery calcification redemonstra benigno. OTHER: There is right internal jugular Mediport catheter redemonstrated. LIVER/GB: No significant abnormality is appreciated. PANCREAS: No significant abnormality is seen. SPLEEN: No significant abnormality is seen. ADRENALS: No significant abnormality is seen. KIDNEYS: Persistent bilateral double-J ureteral stents. There is symmetric cortical medullary uptake and excretion redemonstrated. Stable simple small thin-walled cyst centrally in the right kidney. BOWEL: Oral contrast reaches level of terminal ileum. Changes from partial gastrectomy are redemonstr ated. There is moderate colonic fecal prominence on current study. There is no suspicious small bowel dilatation. There is wall thickening involving the colon near the hepatic flexure. GENITAL ORGANS: Suboptimally evaluated due to hip prosthesis. LYMPH NODES: No new greater than 1cm abdominal or pelvic lymph nodes are appreciated. OSSEOUS STRUCTURES: Metallic hardware from right hip arthroplasty causes streak artifact limiting chris luation of pelvic structures. OTHER: There is a new small amount intra-abdominal peritoneal ascites and small to moderate amount of pelvic peritoneal ascites. IMPRESSION: Increasing intraperitoneal ascites from prior study. No obvious new mass or adenopathy ot herwise seen. New Moderate colonic fecal stasis. No bowel obstruction. Possible focal colitis near th e hepatic flexure on current study. Correlate clinically.
== END | disposition home or self-care (01) ==
LOC: RADCTMAIN 08:34
PROVIDERS: ATTEND Internal Medicine Hematology & Oncology
DX: C16.3 Malignant neoplasm of pyloric antrum (principal); R18.8 Other ascites; K59.89 Other specified functional intestinal disorders
CPT/HCPCS: 82565; 84520; 71260; 74177; Q9967

== ENCOUNTER 2023-01-21 06:28 | Day surgery (SDC) | payer MEDICARE, OTHER ==
--- NOTE | 2023-01-20 22:29 | P.GSHP ---
History of Present Illness H&P Date: 01/20/23 Chief Complaint: Hydronephrosis The patient is a 72-year-old white female diagnosed with gastric cancer in March 2020. She underwent resection and has received systemic chemotherapy. She has not received radiation therapy. She is followed by Dr. Bay and appears to be in remission. She was admitted in March 2022 with a 3 day history of left-sided abdominal pain radiating to the left flank. She also reported diffuse abdominal cramping, constipation, nausea and vomiting. She has been treated for UTIs in the past. She denies any history of urolithiasis. She denies dysuria and hematuria. On March 27, she underwent cystoscopy, bilateral retrograde pyelograms, bilateral ureteroscopy, bilateral ureteral stent insertion. She was found to have bilateral ureteral narrowing with proximal hydroureteronephrosis. On the right side, the level of obstruction is at the iliac vessels, and the ureter proximal to this is significantly dilated and tortuous. On the left side, there is moderate hydroureteronephrosis down to the level of L5, where the ureter tapers to a normal caliber. In July 2022 she underwent balloon dilation of bilateral ureteral strictures, within the left proximal ureter and the right ureter at the level of the iliac vessels. The ureteral stents are changed at that time. She now comes for cystoscopy with bilateral ureteral stent change. - Constitutional Constitutional: Denies chills, Denies fever - Genitourinary (Female) Genitourinary: Reports urinary frequency Past Medical History Past Medical History: Cancer, COPD, GERD/Reflux, Hyperlipidemia, Osteoarthritis (OA) Additional Past Medical History / Comment(s): 03/2020 diagnosed with stomach cancer/had resection, was in remission, now outside of stomach, IV chemo currently q.other week, hemorroids, UTIs, hx stomach ulcer History of Any Multi-Drug Resistant Organisms: None Reported Past Surgical History: Breast Surgery, Cholecystectomy, Joint Replacement, Orthopedic Surgery, Tonsillectomy Additional Past Surgical History / Comment(s): stomach resection, R upper chest port, EGD, colonoscopies, bilateral breast benign biopsies, RK bilateral eyes, rt hip replacement Past Anesthesia/Blood Transfusion Reactions: Motion Sickness Additional Past Anesthesia/Blood Transfusion Reaction / Comment(s): Pt has claustrophobia Smoking Status: Current every day smoker - Past Family History Father Family Medical History: Cancer, Deep Vein Thrombosis (DVT) Additional Family Medical History / Comment(s): Stomach cancer. Father of blood clot that travelled to his heart. Mother Family Medical History: Cancer Additional Family Medical History / Comment(s): Bone cancer Sister(s) Family Medical History: Cancer Additional Family Medical History / Comment(s): Breast cancer Medications and Allergies Home Medications Medication Instructions Recorded Confirmed Type Albuterol Inhaler [Ventolin Hfa 2 puff INHALATION RT-Q6H PRN 03/26/22 01/19/23 History Inhaler] Venlafaxine HCl [Effexor XR] 150 mg PO DAILY 03/27/22 01/19/23 History Oxybutynin Chloride [Oxybutynin 10 mg PO DAILY #30 tab 03/28/22 01/19/23 Rx Chloride ER] Omeprazole [PriLOSEC] 20 mg PO AC-BRKFST #90 cap 06/25/22 01/19/23 Rx Lovastatin [Mevacor] 40 mg PO HS 07/27/22 01/19/23 History Ondansetron [Zofran] 4 mg PO Q6H PRN 07/27/22 01/19/23 History Sucralfate [Carafate] 1 gm PO BID 01/19/23 01/19/23 History Allergies Allergy/AdvReac Type Severity Reaction Status Date / Time No Known Allergies Allergy Verified 01/19/23 09:39 Surgical - Exam - General well developed, well nourished, no distress - Respiratory normal respiratory effort - Abdomen Abdomen: soft, no masses, no guarding, no rigid, no rebound - Psychiatric oriented to time, oriented to person, oriented to place, speech is normal, memory intact Assessment and Plan (1) Hydronephrosis with ureteral stricture, not elsewhere classified Status: Acute Code(s): N13.1 - HYDRONEPHROSIS W URETERAL STRICTURE, NEC SNOMED Code(s): 34360917 Plan: Cystoscopy, bilateral ureteral stent change. The procedure then reviewed in detail with the patient. She is aware of potential risks, which include anesthesia, bleeding, infection, and inability to successfully replace the ureteral stents.
[2023-01-21] MEDS ORDERED: DEXAMETHASONE SOD PHOSPHATE 4 MG/ML 1 ML VIAL IV ONE (06:40)
[2023-01-21] MEDS ORDERED: HYDROmorphone 0.5 MG/0.5 ML SYRINGE IVP PRN (06:40)
[2023-01-21] MEDS ORDERED: LACTATED RINGERS 1,000 ML IV SCH (06:40)
[2023-01-21] MEDS ORDERED: ONDANSETRON 4 MG/2 ML VIAL IVP ONE (06:40)
[2023-01-21] MEDS ORDERED: LACTATED RINGERS 1,000 ML IV ONE (07:00)
[2023-01-21] MEDS ORDERED: PROPOFOL 10 MG/ML 20 ML VIAL IV ONE (07:34)
[2023-01-21] MEDS ORDERED: MIDAZOLAM 2 MG/2 ML VIAL ONE (07:34)
[2023-01-21] MEDS ORDERED: fentaNYL (PF) 50 MCG/ML 2 ML AMP ONE (07:34)
[2023-01-21] MEDS ORDERED: LIDOCAINE 2% INJ 20 MG/ML (2 ML VIAL) ONE (07:34)
[2023-01-21 08:27] VITALS: RESP 16; TEMP 97.2
--- NOTE | 2023-01-21 08:35 | FL ---
Intraoperative/procedural fluoroscopic services were provided for ureteral stent removal/replacement. Total fluoroscopy time is 53 seconds with a total of 2 submitted images to PACS. Total DAP [phone]. Please see the operative note for further details.
--- NOTE | 2023-01-21 08:53 | P.OP ---
Date of Procedure: 01/21/23 Preoperative Diagnosis: Bilateral Hydronephrosis Postoperative Diagnosis: Same Procedure(s) Performed: Cystoscopy, bilateral ureteral stent change Anesthesia: ALVERTO Surgeon: Ming Ga Estimated Blood Loss (ml): 5 IV fluids (ml): 200 Pathology: none sent Condition: stable Disposition: PACU Indications for Procedure: The patient is a 72-year-old white female diagnosed with gastric cancer in March 2020. She underwent resection and has received systemic chemotherapy. She has not received radiation therapy. She is followed by Dr. Bay and appears to be in remission. She was admitted in March 2022 with a 3 day history of left-sided abdominal pain radiating to the left flank. She also reported diffuse abdominal cramping, constipation, nausea and vomiting. She has been treated for UTIs in the past. She denies any history of urolithiasis. She denies dysuria and hematuria. On March 27, she underwent cystoscopy, bilateral retrograde pyelograms, bilateral ureteroscopy, bilateral ureteral stent insertion. She was found to have bilateral ureteral narrowing with proximal hydroureteronephrosis. On the right side, the level of obstruction is at the iliac vessels, and the ureter proximal to this is significantly dilated and tortuous. On the left side, there is moderate hydroureteronephrosis down to the level of L5, where the ureter tapers to a normal caliber. In July 2022 she underwent balloon dilation of bilateral ureteral strictures, within the left proximal ureter and the right ureter at the level of the iliac vessels. The ureteral stents are changed at that time. She now comes for cystoscopy with bilateral ureteral stent change. Operative Findings: Bilateral stent occlusion. Description of Procedure: The patient was taken to the operating room and placed in the dorsolithotomy position, with legs supported in Josh stirrups. The external genitalia was prepped and draped sterilely. The 30 lens was used to introduce the 22-Surinamese Stortz cystoscopic sheath through the urethra and into the bladder under direct vision. The bladder was examined in its entirety. The distal end of the ureteral stents were visualized. No tumors were seen. Grasping forceps were used to grasp the distal end of the right ureteral stent, which was removed along with the cystoscope. A 0.035 inch Glidewire was passed through the stent, but the proximal end of the stent was occluded. The stent was removed, and the cystoscope was replaced into the bladder. The Glidewire was passed through the cystoscope, and the right ureteral orifice was cannulated. The Glidewire was advanced up to the right renal pelvis, and a 24 cm, 6-Surinamese double-J ureteral stent was placed over the wire. Proper stent positioning was verified fluoroscopically and endoscopically. Grasping forceps were used to grasp the distal end of the left ureteral stent, which was removed along with the cystoscope. A 0.035 inch Glidewire was passed through the stent and up to the left renal pelvis. Some resistance was met in passing the wire through the proximal end of the stent. The stent was removed, and the Glidewire was backloaded into the cystoscope, which was passed into the bladder. A 24 cm, 6-Surinamese double-J ureteral stent was placed over the wire. Proper stent positioning was verified fluoroscopically and endoscopically. The bladder was emptied and the cystoscope removed. Patient tolerated the procedure well was taken to the recovery in stable condition.
[2023-01-21 09:44] VITALS: BP 161/75; PULSE 68
== END 2023-01-21 10:00 | disposition home or self-care (01) ==
LOC: OR 06:28
PROVIDERS: ATTEND Urology
DX: T83.89XA Other specified complication of genitourinary prosthetic devices, implants and grafts, initial encounter (principal); Y83.1 Surgical operation with implant of artificial internal device as the cause of abnormal reaction of the patient, or of later complication, without mention of misadventure at the time of the procedure; N13.1 Hydronephrosis with ureteral stricture, not elsewhere classified; Z85.028 Personal history of other malignant neoplasm of stomach; Z92.21 Personal history of antineoplastic chemotherapy; Z87.440 Personal history of urinary (tract) infections; J44.9 Chronic obstructive pulmonary disease, unspecified; K21.9 Gastro-esophageal reflux disease without esophagitis; E78.5 Hyperlipidemia, unspecified; M19.90 Unspecified osteoarthritis, unspecified site; Z90.49 Acquired absence of other specified parts of digestive tract; Z96.641 Presence of right artificial hip joint; F17.200 Nicotine dependence, unspecified, uncomplicated; Z83.2 Family history of diseases of the blood and blood-forming organs and certain disorders involving the immune mechanism; Z80.8 Family history of malignant neoplasm of other organs or systems; Z80.3 Family history of malignant neoplasm of breast; Z79.51 Long term (current) use of inhaled steroids; Z79.899 Other long term (current) drug therapy; I10 Essential (primary) hypertension
CPT/HCPCS: 52332; C1769; J2250; J1100; J0690; J2405; J3010; J1642; J2704; J2001

== ENCOUNTER → 2023-03-12 | Outpatient (CLI) | payer MEDICARE, OTHER ==
--- NOTE | 2023-03-12 12:59 | CT ---
EXAMINATION TYPE: CT ChestAbdPelvis w con DATE OF EXAM: 03/12/2023 COMPARISON: 01/01/2029 HISTORY: f/u stomach ca CT DLP: 861 mGycm Automated exposure control for dose reduction was used. CONTRAST: CT scan of the chest, abdomen and pelvis is performed without Oral Contrast and with IV Contrast, pat ient injected with 100 mL of Isovue 300. FINDINGS: Chest CT: There are moderate to marked emphysematous changes. There is no abnormal airspace or interstitial opacity to suggest acute inflammation or chronic inters titial change. There are no suspicious lung masses or nodules. There is no pleural effusion, pleural thickening or pneumothorax. The great vessels the chest are normal and there is no mediastinal, hilar or axillary adenopathy. There is a Mediport catheter on the right tip of which is terminating in the SVC/RA junction. There are no focal osseous abnormalities within the bony thorax. CT abdomen and pelvis: There are postsurgical changes of partial gastrectomy. There are surgical absence of the gallbladder. There has been marked increase in abdominal and pelvic ascites which is moderate to marked in degree. The bowel loops are normal in caliber and there is no evidence of obstruction. There are no pancreatic, splenic or adrenal masses. There are double-J ureteral stents in the kidneys enhance symmetrically without solid renal mass or h ydronephrosis. Caliber the abdominal aorta is normal although there is diffuse arteriosclerotic calcification. There is no pelvic mass or adenopathy. There are no focal osseous abnormalities. There is a right hip prosthesis IMPRESSION: 1. Persistent stable emphysematous changes without acute cardiopulmonary disease. 2. No evidence of lung mass or adenopathy within the chest. 3. Moderate to marked ascites which has increased significantly since the prior study. 4. Bilateral ureteral stents without solid renal mass or hydronephrosis. 5. Partial gastrectomy. No evidence of bowel dilatation or obstruction.
== END | disposition home or self-care (01) ==
LOC: RADCTMAIN 11:34
PROVIDERS: ATTEND Internal Medicine Hematology & Oncology
DX: C16.3 Malignant neoplasm of pyloric antrum (principal); J43.9 Emphysema, unspecified; R18.8 Other ascites; Z96.0 Presence of urogenital implants; Z90.3 Acquired absence of stomach [part of]
CPT/HCPCS: 71260; 74177; Q9967

== ENCOUNTER 2023-03-21 21:32 | Inpatient (IN) | payer MEDICARE, OTHER ==
[2023-03-21] MEDS ORDERED: MORPHINE SULFATE 4 MG/ML SYRINGE IV STA (22:03)
[2023-03-21 23:32] LABS: ALT 12 U/L (4-34); AST 20 U/L (14-36); African American GFR (CKD) 89 (>60 ml/min/1.73 sqM); Albumin 2.7 g/dL (3.5-5.0); Alkaline Phosphatase 88 U/L (38-126); Amylase 32 U/L (30-110); Anion Gap 5 mmol/L; Blood Urea Nitrogen 23 mg/dL (7-17); Calcium 7.4 mg/dL (8.4-10.2); Carbon Dioxide 20 mmol/L (22-30); Chloride 109 mmol/L (98-107); Glucose 96 mg/dL (74-99); Lipase 30 U/L (23-300); Non-African American GFR(CKD) 77 (>60 ml/min/1.73 sqM); Potassium 3.7 mmol/L (3.5-5.1); Sodium 134 mmol/L (137-145); Total Bilirubin 0.7 mg/dL (0.2-1.3); Total Protein 4.8 g/dL (6.3-8.2)
[2023-03-21 23:41] LABS: Basophils % (A) 0 %; Eosinophils # (A) 0.1 k/uL (0-0.7); Eosinophils % (A) 1 %; HGB 12.5 gm/dL (11.4-16.0); Lymphocytes # (A) 1.6 k/uL (1.0-4.8); Lymphocytes % (A) 14 %; MCH 30.9 pg (25.0-35.0); MCV 93.8 fL (80.0-100.0); Mean Platelet Volume 8.6; Monocytes # (A) 0.8 k/uL (0-1.0); Monocytes % (A) 7 %; Neutrophils # (A) 8.7 k/uL (1.3-7.7); Neutrophils % (A) 76 %; Platelet Count 284 k/uL (150-450); RBC 4.05 m/uL (3.80-5.40); RDW 15.2 % (11.5-15.5); WBC 11.4 k/uL (3.8-10.6)
[2023-03-21 23:52] LABS: C Reactive Protein 6.6 mg/dL (<1.0)
--- NOTE | 2023-03-21 23:52 | XR ---
EXAM: XR Abdomen, 1 View and XR Chest, 1 View CLINICAL HISTORY: ITS.REASON XR Reason: distension and pain TECHNIQUE: Frontal view of the chest and abdomen/pelvis. COMPARISON: No relevant prior studies available. FINDINGS: Lungs: Unremarkable. No consolidation. Pleural space: Unremarkable. No pneumothorax. Heart: Unremarkable. No cardiomegaly. Mediastinum: Unremarkable. Intraperitoneal space: No free air. Gastrointestinal tract: Unremarkable. No dilation. Bones/joints: RIGHT hip arthroplasty. Vasculature: Calcified aorta. Tubes, lines and devices: Port-A-Cath terminates in the SVC. Bilateral nephroureteral stents, terminate in the pelvis. IMPRESSION: No focal infiltrate. Nonobstructed bowel gas pattern.
[2023-03-22] MEDS ORDERED: NALOXONE 0.4 MG/ML 1 ML VIAL IV PRN (00:59)
[2023-03-22] MEDS ORDERED: ONDANSETRON 4 MG/2 ML VIAL IVP PRN (00:59)
[2023-03-22] MEDS: SODIUM CHLORIDE 0.9% 1,000 ML IV SCH ×2 (01:38→13:47)
--- NOTE | 2023-03-22 02:39 | ED ---
Abdominal Pain HPI - General Chief Complaint: Abdominal Pain Stated Complaint: Abd Pain V/N Time Seen by Provider: 03/21/23 21:38 Source: patient Mode of arrival: EMS Limitations: no limitations - History of Present Illness Initial Comments: This patient is a 72-year-old woman with history of gastric cancer, who has been having progressively worse abdominal pain going back for 2 weeks. She also notes increasing abdominal distention. She did have previous computed tomography scan that showed "fluid" in the abdomen. She states that this seemed to get much worse over the past few days. She is also now having nausea and has had some vomiting. She is not tolerating much in way of oral intake. The patient does continue to pass flatus. She did have bowel movement yesterday. No change in urination noted. MD Complaint: abdominal pain Onset/Timin -: week(s) Location: diffuse Radiation: none Migration to: no migration Severity: moderate Quality: aching, fullness Consistency: constant Improves With: nothing Worsens With: nothing Associated Symptoms: nausea, vomiting - Related Data Home Medications Medication Instructions Recorded Confirmed Albuterol Inhaler [Ventolin Hfa 2 puff INHALATION RT-Q6H PRN 03/26/22 01/21/23 Inhaler] Venlafaxine HCl [Effexor XR] 150 mg PO DAILY 03/27/22 01/21/23 Lovastatin [Mevacor] 40 mg PO HS 07/27/22 01/21/23 Ondansetron [Zofran] 4 mg PO Q6H PRN 07/27/22 01/21/23 Sucralfate [Carafate] 1 gm PO BID 01/19/23 01/21/23 Previous Rx's Medication Instructions Recorded Oxybutynin Chloride [oxyBUTYnin 10 mg PO DAILY #30 tab 03/28/22 chloride ER] Omeprazole [PriLOSEC] 20 mg PO AC-BRKFST #90 cap 06/25/22 Allergies Allergy/AdvReac Type Severity Reaction Status Date / Time No Known Allergies Allergy Verified 03/21/23 21:43 Review of Systems ROS Statement: Those systems with pertinent positive or pertinent negative responses have been documented in the HPI. ROS Other: All systems not noted in ROS Statement are negative. Constitutional: Denies: fever, chills Respiratory: Denies: cough, dyspnea Cardiovascular: Denies: chest pain, palpitations Gastrointestinal: Reports: abdominal pain, nausea, vomiting. Denies: constipation, hematemesis Genitourinary: Denies: dysuria, hematuria Musculoskeletal: Denies: back pain Skin: Denies: rash Neurological: Denies: headache, weakness, numbness Past Medical History Past Medical History: Cancer, COPD, Hyperlipidemia, Osteoarthritis (OA) Additional Past Medical History / Comment(s): 03/2020 diagnosed with stomach cancer/had resection and chemo and is currently in remission/sees Dr. Bay every 6 weeks, hemorroids, UTIs, hx stomach ulcer History of Any Multi-Drug Resistant Organisms: None Reported Past Surgical History: Breast Surgery, Cholecystectomy, Joint Replacement, Orthopedic Surgery, Tonsillectomy Additional Past Surgical History / Comment(s): stomach resection, R upper chest port/later removed, EGD, colonoscopies, bilateral breast benign biopsies, RK bilateral eyes, rt hip replacement Past Anesthesia/Blood Transfusion Reactions: Motion Sickness Additional Past Anesthesia/Blood Transfusion Reaction / Comment(s): Pt has claustrophobia Past Psychological History: Anxiety, Depression Smoking Status: Former smoker - Past Family History Father Family Medical History: Cancer, Deep Vein Thrombosis (DVT) Additional Family Medical History / Comment(s): Stomach cancer. Father of blood clot that travelled to his heart. Mother Family Medical History: Cancer Additional Family Medical History / Comment(s): Bone cancer Sister(s) Family Medical History: Cancer Additional Family Medical History / Comment(s): Breast cancer General Exam General appearance: alert, in no apparent distress Head exam: Present: atraumatic, normocephalic Eye exam: Present: normal appearance. Absent: scleral icterus, conjunctival injection ENT exam: Present: normal oropharynx Neck exam: Present: normal inspection Respiratory exam: Present: normal lung sounds bilaterally. Absent: respiratory distress, wheezes, rales, rhonchi, stridor Cardiovascular Exam: Present: regular rate, normal rhythm, normal heart sounds. Absent: systolic murmur, diastolic murmur, rubs, gallop GI/Abdominal exam: Present: distended. Absent: tenderness, guarding, rebound, rigid, mass, pulsatile mass Extremities exam: Present: normal inspection, normal capillary refill. Absent: pedal edema, calf tenderness Back exam: Present: normal inspection. Absent: CVA tenderness (R), CVA tenderness (L) Neurological exam: Present: alert Skin exam: Present: warm, dry, intact, normal color. Absent: rash Course Vital Signs 03/21/23 21:40 Temperature 97.8 F Pulse Rate 88 Respiratory 18 Rate Blood Pressure 127/85 O2 Sat by Pulse 98 Oximetry Medical Decision Making - Lab Data Result diagrams: 03/21/23 21:38 03/21/23 21:38 Lab Results 03/21/23 03/21/23 03/21/23 Range/Units 21:38 21:38 21:39 WBC 11.4 H (3.8-10.6) k/uL RBC 4.05 (3.80-5.40) m/uL Hgb 12.5 (11.4-16.0) gm/dL Hct 38.0 (34.0-46.0) % MCV 93.8 (80.0-100.0) fL MCH 30.9 (25.0-35.0) pg MCHC 33.0 (31.0-37.0) g/dL RDW 15.2 (11.5-15.5) % Plt Count 284 (150-450) k/uL MPV 8.6 Neutrophils % 76 % Lymphocytes % 14 % Monocytes % 7 % Eosinophils % 1 % Basophils % 0 % Neutrophils # 8.7 H (1.3-7.7) k/uL Lymphocytes # 1.6 (1.0-4.8) k/uL Monocytes # 0.8 (0-1.0) k/uL Eosinophils # 0.1 (0-0.7) k/uL Basophils # 0.0 (0-0.2) k/uL Sodium 134 L (137-145) mmol/L Potassium 3.7 (3.5-5.1) mmol/L Chloride 109 H (98-107) mmol/L Carbon Dioxide 20 L (22-30) mmol/L Anion Gap 5 mmol/L BUN 23 H (7-17) mg/dL Creatinine 0.79 (0.52-1.04) mg/dL Est GFR (CKD-EPI)AfAm 89 (>60 ml/min/1.73 sqM) Est GFR (CKD-EPI)NonAf 77 (>60 ml/min/1.73 sqM) Glucose 96 (74-99) mg/dL Plasma Lactic Acid Janak 1.0 (0.7-2.0) mmol/L Calcium 7.4 L (8.4-10.2) mg/dL Total Bilirubin 0.7 (0.2-1.3) mg/dL AST 20 (14-36) U/L ALT 12 (4-34) U/L Alkaline Phosphatase 88 (38-126) U/L C-Reactive Protein 6.6 H (<1.0) mg/dL Total Protein 4.8 L (6.3-8.2) g/dL Albumin 2.7 L (3.5-5.0) g/dL Amylase 32 (30-110) U/L Lipase 30 (23-300) U/L Disposition Clinical Impression: Ascites, Abdominal pain Disposition: ADMITTED IP TO THIS HOSP Condition: Fair Is patient prescribed a controlled substance at d/c from ED?: No
[2023-03-22] MEDS: MORPHINE SULFATE 4 MG/ML SYRINGE IV PRN ×2 (04:00→09:20)
[2023-03-22] MEDS ORDERED: MAG HYDROX/AL HYDROX/SIMETH 30 ML CUP PO PRN (10:20)
[2023-03-22 10:35] LABS: INR 1.2 (<1.2); Prothrombin Time 12.5 sec (9.0-12.0)
--- NOTE | 2023-03-22 10:46 | US ---
EXAMINATION TYPE: US abdomen limited DATE OF EXAM: 03/22/2023 10:27 AM CLINICAL INDICATION:Female, 72 years old with history of see ir consult for ordering information; COMPARISON: 03/12/2023 CT, 03/21/2023 radiograph TECHNIQUE: Limited exam four-quadrant grayscale evaluation of the abdomen for fluid assessment. FINDINGS: Predominantly moderate anechoic fluid is seen throughout the four quadrants. IMPRESSION: Moderate ascites.
[2023-03-22] MEDS: PANTOPRAZOLE 40 MG/10 ML VIAL IVP SCH ×2 (10:54→20:17)
--- NOTE | 2023-03-22 12:22 | HP ---
HISTORY AND PHYSICAL CHIEF COMPLAINT: Abdominal pain, nausea, vomiting. HISTORY OF PRESENT ILLNESS: This is a 72-year-old woman with a past history of gastric cancer, also complaining of abdominal pain, some nausea, and heartburn. The CAT scan of the abdomen and pelvis was reviewed. Acute abdomen series showed only bowel gas pattern. The patient is being closely monitored. No chest pain. No palpitations. No fever. PAST MEDICAL HISTORY: Reviewed, includes gastric cancer. Rest of the history and rest of the chart is also reviewed. HOME MEDICATIONS: Reviewed, includes Effexor XR. Dose and rest of medication noted. ALLERGIES: None. FAMILY HISTORY: History of DVT and cancer in the family. SOCIAL HISTORY: Previous smoker. REVIEW OF SYSTEMS: The 14-point review is negative as mentioned. PHYSICAL EXAMINATION: VITAL SIGNS: Pulse is 84, blood pressure 128/70, respirations 18. HEENT: Conjunctivae normal. NECK: No jugular venous distention. No carotid bruit. CARDIOVASCULAR: S1, S2. RESPIRATORY: Diminished breath sounds at the bases ABDOMEN: Soft, distended, hard to feel. LEGS: No edema. NERVOUS SYSTEM: Nonfocal. LABORATORY DATA: Reviewed. ASSESSMENT AND PLAN: 1. Abdominal pain possibly secondary to gastric cancer with mets. 2. Gastroesophageal reflux disease. 3. Ascites. 4. Chronic obstructive pulmonary disease. 5. Hyperlipidemia. 6. Multiple medical issues. RECOMMENDATIONS: Recommended continue symptomatic treatment. Otherwise, I would recommend to continue the current medications and a recent CAT scan of the abdomen showed [id number] ascites. Interventional Radiology consultation is being planned at this time as well. We will also consult Dr. Paniagua for evaluation of any infection of the port site also. Further recommendations to follow. MMODL / IJN: [id number] /
--- NOTE | 2023-03-22 13:32 | US ---
EXAMINATION TYPE: US paracentesis abd w/image DATE OF EXAM: 03/22/2023 12:41 PM CLINICAL INDICATION:Female, 72 years old with history of See IR consult for ordering information; nato gnostic paracentesis history gastric cancer. COMPARISON: 03/22/2023 ATTENDING: Dr. Young Dhillon PROCEDURE: Informed consent was obtained. The risks of the procedure were extensively explained incl uding risk of damage to surrounding bowel with perforation and need for additional procedures. Proced ure was performed in the ultrasound procedure suite. Ultrasound imaging of the abdomen demonstrate as citic fluid. An appropriate access site was localized to the left lower abdomen. Timeout was taken pe r protocol. The skin was prepped and draped in the usual sterile fashion and then locally anesthetize d with 1% lidocaine. The peritoneal cavity was then accessed via a 5-[place] one-step needle/catheter . Approximately 5000 cc of blood-tinged fluid was obtained. Samples were sent to the lab for analysi s. Postprocedural imaging of the abdomen demonstrate a minimal amount of abdominal fluid. Patient tolerated procedure well without immediate complication. Hemostasis at the procedural site w as obtained with a sterile bandage placed. The patient was monitored in the holding area following th e procedure and was subsequently discharged in stable condition. IMPRESSION: Ultrasound guided paracentesis, with approximately 5000 cc of blood-tinged fluid drained. Pathology r esults pending. No immediate complications were evident.
--- NOTE | 2023-03-22 14:57 | P.CONS ---
History of Present Illness - Reason for Consult Consult date: 03/22/23 Gastric adenocarcinoma Requesting physician: Thelma Sellers - Chief Complaint N,V, abd pain and distension - History of Present Illness Mrs. Mcconnell is a very pleasant patient of Dr. Bay diagnosed with gastric adenocarcinoma March 2020. She presented with intractable nausea and vomiting with associated weight loss over just a few months. 03/14/20 CT AP revealed gastric thickening at proximal duodenum and gastric distention. 03/18/20 EGD revealed lesion at pre-pylorus, biopsy positive for invasive adenocarcinoma, HER-2/hussein negative. 03/29/20 EUS showed T3 N0 disease. 04/03/20 CT chest was negative. She was treated at [facility] in [place], she was started on FLOT regimen, had 4 cycles, repeat CT CAP showed decrease and tumor and borderline enlarged hepatic ligament lymph nodes. 07/25/20 patient had gastrectomy, final path poorly differentiated carcinoma, diffuse type, 07/15 nodes positive, final staging pT3 pN3a, negative margins, positive for lymphovascular invasion. Patient then moved to [place] on. Genetic testing negative, follow-up CT scan showed a seroma but no evidence of disease. She received adjuvant FLOT 09/2020 until 10/2020, this was stopped due to neuropathy and fatigue side effects. Patient stated current on her imaging, no evidence of disease, EGD 09/23 revealed some gastritis and Roman's esophagus, an abdominal wall lesion in December 23 was negative for malignancy. March 2022 she developed abdominal pain, CT AP showed bilateral hydronephrosis, she had bilateral ureteral stent placement. CT CAP May 2022 showed some thickening posterior gastric wall. In June 2022 repeat EGD and biopsy of gastric jejunostomy site came back positive for poorly differentiated adenocarcinoma, signet cell subtype, Her2 and PDL 1 negative. She was started on FOLFOX July 2022. 07/28/22 paracentesis done, cytology was negative. CT CAP October 2022 showed mild ascites, no other evidence of disease. CT CAP 01/01/23 showed mild ascites. In October, she continued on 5-FU infusion and opdivo only. Patient is currently admitted with nausea, vomiting, abdominal pain and distention. She has had progressive bloating over the last 3 weeks, associated with nausea and vomiting. Patient has not had ascites since prior to starting her current infusional therapy. When patient eats she is soon after vomiting. She has had some loss of bowel control, mostly after she eats. Her abdomen is hard, it is sore. She denies fevers, chills, she is reporting some "burning" in the back of her throat, denies shortness of breath, cough, dysuria, hematuria, hematochezia or melena, swelling in the lower extremities, swelling in the legs, rash or petechiae. Review of Systems 10 point ROS is neg except as stated in HPI Past Medical History Past Medical History: Cancer, COPD, Hyperlipidemia, Osteoarthritis (OA) Additional Past Medical History / Comment(s): 03/2020 diagnosed with stomach cancer/had resection and chemo and is currently in remission/sees Dr. Bay every 6 weeks, hemorroids, UTIs, hx stomach ulcer History of Any Multi-Drug Resistant Organisms: None Reported Past Surgical History: Breast Surgery, Cholecystectomy, Joint Replacement, Orthopedic Surgery, Tonsillectomy Additional Past Surgical History / Comment(s): stomach resection, R upper chest port/later removed, EGD, colonoscopies, bilateral breast benign biopsies, RK bilateral eyes, rt hip replacement Past Anesthesia/Blood Transfusion Reactions: Motion Sickness Additional Past Anesthesia/Blood Transfusion Reaction / Comm: Pt has claustro phobia Past Psychological History: Anxiety, Depression Smoking Status: Former smoker - Past Family History Father Family Medical History: Cancer, Deep Vein Thrombosis (DVT) Additional Family Medical History / Comment(s): Stomach cancer. Father of blood clot that travelled to his heart. Mother Family Medical History: Cancer Additional Family Medical History / Comment(s): Bone cancer Sister(s) Family Medical History: Cancer Additional Family Medical History / Comment(s): Breast cancer Medications and Allergies Home Medications Medication Instructions Recorded Confirmed Type Albuterol Inhaler [Ventolin Hfa 2 puff INHALATION RT-Q6H PRN 03/26/22 03/22/23 History Inhaler] Oxybutynin Chloride [oxyBUTYnin 10 mg PO DAILY #30 tab 03/28/22 03/22/23 Rx chloride ER] Omeprazole [PriLOSEC] 20 mg PO AC-BRKFST #90 cap 06/25/22 03/22/23 Rx Lovastatin [Mevacor] 40 mg PO HS 07/27/22 03/22/23 History Ondansetron [Zofran] 4 mg PO Q6H PRN 07/27/22 03/22/23 History Sucralfate [Carafate] 1 gm PO BID 01/19/23 03/22/23 History Baking Soda Salt Mouth Rinse 1 dose PO QID 03/22/23 03/22/23 History Venlafaxine HCl ER [Effexor Xr] 150 mg PO DAILY 03/22/23 03/22/23 History Allergies Allergy/AdvReac Type Severity Reaction Status Date / Time No Known Allergies Allergy Verified 03/22/23 06:53 Physical Exam Vitals: Vital Signs Temp Pulse Pulse Resp BP BP Pulse Ox 03/22/23 13:10 80 16 129/84 92 L 03/22/23 12:47 79 16 133/73 92 L 03/22/23 12:20 80 18 136/72 90 L 03/22/23 07:19 98.4 F 84 19 128/78 91 L 03/22/23 03:42 98.5 F 82 16 128/77 95 03/21/23 21:40 97.8 F 88 18 127/85 98 Intake and Output 03/21/23 03/22/23 03/22/23 22:59 06:59 14:59 Intake Total 225 Balance 225 Intake: Intake, IV Titration 225 Amount Sodium Chloride 0.9% 1, 225 000 ml @ 75 mls/hr IV . [id number] [facility] Rx#:[id number] Other: Weight 52.617 kg 52.617 kg - Constitutional General appearance: cooperative, mild distress, thin - EENT Eyes: anicteric sclerae, EOMI ENT: hearing grossly normal, normal oropharynx - Neck Neck: no lymphadenopathy - Respiratory Respiratory: bilateral: CTA (Diminished bases, weak inspiratory effort) - Cardiovascular Rhythm: regular Heart sounds: normal: S1, S2 Abnormal Heart Sounds: no systolic murmur, no diastolic murmur, no rub, no S3 Gallop, no S4 Gallop, no click, no other leg Peripheral Edema: bilateral: None - Gastrointestinal General gastrointestinal: no absent bowel sounds, decreased bowel sounds (Dist ant bowel sounds), distended, no hepatomegaly, no hyperactive bowel sounds, no normal bowel sounds, no organomegaly, no rigid, no scaphoid, no soft, no splenomegaly, tenderness, no umbilical hernia, no ventral hernia - Integumentary Integumentary: normal - Neurologic Neurologic: CNII-XII intact (Grossly) - Musculoskeletal Musculoskeletal: strength equal bilaterally - Psychiatric Psychiatric: A&O x's 3, appropriate affect, intact judgment & insight Results CBC & Chem 7: 03/21/23 21:38 03/21/23 21:38 Labs: Abnormal Lab Results - Last 24 Hours (Table) 03/21/23 03/21/23 03/22/23 Range/Units 21:38 21:38 10:07 WBC 11.4 H (3.8-10.6) k/uL Neutrophils # 8.7 H (1.3-7.7) k/uL PT 12.5 H (9.0-12.0) sec INR 1.2 H (<1.2) Sodium 134 L (137-145) mmol/L Chloride 109 H (98-107) mmol/L Carbon Dioxide 20 L (22-30) mmol/L BUN 23 H (7-17) mg/dL Calcium 7.4 L (8.4-10.2) mg/dL C-Reactive Protein 6.6 H (<1.0) mg/dL Total Protein 4.8 L (6.3-8.2) g/dL Albumin 2.7 L (3.5-5.0) g/dL Abdominal x-ray: report reviewed US - abdomen: report reviewed Assessment and Plan (1) Ascites Current Visit: Yes Status: Acute Priority: High Code(s): R18.8 - OTHER ASCITES SNOMED Code(s): 339454393 (2) Abdominal pain Current Visit: Yes Status: Acute Priority: High Code(s): R10.9 - UNSPECIFIED ABDOMINAL PAIN SNOMED Code(s): 97893930 (3) Intractable nausea and vomiting Current Visit: Yes Status: Acute Priority: High Code(s): R11.2 - NAUSEA WITH VOMITING, UNSPECIFIED SNOMED Code(s): 881191603 (4) Gastric adenocarcinoma Current Visit: Yes Status: Chronic Priority: Medium Code(s): C16.9 - MALIGNANT NEOPLASM OF STOMACH, UNSPECIFIED SNOMED Code(s): 895941046 Plan: Recurrent ascites associated with nausea, vomiting, abdominal pain and distention -Patient reports that she has not had ascites since prior to beginning most recent chemotherapy -Pending paracentesis. Infection, protein, cell count, cytology ordered on ascitic fluid -Concern is for progression of disease, pending cytology results -Continue supportive medications for patient's other symptoms. Metastatic gastric adenocarcinoma -Status post 10 cycles of 5-FU and opdivo -Patient has done well on treatment Up until last couple of weeks -Treatment f/u CT CAP 03/12, Impression reads persistent, stable emphysematous changes without cardiopulmonary disease, no evidence of a lung mass or adenopathy in the chest, ascites that is increased significantly since the prior study done January 01, 2023. Bilateral ureter stents are seen, no renal mass or hydronephrosis, the gastrectomy is seen, no bowel dilation or obstruction. Acute abdominal series says no focal infiltrate, nonobstructed bowel gas pattern. Ultrasound of the abdomen reporting moderate ascites. -Pending cytology results. attests: I have seen and examined patient, performed H&P, and developed impression and plan of care. Discussed with dictator. Agree with documentation, dictated as a scribe
--- NOTE | 2023-03-22 22:16 | P.CONS ---
History of Present Illness - Reason for Consult Consult date: 03/22/23 - History of Present Illness Patient is a 72-year-old male with a past medical significant for hyperlipidemia osteoarthritis COPD and also history of gastric adenocarcinoma diagnosed in March 2024 the patient has been on chemotherapy in the form of 5Fe infusion and Opdivo patient did have a history of paracentesis in July now presenting to the hospital with nausea vomiting abdominal pain and distention symptom of abdominal bloating has been getting worse over the last 3 weeks patient denies high-grade fever patient did mention her right chest wall Mediport has been used very frequently over the last few weeks and apparently noticed to having some erythema to the port site that has prompted this infecti ous consultation concerning for possible port infection patient did not have any fever during this hospital stay did have vital of 11.4 creatinine was normal liver exams are normal amylase lipase are normal patient did have a abdominal ultrasound which shows moderate ascites and the patient is currently undergoing paracentesis with mostly bloody ascitic fluid Past Medical History Past Medical History: Cancer, COPD, Hyperlipidemia, Osteoarthritis (OA) Additional Past Medical History / Comment(s): 03/2020 diagnosed with stomach can cer/had resection and chemo and is currently in remission/sees Dr. Bay every 6 weeks, hemorroids, UTIs, hx stomach ulcer History of Any Multi-Drug Resistant Organisms: None Reported Past Surgical History: Breast Surgery, Cholecystectomy, Joint Replacement, Orthopedic Surgery, Tonsillectomy Additional Past Surgical History / Comment(s): stomach resection, R upper chest port/later removed, EGD, colonoscopies, bilateral breast benign biopsies, RK bilateral eyes, rt hip replacement Past Anesthesia/Blood Transfusion Reactions: Motion Sickness Additional Past Anesthesia/Blood Transfusion Reaction / Comm: Pt has claustrophobia Past Psychological History: Anxiety, Depression Smoking Status: Former smoker - Past Family History Father Family Medical History: Cancer, Deep Vein Thrombosis (DVT) Additional Family Medical History / Comment(s): Stomach cancer. Father of blood clot that travelled to his heart. Mother Family Medical History: Cancer Additional Family Medical History / Comment(s): Bone cancer Sister(s) Family Medical History: Cancer Additional Family Medical History / Comment(s): Breast cancer Medications and Allergies Home Medications Medication Instructions Recorded Confirmed Type Albuterol Inhaler [Ventolin Hfa 2 puff INHALATION RT-Q6H PRN 03/26/22 03/22/23 History Inhaler] Oxybutynin Chloride [oxyBUTYnin 10 mg PO DAILY #30 tab 03/28/22 03/22/23 Rx chloride ER] Omeprazole [PriLOSEC] 20 mg PO AC-BRKFST #90 cap 06/25/22 03/22/23 Rx Lovastatin [Mevacor] 40 mg PO HS 07/27/22 03/22/23 History Ondansetron [Zofran] 4 mg PO Q6H PRN 07/27/22 03/22/23 History Sucralfate [Carafate] 1 gm PO BID 01/19/23 03/22/23 History Baking Soda Salt Mouth Rinse 1 dose PO QID 03/22/23 03/22/23 History Venlafaxine HCl ER [Effexor Xr] 150 mg PO DAILY 03/22/23 03/22/23 History Allergies Allergy/AdvReac Type Severity Reaction Status Date / Time No Known Allergies Allergy Verified 03/22/23 06:53 Physical Exam Vitals: Vital Signs Temp Pulse Pulse Resp BP BP Pulse Ox 03/22/23 07:19 98.4 F 84 19 128/78 91 L 03/22/23 03:42 98.5 F 82 16 128/77 95 03/21/23 21:40 97.8 F 88 18 127/85 98 Intake and Output 03/21/23 03/22/23 03/22/23 22:59 06:59 14:59 Intake Total 225 Balance 225 Intake: Intake, IV Titration 225 Amount Sodium Chloride 0.9% 1, 225 000 ml @ 75 mls/hr IV . [id number] [facility] Rx#:[id number] Other: Weight 52.617 kg 52.617 kg Results CBC & Chem 7: 03/21/23 21:38 03/21/23 21:38 Labs: Abnormal Lab Results - Last 24 Hours (Table) 03/21/23 03/21/23 03/22/23 Range/Units 21:38 21:38 10:07 WBC 11.4 H (3.8-10.6) k/uL Neutrophils # 8.7 H (1.3-7.7) k/uL PT 12.5 H (9.0-12.0) sec INR 1.2 H (<1.2) Sodium 134 L (137-145) mmol/L Chloride 109 H (98-107) mmol/L Carbon Dioxide 20 L (22-30) mmol/L BUN 23 H (7-17) mg/dL Calcium 7.4 L (8.4-10.2) mg/dL C-Reactive Protein 6.6 H (<1.0) mg/dL Total Protein 4.8 L (6.3-8.2) g/dL Albumin 2.7 L (3.5-5.0) g/dL Assessment and Plan Plan: 1patient with a history of gastric adenocarcinoma presented to hospital abdominal pain distention with moderate ascites status post paracentesis which is mostly bloody concern for possible related to malignancy infectious etiology not entirely excluded fluid will be sent for Gram stain culture and cell count. 2-patient did have minimal irritation at the right chest wall Mediport site but no fluctuation was noticed patient not having any fever we will advise against use of Mediport at this point and blood cultures will be obtained also check inflammatory markers 3-for now we will hold on adding any systemic antibiotic therapy as the patient does not look toxic and less likelihood of infectious etiology We will follow on clinical condition and cultures to further adjust medication if needed Thank you for this consultation we will follow the patient along with you Time with Patient: Greater than 30
[2023-03-23] MEDS: MORPHINE SULFATE 4 MG/ML SYRINGE IV PRN ×2 (00:48→08:27)
[2023-03-23] MEDS: SODIUM CHLORIDE 0.9% 1,000 ML IV SCH ×2 (06:36→16:39)
[2023-03-23] MEDS: PANTOPRAZOLE 40 MG/10 ML VIAL IVP SCH ×2 (08:27→20:50)
[2023-03-23] MEDS ORDERED: ALBUTEROL NEBULIZED 2.5 MG/3 ML INHALATION PRN (10:01)
--- NOTE | 2023-03-23 12:04 | PN ---
PROGRESS NOTE DATE OF SERVICE: 03/23/2023 SUBJECTIVE: This is a 72-year-old woman, who was admitted with abdominal pain, ascites, had abdominal paracentesis yesterday, about 5 L of blood-tinged fluid was aspirated. Minimal irritation in the site. MediPort was also noted. OBJECTIVE: VITAL SIGNS: Pulse 72, blood pressure 116/60, respirations 16. CHEST: Clear to auscultation. CARDIOVASCULAR: S1, S2. ABDOMEN: Soft. Ascites mass is also present. LABORATORY DATA: Reviewed. ASSESSMENT: 1. Abdominal pain possibly with mets and ascites secondary to metastatic gastric cancer, status post aspiration of 5 L of fluid, blood tinged. 2. Rule out MediPort infection. 3. Gastroesophageal reflux disease. 4. Ascites. 5. Chronic obstructive pulmonary disease. 6. Hyperlipidemia. 7. Multiple medical issues. RECOMMENDATIONS: Recommend to continue current management and continue symptomatic treatment. Follow up with cultures. Repeat the labs. Closely follow with multiple consultants. Further recommendations to follow. MMODL / IJN: [id number] /
[2023-03-23] MEDS ORDERED: [UNRECOGNIZED DRUG - MIXTURE] PO SCH (13:00)
[2023-03-23] MEDS: SALT AND SODA MOUTHWASH 1,000 ML PO SCH ×3 (13:28→20:51)
--- NOTE | 2023-03-23 14:21 | P.PN ---
Subjective Progress Note Date: 03/23/23 Principal diagnosis: hx gastric cancer At today's visit patient is resting comfortably in bed. A/P paracentesis yesterday with 5 L removed. Patient reports improvement in abdominal pain and distention. Objective - Vital Signs Vital signs: Vital Signs Temp 98.8 F 03/23/23 07:17 Pulse 69 03/23/23 07:17 Resp 18 03/23/23 07:17 BP 111/57 03/23/23 07:17 Pulse Ox 94 L 03/23/23 07:17 FiO2 Intake & Output 03/22/23 03/23/23 03/23/23 18:59 06:59 18:59 Other: Voiding Method Toilet # Voids 2 1 - Constitutional General appearance: Present: average body habitus, no acute distress - EENT Eyes: Present: anicteric sclerae, EOMI ENT: Present: hearing grossly normal - Respiratory Details: breathing is even unlabored - Cardiovascular Details: skin is warm and dry - Integumentary Integumentary Comment(s): erythema noted to Mediport of right chest wall. No purulent drainage noted - Neurologic Neurologic: Present: CNII-XII intact - Musculoskeletal Musculoskeletal: Present: strength equal bilaterally - Psychiatric Psychiatric: Present: A&O x's 3, appropriate affect, intact judgment & insight - Labs CBC & Chem 7: 03/21/23 21:38 03/21/23 21:38 Assessment and Plan (1) Ascites Current Visit: Yes Status: Acute Priority: High Code(s): R18.8 - OTHER ASCITES SNOMED Code(s): 786829171 (2) Gastric adenocarcinoma Current Visit: Yes Status: Chronic Priority: Medium Code(s): C16.9 - MALIGNANT NEOPLASM OF STOMACH, UNSPECIFIED SNOMED Code(s): 304667875 Plan: Recurrent ascites associated with nausea, vomiting, abdominal pain and dis tention -Patient reports that she has not had ascites since prior to beginning most recent chemotherapy -S/p paracentesis, 4L removed. Cytology pending -Concern is for progression of disease, pending cytology results -Continue supportive medications for patient's other symptoms. Metastatic gastric adenocarcinoma -Status post 10 cycles of 5-FU and opdivo -Patient has done well on treatment up until last couple of weeks -Treatment f/u CT CAP 6/9, Impression reads persistent, stable emphysematous changes without cardiopulmonary disease, no evidence of a lung mass or adenopathy in the chest, ascites that is increased significantly since the prior study done January 01, 2023. Bilateral ureter stents are seen, no renal mass or hydronephrosis, the gastrectomy is seen, no bowel dilation or obstruction. Acute abdominal series reveals no focal infiltrate, nonobstructed bowel gas pattern. Ultrasound of the abdomen reporting moderate ascites. -Pending cytology results
[2023-03-23] MEDS: HYDROcodone/APAP 5-325MG 1 EACH TAB PO PRN (16:38)
[2023-03-23] MEDS: SUCRALFATE 1 GM TAB PO SCH (20:49)
[2023-03-23] MEDS ORDERED: ATORVASTATIN 10 MG TAB PO SCH (21:00)
[2023-03-23] MEDS: VENLAFAXINE HCL ER 150 MG CAP PO SCH (21:26)
[2023-03-24 06:10] LABS: Basophils % (A) 0 %; Eosinophils # (A) 0.1 k/uL (0-0.7); Eosinophils % (A) 1 %; HCT 32.4 % (34.0-46.0); HGB 10.6 gm/dL (11.4-16.0); Hypochromasia Slight; Lymphocytes # (A) 1.3 k/uL (1.0-4.8); Lymphocytes % (A) 15 %; MCH 32.1 pg (25.0-35.0); MCHC 32.6 g/dL (31.0-37.0); MCV 98.4 fL (80.0-100.0); Macrocytosis Slight; Mean Platelet Volume 7.8; Monocytes # (A) 0.7 k/uL (0-1.0); Monocytes % (A) 8 %; Neutrophils # (A) 6.4 k/uL (1.3-7.7); Neutrophils % (A) 75 %; Platelet Count 284 k/uL (150-450); RBC 3.29 m/uL (3.80-5.40); RDW 14.9 % (11.5-15.5); WBC 8.5 k/uL (3.8-10.6)
[2023-03-24 06:11] LABS: African American GFR (CKD) 83 (>60 ml/min/1.73 sqM); Anion Gap 4 mmol/L; Blood Urea Nitrogen 13 mg/dL (7-17); Calcium 7.6 mg/dL (8.4-10.2); Carbon Dioxide 24 mmol/L (22-30); Chloride 108 mmol/L (98-107); Glucose 93 mg/dL (74-99); Non-African American GFR(CKD) 72 (>60 ml/min/1.73 sqM); Potassium 3.8 mmol/L (3.5-5.1); Sodium 136 mmol/L (137-145)
[2023-03-24] MEDS ORDERED: NON FORMULARY DRUG (Omeprazole 20 MG Capsule.Dr) PO SCH (07:30)
[2023-03-24 08:10] VITALS: RESP 18
[2023-03-24] MEDS: HYDROcodone/APAP 5-325MG 1 EACH TAB PO PRN (08:53)
[2023-03-24] MEDS: VENLAFAXINE HCL ER 150 MG CAP PO SCH (08:53)
[2023-03-24] MEDS: SUCRALFATE 1 GM TAB PO SCH (08:53)
[2023-03-24] MEDS: PANTOPRAZOLE 40 MG/10 ML VIAL IVP SCH (08:53)
[2023-03-24] MEDS: SALT AND SODA MOUTHWASH 1,000 ML PO SCH (08:59)
[2023-03-24] MEDS ORDERED: VENLAFAXINE HCL ER 150 MG CAP PO SCH (09:00)
[2023-03-24] MEDS: SODIUM CHLORIDE 0.9% 1,000 ML IV SCH (09:00)
[2023-03-24] MEDS ORDERED: OXYBUTYNIN 10 MG TAB.ER.24 PO SCH (09:00)
[2023-03-24 13:34] VITALS: BP 167/69; PULSE 77; TEMP 97.7
[2023-03-25 03:20] LABS: Glucose, BF Source Ascites; Glucose, Body Fluid 36 mg/dL; LDH, Body Fluid Source Ascites; T. Protein, Body Fluid Source Ascites; Total Protein, Body Fluid >3600 mg/dL
--- NOTE | 2023-03-25 06:36 | P.DS ---
Providers Date of admission: 03/22/23 10:27 Expected date of discharge: 03/24/23 Attending physician: Osiel Dee Consults: 03/22/23 10:18 Consult Physician Routine Consulting Provider: Venu Paniagua Consult Reason/Comments: infected right chest wall port?? Do you want consulting provider notified?: Yes Consult Physician Urgent Consulting Provider: Jocy Bean Consult Reason/Comments: stomach CA, sees mis Do you want consulting provider notified?: Yes Primary care physician: Aliyah Fink Hospital Course: Final diagnosis Abdominal pain possibly with metastasis likely secondary to ascites Ascites secondary to metastatic gastric cancer, status post aspiration of 5 L of fluid, blood tinged removed Rule out Mediport infection Gastroesophageal reflux disease Chronic obstructive pulmonary disease, not in exacerbation Hyperlipidemia GI prophylaxis DVT prophylaxis Full code Discharge disposition Patient is being discharged in a stable condition with guarded prognosis to home. Patient will follow-up with Dr. fink in the outpatient setting upon discharge. Patient is to follow-up with oncology outpatient as scheduled. Total time taken is greater than 35 minutes. Hospital course This is a 72-year-old female who was recently admitted with abdominal pain and distention evaluated by interventional radiology underwent paracentesis with approximately 5 L removed. Oncology and infectious disease following this patient follows oncology outpatient undergoing treatment. There was concern of her Mediport being infected as there was some redness surrounding it although patient is afebrile and patient reports it is chronically discolored around the Mediport site. We'll monitor and follow the blood cultures. Patient has been cleared by consultations. Please refer to other consultation notes for further HPI. Patient reports to feeling well and tolerating diet and would like to go home. Discussed with the patient about possible need for repeat paracentesis due to ascites and to discuss with oncology about possible palliative outpatient paracentesis as needed Currently no reports of chest pain, shortness of breath, or palpitations. Patient is afebrile. No reports of nausea or vomiting and patient is tolerating diet. Patient will be discharged home today. Guarded prognosis. Physical exam: Gen: This is a 72-year-old female who is awake, alert and oriented 3, thin built, elderly appearing HEENT: Head is atraumatic, normocephalic. Pupils equal, round. Sclerae is anicteric. NECK: Supple. No JVD. No lymphadenopathy. No thyromegaly. LUNGS: Diminished breath sounds bilaterally with no wheezes or rhonchi. No intercostal retractions. HEART: S1, S2 are muffled ABDOMEN: Soft. Less distended. Bowel sounds are present. No masses. No tenderness. EXTREMITIES: No pedal edema. No calf tenderness. NEUROLOGICAL: Patient is awake, alert and oriented x3. Cranial nerves 2 through 12 are grossly intact. Please refer to medication reconciliation sheet for a list of medications. The impression and plan of care has been dictated by Thelma Sellers, Nurse Practitioner as directed. Dr. Luiz MD I have performed a history and examination and MDM of this patient, discussed the same with the dictator, and agree with the dictator's assessment and plan as written ,documented as a scribe. Based on total visit time, I have performed more than 50% of the visit. Patient Condition at Discharge: Fair Plan - Discharge Summary New Discharge Prescriptions: New HYDROcodone/APAP 5-325MG [Morrill 5-325] 1 each PO Q6HR PRN #6 tab PRN Reason: Pain Continue Albuterol Inhaler [Ventolin Hfa Inhaler] 2 puff INHALATION RT-Q6H PRN PRN Reason: Shortness Of Breath Oxybutynin Chloride [oxyBUTYnin chloride ER] 10 mg PO DAILY #30 tab Omeprazole [PriLOSEC] 20 mg PO AC-BRKFST #90 cap Lovastatin [Mevacor] 40 mg PO HS Sucralfate [Carafate] 1 gm PO BID Venlafaxine HCl ER [Effexor XR] 150 mg PO DAILY Ondansetron [Zofran] 4 mg PO Q6H PRN PRN Reason: Nausea Baking Soda Salt Mouth Rinse 1 dose PO QID Discharge Medication List Albuterol Inhaler [Ventolin Hfa Inhaler] 2 puff INHALATION RT-Q6H PRN 03/26/22 [History] Oxybutynin Chloride [oxyBUTYnin chloride ER] 10 mg PO DAILY #30 tab 03/28/22 [Rx] Omeprazole [PriLOSEC] 20 mg PO AC-BRKFST #90 cap 06/25/22 [Rx] Lovastatin [Mevacor] 40 mg PO HS 07/27/22 [History] Ondansetron [Zofran] 4 mg PO Q6H PRN 07/27/22 [History] Sucralfate [Carafate] 1 gm PO BID 01/19/23 [History] Baking Soda Salt Mouth Rinse 1 dose PO QID 03/22/23 [History] Venlafaxine HCl ER [Effexor XR] 150 mg PO DAILY 03/22/23 [History] HYDROcodone/APAP 5-325MG [Morrill 5-325] 1 each PO Q6HR PRN #6 tab 03/24/23 [Rx] Follow up Appointment(s)/Referral(s): Aliyah Fink MD [Primary Care Provider] - 04/01/23 9:30 am Nisha Bay MD [Family Provider] - 1 Week (the office will call to set up appointment.) Patient Instructions/Handouts: Hydrocodone/Acetaminophen (By mouth) Activity/Diet/Wound Care/Special Instructions: Activity Limited until follow-up Follow-up with primary care provider on discharge Follow-up with oncology as scheduled Discharge Disposition: HOME SELF-CARE
== END 2023-03-24 14:01 | disposition home or self-care (01) | DRG 375 ==
LOC: EC 21:32 → 5NMEDONC 03-22 01:02 → OBSVTOIN 03-22 10:27
PROVIDERS: ADMIT Hospitalist; ATTEND Hospitalist
PROC: 0W9G3ZZ Drainage of Peritoneal Cavity, Percutaneous Approach (ICD-10-PCS; principal; 2023-03-22)
DX: C16.9 Malignant neoplasm of stomach, unspecified (principal); R18.0 Malignant ascites; T80.219A Unspecified infection due to central venous catheter, initial encounter; G89.3 Neoplasm related pain (acute) (chronic); E78.5 Hyperlipidemia, unspecified; F40.240 Claustrophobia; J44.9 Chronic obstructive pulmonary disease, unspecified; K21.9 Gastro-esophageal reflux disease without esophagitis; Z79.899 Other long term (current) drug therapy; Z80.0 Family history of malignant neoplasm of digestive organs; Z87.11 Personal history of peptic ulcer disease; Z96.641 Presence of right artificial hip joint; Z87.891 Personal history of nicotine dependence; F32.A Depression, unspecified; F41.9 Anxiety disorder, unspecified; M19.90 Unspecified osteoarthritis, unspecified site; Z92.21 Personal history of antineoplastic chemotherapy; Z90.3 Acquired absence of stomach [part of]; Z87.440 Personal history of urinary (tract) infections
CPT/HCPCS: 36415; 49083; 74022; 76705; 80048; 80053; 82150; 82945; 83605; 83615; 83690; 84157; 85025; 85610; 86140; 87040; 87070; 87075; 87205; 89050; 94640

== ENCOUNTER 2023-04-01 12:22 | Inpatient (IN) | payer MEDICARE, OTHER ==
[2023-04-01] MEDS ORDERED: ALBUTEROL NEBULIZED 2.5 MG/3 ML INHALATION STA (13:17)
[2023-04-01] MEDS ORDERED: methylPREDNISolone SOD SUCCI 125 MG/2 ML VIAL IV STA (13:17)
[2023-04-01] MEDS ORDERED: SODIUM CHLORIDE 0.9% 500 ML 500 ML IV STA (13:17)
[2023-04-01] MEDS ORDERED: IPRATROPIUM 0.5 MG/2.5 ML NEBU INHALATION STA (13:17)
[2023-04-01] MEDS ORDERED: IBUPROFEN 600 MG TAB PO STA (13:19)
[2023-04-01] MEDS ORDERED: ACETAMINOPHEN TAB 500 MG TAB PO STA (13:19)
--- NOTE | 2023-04-01 13:44 | ED ---
General Adult HPI - General Source: patient, family, RN notes reviewed, old records reviewed Mode of arrival: ambulatory Limitations: no limitations <Germán Mendes - Last Filed: 04/01/23 15:15> <Chapin Munoz - Last Filed: 04/02/23 00:05> - General Chief complaint: Shortness of Breath Stated complaint: SYLVIA Time Seen by Provider: 04/01/23 12:45 - History of Present Illness Initial comments: This is a 72-year-old female presents emergency department with past medical history significant for stomach cancer. Patient has been receiving chemo since July. Patient comes in today because she has been having shortness of breath. Patient states she's also having the chills. Patient denies any cough or chest pain. Patient's any palpitation. Patient denies any dysuria hematuria urinary frequency. Patient does have some abdominal tenderness but she just was here for a paracentesis patient states abdominal pain is no different and has been prior to the paracentesis.. Patient denies any dysuria or hematuria. (Germán Mendes) - Related Data Home Medications Medication Instructions Recorded Confirmed Lovastatin [Mevacor] 40 mg PO HS 07/27/22 04/01/23 Ondansetron [Zofran] 4 mg PO Q6H PRN 07/27/22 04/01/23 Sucralfate [Carafate] 1 gm PO BID 01/19/23 04/01/23 Baking Soda Salt Mouth Rinse 1 dose PO QID 03/22/23 04/01/23 Venlafaxine HCl ER [Effexor XR] 150 mg PO DAILY 03/22/23 04/01/23 HYDROmorphone [Dilaudid] 4 mg PO Q4-6H PRN 04/01/23 04/01/23 Previous Rx's Medication Instructions Recorded Oxybutynin Chloride [oxyBUTYnin 10 mg PO DAILY #30 tab 03/28/22 chloride ER] Omeprazole [PriLOSEC] 20 mg PO AC-BRKFST #90 cap 06/25/22 Allergies Allergy/AdvReac Type Severity Reaction Status Date / Time No Known Allergies Allergy Verified 04/01/23 13:31 Review of Systems ROS Other: All systems not noted in ROS Statement are negative. <Germán Mendes - Last Filed: 04/01/23 15:15> ROS Other: All systems not noted in ROS Statement are negative. <AlexanderChapin - Last Filed: 04/02/23 00:05> ROS Statement: Those systems with pertinent positive or pertinent negative responses have been documented in the HPI. Past Medical History Past Medical History: Cancer, COPD, Hyperlipidemia, Osteoarthritis (OA) Additional Past Medical History / Comment(s): 03/2020 diagnosed with stomach cancer/had resection and chemo and is currently in remission/sees Dr. Bay every 6 weeks, hemorroids, UTIs, hx stomach ulcer History of Any Multi-Drug Resistant Organisms: None Reported Past Surgical History: Breast Surgery, Cholecystectomy, Joint Replacement, Orthopedic Surgery, Tonsillectomy Additional Past Surgical History / Comment(s): stomach resection, R upper chest port/later removed, EGD, colonoscopies, bilateral breast benign biopsies, RK bilateral eyes, rt hip replacement Past Anesthesia/Blood Transfusion Reactions: Motion Sickness Additional Past Anesthesia/Blood Transfusion Reaction / Comment(s): Pt has claustrophobia Past Psychological History: Anxiety, Depression Smoking Status: Current every day smoker Past Alcohol Use History: None Reported Past Drug Use History: None Reported - Past Family History Father Family Medical History: Cancer, Deep Vein Thrombosis (DVT) Additional Family Medical History / Comment(s): Stomach cancer. Father of blood clot that travelled to his heart. Mother Family Medical History: Cancer Additional Family Medical History / Comment(s): Bone cancer Sister(s) Family Medical History: Cancer Additional Family Medical History / Comment(s): Breast cancer <Germán Meneds - Last Filed: 04/01/23 15:15> General Exam Limitations: no limitations <Germán Mendes - Last Filed: 04/01/23 15:15> - General Exam Comments Initial Comments: GENERAL: Patient is well-developed and well-nourished. Patient is nontoxic and well- hydrated and is in mild distress. ENT: Neck is soft and supple. No significant lymphadenopathy is noted. Oropharynx is clear. Moist mucous membranes. Neck has full range of motion without eliciting any pain. EYES: The sclera were anicteric and conjunctiva were pink and moist. Extraocular movements were intact and pupils were equal round and reactive to light. Eyelids were unremarkable. PULMONARY: Unlabored respirations. Good breath sounds bilaterally. No audible rales rhonchi or wheezing was noted. CARDIOVASCULAR: There is a regular rate and rhythm without any murmurs gallops or rubs. ABDOMEN: Patient had diffuse abdominal tenderness which she states is baseline for her SKIN: Skin is clear with no lesions or rashes and otherwise unremarkable. NEUROLOGIC: Patient is alert and oriented x3. Cranial nerves II through XII are grossly intact. Motor and sensory are also intact. Normal speech, volume and content. Symmetrical smile. MUSCULOSKELETAL: Normal extremities with adequate strength and full range of motion. No lower extremity swelling or edema. No calf tenderness. LYMPHATICS: No significant lymphadenopathy is noted PSYCHIATRIC: Normal psychiatric evaluation. (Germán Mendes) Course Vital Signs 04/01/23 04/01/23 04/01/23 12:30 13:00 13:18 Temperature 98.2 F 97.0 F L 100.9 F H Pulse Rate 76 Respiratory 18 22 Rate Blood Pressure 128/77 O2 Sat by Pulse 98 97 Oximetry 04/01/23 04/01/23 04/01/23 14:14 14:24 14:34 Temperature Pulse Rate 99 99 100 Respiratory Rate Blood Pressure O2 Sat by Pulse Oximetry 04/01/23 04/01/23 04/01/23 15:00 18:27 19:28 Temperature 98.0 F Pulse Rate 99 87 78 Respiratory 19 20 Rate Blood Pressure 125/68 138/68 O2 Sat by Pulse 95 98 Oximetry 04/01/23 19:35 Temperature Pulse Rate 84 Respiratory Rate Blood Pressure O2 Sat by Pulse Oximetry Medical Decision Making - Lab Data Result diagrams: 04/01/23 13:22 04/01/23 14:30 <Germán Mendes - Last Filed: 04/01/23 15:15> - Lab Data Result diagrams: 04/01/23 13:22 04/01/23 14:30 <Chapin Munoz - Last Filed: 04/02/23 00:05> - Medical Decision Making EKG was interpreted by myself EKG shows sinus rhythm at 73 bpm IA interval 167 QRS is 86 QT interval 363 QTC is 389. Was pt. sent in by a medical professional or institution (, PA, ACCOUNT SERVICE ASSOCIATE, urgent care, hospital, or snf...) When possible be specific @ -Patient's oncologist sent the patient to the emergency department Did you speak to anyone other than the patient for history (EMS, parent, family, police, friend...)? What history was obtained from this source @ -[No] Did you review nursing and triage notes (agree or disagree)? Why? @ -[I reviewed and agree with nursing and triage notes] Were old charts reviewed (outside hosp., previous admission, EMS record, old EKG, old radiological studies, urgent care reports/EKG's, snf records)? Report findings @ -I reviewed prior charts prior lab work and prior radiological studies in this patient Differential Diagnosis (chest pain, altered mental status, abdominal pain women, abdominal pain men, vaginal bleeding, weakness, fever, dyspnea, syncope, headache, dizziness, GI bleed, back pain, seizure, CVA, palpatations, mental health, musculoskeletal)? @Differential Dyspnea: Coronary syndrome, arrhythmia, tamponade, asthma, COPD, pulmonary embolism, pneumonia, pneumothorax, pulmonary effusion, anaphylaxis, diabetic ketoacidosis, flailed chest, pulmonary contusion, diaphragmatic rupture, anemia, neuromuscular, this is not meant to be an all-inclusive list. EKG interpreted by me (3pts min.). @ -[As above] X-rays interpreted by me (1pt min.). @ -Chest x-ray shows no acute abnormality CT interpreted by me (1pt min.). @ -[None done] U/S interpreted by me (1pt. min.). @ -[None done] What testing was considered but not performed or refused? (CT, X-rays, U/S, labs)? Why? @ -[None] What meds were considered but not given or refused? Why? @ -[None] Did you discuss the management of the patient with other professionals (professionals i.e. , PA, ACCOUNT SERVICE ASSOCIATE, lab, RT, psych nurse, social sciences professor, ocean export coordinator, teacher, biosecurity officer, case preparer and liner)? Give summary @ -[No] Was smoking cessation discussed for >3mins.? @ -[No] Was critical care preformed (if so, how long)? @ -[No] Were there social determinants of health that impacted care today? How? (Homelessness, low income, unemployed, alcoholism, drug addiction, transportation, low edu. Level, literacy, decrease access to med. care, alf, rehab)? @ -[No] Was there de-escalation of care discussed even if they declined (Discuss DNR or withdrawal of care, Hospice)? DNR status @ -[No] What co-morbidities impacted this encounter? (DM, HTN, Smoking, COPD, CAD, Cancer, CVA, ARF, Chemo, Hep., AIDS, mental health diagnosis, sleep apnea, morbid obesity)? @ -[None] Was patient admitted / discharged? Hospital course, mention meds given and route, prescriptions, significant lab abnormalities, going to OR and other pertinent info. @ -Patient was given a breathing treatment 2 g of Rocephin and steroids. Patient is feeling better after the breathing treatments however the d-dimer came back 25 and a CAT scan of the chest to rule out PE was done and the patient was signed out to Dr. Munoz and he care the patient at 3 PM (Germán Mendes) Patient signed out to me pending results of CT imaging. Presents with dyspnea of unknown etiology, with history of gastric cancer as well as history of ascites with recent paracentesis. Also has a history of COPD. Workup so far is relatively unremarkable, except for a elevated d-dimer at 25. Patient does have hypokalemia at 3.1 and hypomagnesemia of 1.5 which is replenished. Cardiac labs are unremarkable. Chest x-ray shows no obvious acute cardio pulmonary process. CT angiogram is interpreted by myself reveals no obvious pulmonary embolism, which was corroborated by radiology. They do note trace bilateral pleural effusions as well as abdominal ascites. On reevaluation, I spoke with the patient and updated her on the results. Vital signs are within acceptable limits. She is saturating well on 2 L nasal cannula. She'll be admitted at this time. She is already treated for COPD which will be continued with IV steroids as well as breathing treatments. She is also treated for upper respiratory infection with Rocephin which will be provided. I did a urinalysis which is still pending at this time. We will consult pulmonology to evaluate the patient. I consulted oncology and spoke with Dr. Manning was in agreement with this plan. I spoke with the admitting team SHAKIRA Renee of [facility] who accepted the patient. Patient admitted in stable condition. Undiagnosed new problem with uncertain prognosis? @ -Yes Drug Therapy requiring intensive monitoring for toxicity (Heparin, Nitro, Insulin, Cardizem)? @ -No Were any procedures done? @ -No Diagnosis/symptom? @ -Hypoxia and dyspnea of unknown etiology, suspect possible cancer related versus pneumonia versus COPD. Acute, or Chronic, or Acute on Chronic? @ -Acute Uncomplicated (without systemic symptoms) or Complicated (systemic symptoms)? @ -Complicated Side effects of treatment? @ -No Exacerbation, Progression, or Severe Exacerbation? @ -No Poses a threat to life or bodily function? How? (Chest pain, [place], [place], pneumonia, PE, COPD, DKA, ARF, appy, cholecystitis, CVA, Diverticulitis, Homicidal, Suicidal, threat to staff... and all critical care pts) @ -Yes Diagnosis/symptom? @ -Hypomagnesemia, hypokalemia Acute, or Chronic, or Acute on Chronic? @ -Acute Uncomplicated (without systemic symptoms) or Complicated (systemic symptoms)? @ -Uncomplicated Side effects of treatment? @ -none Exacerbation, Progression, or Severe Exacerbation] @ -no Poses a threat to life or bodily function? @ -no (Chapin Munoz) - Lab Data Lab Results 04/01/23 04/01/23 04/01/23 Range/Units 13:22 14:30 14:30 WBC 10.3 (3.8-10.6) k/uL RBC 4.01 (3.80-5.40) m/uL Hgb 12.3 (11.4-16.0) gm/dL Hct 37.9 (34.0-46.0) % MCV 94.6 (80.0-100.0) fL MCH 30.8 (25.0-35.0) pg MCHC 32.6 (31.0-37.0) g/dL RDW 14.7 (11.5-15.5) % Plt Count 500 H (150-450) k/uL MPV 7.5 Neutrophils % 83 % Lymphocytes % 14 % Monocytes % 1 % Eosinophils % 2 % Basophils % 0 % Neutrophils # 8.5 H (1.3-7.7) k/uL Lymphocytes # 1.4 (1.0-4.8) k/uL Monocytes # 0.1 (0-1.0) k/uL Eosinophils # 0.2 (0-0.7) k/uL Basophils # 0.0 (0-0.2) k/uL Hypochromasia Slight PT (9.0-12.0) sec INR (<1.2) APTT (22.0-30.0) sec D-Dimer 25.83 H (<0.60) mg/L FEU Sodium (137-145) mmol/L Potassium (3.5-5.1) mmol/L Chloride (98-107) mmol/L Carbon Dioxide (22-30) mmol/L Anion Gap mmol/L BUN (7-17) mg/dL Creatinine (0.52-1.04) mg/dL Est GFR (CKD-EPI)AfAm (>60 ml/min/1.73 sqM) Est GFR (CKD-EPI)NonAf (>60 ml/min/1.73 sqM) Glucose (74-99) mg/dL Plasma Lactic Acid Janak 1.4 (0.7-2.0) mmol/L Calcium (8.4-10.2) mg/dL Magnesium (1.6-2.3) mg/dL Total Bilirubin (0.2-1.3) mg/dL AST (14-36) U/L ALT (4-34) U/L Alkaline Phosphatase (38-126) U/L Troponin I (0.000-0.034) ng/mL NT-Pro-B Natriuret Pep pg/mL Total Protein (6.3-8.2) g/dL Albumin (3.5-5.0) g/dL Urine Color Urine Appearance (Clear) Urine pH (5.0-8.0) Ur Specific Hampton (1.001-1.035) Urine Protein (Negative) Urine Glucose (UA) (Negative) Urine Ketones (Negative) Urine Blood (Negative) Urine Nitrite (Negative) Urine Bilirubin (Negative) Urine Urobilinogen (<2.0) mg/dL Ur Leukocyte Esterase (Negative) Urine RBC (0-5) /hpf Urine WBC (0-5) /hpf Ur Squamous Epith Cells (0-4) /hpf Urine Bacteria (None) /hpf Urine Mucus (None) /hpf 04/01/23 04/01/23 04/01/23 Range/Units 14:30 14:30 14:30 WBC (3.8-10.6) k/uL RBC (3.80-5.40) m/uL Hgb (11.4-16.0) gm/dL Hct (34.0-46.0) % MCV (80.0-100.0) fL MCH (25.0-35.0) pg MCHC (31.0-37.0) g/dL RDW (11.5-15.5) % Plt Count (150-450) k/uL MPV Neutrophils % % Lymphocytes % % Monocytes % % Eosinophils % % Basophils % % Neutrophils # (1.3-7.7) k/uL Lymphocytes # (1.0-4.8) k/uL Monocytes # (0-1.0) k/uL Eosinophils # (0-0.7) k/uL Basophils # (0-0.2) k/uL Hypochromasia PT (9.0-12.0) sec INR (<1.2) APTT (22.0-30.0) sec D-Dimer (<0.60) mg/L FEU Sodium 135 L (137-145) mmol/L Potassium 3.1 L (3.5-5.1) mmol/L Chloride 104 (98-107) mmol/L Carbon Dioxide 24 (22-30) mmol/L Anion Gap 7 mmol/L BUN 11 (7-17) mg/dL Creatinine 0.58 (0.52-1.04) mg/dL Est GFR (CKD-EPI)AfAm >90 (>60 ml/min/1.73 sqM) Est GFR (CKD-EPI)NonAf >90 (>60 ml/min/1.73 sqM) Glucose 92 (74-99) mg/dL Plasma Lactic Acid Janak (0.7-2.0) mmol/L Calcium 7.5 L (8.4-10.2) mg/dL Magnesium 1.5 L (1.6-2.3) mg/dL Total Bilirubin 0.5 (0.2-1.3) mg/dL AST 23 (14-36) U/L ALT 12 (4-34) U/L Alkaline Phosphatase 80 (38-126) U/L Troponin I <0.012 (0.000-0.034) ng/mL NT-Pro-B Natriuret Pep 198 pg/mL Total Protein 4.9 L (6.3-8.2) g/dL Albumin 2.7 L (3.5-5.0) g/dL Urine Color Urine Appearance (Clear) Urine pH (5.0-8.0) Ur Specific [place] (1.001-1.035) Urine Protein (Negative) Urine Glucose (UA) (Negative) Urine Ketones (Negative) Urine Blood (Negative) Urine Nitrite (Negative) Urine Bilirubin (Negative) Urine Urobilinogen (<2.0) mg/dL Ur Leukocyte Esterase (Negative) Urine RBC (0-5) /hpf Urine WBC (0-5) /hpf Ur Squamous Epith Cells (0-4) /hpf Urine Bacteria (None) /hpf Urine Mucus (None) /hpf 04/01/23 04/01/23 Range/Units 15:39 16:50 WBC (3.8-10.6) k/uL RBC (3.80-5.40) m/uL Hgb (11.4-16.0) gm/dL Hct (34.0-46.0) % MCV (80.0-100.0) fL MCH (25.0-35.0) pg MCHC (31.0-37.0) g/dL RDW (11.5-15.5) % Plt Count (150-450) k/uL MPV Neutrophils % % Lymphocytes % % Monocytes % % Eosinophils % % Basophils % % Neutrophils # (1.3-7.7) k/uL Lymphocytes # (1.0-4.8) k/uL Monocytes # (0-1.0) k/uL Eosinophils # (0-0.7) k/uL Basophils # (0-0.2) k/uL Hypochromasia PT 10.2 (9.0-12.0) sec INR 1.0 (<1.2) APTT 21.5 L (22.0-30.0) sec D-Dimer (<0.60) mg/L FEU Sodium (137-145) mmol/L Potassium (3.5-5.1) mmol/L Chloride (98-107) mmol/L Carbon Dioxide (22-30) mmol/L Anion Gap mmol/L BUN (7-17) mg/dL Creatinine (0.52-1.04) mg/dL Est GFR (CKD-EPI)AfAm (>60 ml/min/1.73 sqM) Est GFR (CKD-EPI)NonAf (>60 ml/min/1.73 sqM) Glucose (74-99) mg/dL Plasma Lactic Acid Janak (0.7-2.0) mmol/L Calcium (8.4-10.2) mg/dL Magnesium (1.6-2.3) mg/dL Total Bilirubin (0.2-1.3) mg/dL AST (14-36) U/L ALT (4-34) U/L Alkaline Phosphatase (38-126) U/L Troponin I (0.000-0.034) ng/mL NT-Pro-B Natriuret Pep pg/mL Total Protein (6.3-8.2) g/dL Albumin (3.5-5.0) g/dL Urine Color Yellow Urine Appearance Cloudy H (Clear) Urine pH 6.0 (5.0-8.0) Ur Specific [place] 1.027 (1.001-1.035) Urine Protein 1+ H (Negative) Urine Glucose (UA) Negative (Negative) Urine Ketones 1+ H (Negative) Urine Blood Moderate H (Negative) Urine Nitrite Negative (Negative) Urine Bilirubin Negative (Negative) Urine Urobilinogen <2.0 (<2.0) mg/dL Ur Leukocyte Esterase Large H (Negative) Urine RBC 67 H (0-5) /hpf Urine WBC 45 H (0-5) /hpf Ur Squamous Epith Cells 2 (0-4) /hpf Urine Bacteria Rare H (None) /hpf Urine Mucus Few H (None) /hpf Critical Care Time Critical Care Time: Yes Total Critical Care Time: 45 <Germán Mendes - Last Filed: 04/01/23 15:15> Disposition <Germán Mendes - Last Filed: 04/01/23 15:15> Time of Disposition: 17:01 <Chapin Munoz - Last Filed: 04/02/23 00:05> Clinical Impression: Hypoxia, Dyspnea, Hypomagnesemia, Hypokalemia Disposition: ADMITTED IP TO THIS [facility] Condition: Stable
[2023-04-01 13:55] LABS: Basophils % (A) 0 %; Eosinophils # (A) 0.2 k/uL (0-0.7); Eosinophils % (A) 2 %; HCT 37.9 % (34.0-46.0); HGB 12.3 gm/dL (11.4-16.0); Hypochromasia Slight; Lymphocytes # (A) 1.4 k/uL (1.0-4.8); Lymphocytes % (A) 14 %; MCH 30.8 pg (25.0-35.0); MCHC 32.6 g/dL (31.0-37.0); MCV 94.6 fL (80.0-100.0); Mean Platelet Volume 7.5; Monocytes # (A) 0.1 k/uL (0-1.0); Monocytes % (A) 1 %; Neutrophils # (A) 8.5 k/uL (1.3-7.7); Neutrophils % (A) 83 %; Platelet Count 500 k/uL (150-450); RBC 4.01 m/uL (3.80-5.40); RDW 14.7 % (11.5-15.5); WBC 10.3 k/uL (3.8-10.6)
[2023-04-01] MEDS ORDERED: cefTRIAXone IN SWFI 1,000 MG/10 ML SYRINGE IVP STA (14:15)
--- NOTE | 2023-04-01 14:15 | XR ---
EXAMINATION TYPE: XR chest 2V DATE OF EXAM: 04/01/2023 2:09 PM COMPARISON: Chest radiographs from 02/07/2021 TECHNIQUE: XR chest 2V Frontal and lateral views of the chest. CLINICAL INDICATION:Female, 72 years old with history of difficulty breathing; FINDINGS: Lungs/Pleura: There is flattening of the diaphragm with increased lucency of the lungs. No evidence o f pneumothorax, pleural effusion or focal consolidation. Chronic senescent parenchyma change. Pulmonary vascularity: Unremarkable. Heart/mediastinum: Cardiomediastinal silhouette is unremarkable. Atherosclerotic calcifications are seen in the aorta. Musculoskeletal: No acute osseous pathology. Proximal humeral fracture deformity demonstrated. Degene rative changes of the thoracic spine. Other findings: None Lines/Tubes: Irynpv-d-Avum projecting over the right hemithorax with distal tip at the cavoatrial junction. IMPRESSION: 1. No acute cardiopulmonary disease process. 2. COPD changes.
[2023-04-01 15:00] LABS: ALT 12 U/L (4-34); AST 23 U/L (14-36); African American GFR (CKD) >90 (>60 ml/min/1.73 sqM); Albumin 2.7 g/dL (3.5-5.0); Alkaline Phosphatase 80 U/L (38-126); Anion Gap 7 mmol/L; Blood Urea Nitrogen 11 mg/dL (7-17); Calcium 7.5 mg/dL (8.4-10.2); Carbon Dioxide 24 mmol/L (22-30); Chloride 104 mmol/L (98-107); Magnesium 1.5 mg/dL (1.6-2.3); Non-African American GFR(CKD) >90 (>60 ml/min/1.73 sqM); Potassium 3.1 mmol/L (3.5-5.1); Sodium 135 mmol/L (137-145); Total Bilirubin 0.5 mg/dL (0.2-1.3); Total Protein 4.9 g/dL (6.3-8.2)
[2023-04-01 15:04] LABS: Glucose 92 mg/dL (74-99)
--- NOTE | 2023-04-01 16:17 | CT ---
EXAMINATION TYPE: CT chest angio for PE CT DLP: 215.9 mGycm, Automated exposure control for dose reduction was used. DATE OF EXAM: 04/01/2023 4:07 PM COMPARISON: Chest radiograph same day. CLINICAL INDICATION:Female, 72 years old with history of Elevated d-dimer; sob and elevated d-dimer. hx of stomach ca TECHNIQUE/CONTRAST: CTA scan of the thorax is performed with IV Contrast, patient injected with 90ml mL of Isovue 370, pu lmonary embolism protocol. MIP images are created and reviewed these are created on a separate works tation.. FINDINGS: Pulmonary Artery: There is no evidence for a filling defect within the pulmonary vasculature to sugge st acute pulmonary embolism. The pulmonary artery is of normal size. Lungs/Pleura: No focal consolidation or pneumothorax. Trace bilateral pleural effusions. Airway: Larg e airways are patent. Heart: Heart is within normal limits for size. Vasculature: Mild atherosclerotic calcifications are present throughout the aorta and its branches. R ight chest wall [id number] with tip in the superior vena cava. Mediastinum: No gross evidence of adenopathy. Small hiatal hernia. Musculoskeletal: Fracture deformity of the proximal right humerus. Soft Tissues: Unremarkable. Lower neck: No significant findings. Upper Abdomen: Upper abdominal ascites. Nodular contour to liver. IMPRESSION: 1. No evidence of pulmonary embolism. 2. Trace bilateral pleural effusions with centrilobular emphysema changes. 3. Abdominal ascites with nodular contour to liver. Correlate for cirrhosis. 4. From 20 to the right proximal humerus correlate for recent fracture.
[2023-04-01 16:20] LABS: Prothrombin Time 10.2 sec (9.0-12.0)
[2023-04-01] MEDS ORDERED: MAGNESIUM SULFATE-D5W PMX 1 GM in DEXTROSE/WATER 1 100ML.BAG IVPB ONE (16:20)
[2023-04-01] MEDS ORDERED: POTASSIUM CHLORIDE ER 20 MEQ TAB.ER PO STA (16:20)
[2023-04-01 16:36] LABS: Partial Thromboplastin Time 21.5 sec (22.0-30.0)
[2023-04-01] MEDS ORDERED: NALOXONE 0.4 MG/ML 1 ML VIAL IV PRN (17:20)
[2023-04-01 18:19] LABS: Appearance,Urine Cloudy (Clear); Bacteria,Urine Rare /hpf; Bilirubin,Urine Negative (Negative); Blood,Urine Moderate (Negative); Color,Urine Yellow; Glucose,Urine (UA) Negative (Negative); Ketones,Urine 1+ (Negative); Leukocyte Esterase,Urine Large (Negative); Mucus,Urine Few /hpf; Nitrite,Urine Negative (Negative); Protein,Urine 1+ (Negative); RBC,Urine 67 /hpf (0-5); Specific Gravity,Urine 1.027 (1.001-1.035); Squamous Epithelial Cell,Urine 2 /hpf (0-4); Urobilinogen,Urine <2.0 mg/dL (<2.0); WBC,Urine 45 /hpf (0-5)
[2023-04-01] MEDS ORDERED: IPRATROPIUM-ALBUTEROL 3 ML NEB INHALATION PRN (19:30)
[2023-04-01] MEDS: IPRATROPIUM-ALBUTEROL 3 ML NEB INHALATION SCH (19:33)
[2023-04-01] MEDS ORDERED: IPRATROPIUM-ALBUTEROL 3 ML NEB INHALATION SCH (20:00)
[2023-04-01] MEDS: methylPREDNISolone SOD SUCCI 40 MG/ML 1 ML VIAL IV SCH (22:02)
[2023-04-01] MEDS: HEPARIN SODIUM,PORCINE/PF 5,000 UNIT/0.5 ML SYRINGE SQ SCH (23:36)
[2023-04-02] MEDS ORDERED: ONDANSETRON 4 MG TAB PO PRN (00:37)
[2023-04-02] MEDS ORDERED: HYDROmorphone 2 MG TAB PO PRN (06:23)
[2023-04-02] MEDS: SUCRALFATE 1 GM TAB PO SCH ×2 (06:33→17:53)
[2023-04-02] MEDS: PANTOPRAZOLE 40 MG TABLET PO SCH (06:33)
[2023-04-02 07:50] LABS: African American GFR (CKD) >90 (>60 ml/min/1.73 sqM); Anion Gap 11 mmol/L; Blood Urea Nitrogen 14 mg/dL (7-17); Calcium 8.2 mg/dL (8.4-10.2); Carbon Dioxide 20 mmol/L (22-30); Chloride 109 mmol/L (98-107); Glucose 143 mg/dL (74-99); Magnesium 2.2 mg/dL (1.6-2.3); Non-African American GFR(CKD) >90 (>60 ml/min/1.73 sqM); Potassium 3.7 mmol/L (3.5-5.1); Sodium 140 mmol/L (137-145)
[2023-04-02] MEDS: IPRATROPIUM-ALBUTEROL 3 ML NEB INHALATION SCH ×4 (07:53→20:16)
[2023-04-02] MEDS ORDERED: SALT AND SODA MOUTHWASH 1,000 ML PO PRN (09:00)
[2023-04-02] MEDS ORDERED: [UNRECOGNIZED DRUG - MIXTURE] PO SCH (09:00)
[2023-04-02] MEDS: VENLAFAXINE HCL ER 150 MG CAP PO SCH (10:15)
[2023-04-02] MEDS: methylPREDNISolone SOD SUCCI 40 MG/ML 1 ML VIAL IV SCH (10:15)
[2023-04-02] MEDS: HEPARIN SODIUM,PORCINE/PF 5,000 UNIT/0.5 ML SYRINGE SQ SCH ×2 (10:16→17:55)
[2023-04-02] MEDS: NICOTINE 7MG/24HR PATCH TRANSDERM SCH (10:38)
[2023-04-02] MEDS: OXYBUTYNIN 10 MG TAB.ER.24 PO SCH (10:38)
[2023-04-02 11:18] LABS: Basophils # (A) 0.03 X 10*3/uL (0.00-0.10); Basophils % (A) 0.2 %; Eosinophils # (A) 0 X 10*3/uL (0.04-0.35); Eosinophils % (A) 0 %; HGB 11.1 d/dL (12.0-15.0); Lymphocytes # (A) 0.68 X 10*3/uL (0.90-5.00); Lymphocytes % (A) 5.5 %; MCH 30.9 pg (27.0-32.0); MCHC 31.7 d/dL (32.0-37.0); MCV 97.5 FL (80.0-97.0); Mean Platelet Volume 9.3 FL (9.5-12.2); Monocytes # (A) 0.66 X 10*3/uL (0.20-1.00); Monocytes % (A) 5.4 %; NRBC Per 100 WBC 0 X 10*3/uL (0.00-0.01); Neutrophils # (A) 10.83 X 10*3/uL (1.80-7.70); Neutrophils % (A) 88.2 %; Platelet Count 335 X 10*3/uL (140-440); RBC 3.59 X 10*6/uL (4.10-5.20); WBC 12.28 X 10*3/uL (4.50-10.00)
[2023-04-02] MEDS: methylPREDNISolone SOD SUCCI 125 MG/2 ML VIAL IV SCH ×2 (12:18→17:54)
[2023-04-02 13:09] VITALS: BMI 18.4
--- NOTE | 2023-04-02 13:14 | CA ---
Transthoracic Echo Report Name: Aniyah Mcconnell Age: 72 Gender: F : 1950 Exam Date: 04/02/2023 11:46 Exam Location: [facility] Ht (in): 65 Wt (lb): 111 Ordering Physician: Chapin Munoz MD Attending/Referring Phys: Distance Education Director Oswaldo Alonzo Procedure CPT: Indications: dyspnea Cardiac Hx: Technical Quality: Technically difficult study Contrast 1: Total Dose (mL): Contrast 2: Total Dose (mL): MEASUREMENTS (Male / Female) Normal Values 2D ECHO LV Diastolic Diameter PLAX 3.2 cm 4.2 - 5.9 / 3.9 - 5.3 cm LV Systolic Diameter PLAX 1.9 cm IVS Diastolic Thickness 1.1 cm 0.6 - 1.0 / 0.6 - 0.9 cm LVPW Diastolic Thickness 1.0 cm 0.6 - 1.0 / 0.6 - 0.9 cm LV Relative Wall Thickness 0.6 RV Internal Dim ED PLAX 1.8 cm LVOT Diameter 2.0 cm Aortic Root Diameter 2.8 cm LA Systolic Diameter LX 2.0 cm 3.0 - 4.0 / 2.7 - 3.8 cm LV Diastolic Volume MOD BP 23.4 cm??? 67 - 155 / 56 - 104 cm??? LV Systolic Volume MOD BP 6.8 cm??? 22 - 58 / 19 - 49 cm??? LV Ejection Fraction MOD BP 70.9 % >= 55 % LV Diastolic Volume MOD 4C 32.9 cm??? LV Systolic Volume MOD 4C 10.0 cm??? LV Ejection Fraction MOD 4C 69.5 % LV Diastolic Length 4C 6.7 cm LV Systolic Length 4C 5.4 cm LV Diastolic Volume MOD 2C 11.2 cm??? LV Systolic Volume MOD 2C 2.6 cm??? LV Ejection Fraction MOD 2C 76.5 % LV Diastolic Length 2C 4.5 cm LV Systolic Length 2C 3.1 cm LA Volume 16.5 cm??? 18 - 58 / 22 - 52 cm??? DOPPLER LVOT Peak Velocity 117.5 cm/s LVOT Peak Gradient 5.5 mmHg Mitral E Point Velocity 74.0 cm/s Mitral A Point Velocity 98.8 cm/s Mitral E to A Ratio 0.7 MV Deceleration Time 286.2 ms TR Peak Velocity 170.7 cm/s TR Peak Gradient 11.7 mmHg Right Ventricular Systolic Press 18.1 mmHg PV Peak Velocity 123.8 cm/s PV Peak Gradient 6.1 mmHg FINDINGS Left Ventricle Normal LVsize and wall thickness.left ventricular ejection fraction is estimated at 55-60 %. Right Ventricle Normal right ventricular size. Right Atrium Normal right atrial size. Left Atrium Normal left atrial size. Mitral Valve Structurally normal mitral valve. No mitral regurgitation. No mitral stenosis. Aortic Valve Aortic valve not well visualized. No aortic stenosis. No aortic regurgitation. Tricuspid Valve Tricuspid valve not well visualized. Mild TR. Pulmonic Valve Pulmonic valve not well visualized. No pulmonic regurgitation. Pericardium Normal pericardium. Aorta Normal size aortic root and proximal ascending aorta. CONCLUSIONS Normal LV size and systolic function. No significant abnormality in the Doppler exam. No pericardial effusion. No significant pulmonary hypertension Previewed by: Dr. Kishore Swanson MD (Electronically Signed) Final Date: 02 April 2023 13:13
--- NOTE | 2023-04-02 13:26 | P.CNPUL ---
History of Present Illness Consult date: 04/02/23 Requesting physician: Osiel Dee Reason for consult: dyspnea, COPD Chief complaint: Shortness of breath History of present illness: This is a very pleasant 72-year-old female patient with a known history of bilateral hydronephrosis with bilateral stents placed, chronic obstructive pulmonary disease, chronic and ongoing tobacco dependence since age 15, gastric adenocarcinoma diagnosed in 2019 and had a resection and chemotherapy. She had recurrence in June 2022 with EGD and biopsy revealing poorly differentiated adenocarcinoma. She was started on FOLFOX in July 2022. She had recently developed ascites and had undergone paracentesis on 03/22/2023 5 L removed and was positive for metastatic adenocarcinoma consistent with primary upper GI tract origin. Yesterday she developed increasing shortness of breath and abdominal discomfort and presented here to the emergency room for the same. Chest x-ray revealed no acute pulmonary process. Evidence of COPD. CT angiogram ruled out pulmonary embolism. There is trace bilateral pleural effusions. Centrilobular emphysema. Abdominal ascites with nodular contour to the liver. White count 12.2. Hemoglobin 11.1. Platelets 335. Sodium 140. Potassium 3.7. Bicarb 20. BUN 14. Creatinine 0.65. Urinalysis with moderate blood. High WBCs. Culture pending. She is seen today in consultation on the regular medical floor. She is currently sitting up in bed. Awake and alert in no acute distress. She is maintaining O2 saturations in the upper 90s on 2 L/m per nasal cannula. She's been afebrile. Hemodynamically stable. Review of Systems REVIEW OF SYSTEMS: CONSTITUTIONAL: Denies any recent significant weight loss or weight gain. EYES: Denies change in vision. EARS, NOSE, MOUTH, THROAT: Denies headaches, denies sore throat. CARDIOVASCULAR: Denies chest pain, palpitations or syncopal episodes. RESPIRATORY: Positive for shortness of breath, cough, congestion no hemoptysis. GASTROINTESTINAL: Positive for abdominal pain GENITOURINARY: Denies hematuria, denies infections. MUSKULOSKELETAL: Denies pain, denies swelling. INTEGUMENTARY: Denies rash, denies eczema. NEUROLOGICAL: Denies recent memory loss, no recent seizure activity. PSYCHIATRIC: Denies anxiety, denies depression. HEMATOLOGIC/LYMPHATIC: Denies anemia, denies enlarged lymph nodes. Past Medical History Past Medical History: Cancer, COPD, Hyperlipidemia, Hypertension, Osteoarthritis (OA) Additional Past Medical History / Comment(s): 03/2020 diagnosed with stomach cancer/had resection and chemo and is currently in remission/sees Dr. Bay every 6 weeks, hemorroids, UTIs, hx stomach ulcer History of Any Multi-Drug Resistant Organisms: None Reported Past Surgical History: Breast Surgery, Cholecystectomy, Joint Replacement, Orthopedic Surgery, Tonsillectomy Additional Past Surgical History / Comment(s): stomach resection, R upper chest port/later removed, EGD, colonoscopies, bilateral breast benign biopsies, RK bilateral eyes, rt hip replacement Past Anesthesia/Blood Transfusion Reactions: Motion Sickness Additional Past Anesthesia/Blood Transfusion Reaction / Comment(s): Pt has claustrophobia Past Psychological History: Anxiety, Depression Additional Psychological History / Comment(s): . Smoking Status: Current every day smoker Past Alcohol Use History: None Reported Additional Past Alcohol Use History / Comment(s): Pt started smoking in 1966 and quit 08/2021 Past Drug Use History: None Reported - Past Family History Father Family Medical History: Cancer, Deep Vein Thrombosis (DVT) Additional Family Medical History / Comment(s): Stomach cancer. Father of blood clot that travelled to his heart. Mother Family Medical History: Cancer Additional Family Medical History / Comment(s): Bone cancer Sister(s) Family Medical History: Cancer Additional Family Medical History / Comment(s): Breast cancer Medications and Allergies Home Medications Medication Instructions Recorded Confirmed Type Oxybutynin Chloride [oxyBUTYnin 10 mg PO DAILY #30 tab 03/28/22 04/01/23 Rx chloride ER] Omeprazole [PriLOSEC] 20 mg PO AC-BRKFST #90 cap 06/25/22 04/01/23 Rx Lovastatin [Mevacor] 40 mg PO HS 07/27/22 04/01/23 History Ondansetron [Zofran] 4 mg PO Q6H PRN 07/27/22 04/01/23 History Sucralfate [Carafate] 1 gm PO BID 01/19/23 04/01/23 History Baking Soda Salt Mouth Rinse 1 dose PO QID 03/22/23 04/01/23 History Venlafaxine HCl ER [Effexor XR] 150 mg PO DAILY 06/19/23 06/29/23 History HYDROmorphone [Dilaudid] 4 mg PO Q4-6H PRN 04/01/23 04/01/23 History Allergies Allergy/AdvReac Type Severity Reaction Status Date / Time No Known Allergies Allergy Verified 04/01/23 13:31 Physical Exam Vitals: Vital Signs Temp Pulse Pulse Resp BP BP Pulse Ox 04/02/23 08:04 84 04/02/23 07:54 82 04/02/23 07:19 98.1 F 72 18 136/68 99 04/02/23 01:55 97.7 F 68 18 118/82 97 04/01/23 23:00 97.8 F 18 113/66 99 04/01/23 19:35 84 04/01/23 19:28 78 04/01/23 18:27 98.0 F 87 20 138/68 98 04/01/23 15:00 99 19 125/68 95 04/01/23 14:34 100 04/01/23 14:24 99 04/01/23 14:14 99 04/01/23 13:18 100.9 F H 04/01/23 13:00 97.0 F L 22 97 Intake and Output 04/01/23 04/02/23 04/02/23 22:59 06:59 14:59 Other: # Voids 2 Weight 50.349 kg GENERAL EXAM: Alert, very pleasant 72-year-old female, on 2 L nasal cannula, comfortable in no apparent distress. HEAD: Normocephalic. EYES: Normal reaction of pupils, equal size. NOSE: Clear with pink turbinates. THROAT: No erythema or exudates. NECK: No masses, no JVD. CHEST: No chest wall deformity. LUNGS: Equal air entry with bilateral end expiratory wheeze, diminished. CVS: S1 and S2 normal with no audible murmur, regular rhythm. ABDOMEN: No hepatosplenomegaly, normal bowel sounds, no guarding or rigidity. SPINE: No scoliosis or deformity SKIN: No rashes CENTRAL NERVOUS SYSTEM: No focal deficits, tone is normal in all 4 extremities. EXTREMITIES: There is no peripheral edema. No clubbing, no cyanosis. P eripheral pulses are intact. Results - Laboratory Findings CBC and BMP: 04/02/23 06:42 04/02/23 06:42 PT/INR, D-dimer PT 10.2 sec (9.0-12.0) 06/29/23 15:39 INR 1.0 (<1.2) 04/01/23 15:39 D-Dimer 25.83 mg/L FEU (<0.60) H 04/01/23 14:30 Abnormal lab findings: Abnormal Labs 04/01/23 04/01/23 04/01/23 13:22 14:30 14:30 WBC RBC Hgb Hct MCV MCHC RDW Plt Count 500 H MPV Neutrophils # 8.5 H Lymphocytes # Eosinophils # APTT D-Dimer 25.83 H Sodium 135 L Potassium 3.1 L Chloride Carbon Dioxide Glucose Calcium 7.5 L Magnesium 1.5 L Total Protein 4.9 L Albumin 2.7 L Urine Appearance Urine Protein Urine Ketones Urine Blood Ur Leukocyte Esterase Urine RBC Urine WBC Urine Bacteria Urine Mucus 04/01/23 04/01/23 04/02/23 15:39 16:50 06:42 WBC 12.28 H RBC 3.59 L Hgb 11.1 L Hct 35.0 L MCV 97.5 H MCHC 31.7 L RDW 15.0 H Plt Count MPV 9.3 L Neutrophils # 10.83 H Lymphocytes # 0.68 L Eosinophils # 0 L APTT 21.5 L D-Dimer Sodium Potassium Chloride Carbon Dioxide Glucose Calcium Magnesium Total Protein Albumin Urine Appearance Cloudy H Urine Protein 1+ H Urine Ketones 1+ H Urine Blood Moderate H Ur Leukocyte Esterase Large H Urine RBC 67 H Urine WBC 45 H Urine Bacteria Rare H Urine Mucus Few H 04/02/23 06:42 WBC RBC Hgb Hct MCV MCHC RDW Plt Count MPV Neutrophils # Lymphocytes # Eosinophils # APTT D-Dimer Sodium Potassium Chloride 109 H Carbon Dioxide 20 L Glucose 143 H Calcium 8.2 L Magnesium Total Protein Albumin Urine Appearance Urine Protein Urine Ketones Urine Blood Ur Leukocyte Esterase Urine RBC Urine WBC Urine Bacteria Urine Mucus - Diagnostic Findings Chest x-ray: image reviewed CT scan - chest: image reviewed Assessment and Plan Assessment: Acute hypoxemic respiratory failure secondary to an acute exacerbation of chronic obstructive pulmonary disease Gastric adenocarcinoma originally diagnosed in 2019 with recent recurrence and the patient was initiated on FOLFOX in July 2022 and currently on 5-FU and Opdivo Ascites with recent paracentesis 03/22/2023 with 5 L removed. Fluid positive for metastatic adenocarcinoma consistent with primary upper GI tract origin Urinary tract infection suspected, culture pending Chronic and ongoing tobacco dependence of greater than 50 years History of bilateral hydronephrosis status post stent placement Hyperlipidemia Osteoarthritis Plan: The patient was seen and evaluated Chest x-ray, CAT scans, labs and medications reviewed Initiate Symbicort, DuoNeb inhalations, Solu-Medrol Continue ceftriaxone Educated regarding importance of complete stroke Association NicoDerm patch in place She would benefit from outpatient workup including pulmonary function testing We will continue to follow and make further recommendations based on her clinical status I have personally seen and examined the patient, performed the documentation and the assessment and plan as written. Number of minutes spent on the visit: 20.
--- NOTE | 2023-04-02 14:00 | P.HPIM ---
History of Present Illness Patient is a pleasant 72-year-old female with known history of COPD, gastric adenocarcinoma for which patient is presently on chemotherapy after recurrence came in with complaints of shortness of breath found to have bilateral rhonchi CT angiogram did not show any pulmonary embolism show trace pleural effusions patient does have history of COPD doesn't use any oxygen at home was requiring 2 L of oxygen and admission. Patient was started on systemic steroids inhalational treatments for COPD exacerbation. He was also having cough with some sputum production REVIEW OF SYSTEMS: CONSTITUTIONAL: No fever, no malaise, no fatigue. HEENT: No recent visual problems or hearing problems. Denied any sore throat. CARDIOVASCULAR: No chest pain, orthopnea, PND, no palpitations, no syncope. PULMONARY: As mentioned in HPI GASTROINTESTINAL: No diarrhea, no nausea, no vomiting, no abdominal pain. NEUROLOGICAL: No headaches, no weakness, no numbness. HEMATOLOGICAL: Denies any bleeding or petechiae. GENITOURINARY: Denies any burning micturition, frequency, or urgency. MUSCULOSKELETAL/RHEUMATOLOGICAL: Denies any joint pain, swelling, or any muscle pain. ENDOCRINE: Denies any polyuria or polydipsia. The rest of the 14-point review of systems is negative. PHYSICAL EXAMINATION: GENERAL: The patient is alert and oriented x3, not in any acute distress. Well developed, well nourished. HEENT: Pupils are round and equally reacting to light. EOMI. No scleral icterus. No conjunctival pallor. Normocephalic, atraumatic. No pharyngeal erythema. No thyromegaly. CARDIOVASCULAR: S1 and S2 present. No murmurs, rubs, or gallops. PULMONARY: Bilateral rhonchi and mild expiratory wheezing ABDOMEN: Soft, nontender, nondistended, normoactive bowel sounds. No palpable organomegaly. MUSCULOSKELETAL: No joint swelling or deformity. EXTREMITIES: No cyanosis, clubbing, or pedal edema. NEUROLOGICAL: Gross neurological examination did not reveal any focal deficits. SKIN: No rashes. Assessment and plan -Acute hypoxic respiratory failure seconded COPD exacerbation for which patient was started on systemic steroids inhalational treatments and patient was evaluated by pulmonary -Leukocytosis probably secondary to bronchitis and systemic steroids continue with systemic steroids at this time -Gastric adenocarcinoma for which patient is undergoing chemotherapy Recent bilateral hydronephrosis for which patient had a recent stent -Hyperlipidemia -Rule out pulmonary embolism DVT prophylaxis: Heparin subcutaneous Past Medical History Past Medical History: Cancer, COPD, Hyperlipidemia, Hypertension, Osteoarthritis (OA) Additional Past Medical History / Comment(s): 03/2020 diagnosed with stomach cancer/had resection and chemo and is currently in remission/sees Dr. Bay every 6 weeks, hemorroids, UTIs, hx stomach ulcer History of Any Multi-Drug Resistant Organisms: None Reported Past Surgical History: Breast Surgery, Cholecystectomy, Joint Replacement, Orthopedic Surgery, Tonsillectomy Additional Past Surgical History / Comment(s): stomach resection, R upper chest port/later removed, EGD, colonoscopies, bilateral breast benign biopsies, RK bilateral eyes, rt hip replacement Past Anesthesia/Blood Transfusion Reactions: Motion Sickness Additional Past Anesthesia/Blood Transfusion Reaction / Comment(s): Pt has claustrophobia Past Psychological History: Anxiety, Depression Additional Psychological History / Comment(s): . Smoking Status: Current every day smoker Past Alcohol Use History: None Reported Additional Past Alcohol Use History / Comment(s): Pt started smoking in 1966 and quit 08/2021 Past Drug Use History: None Reported - Past Family History Father Family Medical History: Cancer, Deep Vein Thrombosis (DVT) Additional Family Medical History / Comment(s): Stomach cancer. Father of blood clot that travelled to his heart. Mother Family Medical History: Cancer Additional Family Medical History / Comment(s): Bone cancer Sister(s) Family Medical History: Cancer Additional Family Medical History / Comment(s): Breast cancer Medications and Allergies Home Medications Medication Instructions Recorded Confirmed Type Oxybutynin Chloride [oxyBUTYnin 10 mg PO DAILY #30 tab 03/28/22 04/01/23 Rx chloride ER] Omeprazole [PriLOSEC] 20 mg PO AC-BRKFST #90 cap 06/25/22 04/01/23 Rx Lovastatin [Mevacor] 40 mg PO HS 07/27/22 04/01/23 History Ondansetron [Zofran] 4 mg PO Q6H PRN 07/27/22 04/01/23 History Sucralfate [Carafate] 1 gm PO BID 01/19/23 04/01/23 History Baking Soda Salt Mouth Rinse 1 dose PO QID 03/22/23 04/01/23 History Venlafaxine HCl ER [Effexor XR] 150 mg PO DAILY 03/22/23 04/01/23 History HYDROmorphone [Dilaudid] 4 mg PO Q4-6H PRN 04/01/23 04/01/23 History Allergies Allergy/AdvReac Type Severity Reaction Status Date / Time No Known Allergies Allergy Verified 04/01/23 13:31 Physical Exam Vitals: Vital Signs Temp Pulse Pulse Resp BP BP Pulse Ox 04/02/23 13:03 98.2 F 78 17 166/78 95 04/02/23 08:04 84 04/02/23 07:54 82 04/02/23 07:19 98.1 F 72 18 136/68 99 04/02/23 01:55 97.7 F 68 18 118/82 97 04/01/23 23:00 97.8 F 18 113/66 99 04/01/23 19:35 84 04/01/23 19:28 78 04/01/23 18:27 98.0 F 87 20 138/68 98 04/01/23 15:00 99 19 125/68 95 04/01/23 14:34 100 04/01/23 14:24 99 04/01/23 14:14 99 Intake and Output 04/01/23 04/02/23 04/02/23 22:59 06:59 14:59 Other: Voiding Method Toilet # Voids 2 Weight 50.349 kg 50.349 kg Results CBC & Chem 7: 04/02/23 06:42 04/02/23 06:42 Labs: Abnormal Lab Results - Last 24 Hours (Table) 04/01/23 04/01/23 04/01/23 Range/Units 14:30 14:30 15:39 WBC (4.50-10.00) X 10*3/uL RBC (4.10-5.20) X 10*6/uL Hgb (12.0-15.0) d/dL Hct (37.2-46.3) % MCV (80.0-97.0) FL MCHC (32.0-37.0) d/dL RDW (11.5-14.5) % MPV (9.5-12.2) FL Neutrophils # (1.80-7.70) X 10*3/uL Lymphocytes # (0.90-5.00) X 10*3/uL Eosinophils # (0.04-0.35) X 10*3/uL APTT 21.5 L (22.0-30.0) sec D-Dimer 25.83 H (<0.60) mg/L FEU Sodium 135 L (137-145) mmol/L Potassium 3.1 L (3.5-5.1) mmol/L Chloride (98-107) mmol/L Carbon Dioxide (22-30) mmol/L Glucose (74-99) mg/dL Calcium 7.5 L (8.4-10.2) mg/dL Magnesium 1.5 L (1.6-2.3) mg/dL Total Protein 4.9 L (6.3-8.2) g/dL Albumin 2.7 L (3.5-5.0) g/dL Urine Appearance (Clear) Urine Protein (Negative) Urine Ketones (Negative) Urine Blood (Negative) Ur Leukocyte Esterase (Negative) Urine RBC (0-5) /hpf Urine WBC (0-5) /hpf Urine Bacteria (None) /hpf Urine Mucus (None) /hpf 04/01/23 04/02/23 04/02/23 Range/Units 16:50 06:42 06:42 WBC 12.28 H (4.50-10.00) X 10*3/uL RBC 3.59 L (4.10-5.20) X 10*6/uL Hgb 11.1 L (12.0-15.0) d/dL Hct 35.0 L (37.2-46.3) % MCV 97.5 H (80.0-97.0) FL MCHC 31.7 L (32.0-37.0) d/dL RDW 15.0 H (11.5-14.5) % MPV 9.3 L (9.5-12.2) FL Neutrophils # 10.83 H (1.80-7.70) X 10*3/uL Lymphocytes # 0.68 L (0.90-5.00) X 10*3/uL Eosinophils # 0 L (0.04-0.35) X 10*3/uL APTT (22.0-30.0) sec D-Dimer (<0.60) mg/L FEU Sodium (137-145) mmol/L Potassium (3.5-5.1) mmol/L Chloride 109 H (98-107) mmol/L Carbon Dioxide 20 L (22-30) mmol/L Glucose 143 H (74-99) mg/dL Calcium 8.2 L (8.4-10.2) mg/dL Magnesium (1.6-2.3) mg/dL Total Protein (6.3-8.2) g/dL Albumin (3.5-5.0) g/dL Urine Appearance Cloudy H (Clear) Urine Protein 1+ H (Negative) Urine Ketones 1+ H (Negative) Urine Blood Moderate H (Negative) Ur Leukocyte Esterase Large H (Negative) Urine RBC 67 H (0-5) /hpf Urine WBC 45 H (0-5) /hpf Urine Bacteria Rare H (None) /hpf Urine Mucus Few H (None) /hpf Thrombosis Risk Factor Assmnt - Choose All That Apply Each Factor Represents 1 point: Abnormal pulmonary function (COPD) Each Risk Factor Represents 2 Points: Age 61-74 years Each Risk Factor Represents 3 Points: Family history of DVT/PE Thrombosis Risk Factor Assessment Total Risk Factor Score: 6 Thrombosis Risk Factor Assessment Level: High Risk
--- NOTE | 2023-04-02 20:12 | P.CONS ---
History of Present Illness - Reason for Consult Consult date: 04/02/23 gastric carcinoma Requesting physician: Chapin Munoz - Chief Complaint weakness - History of Present Illness Ms. Mcconnell is a female pt of Dr. Bay diagnosed and initially treated for gastric cancer [facility]. She presented March 2020 with persistent N/V and wt loss over 2-3 months. 03/14/2020 CT AP revealed gastric thickening at proximal duodenum and gastric distention. EGD 03/18/2020 revealed a lesion at pre pylorus, bx positive for invasive adenocarcinoma, diffuse type, HER2 negative. EUS 03/29/2020 revealed stage T3N0 disease, 04/03/2020 CT chest was negative. She started on FLOT regimen, x4, Tx f/u CT CAP 06/30/2020 revealed decrease in neoplastic process of gastric antrum and decrease in size of previously borderline enlarged and morphologically abnormal gastric hepatic ligament nodes. 07/25/2020 she underwent gastrectomy, pathology revealed poorly differentiated carcinoma, diffuse type, 07/15 nodes were positive, pT3N3a disease, negative margins,+ lymphovascular invasion. She moved locally and established with Dr. Bay. She had MEREDITH on post op CT CAP. She started adjuvant FLOT, stopped Oct 2020 due to progressive neuropathy. She had f/u scans all neg for recurrence. 09/23/2021 EGD revealed gastritis and Roman esophagous. Biopsy of small abdominal wall lesion in 12/2021 came back negative. March 2022 she developed abdominal pain, admitted to [facility], CT AP revealed bilateral hydronephrosis. She had ureteral stent placement. 05/27/[address] CAP showed thickening at posterior gastric wall. EGD 06/25/2022 with biopsy of gastric jejunostomy site, positive as poorly differentiated adenocarcinoma, signet cell type, DALE,HER2, and PDL-1 negative. 07/21/2022 she started FOLFOX/opdivo. 07/28/2022 she had paracentesis, cytology was positive. She had MEREDITH otherwise, ascites did not recur. SHe had imaging that was stable. She then went on infusional 5FU and opdivo and has been on since. 03/2023 she was admitted with N,V, abd pain and distension. She had paracentesis, ascitic fluid positive for metastatic adenocarcinoma consistent with primary upper gastrointestinal tract origin. CT AP 03/12/23 no other disease. Pt treatment on hold. IN ofc yesterday for f/u pt reporting increasing weakness and shortness of breath, having difficulties taking care of herself at home. Echo reports no pulmonary hypertension, LVEF 55-60%. CTA no PE, trace bilateral pleural effusion, centrilobular emphysema changes, abdominal ascites with nodular contour to the liver. Chest x-ray no acute cardiopulmonary process, COPD change s Review of Systems 10 point review of systems is negative except as stated in HPI Past Medical History Past Medical History: Cancer, COPD, Hyperlipidemia, Hypertension, Osteoarthritis (OA) Additional Past Medical History / Comment(s): 03/2020 diagnosed with stomach cancer/had resection and chemo and is currently in remission/sees Dr. Bay every 6 weeks, hemorroids, UTIs, hx stomach ulcer History of Any Multi-Drug Resistant Organisms: None Reported Past Surgical History: Breast Surgery, Cholecystectomy, Joint Replacement, Orthopedic Surgery, Tonsillectomy Additional Past Surgical History / Comment(s): stomach resection, R upper chest port/later removed, EGD, colonoscopies, bilateral breast benign biopsies, RK bilateral eyes, rt hip replacement Past Anesthesia/Blood Transfusion Reactions: Motion Sickness Additional Past Anesthesia/Blood Transfusion Reaction / Comm: Pt has claustrophobia Past Psychological History: Anxiety, Depression Additional Psychological History / Comment(s): . Smoking Status: Current every day smoker Past Alcohol Use History: None Reported Additional Past Alcohol Use History / Comment(s): Pt started smoking in 1966 and quit 08/2021 Past Drug Use History: None Reported - Past Family History Father Family Medical History: Cancer, Deep Vein Thrombosis (DVT) Additional Family Medical History / Comment(s): Stomach cancer. Father of blood clot that travelled to his heart. Mother Family Medical History: Cancer Additional Family Medical History / Comment(s): Bone cancer Sister(s) Family Medical History: Cancer Additional Family Medical History / Comment(s): Breast cancer Medications and Allergies Home Medications Medication Instructions Recorded Confirmed Type Oxybutynin Chloride [oxyBUTYnin 10 mg PO DAILY #30 tab 03/28/22 04/01/23 Rx chloride ER] Omeprazole [PriLOSEC] 20 mg PO AC-BRKFST #90 cap 06/25/22 04/01/23 Rx Lovastatin [Mevacor] 40 mg PO HS 07/27/22 04/01/23 History Ondansetron [Zofran] 4 mg PO Q6H PRN 07/27/22 04/01/23 History Sucralfate [Carafate] 1 gm PO BID 01/19/23 04/01/23 History Baking Soda Salt Mouth Rinse 1 dose PO QID 03/22/23 04/01/23 History Venlafaxine HCl ER [Effexor XR] 150 mg PO DAILY 03/22/23 04/01/23 History HYDROmorphone [Dilaudid] 4 mg PO Q4-6H PRN 04/01/23 04/01/23 History Allergies Allergy/AdvReac Type Severity Reaction Status Date / Time No Known Allergies Allergy Verified 04/01/23 13:31 Physical Exam Vitals: Vital Signs Temp Pulse Pulse Resp BP BP Pulse Ox 04/02/23 08:04 84 04/02/23 07:54 82 04/02/23 07:19 98.1 F 72 18 136/68 99 04/02/23 01:55 97.7 F 68 18 118/82 97 04/01/23 23:00 97.8 F 18 113/66 99 04/01/23 19:35 84 04/01/23 19:28 78 04/01/23 18:27 98.0 F 87 20 138/68 98 04/01/23 15:00 99 19 125/68 95 04/01/23 14:34 100 04/01/23 14:24 99 04/01/23 14:14 99 04/01/23 13:18 100.9 F H 04/01/23 13:00 97.0 F L 22 97 04/01/23 12:30 98.2 F 76 18 128/77 98 Intake and Output 04/01/23 04/02/23 04/02/23 22:59 06:59 14:59 Other: # Voids 2 Weight 50.349 kg - Constitutional General appearance: average body habitus, cooperative, no acute distress - EENT Eyes: anicteric sclerae, EOMI ENT: hearing grossly normal, normal oropharynx - Neck Neck: no lymphadenopathy - Respiratory Respiratory: bilateral: diminished (Bases) - Cardiovascular Rhythm: regular Heart sounds: normal: S1, S2 Abnormal Heart Sounds: no systolic murmur, no diastolic murmur, no rub, no S3 Gallop, no S4 Gallop, no click, no other leg Peripheral Edema: bilateral: None - Gastrointestinal General gastrointestinal: no absent bowel sounds, no decreased bowel sounds, distended, no hepatomegaly, no hyperactive bowel sounds, normal bowel sounds, no organomegaly, no rigid, no scaphoid, soft, no splenomegaly, no tenderness, no umbilical hernia, no ventral hernia - Integumentary Integumentary: normal - Neurologic Neurologic: CNII-XII intact - Musculoskeletal Musculoskeletal: strength equal bilaterally - Psychiatric Psychiatric: A&O x's 3, appropriate affect, intact judgment & insight Results CBC & Chem 7: 04/02/23 06:42 04/02/23 06:42 Labs: Abnormal Lab Results - Last 24 Hours (Table) 04/01/23 04/01/23 04/01/23 Range/Units 13:22 14:30 14:30 Plt Count 500 H (150-450) k/uL Neutrophils # 8.5 H (1.3-7.7) k/uL APTT (22.0-30.0) sec D-Dimer 25.83 H (<0.60) mg/L FEU Sodium 135 L (137-145) mmol/L Potassium 3.1 L (3.5-5.1) mmol/L Chloride (98-107) mmol/L Carbon Dioxide (22-30) mmol/L Glucose (74-99) mg/dL Calcium 7.5 L (8.4-10.2) mg/dL Magnesium 1.5 L (1.6-2.3) mg/dL Total Protein 4.9 L (6.3-8.2) g/dL Albumin 2.7 L (3.5-5.0) g/dL Urine Appearance (Clear) Urine Protein (Negative) Urine Ketones (Negative) Urine Blood (Negative) Ur Leukocyte Esterase (Negative) Urine RBC (0-5) /hpf Urine WBC (0-5) /hpf Urine Bacteria (None) /hpf Urine Mucus (None) /hpf 04/01/23 04/01/23 04/02/23 Range/Units 15:39 16:50 06:42 Plt Count (150-450) k/uL Neutrophils # (1.3-7.7) k/uL APTT 21.5 L (22.0-30.0) sec D-Dimer (<0.60) mg/L FEU Sodium (137-145) mmol/L Potassium (3.5-5.1) mmol/L Chloride 109 H (98-107) mmol/L Carbon Dioxide 20 L (22-30) mmol/L Glucose 143 H (74-99) mg/dL Calcium 8.2 L (8.4-10.2) mg/dL Magnesium (1.6-2.3) mg/dL Total Protein (6.3-8.2) g/dL Albumin (3.5-5.0) g/dL Urine Appearance Cloudy H (Clear) Urine Protein 1+ H (Negative) Urine Ketones 1+ H (Negative) Urine Blood Moderate H (Negative) Ur Leukocyte Esterase Large H (Negative) Urine RBC 67 H (0-5) /hpf Urine WBC 45 H (0-5) /hpf Urine Bacteria Rare H (None) /hpf Urine Mucus Few H (None) /hpf Comments: ECHO LVEF 55-60% Chest x-ray: report reviewed CT scan - chest: report reviewed Assessment and Plan (1) Dyspnea Current Visit: Yes Status: Acute Priority: High Code(s): R06.00 - DYSPNEA, UNSPECIFIED SNOMED Code(s): 027145019 (2) Gastric adenocarcinoma Current Visit: No Status: Chronic Priority: High Code(s): C16.9 - MALIGNANT NEOPLASM OF STOMACH, UNSPECIFIED SNOMED Code(s): 196601707 Plan: SOB -Being treated for COPD exacerbation by Pulmonary -Reports improvements in breathing Gastric carcinoma -Patient is been on treatment. On hold recently due to progressive weakness -Recent paracentesis positive for malignant cells. She had positive ascitic fluid previously. CT AP and CTA not reporting any new or enlarging masses or LAD. -Appointment to follow-up with Dr. Bay for discussion regarding treatment options (she is weak and was needing break from chemo), prognosis with and without treatment, and to define set goals of care. Date and time in DC plan Once patient's presenting symptoms have been managed, she is okay from an Oncology standpoint to be discharged Patient did express concerns about lack of support at home. Discussed case with Social Work. Home care/palliative care will be helpful, pt agreeable. Would like pt to have as many services as she qualifies for.
[2023-04-02] MEDS: SYMBICORT 160-4.5 MCG INHALER INHALATION SCH (20:15)
[2023-04-02] MEDS ORDERED: ATORVASTATIN 40 MG TAB PO SCH (21:00)
[2023-04-02] MEDS: ATORVASTATIN 10 MG TAB PO SCH (21:07)
[2023-04-03] MEDS: HEPARIN SODIUM,PORCINE/PF 5,000 UNIT/0.5 ML SYRINGE SQ SCH ×3 (00:28→17:01)
[2023-04-03] MEDS: HYDROcodone/APAP 5-325MG 1 EACH TAB PO PRN ×2 (00:28→22:10)
[2023-04-03] MEDS: methylPREDNISolone SOD SUCCI 125 MG/2 ML VIAL IV SCH ×4 (00:28→17:01)
[2023-04-03] MEDS: PANTOPRAZOLE 40 MG TABLET PO SCH (06:19)
[2023-04-03] MEDS: SUCRALFATE 1 GM TAB PO SCH ×2 (06:19→17:02)
[2023-04-03] MEDS: SYMBICORT 160-4.5 MCG INHALER INHALATION SCH ×2 (08:27→19:49)
[2023-04-03] MEDS: IPRATROPIUM-ALBUTEROL 3 ML NEB INHALATION SCH ×4 (08:27→19:49)
[2023-04-03] MEDS: NICOTINE 7MG/24HR PATCH TRANSDERM SCH (09:02)
[2023-04-03] MEDS: OXYBUTYNIN 10 MG TAB.ER.24 PO SCH (09:02)
[2023-04-03] MEDS: VENLAFAXINE HCL ER 150 MG CAP PO SCH (09:02)
--- NOTE | 2023-04-03 09:48 | P.PN ---
Subjective Progress Note Date: 04/03/23 This is a very pleasant 72-year-old female patient with a known history of bilateral hydronephrosis with bilateral stents placed, chronic obstructive pulmonary disease, chronic and ongoing tobacco dependence since age 15, gastric adenocarcinoma diagnosed in 2019 and had a resection and chemotherapy. She had recurrence in June 2022 with EGD and biopsy revealing poorly differentiated adenocarcinoma. She was started on FOLFOX in July 2022. She had recently developed ascites and had undergone paracentesis on 03/22/2023 5 L removed and was positive for metastatic adenocarcinoma consistent with primary upper GI tract origin. Yesterday she developed increasing shortness of breath and abdominal discomfort and presented here to the emergency room for the same. Chest x-ray revealed no acute pulmonary process. Evidence of COPD. CT angiogram ruled out pulmonary embolism. There is trace bilateral pleural effusions. Centrilobular emphysema. Abdominal ascites with nodular contour to the liver. White count 12.2. Hemoglobin 11.1. Platelets 335. Sodium 140. Potassium 3.7. Bicarb 20. BUN 14. Creatinine 0.65. Urinalysis with moderate blood. High WBCs. Culture pending. She is seen today in consultation on the regular medical floor. She is currently sitting up in bed. Awake and alert in no acute distress. She is maintaining O2 saturations in the upper 90s on 2 L/m per nasal cannula. She's been afebrile. Hemodynamically stable. The patient is seen today 04/03/2023 in follow-up on the regular medical floor. She is currently sitting up in bed. Awake and alert in no acute distress. Still dyspneic with minimal exertion. Dyspneic with conversation. She is maintaining O2 saturations in the 90s on 2 L/m per nasal cannula. She is continued on ceftriaxone. Blood cultures are pending. Continued on DuoNeb inhalations, Symbicort, IV Solu-Medrol. NicoDerm patch in place. Objective - Vital Signs Vital signs: Vital Signs Temp 98.0 F 04/03/23 07:58 Pulse 88 04/03/23 08:41 Resp 16 04/03/23 07:58 BP 158/74 04/03/23 07:58 Pulse Ox 98 04/03/23 08:28 FiO2 Intake & Output 04/02/23 04/03/23 04/03/23 18:59 06:59 18:59 Weight 50.349 kg Other: Voiding Method Toilet # Voids 2 - Exam GENERAL EXAM: Alert, pleasant 72-year-old female, on room air, comfortable in no apparent distress. HEAD: Normocephalic. EYES: Normal reaction of pupils, equal size. NOSE: Clear with pink turbinates. THROAT: No erythema or exudates. NECK: No masses, no JVD. CHEST: No chest wall deformity. LUNGS: Equal air entry with bilateral end expiratory wheeze, diminished. CVS: S1 and S2 normal with no audible murmur, regular rhythm. ABDOMEN: No hepatosplenomegaly, normal bowel sounds, no guarding or rigidity. SPINE: No scoliosis or deformity SKIN: No rashes CENTRAL NERVOUS SYSTEM: No focal deficits, tone is normal in all 4 extremities. EXTREMITIES: There is no peripheral edema. No clubbing, no cyanosis. Peripheral pulses are intact. - Labs CBC & Chem 7: 04/02/23 06:42 04/02/23 06:42 Labs: Abnormal Lab Results - Last 24 Hours (Table) 04/02/23 Range/Units 06:42 WBC 12.28 H (4.50-10.00) X 10*3/uL RBC 3.59 L (4.10-5.20) X 10*6/uL Hgb 11.1 L (12.0-15.0) d/dL Hct 35.0 L (37.2-46.3) % MCV 97.5 H (80.0-97.0) FL MCHC 31.7 L (32.0-37.0) d/dL RDW 15.0 H (11.5-14.5) % MPV 9.3 L (9.5-12.2) FL Neutrophils # 10.83 H (1.80-7.70) X 10*3/uL Lymphocytes # 0.68 L (0.90-5.00) X 10*3/uL Eosinophils # 0 L (0.04-0.35) X 10*3/uL Microbiology - Last 24 Hours (Table) 04/01/23 13:30 Blood Culture - Preliminary Blood 04/01/23 13:15 Blood Culture - Preliminary Blood Assessment and Plan Assessment: Acute hypoxemic respiratory failure secondary to an acute exacerbation of chronic obstructive pulmonary disease Gastric adenocarcinoma originally diagnosed in 2019 with recent recurrence and the patient was initiated on FOLFOX in July 2022 and currently on 5-FU and Opdivo Ascites with recent paracentesis 03/22/2023 with 5 L removed. Fluid positive for metastatic adenocarcinoma consistent with primary upper GI tract origin Urinary tract infection suspected, on ceftriaxone Chronic and ongoing tobacco dependence of greater than 50 years History of bilateral hydronephrosis status post stent placement Hyperlipidemia Osteoarthritis Plan: The patient was seen and evaluated Medications reviewed Continue Symbicort, DuoNeb inhalations, Solu-Medrol Continue ceftriaxone Educated regarding importance of complete smoking cessation NicoDerm patch in place We will continue to follow I have personally seen and examined the patient, performed the documentation and the assessment and plan as written. Number of minutes spent on the visit: 10.
--- NOTE | 2023-04-03 13:42 | P.PN ---
Subjective Patient is a pleasant 72-year-old female with known history of COPD, gastric adenocarcinoma for which patient is presently on chemotherapy after recurrence came in with complaints of shortness of breath found to have bilateral rhonchi CT angiogram did not show any pulmonary embolism show trace pleural effusions patient does have history of COPD doesn't use any oxygen at home was requiring 2 L of oxygen and admission. Patient was started on systemic steroids inhalational treatments for COPD exacerbation. He was also having cough with some sputum production 04/03/2023 Patient has significant improvement in her respiratory status patient is being continued on systemic steroids possibly of discharge tomorrow Constitutional: Denied any fatigue denied any fever. Cardio vascular: denied any chest pain, palpitations Gastrointestinal denied any nausea vomiting Pulmonary: Improved shortness of breath Neurologic denied any new focal deficits All inpatient medications were reviewed and appropriate changes in these medications as dictated in the interval history and assessment and plan. PHYSICAL EXAMINATION: GENERAL: The patient is alert and oriented x3, not in any acute distress. Well developed, well nourished. HEENT: Pupils are round and equally reacting to light. EOMI. No scleral icterus. No conjunctival pallor. Normocephalic, atraumatic. No pharyngeal erythema. No thyromegaly. CARDIOVASCULAR: S1 and S2 present. No murmurs, rubs, or gallops. PULMONARY: Bilateral rhonchi and mild expiratory wheezing ABDOMEN: Soft, nonte nder, nondistended, normoactive bowel sounds. No palpable organomegaly. MUSCULOSKELETAL: No joint swelling or deformity. EXTREMITIES: No cyanosis, clubbing, or pedal edema. NEUROLOGICAL: Gross neurological examination did not reveal any focal deficits. SKIN: No rashes. Assessment and plan -Acute hypoxic respiratory failure seconded COPD exacerbation for which patient was started on systemic steroids inhalational treatments and patient was evaluated by pulmonary -Leukocytosis probably secondary to bronchitis and systemic steroids continue with systemic steroids at this time -Gastric adenocarcinoma for which patient is undergoing chemotherapy Recent bilateral hydronephrosis for which patient had a recent stent -Hyperlipidemia -Rule out pulmonary embolism Objective - Vital Signs Vital signs: Vital Signs Temp 98.0 F 04/03/23 07:58 Pulse 88 04/03/23 12:51 Resp 16 04/03/23 08:00 BP 158/74 04/03/23 07:58 Pulse Ox 98 04/03/23 08:28 FiO2 Intake & Output 04/02/23 04/03/23 04/03/23 18:59 06:59 18:59 Weight 50.349 kg Other: Voiding Method Toilet Toilet # Voids 2 - Labs CBC & Chem 7: 04/02/23 06:42 04/02/23 06:42 Labs: Microbiology - Last 24 Hours (Table) 04/01/23 13:30 Blood Culture - Preliminary Blood 04/01/23 13:15 Blood Culture - Preliminary Blood
[2023-04-03] MEDS ORDERED: ONDANSETRON 4 MG/2 ML VIAL IVP PRN (19:59)
[2023-04-03] MEDS: ATORVASTATIN 10 MG TAB PO SCH (22:10)
[2023-04-03] MEDS: CYCLOBENZAPRINE 5 MG TAB PO PRN (22:11)
[2023-04-04] MEDS: methylPREDNISolone SOD SUCCI 125 MG/2 ML VIAL IV SCH ×4 (01:14→17:26)
[2023-04-04] MEDS: HEPARIN SODIUM,PORCINE/PF 5,000 UNIT/0.5 ML SYRINGE SQ SCH ×3 (01:14→17:25)
[2023-04-04] MEDS: PANTOPRAZOLE 40 MG TABLET PO SCH (06:42)
[2023-04-04] MEDS: SUCRALFATE 1 GM TAB PO SCH ×2 (06:42→17:26)
[2023-04-04] MEDS: SYMBICORT 160-4.5 MCG INHALER INHALATION SCH ×2 (08:05→19:58)
[2023-04-04] MEDS: IPRATROPIUM-ALBUTEROL 3 ML NEB INHALATION SCH ×4 (08:05→19:58)
[2023-04-04] MEDS: VENLAFAXINE HCL ER 150 MG CAP PO SCH (09:03)
[2023-04-04] MEDS: NICOTINE 7MG/24HR PATCH TRANSDERM SCH (09:04)
[2023-04-04] MEDS: OXYBUTYNIN 10 MG TAB.ER.24 PO SCH (09:04)
[2023-04-04] MEDS: CYCLOBENZAPRINE 5 MG TAB PO PRN ×3 (09:13→22:05)
[2023-04-04] MEDS ORDERED: polyethylene glycoL 3350 17 GM POWD.PACK PO PRN (10:48)
--- NOTE | 2023-04-04 11:01 | XR ---
EXAMINATION TYPE: XR abdomen 2V DATE OF EXAM: 04/04/2023 COMPARISON: 08/04/2022 INDICATION: Constipation and vomiting abdominal distention and pain TECHNIQUE: Single view abdomen frontal projection FINDINGS: Bilateral ureteral stents are present. Fecal debris is within the transverse colon. Psoas margins are normal. No organomegaly is present. No suspicious calcifications are identified. IMPRESSION: 1. Bilateral ureteral stents. 2. Mild fecal retention within the transverse colon
--- NOTE | 2023-04-04 11:17 | P.PN ---
Subjective Patient is a pleasant 72-year-old female with known history of COPD, gastric adenocarcinoma for which patient is presently on chemotherapy after recurrence came in with complaints of shortness of breath found to have bilateral rhonchi CT angiogram did not show any pulmonary embolism show trace pleural effusions patient does have history of COPD doesn't use any oxygen at home was requiring 2 L of oxygen and admission. Patient was started on systemic steroids inhalational treatments for COPD exacerbation. He was also having cough with some sputum production 04/03/2023 Patient has significant improvement in her respiratory status patient is being continued on systemic steroids possibly of discharge tomorrow 04/04/2023 Patient's abdomen is distended tympanic, patient is constipated didn't have a bowel movement for 3 days. Ordered MiraLAX and senna. Patient still has rhonchi and wheezing. Constitutional: Denied any fatigue denied any fever. Cardio vascular: denied any chest pain, palpitations Gastrointestinal as mentioned above Pulmonary: As mentioned above Neurologic denied any new focal deficits All inpatient medications were reviewed and appropriate changes in these medications as dictated in the interval history and assessment and plan. PHYSICAL EXAMINATION: GENERAL: The patient is alert and oriented x3, not in any acute distress. Well developed, well nourished. HEENT: Pupils are round and equally reacting to light. EOMI. No scleral icterus. No conjunctival pallor. Normocephalic, atraumatic. No pharyngeal erythema. No thyromegaly. CARDIOVASCULAR: S1 and S2 present. No murmurs, rubs, or gallops. PULMONARY: Bilateral rhonchi and mild expiratory wheezing ABDOMEN: Distended tympanic No palpable organomegaly. MUSCULOSKELETAL: No joint swelling or deformity. EXTREMITIES: No cyanosis, clubbing, or pedal edema. NEUROLOGICAL: Gross neurological examination did not reveal any focal deficits. SKIN: No rashes. Assessment and plan -Acute hypoxic respiratory failure seconded COPD exacerbation for which patient was started on systemic steroids inhalational treatments and patient was evaluated by pulmonary -Severe abdominal distention and constipation: No evidence of bowel rupture, secondary to constipation, MiraLAX and senna -Leukocytosis probably secondary to bronchitis and systemic steroids continue with systemic steroids at this time -Gastric adenocarcinoma for which patient is undergoing chemotherapy Recent bilateral hydronephrosis for which patient had a recent stent -Hyperlipidemia -Rule out pulmonary embolism Objective - Vital Signs Vital signs: Vital Signs Temp 98.6 F 04/04/23 07:44 Pulse 76 04/04/23 08:17 Resp 20 04/04/23 07:44 BP 168/74 04/04/23 07:44 Pulse Ox 95 04/04/23 08:05 FiO2 Intake & Output 04/03/23 04/04/23 04/04/23 18:59 06:59 18:59 Intake Total 200 Balance 200 Intake: Oral 200 Other: Voiding Method Toilet Toilet Toilet # Voids 1 1 1 - Labs CBC & Chem 7: 04/02/23 06:42 04/02/23 06:42 Labs: Microbiology - Last 24 Hours (Table) 04/01/23 13:15 Blood Culture - Preliminary Blood 04/01/23 13:30 Blood Culture - Preliminary Blood
--- NOTE | 2023-04-04 12:33 | P.PN ---
Subjective Progress Note Date: 04/04/23 This is a very pleasant 72-year-old female patient with a known history of bilateral hydronephrosis with bilateral stents placed, chronic obstructive pulmonary disease, chronic and ongoing tobacco dependence since age 15, gastric adenocarcinoma diagnosed in 2019 and had a resection and chemotherapy. She had recurrence in June 2022 with EGD and biopsy revealing poorly differentiated adenocarcinoma. She was started on FOLFOX in July 2022. She had recently developed ascites and had undergone paracentesis on 03/22/2023 5 L removed and was positive for metastatic adenocarcinoma consistent with primary upper GI tract origin. Yesterday she developed increasing shortness of breath and abdominal discomfort and presented here to the emergency room for the same. Chest x-ray revealed no acute pulmonary process. Evidence of COPD. CT angiogram ruled out pulmonary embolism. There is trace bilateral pleural effusions. Centrilobular emphysema. Abdominal ascites with nodular contour to the liver. White count 12.2. Hemoglobin 11.1. Platelets 335. Sodium 140. Potassium 3.7. Bicarb 20. BUN 14. Creatinine 0.65. Urinalysis with moderate blood. High WBCs. Culture pending. She is seen today in consultation on the regular medical floor. She is currently sitting up in bed. Awake and alert in no acute distress. She is maintaining O2 saturations in the upper 90s on 2 L/m per nasal cannula. She's been afebrile. Hemodynamically stable. The patient is seen today 04/03/2023 in follow-up on the regular medical floor. She is currently sitting up in bed. Awake and alert in no acute distress. Still dyspneic with minimal exertion. Dyspneic with conversation. She is maintaining O2 saturations in the 90s on 2 L/m per nasal cannula. She is continued on ceftriaxone. Blood cultures are pending. Continued on DuoNeb inhalations, Symbicort, IV Solu-Medrol. NicoDerm patch in place. The patient is seen today 04/04/2023 in follow-up on the regular medical floor. She is resting in bed. Awake and alert in no acute distress. Denies any worsening shortness of breath, cough or congestion. She is having ongoing abdominal discomfort. Abdominal x-ray reveals evidence of bilateral ureteral stents. Fecal debris within the transverse colon. No organomegaly. No suspicious calcifications identified. She has been initiated on MiraLAX and senna per medicine. She remains on DuoNeb inhalations, Symbicort, Solu-Medrol. Antibiotics in the form of ceftriaxone. NicoDerm patch in place. Objective - Vital Signs Vital signs: Vital Signs Temp 98.6 F 04/04/23 07:44 Pulse 84 04/04/23 11:44 Resp 20 04/04/23 07:44 BP 168/74 04/04/23 07:44 Pulse Ox 95 04/04/23 08:05 FiO2 Intake & Output 04/03/23 04/04/23 04/04/23 18:59 06:59 18:59 Intake Total 200 Balance 200 Intake: Oral 200 Other: Voiding Method Toilet Toilet Toilet # Voids 1 1 1 - Exam GENERAL EXAM: Alert, pleasant 72-year-old female, resting in bed, on room air, comfortable in no apparent distress. HEAD: Normocephalic. EYES: Normal reaction of pupils, equal size. NOSE: Clear with pink turbinates. THROAT: No erythema or exudates. NECK: No masses, no JVD. CHEST: No chest wall deformity. LUNGS: Equal air entry with bilateral end expiratory wheeze, diminished. CVS: S1 and S2 normal with no audible murmur, regular rhythm. ABDOMEN: Abdominal distention. No hepatosplenomegaly, normal bowel sounds, no guarding or rigidity. SPINE: No scoliosis or deformity SKIN: No rashes CENTRAL NERVOUS SYSTEM: No focal deficits, tone is normal in all 4 extremities. EXTREMITIES: There is no peripheral edema. No clubbing, no cyanosis. Peripheral pulses are intact. - Labs CBC & Chem 7: 04/02/23 06:42 04/02/23 06:42 Labs: Microbiology - Last 24 Hours (Table) 04/01/23 13:15 Blood Culture - Preliminary Blood 04/01/23 13:30 Blood Culture - Preliminary Blood Assessment and Plan Assessment: Acute hypoxemic respiratory failure secondary to an acute exacerbation of chronic obstructive pulmonary disease Gastric adenocarcinoma originally diagnosed in 2019 with recent recurrence and the patient was initiated on FOLFOX in July 2022 and currently on 5-FU and Opdivo Ascites with recent paracentesis 03/22/2023 with 5 L removed. Fluid positive for metastatic adenocarcinoma consistent with primary upper GI tract origin Abdominal discomfort secondary to above in addition to mild fecal debris within the transverse colon Urinary tract infection suspected, on ceftriaxone Chronic and ongoing tobacco dependence of greater than 50 years History of bilateral hydronephrosis status post stent placement Hyperlipidemia Osteoarthritis Plan: The patient was seen and evaluated Abdominal x-ray and medications reviewed Initiated on Bing lax and senna Continue Symbicort, DuoNeb inhalations, Solu-Medrol Continue ceftriaxone Educated regarding importance of complete smoking cessation NicoDerm patch in place Probable discharge in the a.m. We will continue to follow I have personally seen and examined the patient, performed the documentation and the assessment and plan as written. Number of minutes spent on the visit: 10.
[2023-04-04] MEDS: SENNOSIDES-DOCUSATE SODIUM 1 EACH TAB PO SCH (13:36)
[2023-04-04] MEDS ORDERED: DEXTROSE 50% SYRINGE 50 ML IVP PRN ×2 (17:22)
[2023-04-04 17:24] LABS: Glucose,Whole Blood 128 mg/dL (70-110)
[2023-04-04] MEDS: INSULIN ASPART (NovoLOG) 100 UNIT/ML VIAL SQ SCH ×2 (17:32→21:59)
[2023-04-04 21:40] LABS: Glucose,Whole Blood 130 mg/dL (70-110)
[2023-04-04] MEDS: ATORVASTATIN 10 MG TAB PO SCH (22:00)
[2023-04-04] MEDS: HYDROcodone/APAP 5-325MG 1 EACH TAB PO PRN (22:05)
[2023-04-05] MEDS: methylPREDNISolone SOD SUCCI 125 MG/2 ML VIAL IV SCH ×5 (01:33→23:45)
[2023-04-05] MEDS: HEPARIN SODIUM,PORCINE/PF 5,000 UNIT/0.5 ML SYRINGE SQ SCH ×4 (01:33→23:44)
[2023-04-05 06:00] LABS: Glucose,Whole Blood 107 mg/dL (70-110)
[2023-04-05] MEDS: INSULIN ASPART (NovoLOG) 100 UNIT/ML VIAL SQ SCH ×4 (06:03→21:05)
[2023-04-05] MEDS: SUCRALFATE 1 GM TAB PO SCH ×2 (06:11→17:28)
[2023-04-05] MEDS: PANTOPRAZOLE 40 MG TABLET PO SCH (06:11)
[2023-04-05] MEDS: VENLAFAXINE HCL ER 150 MG CAP PO SCH (08:08)
[2023-04-05] MEDS: SENNOSIDES-DOCUSATE SODIUM 1 EACH TAB PO SCH (08:08)
[2023-04-05] MEDS: HYDROcodone/APAP 5-325MG 1 EACH TAB PO PRN ×2 (08:09→23:45)
[2023-04-05] MEDS: NICOTINE 7MG/24HR PATCH TRANSDERM SCH (08:09)
[2023-04-05] MEDS: OXYBUTYNIN 10 MG TAB.ER.24 PO SCH (08:09)
[2023-04-05] MEDS: SYMBICORT 160-4.5 MCG INHALER INHALATION SCH ×2 (09:36→20:22)
[2023-04-05] MEDS: IPRATROPIUM-ALBUTEROL 3 ML NEB INHALATION SCH ×4 (09:36→20:22)
--- NOTE | 2023-04-05 10:38 | US ---
EXAMINATION TYPE: US abdomen limited DATE OF EXAM: 04/05/2023 COMPARISON: NONE CLINICAL INDICATION: Female, 72 years old with history of Ascites; Abd distension and discomfort All four quadrants scanned, mild fluid noted in all 4 quadrants. Deepest pocket measures 9 cm in LLQ. Hydronephrosis seen in rt. kidney with stent present IMPRESSION: 1. Moderate ascites in all 4 quadrants.
[2023-04-05 11:18] LABS: Glucose,Whole Blood 116 mg/dL (70-110)
--- NOTE | 2023-04-05 11:55 | P.PN ---
Subjective Progress Note Date: 04/05/23 This is a very pleasant 72-year-old female patient with a known history of bilateral hydronephrosis with bilateral stents placed, chronic obstructive pulmonary disease, chronic and ongoing tobacco dependence since age 15, gastric adenocarcinoma diagnosed in 2019 and had a resection and chemotherapy. She had recurrence in June 2022 with EGD and biopsy revealing poorly differentiated adenocarcinoma. She was started on FOLFOX in July 2022. She had recently developed ascites and had undergone paracentesis on 03/22/2023 5 L removed and was positive for metastatic adenocarcinoma consistent with primary upper GI tract origin. Yesterday she developed increasing shortness of breath and abdominal discomfort and presented here to the emergency room for the same. Chest x-ray revealed no acute pulmonary process. Evidence of COPD. CT angiogram ruled out pulmonary embolism. There is trace bilateral pleural effusions. Centrilobular emphysema. Abdominal ascites with nodular contour to the liver. White count 12.2. Hemoglobin 11.1. Platelets 335. Sodium 140. Potassium 3.7. Bicarb 20. BUN 14. Creatinine 0.65. Urinalysis with moderate blood. High WBCs. Culture pending. She is seen today in consultation on the regular medical floor. She is currently sitting up in bed. Awake and alert in no acute distress. She is maintaining O2 saturations in the upper 90s on 2 L/m per nasal cannula. She's been afebrile. Hemodynamically stable. The patient is seen today 04/03/2023 in follow-up on the regular medical floor. She is currently sitting up in bed. Awake and alert in no acute distress. Still dyspneic with minimal exertion. Dyspneic with conversation. She is maintaining O2 saturations in the 90s on 2 L/m per nasal cannula. She is continued on ceftriaxone. Blood cultures are pending. Continued on DuoNeb inhalations, Symbicort, IV Solu-Medrol. NicoDerm patch in place. The patient is seen today 04/04/2023 in follow-up on the regular medical floor. She is resting in bed. Awake and alert in no acute distress. Denies any worsening shortness of breath, cough or congestion. She is having ongoing abdominal discomfort. Abdominal x-ray reveals evidence of bilateral ureteral stents. Fecal debris within the transverse colon. No organomegaly. No suspicious calcifications identified. She has been initiated on MiraLAX and senna per medicine. She remains on DuoNeb inhalations, Symbicort, Solu-Medrol. Antibiotics in the form of ceftriaxone. NicoDerm patch in place. The patient is seen today 04/05/2023 in follow-up on the regular medical floor. She is currently resting in bed. Maintaining O2 saturations in the 90s on room air. Afebrile. Still complaining of abdominal discomfort. Still with poor appetite. Abdominal ultrasound was ordered and revealed moderate ascites in all 4 quadrants. Deepest pocket measuring 9 cm in the left lower quadrant. Hydronephrosis seen in the right kidney with stent present. The cultures pending. Blood glucose 116. Hemoglobin A1c 5.6. She is continued on DuoNeb inhalations, Symbicort, IV Solu-Medrol. Heparin for DVT prophylaxis. Antibiotics in the form of ceftriaxone. NicoDerm patch in place. Objective - Vital Signs Vital signs: Vital Signs Temp 99.0 F 04/05/23 07:05 Pulse 78 04/05/23 07:05 Resp 16 04/05/23 07:05 BP 159/73 04/05/23 07:05 Pulse Ox 93 L 04/05/23 07:05 FiO2 Intake & Output 04/04/23 04/05/23 04/05/23 18:59 06:59 18:59 Other: Voiding Method Toilet Toilet # Voids 3 1 1 - Exam GENERAL EXAM: Alert, 72-year-old female, resting in bed, on room air, fairly comfortable in no apparent distress. HEAD: Normocephalic. EYES: Normal reaction of pupils, equal size. NOSE: Clear with pink turbinates. THROAT: No erythema or exudates. NECK: No masses, no JVD. CHEST: No chest wall deformity. LUNGS: Equal air entry with bilateral end expiratory wheeze, diminished. CVS: S1 and S2 normal with no audible murmur, regular rhythm. ABDOMEN: Abdominal distention. No hepatosplenomegaly, normal bowel sounds, no guarding or rigidity. SPINE: No scoliosis or deformity SKIN: No rashes CENTRAL NERVOUS SYSTEM: No focal deficits, tone is normal in all 4 extremities. EXTREMITIES: There is no peripheral edema. No clubbing, no cyanosis. Peripheral pulses are intact. - Labs CBC & Chem 7: 04/02/23 06:42 04/02/23 06:42 Labs: Abnormal Lab Results - Last 24 Hours (Table) 04/04/23 04/04/23 04/05/23 Range/Units 17:23 21:38 11:16 POC Glucose (mg/dL) 128 H 130 H 116 H (70-110) mg/dL Microbiology - Last 24 Hours (Table) 04/01/23 13:15 Blood Culture - Preliminary Blood 04/01/23 13:30 Blood Culture - Preliminary Blood Assessment and Plan Assessment: Acute hypoxemic respiratory failure secondary to an acute exacerbation of chronic obstructive pulmonary disease Recurrent ascites with ultrasound today 04/05/2023 revealing moderate ascites deepest pocket 9 cm left lower quadrant Gastric adenocarcinoma originally diagnosed in 2019 with recent recurrence and the patient was initiated on FOLFOX in July 2022 and currently on 5-FU and Opdivo Ascites with previous paracentesis 03/22/2023 with 5 L removed. Fluid positive for metastatic adenocarcinoma consistent with primary upper GI tract origin Abdominal discomfort secondary to above in addition to mild fecal debris within the transverse colon Urinary tract infection suspected, on ceftriaxone Chronic and ongoing tobacco dependence of greater than 50 years History of bilateral hydronephrosis status post stent placement Hyperlipidemia Osteoarthritis Plan: The patient was seen and evaluated Abdominal ultrasound and medications reviewed Consult IR for paracentesis Continue the current treatment plan Again educated regarding importance of complete smoking cessation Hospice consult initiated We will continue to follow I have personally seen and examined the patient, performed the documentation and the assessment and plan as written. Number of minutes spent on the visit: 10.
--- NOTE | 2023-04-05 14:37 | US ---
Ultrasound-guided paracentesis. DATE OF EXAM: 04/05/2023 CLINICAL HISTORY: Ascites The procedure was discussed with the patient. The risks, complications, benefits, and alternatives we re discussed and any questions were answered. Informed consent was obtained. The patient was placed s upine on the ultrasound table and prepped and draped in the usual sterile fashion. All elements of maximal barrier technique were utilized. Under ultrasound guidance, access into the right lower quadrant was obtained, via the paracentesis catheter system and direct ultrasound guidanc e. Approximately 3.5 liters of straw-colored fluid was removed. The patient was stable throughout the pr ocedure and remained stable upon discharge from Department of Radiology. IMPRESSION: Successful paracentesis under ultrasound guidance.
[2023-04-05 16:21] LABS: Glucose,Whole Blood 104 mg/dL (70-110)
[2023-04-05 20:38] LABS: Glucose,Whole Blood 112 mg/dL (70-110)
[2023-04-05] MEDS: ATORVASTATIN 10 MG TAB PO SCH (21:08)
[2023-04-05] MEDS: CYCLOBENZAPRINE 5 MG TAB PO PRN (23:45)
--- NOTE | 2023-04-06 06:09 | P.PN ---
Subjective Progress Note Date: 04/05/23 Patient is a pleasant 72-year-old female with known history of COPD, gastric adenocarcinoma for which patient is presently on chemotherapy after recurrence came in with complaints of shortness of breath found to have bilateral rhonchi CT angiogram did not show any pulmonary embolism show trace pleural effusions patient does have history of COPD doesn't use any oxygen at home was requiring 2 L of oxygen and admission. Patient was started on systemic steroids inhalational treatments for COPD exacerbation. He was also having cough with some sputum production 04/03/2023 Patient has significant improvement in her respiratory status patient is being continued on systemic steroids possibly of discharge tomorrow 04/04/2023 Patient's abdomen is distended tympanic, patient is constipated didn't have a bowel movement for 3 days. Ordered MiraLAX and senna. Patient still has rhonchi and wheezing. 04/05/2023 Patient is seen and evaluated in follow-up with pulmonary following closely as well as oncology. Patient awaiting interventional radiology consult for possible paracentesis. Patient was here a few weeks ago and underwent paracentesis most likely will require palliative paracentesis in the outpatient setting. Abdominal ultrasound ordered and pending. Patient is afebrile report some shortness of breath and abdominal distention. Patient reports unable to tolerate the abdomen is distended and report some nausea with vomiting. Oral intake is fair. Review of systems: Constitutional: Denied any fatigue denied any fever. Cardio vascular: denied any chest pain, palpitations Gastrointestinal reports nausea with some vomiting and inability to tolerate oral intake with abdominal distention Pulmonary: Reports some shortness of breath Neurologic denied any new focal deficits PHYSICAL EXAMINATION: GENERAL: The patient is alert and oriented x3, elderly-appearing, thin built. Well developed HEENT: Pupils are round and equally reacting to light. EOMI. No scleral icterus. No conjunctival pallor. Normocephalic, atraumatic. No pharyngeal erythema. No thyromegaly. CARDIOVASCULAR: S1 and S2 present. No murmurs, rubs, or gallops. PULMONARY: Bilateral rhonchi and faint expiratory wheezing ABDOMEN: Distended tympanic No palpable organomegaly. MUSCULOSKELETAL: No joint swelling or deformity. EXTREMITIES: No cyanosis, clubbing, or pedal edema. NEUROLOGICAL: Gross neurological examination did not reveal any focal deficits. SKIN: No rashes. Assessment: -Acute hypoxic respiratory failure secondary to COPD exacerbation for which patient was started on systemic steroids inhalational treatments and patient was evaluated by pulmonary -Severe abdominal distention and constipation: No evidence of bowel rupture, secondary to constipation -Ascites, most likely secondary to gastric adenocarcinoma status post paracentesis on most recent last admission -Leukocytosis, most likely secondary to bronchitis and systemic steroids -Gastric adenocarcinoma for which patient is undergoing chemotherapy -Recent bilateral hydronephrosis for which patient had a recent stent -Hyperlipidemia -Rule out pulmonary embolism Plan: Recommend continue current medications and management with pulmonary and oncology following. Patient is maintained on inhaled steroids and breathing tr eatments and will continue. Wean FiO2 as tolerated. Patient continues with severe abdominal distention and recently had paracentesis on [facility] admission approximately 2 weeks ago and interventional radiology is consulted for possible paracentesis Continue with current diet and encouraged oral intake Recommend follow-up labs in a.m. Overall prognosis is guarded The impression and plan of care has been dictated by Thelma Sellers, Nurse Practitioner as directed. Dr. Luiz MD I have performed a history and examination and MDM of this patient, discussed the same with the dictator, and agree with the dictator's assessment and plan as written ,documented as a scribe. Based on total visit time, I have performed more than 50% of the visit. Objective - Vital Signs Vital signs: Vital Signs Temp 98.4 F 04/05/23 13:57 Pulse 81 04/05/23 14:41 Resp 16 04/05/23 14:41 BP 159/74 04/05/23 14:41 Pulse Ox 95 04/05/23 14:41 FiO2 Intake & Output 04/04/23 04/05/23 04/05/23 18:59 06:59 18:59 Other: Voiding Method Toilet Toilet # Voids 3 1 1 - Labs CBC & Chem 7: 04/02/23 06:42 04/02/23 06:42 Labs: Abnormal Lab Results - Last 24 Hours (Table) 04/04/23 04/04/23 04/05/23 Range/Units 17:23 21:38 11:16 POC Glucose (mg/dL) 128 H 130 H 116 H (70-110) mg/dL Microbiology - Last 24 Hours (Table) 04/01/23 13:15 Blood Culture - Preliminary Blood 04/01/23 13:30 Blood Culture - Preliminary Blood
[2023-04-06] MEDS: methylPREDNISolone SOD SUCCI 125 MG/2 ML VIAL IV SCH ×2 (06:17→12:43)
[2023-04-06] MEDS: PANTOPRAZOLE 40 MG TABLET PO SCH (06:17)
[2023-04-06] MEDS: SUCRALFATE 1 GM TAB PO SCH (06:17)
[2023-04-06 06:38] LABS: Glucose,Whole Blood 103 mg/dL (70-110)
[2023-04-06] MEDS: INSULIN ASPART (NovoLOG) 100 UNIT/ML VIAL SQ SCH ×2 (06:40→11:32)
[2023-04-06 07:45] VITALS: RESP 18
[2023-04-06 08:48] LABS: African American GFR (CKD) 89 (>60 ml/min/1.73 sqM); Anion Gap 4 mmol/L; Blood Urea Nitrogen 22 mg/dL (7-17); Calcium 7.9 mg/dL (8.4-10.2); Carbon Dioxide 29 mmol/L (22-30); Chloride 103 mmol/L (98-107); Glucose 97 mg/dL (74-99); Non-African American GFR(CKD) 77 (>60 ml/min/1.73 sqM); Potassium 4.2 mmol/L (3.5-5.1); Sodium 136 mmol/L (137-145)
[2023-04-06] MEDS: IPRATROPIUM-ALBUTEROL 3 ML NEB INHALATION SCH ×2 (08:49→11:58)
[2023-04-06] MEDS: SYMBICORT 160-4.5 MCG INHALER INHALATION SCH (08:49)
[2023-04-06 08:58] LABS: Basophils % (A) 0 %; Eosinophils % (A) 0 %; HCT 33.8 % (34.0-46.0); HGB 11.2 gm/dL (11.4-16.0); Hypochromasia Slight; Lymphocytes # (A) 0.8 k/uL (1.0-4.8); Lymphocytes % (A) 6 %; MCH 30.9 pg (25.0-35.0); MCHC 33.1 g/dL (31.0-37.0); MCV 93.3 fL (80.0-100.0); Monocytes # (A) 0.7 k/uL (0-1.0); Monocytes % (A) 5 %; Neutrophils # (A) 10.9 k/uL (1.3-7.7); Neutrophils % (A) 87 %; Platelet Count 292 k/uL (150-450); Poikilocytosis Slight; RBC 3.63 m/uL (3.80-5.40); RDW 15.8 % (11.5-15.5); WBC 12.5 k/uL (3.8-10.6)
[2023-04-06] MEDS: VENLAFAXINE HCL ER 150 MG CAP PO SCH (09:14)
[2023-04-06] MEDS: SENNOSIDES-DOCUSATE SODIUM 1 EACH TAB PO SCH (09:14)
[2023-04-06] MEDS: OXYBUTYNIN 10 MG TAB.ER.24 PO SCH (09:14)
[2023-04-06] MEDS: NICOTINE 7MG/24HR PATCH TRANSDERM SCH (09:15)
[2023-04-06] MEDS: HEPARIN SODIUM,PORCINE/PF 5,000 UNIT/0.5 ML SYRINGE SQ SCH (09:15)
[2023-04-06 11:26] LABS: Glucose,Whole Blood 129 mg/dL (70-110)
--- NOTE | 2023-04-06 13:24 | P.PN ---
Subjective Progress Note Date: 04/06/23 This is a very pleasant 72-year-old female patient with a known history of bilateral hydronephrosis with bilateral stents placed, chronic obstructive pulmonary disease, chronic and ongoing tobacco dependence since age 15, gastric adenocarcinoma diagnosed in 2019 and had a resection and chemotherapy. She had recurrence in June 2022 with EGD and biopsy revealing poorly differentiated adenocarcinoma. She was started on FOLFOX in July 2022. She had recently developed ascites and had undergone paracentesis on 03/22/2023 5 L removed and was positive for metastatic adenocarcinoma consistent with primary upper GI tract origin. Yesterday she developed increasing shortness of breath and abdominal discomfort and presented here to the emergency room for the same. Chest x-ray revealed no acute pulmonary process. Evidence of COPD. CT angiogram ruled out pulmonary embolism. There is trace bilateral pleural effusions. Centrilobular emphysema. Abdominal ascites with nodular contour to the liver. White count 12.2. Hemoglobin 11.1. Platelets 335. Sodium 140. Potassium 3.7. Bicarb 20. BUN 14. Creatinine 0.65. Urinalysis with moderate blood. High WBCs. Culture pending. She is seen today in consultation on the regular medical floor. She is currently sitting up in bed. Awake and alert in no acute distress. She is maintaining O2 saturations in the upper 90s on 2 L/m per nasal cannula. She's been afebrile. Hemodynamically stable. The patient is seen today 04/03/2023 in follow-up on the regular medical floor. She is currently sitting up in bed. Awake and alert in no acute distress. Still dyspneic with minimal exertion. Dyspneic with conversation. She is maintaining O2 saturations in the 90s on 2 L/m per nasal cannula. She is continued on ceftriaxone. Blood cultures are pending. Continued on DuoNeb inhalations, Symbicort, IV Solu-Medrol. NicoDerm patch in place. The patient is seen today 04/04/2023 in follow-up on the regular medical floor. She is resting in bed. Awake and alert in no acute distress. Denies any worsening shortness of breath, cough or congestion. She is having ongoing abdominal discomfort. Abdominal x-ray reveals evidence of bilateral ureteral stents. Fecal debris within the transverse colon. No organomegaly. No suspicious calcifications identified. She has been initiated on MiraLAX and senna per medicine. She remains on DuoNeb inhalations, Symbicort, Solu-Medrol. Antibiotics in the form of ceftriaxone. NicoDerm patch in place. The patient is seen today 04/05/2023 in follow-up on the regular medical floor. She is currently resting in bed. Maintaining O2 saturations in the 90s on room air. Afebrile. Still complaining of abdominal discomfort. Still with poor appetite. Abdominal ultrasound was ordered and revealed moderate ascites in all 4 quadrants. Deepest pocket measuring 9 cm in the left lower quadrant. Hydronephrosis seen in the right kidney with stent present. The cultures pending. Blood glucose 116. Hemoglobin A1c 5.6. She is continued on DuoNeb inhalations, Symbicort, IV Solu-Medrol. Heparin for DVT prophylaxis. Antibiotics in the form of ceftriaxone. NicoDerm patch in place. The patient is seen today 04/06/2023 in follow-up on the regular medical floor. She is sitting up in bed. Awake and alert in no acute distress. Feeling much better. Much less abdominal discomfort. She did undergo a paracentesis yesterday with 3.5 L removed. She is maintaining good O2 saturations in the 90s on room air. Blood cultures revealed no growth. White count 12.5. Hemoglobin 11.2. Platelets 292. Sodium 136. Potassium 4.2. Bicarb 29. BUN 22. Creatinine 0.79. She remains on DuoNeb inhalations, Symbicort, IV Solu-Medrol. Heparin for DVT prophylaxis. Antibiotics in the form of ceftriaxone. Objective - Vital Signs Vital signs: Vital Signs Temp 98.6 F 04/06/23 07:26 Pulse 72 04/06/23 12:09 Resp 18 04/06/23 07:26 BP 151/84 04/06/23 07:26 Pulse Ox 91 L 04/06/23 08:50 FiO2 Intake & Output 04/05/23 04/06/23 04/06/23 18:59 06:59 18:59 Other: Voiding Method Toilet # Voids 3 2 - Exam GENERAL EXAM: Alert, pleasant 72-year-old female, on room air, fairly comfortable in no apparent distress. HEAD: Normocephalic. EYES: Normal reaction of pupils, equal size. NOSE: Clear with pink turbinates. THROAT: No erythema or exudates. NECK: No masses, no JVD. CHEST: No chest wall deformity. LUNGS: Equal air entry with bilateral end expiratory wheeze, diminished. CVS: S1 and S2 normal with no audible murmur, regular rhythm. ABDOMEN: No hepatosplenomegaly, normal bowel sounds, no guarding or rigidity. SPINE: No scoliosis or deformity SKIN: No rashes CENTRAL NERVOUS SYSTEM: No focal deficits, tone is normal in all 4 extremities. EXTREMITIES: There is no peripheral edema. No clubbing, no cyanosis. Peripheral pulses are intact. - Labs CBC & Chem 7: 04/06/23 07:22 04/06/23 07:22 Labs: Abnormal Lab Results - Last 24 Hours (Table) 04/05/23 04/06/23 04/06/23 Range/Units 20:35 07:22 07:22 WBC 12.5 H (3.8-10.6) k/uL RBC 3.63 L (3.80-5.40) m/uL Hgb 11.2 L (11.4-16.0) gm/dL Hct 33.8 L (34.0-46.0) % RDW 15.8 H (11.5-15.5) % Neutrophils # 10.9 H (1.3-7.7) k/uL Lymphocytes # 0.8 L (1.0-4.8) k/uL Sodium 136 L (137-145) mmol/L BUN 22 H (7-17) mg/dL POC Glucose (mg/dL) 112 H (70-110) mg/dL Calcium 7.9 L (8.4-10.2) mg/dL 04/06/23 Range/Units 11:24 WBC (3.8-10.6) k/uL RBC (3.80-5.40) m/uL Hgb (11.4-16.0) gm/dL Hct (34.0-46.0) % RDW (11.5-15.5) % Neutrophils # (1.3-7.7) k/uL Lymphocytes # (1.0-4.8) k/uL Sodium (137-145) mmol/L BUN (7-17) mg/dL POC Glucose (mg/dL) 129 H (70-110) mg/dL Calcium (8.4-10.2) mg/dL Assessment and Plan Assessment: Acute hypoxemic respiratory failure secondary to an acute exacerbation of chronic obstructive pulmonary disease Recurrent ascites and status post paracentesis 04/05/2023 with 3.5 L removed Gastric adenocarcinoma originally diagnosed in 2019 with recent recurrence and the patient was initiated on FOLFOX in July 2022 and currently on 5-FU and Opdivo Ascites with previous paracentesis 03/22/2023 with 5 L removed. Fluid positive for metastatic adenocarcinoma consistent with primary upper GI tract origin Abdominal discomfort secondary to above in addition to mild fecal debris within the transverse colon Urinary tract infection suspected, on ceftriaxone Chronic and ongoing tobacco dependence of greater than 50 years History of bilateral hydronephrosis status post stent placement Hyperlipidemia Osteoarthritis Plan: The patient was seen and evaluated Labs and medication review Another 3.5 L of ascites fluid removed yesterday Cleared for discharge from the pulmonary standpoint Continue Symbicort, albuterol HFA, prednisone taper Again educated regarding importance of complete smoking cessation I have personally seen and examined the patient, performed the documentation and the assessment and plan as written. Number of minutes spent on the visit: 10.
[2023-04-06 14:26] VITALS: BP 149/83; PULSE 95; TEMP 98.5
== END 2023-04-06 15:37 | disposition home health service (06) | DRG 190 ==
LOC: EC 12:22 → 4SSUR 17:25
PROVIDERS: ADMIT Hospitalist; ATTEND Hospitalist
DX: J43.2 Centrilobular emphysema (principal); J96.01 Acute respiratory failure with hypoxia; C16.9 Malignant neoplasm of stomach, unspecified; C78.6 Secondary malignant neoplasm of retroperitoneum and peritoneum; R18.8 Other ascites; E83.42 Hypomagnesemia; E87.6 Hypokalemia; E78.5 Hyperlipidemia, unspecified; F17.200 Nicotine dependence, unspecified, uncomplicated; F32.A Depression, unspecified; F40.240 Claustrophobia; G62.9 Polyneuropathy, unspecified; I10 Essential (primary) hypertension; K59.00 Constipation, unspecified; J06.9 Acute upper respiratory infection, unspecified; M19.90 Unspecified osteoarthritis, unspecified site; Z96.641 Presence of right artificial hip joint; Z79.899 Other long term (current) drug therapy; Z80.0 Family history of malignant neoplasm of digestive organs; Z80.3 Family history of malignant neoplasm of breast; Z85.028 Personal history of other malignant neoplasm of stomach; Z87.11 Personal history of peptic ulcer disease; Z92.3 Personal history of irradiation; Z92.21 Personal history of antineoplastic chemotherapy
CPT/HCPCS: 36415; 49083; 71046; 71275; 74019; 76705; 80048; 80053; 81001; 83036; 83605; 83735; 83880; 84484; 85025; 85379; 85610; 85730; 87040; 93005; 93306; 94640; 94760; 96365; 96367; 96375; 99291

== ENCOUNTER 2023-04-12 10:56 | Inpatient (IN) | payer MEDICARE, OTHER ==
[2023-04-12] MEDS ORDERED: methylPREDNISolone SOD SUCCI 125 MG/2 ML VIAL IV STA (11:58)
[2023-04-12] MEDS ORDERED: IPRATROPIUM-ALBUTEROL 3 ML NEB INHALATION STA (11:58)
[2023-04-12 12:39] LABS: Basophils % (A) 0 %; Eosinophils % (A) 0 %; HCT 33.6 % (34.0-46.0); Hypochromasia Slight; Lymphocytes # (A) 2.3 k/uL (1.0-4.8); Lymphocytes % (A) 15 %; MCH 30.3 pg (25.0-35.0); MCHC 32.8 g/dL (31.0-37.0); MCV 92.5 fL (80.0-100.0); Mean Platelet Volume 7.7; Monocytes # (A) 0.6 k/uL (0-1.0); Monocytes % (A) 4 %; Neutrophils # (A) 12.9 k/uL (1.3-7.7); Neutrophils % (A) 81 %; Platelet Count 334 k/uL (150-450); RBC 3.63 m/uL (3.80-5.40); RDW 15.6 % (11.5-15.5); WBC 15.9 k/uL (3.8-10.6)
[2023-04-12 12:50] LABS: ALT 16 U/L (4-34); AST 17 U/L (14-36); African American GFR (CKD) >90 (>60 ml/min/1.73 sqM); Albumin 2.8 g/dL (3.5-5.0); Alkaline Phosphatase 74 U/L (38-126); Anion Gap 3 mmol/L; Blood Urea Nitrogen 15 mg/dL (7-17); Calcium 8.1 mg/dL (8.4-10.2); Carbon Dioxide 34 mmol/L (22-30); Chloride 101 mmol/L (98-107); Glucose 93 mg/dL (74-99); Magnesium 1.8 mg/dL (1.6-2.3); Non-African American GFR(CKD) >90 (>60 ml/min/1.73 sqM); Sodium 138 mmol/L (137-145); Total Bilirubin 0.5 mg/dL (0.2-1.3); Total Protein 4.9 g/dL (6.3-8.2)
[2023-04-12 12:55] LABS: INR 0.9 (<1.2); Prothrombin Time 9.8 sec (9.0-12.0)
[2023-04-12 12:57] LABS: Potassium 2.6 mmol/L (3.5-5.1)
[2023-04-12 13:01] LABS: Partial Thromboplastin Time 19.4 sec (22.0-30.0)
--- NOTE | 2023-04-12 13:47 | XR ---
EXAMINATION TYPE: XR chest 2V DATE OF EXAM: 04/12/2023 1:40 PM COMPARISON: Chest radiographs from 04/01/2023 TECHNIQUE: XR chest 2V Frontal and lateral views of the chest. CLINICAL INDICATION:Female, 72 years old with history of difficulty breathing; FINDINGS: Lungs/Pleura: There is flattening of the diaphragm with increased lucency of the lungs. No evidence o f pneumothorax, pleural effusion or focal consolidation. Pulmonary vascularity: Unremarkable. Heart/mediastinum: Cardiomediastinal silhouette is unremarkable. Atherosclerotic calcifications are seen in the aorta. Musculoskeletal: No acute osseous pathology. Other findings: None Lines/Tubes: [id number] projecting over the right hemithorax with distal tip at the cavoatrial junction. IMPRESSION: 1. No acute cardiopulmonary disease process. 2. COPD changes.
[2023-04-12] MEDS ORDERED: MAG HYDROX/AL HYDROX/SIMETH 30 ML, HYOSCYAMINE ELIXIR 10 ML, LIDOCAINE 2% GLYDO JELLY 1... PO STA ×3 (14:07)
[2023-04-12] MEDS ORDERED: POTASSIUM CHLORIDE 40 MEQ in WATER FOR INJECTION 1 100ML.BAG IVPB STA (14:26)
[2023-04-12] MEDS ORDERED: POTASSIUM CHLORIDE 10 MEQ in WATER FOR INJECTION 1 100ML.BAG IVPB SCH (14:26)
[2023-04-12] MEDS ORDERED: NALOXONE 0.4 MG/ML 1 ML VIAL IVP PRN (14:43)
[2023-04-12] MEDS ORDERED: ACETAMINOPHEN TAB 325 MG TAB PO PRN (14:43)
--- NOTE | 2023-04-12 14:44 | ED ---
General Adult HPI - General Chief complaint: Shortness of Breath Stated complaint: SYLVIA Time Seen by Provider: 04/12/23 11:15 Source: patient, EMS, RN notes reviewed Mode of arrival: EMS Limitations: no limitations - History of Present Illness Initial comments: 72-year-old female presents emergency Department chief complaint increasing shortness of breath. Patient states that she has stomach CA states that she's been in the hospital for COPD exacerbations. Patient states she had increased shortness breath she states that she's had multiple breathing treatments with no relief of symptoms. Patient denies any fever but states she has a productive co ugh. Patient concerned about possible pneumonia. Patient states that she get sick from her cancer treatment in which it was held. Patient denies any dysuria hematuria she itches burning from stomach up into her chest. - Related Data Home Medications Medication Instructions Recorded Confirmed Lovastatin [Mevacor] 40 mg PO HS 07/27/22 04/01/23 Ondansetron [Zofran] 4 mg PO Q6H PRN 07/27/22 04/01/23 Sucralfate [Carafate] 1 gm PO BID 01/19/23 04/01/23 Baking Soda Salt Mouth Rinse 1 dose PO QID 03/22/23 04/01/23 Venlafaxine HCl ER [Effexor XR] 150 mg PO DAILY 03/22/23 04/01/23 HYDROmorphone [Dilaudid] 4 mg PO Q4-6H PRN 04/01/23 04/01/23 Previous Rx's Medication Instructions Recorded Oxybutynin Chloride [oxyBUTYnin 10 mg PO DAILY #30 tab 03/28/22 chloride ER] Omeprazole [PriLOSEC] 20 mg PO AC-BRKFST #90 cap 06/25/22 Budesonide-Formot 160-4.5 Mcg 2 puff INHALATION RT-BID 30 Days 04/06/23 [Symbicort 160-4.5 Mcg Inhaler] #1 each Nicotine 7Mg/24Hr Patch [Habitrol] 1 patch TRANSDERM DAILY #14 patch 04/06/23 Sennosides-Docusate Sodium 1 each PO DAILY #20 tab 04/06/23 [Senokot-S] cefUROXime axetiL [Ceftin] 500 mg PO BID 5 Days #10 tab 04/06/23 polyethylene glycoL 3350 [Miralax] 17 gm PO DAILY PRN packet 04/06/23 predniSONE 10 mg PO DIRECTED #30 tab 04/06/23 Allergies Allergy/AdvReac Type Severity Reaction Status Date / Time No Known Allergies Allergy Verified 04/12/23 14:28 Review of Systems ROS Statement: Those systems with pertinent positive or pertinent negative responses have been documented in the HPI. ROS Other: All systems not noted in ROS Statement are negative. Past Medical History Past Medical History: Cancer, COPD, Hyperlipidemia, Hypertension, Osteoarthritis (OA) Additional Past Medical History / Comment(s): 03/2020 diagnosed with stomach cancer/had resection and chemo and is currently in remission/sees Dr. Bay every 6 weeks, hemorroids, UTIs, hx stomach ulcer History of Any Multi-Drug Resistant Organisms: None Reported Past Surgical History: Breast Surgery, Cholecystectomy, Joint Replacement, Orthopedic Surgery, Tonsillectomy Additional Past Surgical History / Comment(s): stomach resection, R upper chest port/later removed, EGD, colonoscopies, bilateral breast benign biopsies, RK bilateral eyes, rt hip replacement Past Anesthesia/Blood Transfusion Reactions: Motion Sickness Additional Past Anesthesia/Blood Transfusion Reaction / Comment(s): Pt has claustrophobia Past Psychological History: Anxiety, Depression Smoking Status: Current every day smoker, Former smoker Past Alcohol Use History: None Reported Past Drug Use History: None Reported - Past Family History Father Family Medical History: Cancer, Deep Vein Thrombosis (DVT) Additional Family Medical History / Comment(s): Stomach cancer. Father of blood clot that travelled to his heart. Mother Family Medical History: Cancer Additional Family Medical History / Comment(s): Bone cancer Sister(s) Family Medical History: Cancer Additional Family Medical History / Comment(s): Breast cancer General Exam Limitations: no limitations General appearance: alert, in no apparent distress, cachectic Head exam: Present: atraumatic, normocephalic, normal inspection Eye exam: Present: normal appearance, PERRL, EOMI. Absent: scleral icterus, conjunctival injection, periorbital swelling ENT exam: Present: normal exam, normal oropharynx, mucous membranes moist Neck exam: Present: normal inspection, full ROM. Absent: tenderness, men ingismus, lymphadenopathy Respiratory exam: Present: respiratory distress, wheezes. Absent: normal lung sounds bilaterally, rales, rhonchi, stridor Cardiovascular Exam: Present: regular rate, normal rhythm, normal heart sounds. Absent: systolic murmur, diastolic murmur, rubs, gallop, clicks GI/Abdominal exam: Present: soft, tenderness, normal bowel sounds. Absent: distended, guarding, rebound, rigid Neurological exam: Present: alert, oriented X3 Course Vital Signs 04/12/23 04/12/23 04/12/23 11:02 11:30 11:33 Temperature 98.8 F 98.7 F Pulse Rate 79 75 Respiratory 24 20 20 Rate Blood Pressure 147/86 137/88 O2 Sat by Pulse 95 95 Oximetry 04/12/23 04/12/23 04/12/23 12:12 12:20 12:30 Temperature Pulse Rate 75 74 Respiratory Rate Blood Pressure 133/81 O2 Sat by Pulse 98 98 Oximetry 04/12/23 04/12/23 04/12/23 12:40 12:50 12:58 Temperature Pulse Rate 73 71 90 Respiratory Rate Blood Pressure 134/74 O2 Sat by Pulse 98 98 Oximetry 04/12/23 04/12/23 04/12/23 13:00 13:10 13:13 Temperature Pulse Rate 76 83 75 Respiratory Rate Blood Pressure 123/86 O2 Sat by Pulse 97 100 Oximetry 04/12/23 04/12/23 04/12/23 13:20 13:27 13:30 Temperature Pulse Rate 82 75 74 Respiratory 18 Rate Blood Pressure 123/86 O2 Sat by Pulse 100 97 97 Oximetry 04/12/23 04/12/23 04/12/23 13:40 13:50 14:00 Temperature Pulse Rate 75 83 Respiratory Rate Blood Pressure 145/71 O2 Sat by Pulse 95 95 Oximetry 04/12/23 04/12/23 14:10 14:20 Temperature Pulse Rate 79 79 Respiratory 20 Rate Blood Pressure 122/104 O2 Sat by Pulse 95 92 L Oximetry EKG Findings - EKG Comments: EKG Findings:: EKG performed at 12:31 sinus rhythm rate of 73 VT 164-90 QT/QTC 339/365 - EKG Results: EKG: interpreted by [facility]OM[facility] Medical Decision Making - Medical Decision Making Was pt. sent in by a medical professional or institution (, PA, LINK MACHINE OPERATOR, urgent care, hospital, or care home...) When possible be specific @ -No Did you speak to anyone other than the patient for history (EMS, parent, family, police, friend...)? What history was obtained from this source @ -No Did you review nursing and triage notes (agree or disagree)? Why? @ -I reviewed and agree with nursing and triage notes Were old charts reviewed (outside hosp., previous admission, EMS record, old EKG, old radiological studies, urgent care reports/EKG's, care home records)? Report findings @ -Reviewed recent admission, versus, EKG and chest x-rays Differential Diagnosis (chest pain, altered mental status, abdominal pain women, abdominal pain men, vaginal bleeding, weakness, fever, dyspnea, syncope, headache, dizziness, GI bleed, back pain, seizure, CVA, palpatations, mental health, musculoskeletal)? @ -Differential Dyspnea: Coronary syndrome, arrhythmia, tamponade, asthma, COPD, pulmonary embolism, pneumonia, pneumothorax, pulmonary effusion, anaphylaxis, diabetic ketoacidosis, flailed chest, pulmonary contusion, diaphragmatic rupture, anemia, neuromuscular, this is not meant to be an all-inclusive list. able EKG interpreted by me (3pts min.). @ -As above X-rays interpreted by me (1pt min.). @ -Chest x-ray shows COPD changes CT interpreted by me (1pt min.). @ -None done U/S interpreted by me (1pt. min.). @ -None done What testing was considered but not performed or refused? (CT, X-rays, U/S, labs)? Why? @ -None What meds were considered but not given or refused? Why? @ -None Did you discuss the management of the patient with other professionals (professionals i.e. , PA, LINK MACHINE OPERATOR, lab, RT, psych nurse, social work associate, orderly, teacher, financial administration officer, case management assistant)? Give summary @ -[Dr. Rodrigez for admission with consult to pulmonary, oncology Was smoking cessation discussed for >3mins.? @ -No Was critical care preformed (if so, how long)? @ -No Were there social determinants of health that impacted care today? How? (Homelessness, low income, unemployed, alcoholism, drug addiction, transportation, low edu. Level, literacy, decrease access to med. care, long-term, rehab)? @ -No Was there de-escalation of care discussed even if they declined (Discuss DNR or withdrawal of care, Hospice)? DNR status @ -No What co-morbidities impacted this encounter? (DM, HTN, Smoking, COPD, CAD, Cancer, CVA, ARF, Chemo, Hep., AIDS, mental health diagnosis, sleep apnea, morbid obesity)? @ -COPD, stomach CA Was patient admitted / discharged? Hospital course, mention meds given and route, prescriptions, significant lab abnormalities, going to OR and other pertinent info. @ -Admitted patient presented in respiratory distress patient's received multiple. Treatments, steroids. Patient had recent hospitalization for acute restaurant failure. Patient has moderate hypokalemia which is recurrent magnesium within normal limits. Patient ordered IV placementshe cannot tolerate much oral intake. Undiagnosed new problem with uncertain prognosis? @ -No Drug Therapy requiring intensive monitoring for toxicity (Heparin, Nitro, Insulin, Cardizem)? @ -No Were any procedures done? @ -No Diagnosis/symptom? @ -COPD exacerbation Acute, or Chronic, or Acute on Chronic? @ -Acute on chronic Uncomplicated (without systemic symptoms) or Complicated (systemic symptoms)? @ -Complicated Side effects of treatment? @ -No Exacerbation, Progression, or Severe Exacerbation? @ -Exacerbation Poses a threat to life or bodily function? How? (Chest pain, USA, PA, pneumonia, PE, COPD, DKA, ARF, appy, cholecystitis, CVA, Diverticulitis, Homicidal, Suicidal, threat to staff... and all critical care pts) @ -No Diagnosis/symptom? @ -Hypokalemia Acute, or Chronic, or Acute on Chronic? @ -Acute Uncomplicated (without systemic symptoms) or Complicated (systemic symptoms)? @ -Uncomplicated Side effects of treatment? @ -none] Exacerbation, Progression, or Severe Exacerbation] @ -[no] Poses a threat to life or bodily function? @ -[no] - Lab Data Result diagrams: 04/12/23 12:30 04/12/23 12:30 Lab Results 04/12/23 04/12/23 04/12/23 Range/Units 12:30 12:30 12:30 WBC 15.9 H (3.8-10.6) k/uL RBC 3.63 L (3.80-5.40) m/uL Hgb 11.0 L (11.4-16.0) gm/dL Hct 33.6 L (34.0-46.0) % MCV 92.5 (80.0-100.0) fL MCH 30.3 (25.0-35.0) pg MCHC 32.8 (31.0-37.0) g/dL RDW 15.6 H (11.5-15.5) % Plt Count 334 (150-450) k/uL MPV 7.7 Neutrophils % 81 % Lymphocytes % 15 % Monocytes % 4 % Eosinophils % 0 % Basophils % 0 % Neutrophils # 12.9 H (1.3-7.7) k/uL Lymphocytes # 2.3 (1.0-4.8) k/uL Monocytes # 0.6 (0-1.0) k/uL Eosinophils # 0.0 (0-0.7) k/uL Basophils # 0.0 (0-0.2) k/uL Hypochromasia Slight PT 9.8 (9.0-12.0) sec INR 0.9 (<1.2) APTT 19.4 L (22.0-30.0) sec Sodium 138 (137-145) mmol/L Potassium 2.6 L* (3.5-5.1) mmol/L Chloride 101 (98-107) mmol/L Carbon Dioxide 34 H (22-30) mmol/L Anion Gap 3 mmol/L BUN 15 (7-17) mg/dL Creatinine 0.58 (0.52-1.04) mg/dL Est GFR (CKD-EPI)AfAm >90 (>60 ml/min/1.73 sqM) Est GFR (CKD-EPI)NonAf >90 (>60 ml/min/1.73 sqM) Glucose 93 (74-99) mg/dL Plasma Lactic Acid Janak (0.7-2.0) mmol/L Calcium 8.1 L (8.4-10.2) mg/dL Magnesium 1.8 (1.6-2.3) mg/dL Total Bilirubin 0.5 (0.2-1.3) mg/dL AST 17 (14-36) U/L ALT 16 (4-34) U/L Alkaline Phosphatase 74 (38-126) U/L Troponin I (0.000-0.034) ng/mL NT-Pro-B Natriuret Pep pg/mL Total Protein 4.9 L (6.3-8.2) g/dL Albumin 2.8 L (3.5-5.0) g/dL 04/12/23 04/12/23 04/12/23 Range/Units 12:30 12:30 12:30 WBC (3.8-10.6) k/uL RBC (3.80-5.40) m/uL Hgb (11.4-16.0) gm/dL Hct (34.0-46.0) % MCV (80.0-100.0) fL MCH (25.0-35.0) pg MCHC (31.0-37.0) g/dL RDW (11.5-15.5) % Plt Count (150-450) k/uL MPV Neutrophils % % Lymphocytes % % Monocytes % % Eosinophils % % Basophils % % Neutrophils # (1.3-7.7) k/uL Lymphocytes # (1.0-4.8) k/uL Monocytes # (0-1.0) k/uL Eosinophils # (0-0.7) k/uL Basophils # (0-0.2) k/uL Hypochromasia PT (9.0-12.0) sec INR (<1.2) APTT (22.0-30.0) sec Sodium (137-145) mmol/L Potassium (3.5-5.1) mmol/L Chloride (98-107) mmol/L Carbon Dioxide (22-30) mmol/L Anion Gap mmol/L BUN (7-17) mg/dL Creatinine (0.52-1.04) mg/dL Est GFR (CKD-EPI)AfAm (>60 ml/min/1.73 sqM) Est GFR (CKD-EPI)NonAf (>60 ml/min/1.73 sqM) Glucose (74-99) mg/dL Plasma Lactic Acid Janak 1.2 (0.7-2.0) mmol/L Calcium (8.4-10.2) mg/dL Magnesium (1.6-2.3) mg/dL Total Bilirubin (0.2-1.3) mg/dL AST (14-36) U/L ALT (4-34) U/L Alkaline Phosphatase (38-126) U/L Troponin I <0.012 (0.000-0.034) ng/mL NT-Pro-B Natriuret Pep 194 pg/mL Total Protein (6.3-8.2) g/dL Albumin (3.5-5.0) g/dL Disposition Clinical Impression: Hypokalemia, Gastric adenocarcinoma, Abdominal pain, COPD exacerbation Disposition: ADMITTED IP TO THIS HOSP Condition: Poor Referrals: Aliyah Fink MD [Primary Care Provider] - 1-2 days Time of Disposition: 14:03
[2023-04-12] MEDS ORDERED: IPRATROPIUM-ALBUTEROL 3 ML NEB INHALATION PRN (14:46)
[2023-04-12 15:40] LABS: VBG PH 7.48 (7.31-7.41)
[2023-04-12] MEDS ORDERED: HYDROcodone/APAP 5-325MG 1 EACH TAB PO PRN (15:51)
[2023-04-12] MEDS ORDERED: DEXTROSE 50% SYRINGE 50 ML IVP PRN ×2 (15:52)
[2023-04-12] MEDS ORDERED: polyethylene glycoL 3350 17 GM POWD.PACK PO PRN (15:53)
[2023-04-12] MEDS ORDERED: [UNRECOGNIZED DRUG - OTHER] PO PRN (15:53)
[2023-04-12] MEDS ORDERED: hydrOXYzine HCL 10 MG TAB PO PRN (15:53)
[2023-04-12] MEDS ORDERED: Potassium Replacement Protocol 1 EACH MISC MISCELLANE PRN (15:53)
[2023-04-12] MEDS ORDERED: Magnesium Replacement Protocol 1 EACH MISC MISCELLANE PRN (15:53)
[2023-04-12] MEDS ORDERED: MAG HYDROX/AL HYDROX/SIMETH 30 ML, diphenhydrAMINE ELIXIR 75 MG, LIDOCAINE VISCOUS 2% 3... PO PRN ×3 (16:00)
[2023-04-12 17:12] LABS: Glucose,Whole Blood 160 mg/dL (70-110)
[2023-04-12] MEDS: INSULIN ASPART (NovoLOG) 100 UNIT/ML VIAL SQ SCH ×2 (17:19→21:42)
[2023-04-12] MEDS: methylPREDNISolone SOD SUCCI 125 MG/2 ML VIAL IV SCH ×2 (17:54→23:58)
[2023-04-12 18:34] LABS: African American GFR (CKD) >90 (>60 ml/min/1.73 sqM); Anion Gap 7 mmol/L; Blood Urea Nitrogen 15 mg/dL (7-17); Carbon Dioxide 28 mmol/L (22-30); Chloride 101 mmol/L (98-107); Glucose 210 mg/dL (74-99); Non-African American GFR(CKD) >90 (>60 ml/min/1.73 sqM); Potassium 3.5 mmol/L (3.5-5.1); Sodium 136 mmol/L (137-145)
--- NOTE | 2023-04-12 19:43 | P.CNPUL ---
History of Present Illness Consult date: 04/12/23 Reason for consult: dyspnea History of present illness: 72-year-old female patient presented again to the hospital because of shortness of breath. She was recently hospitalized on 04/02/2023 for similar complaints, treated and she was discharged to be readmitted for worsening shortness of breath. She is known to have metastatic gastric cancer/adenocarcinoma that was diagnosed on EGD that was done on 03/18/2020. She was started on systemic chemotherapy. She had T3 N0 disease. Following chemotherapy, the patient underwent gastrectomy on 07/25/2020 and postsurgical staging indicated positive lymph nodes 10 out of 12 and she was staged as T3 N3 disease. Subsequently, the patient developed bilateral hydronephrosis and this was identified on a CAT scan of the chest abdomen and pelvis and the patient had ureteral stent placement. Upon subsequent follow-up, the patient had residual disease in the gastrojejunal site and she was started on systemic chemotherapy utilizing FOLFOX/Opdivo. Upon further progress, the patient developed ascites and paracentesis was done on 07/28/2022 indicating malignant ascitic fluid consistent with gastric cancer. The patient continued the treatment of 5-FU and Opdivo. She continued to have recurrence in the ascitic fluid and her last drainage of 3.5 L was done during her most recent hospitalization. The patient able cardiac rhythm showed a preserved LV function with an EF of around 55-60%. Most recent CAT scan of the chest was done on 04/01/2023 and is associated angiogram that showed no evidence of any pulmonary embolism. There was trace bilateral pleural effusion and background emphysema. She had abdominal ascites with nodular contour to liver consistent with cirrhosis. She also had a fracture deformity of the right humerus related to a fall. Her last paracentesis was done on 04/05/2023. Currently she is having progressive dyspnea. She is on 2 L of O2 nasal cannula. Chest x-ray findings are stable without any acute changes. White cell count of 15.9 with a hemoglobin of 11 and a platelet count of 334 sodium is 136 potassium is at 3.5 when necessary is a 50 with a creatinine of 0.5. Noted a potassium level at time of admission was 2.6, replaced. LFTs are normal. Troponins are negative. ProBNP level is 194. Review of Systems CONSTITUTIONAL: Denies any recent significant weight loss or weight gain. EYES: Denies change in vision. EARS, NOSE, MOUTH, THROAT: Denies headaches, denies sore throat. CARDIOVASCULAR: Denies chest pain, palpitations or syncopal episodes. RESPIRATORY: Positive for shortness of breath, cough, congestion no hemoptysis. GASTROINTESTINAL: Positive for abdominal pain GENITOURINARY: Denies hematuria, denies infections. MUSKULOSKELETAL: Denies pain, denies swelling. INTEGUMENTARY: Denies rash, denies eczema. NEUROLOGICAL: Denies recent memory loss, no recent seizure activity. PSYCHIATRIC: Denies anxiety, denies depression. HEMATOLOGIC/LYMPHATIC: Denies anemia, denies enlarged lymph nodes. Past Medical History Past Medical History: Cancer, COPD, Hyperlipidemia, Hypertension, Osteoarthritis (OA) Additional Past Medical History / Comment(s): 03/2020 diagnosed with stomach cancer/had resection and chemo and is currently in remission/sees Dr. Bay every 6 weeks, hemorroids, UTIs, hx stomach ulcer History of Any Multi-Drug Resistant Organisms: None Reported Past Surgical History: Breast Surgery, Cholecystectomy, Joint Replacement, Orthopedic Surgery, Tonsillectomy Additional Past Surgical History / Comment(s): stomach resection, R upper chest port/later removed, EGD, colonoscopies, bilateral breast benign biopsies, RK bilateral eyes, rt hip replacement Past Anesthesia/Blood Transfusion Reactions: Motion Sickness Additional Past Anesthesia/Blood Transfusion Reaction / Comment(s): Pt has claustrophobia Past Psychological History: Anxiety, Depression Smoking Status: Current every day smoker, Former smoker Past Alcohol Use History: None Reported Past Drug Use History: None Reported - Past Family History Father Family Medical History: Cancer, Deep Vein Thrombosis (DVT) Additional Family Medical History / Comment(s): Stomach cancer. Father of blood clot that travelled to his heart. Mother Family Medical History: Cancer Additional Family Medical History / Comment(s): Bone cancer Sister(s) Family Medical History: Cancer Additional Family Medical History / Comment(s): Breast cancer Medications and Allergies Home Medications Medication Instructions Recorded Confirmed Type Oxybutynin Chloride [oxyBUTYnin 10 mg PO DAILY #30 tab 03/28/22 04/12/23 Rx chloride ER] Omeprazole [PriLOSEC] 20 mg PO AC-BRKFST #90 cap 06/25/22 04/12/23 Rx Lovastatin [Mevacor] 40 mg PO HS 07/27/22 04/12/23 History Ondansetron [Zofran] 4 mg PO Q6H PRN 07/27/22 04/12/23 History Sucralfate [Carafate] 1 gm PO BID 01/19/23 04/12/23 History Venlafaxine HCl ER [Effexor XR] 150 mg PO DAILY 03/22/23 04/12/23 History Budesonide-Formot 160-4.5 Mcg 2 puff INHALATION RT-BID 30 Days 04/06/23 04/12/23 Rx [Symbicort 160-4.5 Mcg Inhaler] #1 each Nicotine 7Mg/24Hr Patch [Habitrol] 1 patch TRANSDERM DAILY #14 patch 04/06/23 04/12/23 Rx cefUROXime axetiL [Ceftin] 500 mg PO BID 5 Days #10 tab 04/06/23 04/12/23 Rx polyethylene glycoL 3350 [Miralax] 17 gm PO DAILY PRN packet 04/06/23 04/12/23 Rx Cools Solution 5 ml PO QID PRN 04/12/23 04/12/23 History Sennosides-Docusate Sodium 1 tab PO DAILY 04/12/23 04/12/23 History [Senokot-S] hydrOXYzine HCL 20 mg PO QID PRN 04/12/23 04/12/23 History predniSONE See Taper PO DIRECTED 04/12/23 04/12/23 History Allergies Allergy/AdvReac Type Severity Reaction Status Date / Time No Known Allergies Allergy Verified 04/12/23 14:28 Physical Exam Vitals: Vital Signs Temp Pulse Resp BP Pulse Ox 04/12/23 17:59 98.3 F 04/12/23 15:29 98.5 F 04/12/23 14:20 79 20 92 L 04/12/23 14:10 79 122/104 95 04/12/23 14:00 83 95 04/12/23 13:50 75 95 04/12/23 13:40 145/71 04/12/23 13:30 74 97 04/12/23 13:27 75 18 123/86 97 04/12/23 13:20 82 100 04/12/23 13:13 75 04/12/23 13:10 83 123/86 100 04/12/23 13:00 76 97 04/12/23 12:58 90 04/12/23 12:50 71 98 04/12/23 12:40 73 134/74 98 04/12/23 12:30 98 04/12/23 12:20 74 133/81 98 04/12/23 12:12 75 04/12/23 11:33 20 04/12/23 11:30 98.7 F 75 20 137/88 95 04/12/23 11:02 98.8 F 79 24 147/86 95 Intake and Output 04/12/23 04/12/23 04/12/23 06:59 14:59 22:59 Other: Weight 49.895 kg GENERAL EXAM: Alert, pleasant 72-year-old female, on room air, fairly comfortabl e in no apparent distress. HEAD: Normocephalic. EYES: Normal reaction of pupils, equal size. NOSE: Clear with pink turbinates. THROAT: No erythema or exudates. NECK: No masses, no JVD. CHEST: No chest wall deformity. LUNGS: Equal air entry with bilateral end expiratory wheeze, diminished. CVS: S1 and S2 normal with no audible murmur, regular rhythm. ABDOMEN: No hepatosplenomegaly, normal bowel sounds, no guarding or rigidity. SPINE: No scoliosis or deformity SKIN: No rashes CENTRAL NERVOUS SYSTEM: No focal deficits, tone is normal in all 4 extremities. EXTREMITIES: There is no peripheral edema. No clubbing, no cyanosis. Peripheral pulses are intact. - EENT ENT: hearing grossly normal Results - Laboratory Findings CBC and BMP: 04/12/23 12:30 04/12/23 17:52 ABG WBC 15.9 k/uL (3.8-10.6) H 04/12/23 12:30 RBC 3.63 m/uL (3.80-5.40) L 04/12/23 12:30 Hgb 11.0 gm/dL (11.4-16.0) L 04/12/23 12:30 Hct 33.6 % (34.0-46.0) L 04/12/23 12:30 MCV 92.5 fL (80.0-100.0) 04/12/23 12:30 MCH 30.3 pg (25.0-35.0) 04/12/23 12:30 MCHC 32.8 g/dL (31.0-37.0) 04/12/23 12:30 RDW 15.6 % (11.5-15.5) H 04/12/23 12:30 Plt Count 334 k/uL (150-450) 04/12/23 12:30 MPV 7.7 04/12/23 12:30 Neutrophils % 81 % 04/12/23 12:30 Lymphocytes % 15 % 04/12/23 12: Monocytes % 4 % 04/12/23 12:30 Eosinophils % 0 % 04/12/23 12: Basophils % 0 % 04/12/23 12:30 Neutrophils # 12.9 k/uL (1.3-7.7) H 04/12/23 12:30 Lymphocytes # 2.3 k/uL (1.0-4.8) 04/12/23 12:30 Monocytes # 0.6 k/uL (0-1.0) 04/12/23 12:30 Eosinophils # 0.0 k/uL (0-0.7) 04/12/23 12:30 Basophils # 0.0 k/uL (0-0.2) 04/12/23 12:30 Hypochromasia Slight 04/12/23 12:30 PT 9.8 sec (9.0-12.0) 04/12/23 12:30 INR 0.9 (<1.2) 04/12/23 12:30 APTT 19.4 sec (22.0-30.0) L 04/12/23 12:30 VBG pH 7.48 (7.31-7.41) H 04/12/23 15:28 VBG pCO2 43 mmHg (37-51) 04/12/23 15:28 VBG HCO3 32 mmol/L (24-28) H 04/12/23 15:28 Sodium 136 mmol/L (137-145) L 04/12/23 17:52 Potassium 3.5 mmol/L (3.5-5.1) 04/12/23 17:52 Chloride 101 mmol/L (98-107) 04/12/23 17:52 Carbon Dioxide 28 mmol/L (22-30) 04/12/23 17:52 Anion Gap 7 mmol/L 04/12/23 17:52 BUN 15 mg/dL (7-17) 04/12/23 17:52 Creatinine 0.59 mg/dL (0.52-1.04) 04/12/23 17:52 Est GFR (CKD-EPI)AfAm >90 (>60 ml/min/1.73 sqM) 04/12/23 17:52 Est GFR (CKD-EPI)NonAf >90 (>60 ml/min/1.73 sqM) 04/12/23 17:52 Glucose 210 mg/dL (74-99) H 04/12/23 17:52 POC Glucose (mg/dL) 160 mg/dL (70-110) H 04/12/23 17:10 POC Glu Welding Estimator ID Lili Franz 04/12/23 17:10 Plasma Lactic Acid Janak 1.2 mmol/L (0.7-2.0) 04/12/23 12:30 Calcium 8.0 mg/dL (8.4-10.2) L 04/12/23 17:52 Magnesium 1.8 mg/dL (1.6-2.3) 04/12/23 12:30 Total Bilirubin 0.5 mg/dL (0.2-1.3) 04/12/23 12:30 AST 17 U/L (14-36) 04/12/23 12:30 ALT 16 U/L (4-34) 04/12/23 12:30 Alkaline Phosphatase 74 U/L (38-126) 04/12/23 12:30 Troponin I <0.012 ng/mL (0.000-0.034) 04/12/23 12:30 NT-Pro-B Natriuret Pep 194 pg/mL 04/12/23 12:30 Total Protein 4.9 g/dL (6.3-8.2) L 04/12/23 12:30 Albumin 2.8 g/dL (3.5-5.0) L 04/12/23 12:30 PT/INR, D-dimer PT 9.8 sec (9.0-12.0) 04/12/23 12:30 INR 0.9 (<1.2) 04/12/23 12:30 Abnormal lab findings: Abnormal Labs 04/12/23 04/12/23 04/12/23 12:30 12:30 12:30 WBC 15.9 H RBC 3.63 L Hgb 11.0 L Hct 33.6 L RDW 15.6 H Neutrophils # 12.9 H APTT 19.4 L VBG pH VBG HCO3 Sodium Potassium 2.6 L* Carbon Dioxide 34 H Glucose POC Glucose (mg/dL) Calcium 8.1 L Total Protein 4.9 L Albumin 2.8 L 04/12/23 04/12/23 04/12/23 15:28 17:10 17:52 WBC RBC Hgb Hct RDW Neutrophils # APTT VBG pH 7.48 H VBG HCO3 32 H Sodium 136 L Potassium Carbon Dioxide Glucose 210 H POC Glucose (mg/dL) 160 H Calcium 8.0 L Total Protein Albumin Assessment and Plan Plan: Acute on chronic shortness of breath, multifactorial. The patient has advanced COPD addition to ascites contributing to her shortness of breath. Acute hypoxic respiratory failure currently on 2 L of O2 nasal cannula Metastatic gastric cancer/adenocarcinoma, diagnosed in 2019 with recent recurrence and the patient was initiated on FOLFOX in July 2022 and currently on 5-FU and Opdivo Recurrent ascites and status post paracentesis 04/05/2023 with 3.5 L removed Ascites with previous paracentesis 03/22/2023 with 5 L removed. Fluid positive for metastatic adenocarcinoma consistent with primary upper GI tract origin Abdominal discomfort secondary to above Chronic and ongoing tobacco dependence of greater than 50 years History of bilateral hydronephrosis status post stent placement Hyperlipidemia Osteoarthritis Plan: I reviewed the records. I reviewed the previous CAT scans. Unfortunately not a whole lot preoperative this patient. She is quite debilitated with metastatic gastric carcinoma and malignant ascites. The patient will be chair is with a combination of bronchodilators and steroids for exacerbation Reevaluate for ascites by another ultrasound abdomen Pulmonary embolism is doubtful as the patient's most recent CTA was negative for PE Antibiotic coverage is essentially empiric Prognosis remains poor Consult oncology again We'll continue to follow
[2023-04-12] MEDS: BUDESONIDE 1 MG/2 ML NEBU INHALATION SCH ×2 (19:44→19:46)
[2023-04-12] MEDS: FORMOTEROL FUMARATE 20 MCG/2 ML NEBU INHALATION SCH ×2 (19:44→19:45)
[2023-04-12] MEDS: IPRATROPIUM-ALBUTEROL 3 ML NEB INHALATION SCH ×3 (19:46→23:34)
[2023-04-12 21:38] LABS: Glucose,Whole Blood 265 mg/dL (70-110)
[2023-04-12] MEDS: SUCRALFATE 1 GM TAB PO SCH (21:42)
[2023-04-12] MEDS: ATORVASTATIN 10 MG TAB PO SCH (21:42)
[2023-04-12] MEDS: HEPARIN SODIUM,PORCINE/PF 5,000 UNIT/0.5 ML SYRINGE SQ SCH (21:42)
--- NOTE | 2023-04-12 22:09 | HP ---
HISTORY AND PHYSICAL CHIEF COMPLAINT: Shortness of breath and weakness. HISTORY OF PRESENT ILLNESS: This is a 72-year-old woman with a past medical history of multiple medical problems including COPD, was recently admitted with abdominal distention. The patient had abdominal paracentesis, possibly secondary to gastric adenocarcinoma. The patient felt better. The patient went home and apparently the patient did not get any nebulizer, but the patient is probably short of breath and weak and she was taken to [facility] and was admitted for further evaluation and treatment. The patient was found to be extremely short of breath, unable to even complete sentences at this time. Chest x-ray showed COPD changes. Abdominal ascites noted, not to a severe degree though. There is no history of any fever, rigors, or chills. PAST MEDICAL HISTORY: Recent ascites, COPD, gastric adenocarcinoma. Rest of the history and rest of the chart is also reviewed. HOME MEDICATIONS: Reviewed include prednisone. Dose and rest of medications reviewed. ALLERGIES: None. FAMILY HISTORY: History of DVT, cancer. SOCIAL HISTORY: History of smoking. REVIEW OF SYSTEMS: A 14-point review is negative except as mentioned earlier. PHYSICAL EXAMINATION: VITAL SIGNS: Pulse is 79, blood pressure 120/104, respirations 20. HEENT: Conjunctivae normal. NECK: No jugular venous distention. CARDIOVASCULAR: S1, S2 muffled. RESPIRATIONS: Bilateral scattered rhonchi and crackles. ABDOMEN: Soft, nontender. LEGS: No edema. NERVOUS SYSTEM: Nonfocal. LABORATORY DATA: WBC 15, hemoglobin 11, potassium is 2.6. ASSESSMENT: 1. Chronic obstructive pulmonary disease acute exacerbation with acute purulent tracheobronchitis. 2. Ascites secondary to gastric adenocarcinoma, possibly malignant. 3. Severe hypokalemia. 4. Generalized weakness and gait dysfunction. 5. Hypertension. 6. Degenerative joint disease. 7. Multiple medical issues. RECOMMENDATIONS AND DISCUSSION: This is a 72-year-old woman, who presented with multiple complex medical issues. We will monitor the patient closely. We will continue the current medications, continue symptomatic treatment. Otherwise, I recommend intensive bronchodilator treatment, steroids, PT, OT evaluation, pulmonary consultation, possible ECF rehab. Resume the home medications once they are confirmed. Prognosis guarded. Further recommendation to follow. See orders for further details. Social Work and Case Management to follow the patient as well. MMODL / IJN: [id number] /
[2023-04-13] MEDS: IPRATROPIUM-ALBUTEROL 3 ML NEB INHALATION SCH ×5 (03:28→19:50)
[2023-04-13] MEDS: methylPREDNISolone SOD SUCCI 125 MG/2 ML VIAL IV SCH ×3 (05:47→17:38)
[2023-04-13] MEDS ORDERED: NON FORMULARY DRUG (Omeprazole 20 MG Capsule.Dr) PO SCH (07:30)
[2023-04-13 07:33] LABS: Glucose,Whole Blood 132 mg/dL (70-110)
[2023-04-13] MEDS: INSULIN ASPART (NovoLOG) 100 UNIT/ML VIAL SQ SCH ×4 (07:39→22:16)
[2023-04-13] MEDS: FORMOTEROL FUMARATE 20 MCG/2 ML NEBU INHALATION SCH ×2 (09:10→19:49)
[2023-04-13] MEDS: BUDESONIDE 1 MG/2 ML NEBU INHALATION SCH ×2 (09:10→19:50)
[2023-04-13] MEDS: PANTOPRAZOLE 40 MG TABLET PO SCH (09:31)
[2023-04-13] MEDS: HEPARIN SODIUM,PORCINE/PF 5,000 UNIT/0.5 ML SYRINGE SQ SCH ×2 (09:31→20:20)
[2023-04-13] MEDS: NICOTINE 7MG/24HR PATCH TRANSDERM SCH (09:31)
[2023-04-13] MEDS: AZITHROMYCIN 500 MG TAB PO SCH (09:31)
[2023-04-13] MEDS: OXYBUTYNIN 10 MG TAB.ER.24 PO SCH (09:31)
[2023-04-13] MEDS: SUCRALFATE 1 GM TAB PO SCH ×2 (09:32→20:20)
[2023-04-13] MEDS: SENNOSIDES-DOCUSATE SODIUM 1 EACH TAB PO SCH (09:32)
[2023-04-13] MEDS: VENLAFAXINE HCL ER 150 MG CAP PO SCH (09:32)
[2023-04-13 11:32] LABS: Basophils # (A) 0.04 X 10*3/uL (0.00-0.10); Basophils % (A) 0.2 %; Eosinophils # (A) 0 X 10*3/uL (0.04-0.35); Eosinophils % (A) 0 %; Lymphocytes # (A) 1.27 X 10*3/uL (0.90-5.00); Lymphocytes % (A) 7.1 %; MCH 30.6 pg (27.0-32.0); MCHC 32.3 d/dL (32.0-37.0); MCV 94.8 FL (80.0-97.0); Mean Platelet Volume 9.6 FL (9.5-12.2); Monocytes # (A) 0.93 X 10*3/uL (0.20-1.00); Monocytes % (A) 5.2 %; NRBC Per 100 WBC 0 X 10*3/uL (0.00-0.01); Neutrophils # (A) 15.37 X 10*3/uL (1.80-7.70); Platelet Count 317 X 10*3/uL (140-440); RBC 3.27 X 10*6/uL (4.10-5.20); WBC 17.87 X 10*3/uL (4.50-10.00)
[2023-04-13 11:51] LABS: BUN/Creat Ratio 19.43 Ratio (12.00-20.00); Blood Urea Nitrogen 13.6 mg/dL (9.0-27.0); Calcium 8.4 mg/dL (8.7-10.3); Carbon Dioxide 26.9 mmol/L (21.6-31.8); Chloride 104 mmol/L (96-109); Glucose 132 mg/dL (70-110); Magnesium 1.9 mg/dL (1.5-2.4); Potassium 3.7 mmol/L (3.5-5.5); Sodium 141 mmol/L (135-145)
--- NOTE | 2023-04-13 11:57 | PN ---
PROGRESS NOTE DATE OF SERVICE: 04/13/2023 HISTORY OF PRESENT ILLNESS: This is a 72-year-old woman, who was recently admitted with abdominal ascites and significant shortness of breath and COPD acute exacerbation. The patient had intensive bronchodilator treatment. Pulmonary is following the patient. The patient is on intravenous steroids also. PAST MEDICAL HISTORY: Reviewed. REVIEW OF SYSTEMS: A 14-point review is negative except as mentioned earlier. CURRENT MEDICATIONS: Reviewed include DuoNeb and Solu-Medrol. Doses and rest of medications reviewed. PHYSICAL EXAMINATION: VITAL SIGNS: Pulse is 77, blood pressure 140/76, respirations 18. CHEST: Bilateral scattered rhonchi and crackles. Expiratory wheezing. Breathing efforts are markedly increased. ABDOMEN: Soft, minimal distention. Minimal ascites. LEGS: No edema. No swelling. NERVOUS SYSTEM: Nonfocal. LABORATORY DATA: Reviewed. ASSESSMENT: 1. Chronic obstructive pulmonary disease acute exacerbation with acute purulent tracheobronchitis. 2. Ascites secondary to gastric adenocarcinoma, possibly malignant, status post recent paracentesis. 3. Severe hypokalemia. 4. Generalized weakness and gait dysfunction. 5. Hypertension. 6. Multiple medical issues. RECOMMENDATIONS: Recommend to continue current medications and continue symptomatic treatment. Continue with intensive bronchodilator treatment. The patient has some ascites. I do not think it is enough to warrant an aspiration at this time. Otherwise, repeat labs. Closely follow with Pulmonary and Hematology/Oncology. The patient will be a candidate for chemotherapy after stabilization of pulmonary function per Hematology, Oncology. Further recommendations to follow. MMODL / IJN: [id number] /
[2023-04-13 11:59] LABS: Glucose,Whole Blood 92 mg/dL (70-110)
--- NOTE | 2023-04-13 14:14 | US ---
EXAMINATION TYPE: US abdomen limited DATE OF EXAM: 04/13/2023 COMPARISON: US CLINICAL INDICATION: Female, 72 years old with history of Check for ascites; Ascites check. Technique: Scanned all four quadrants for ascites. Findings: Fluid was seen in all four quadrants, greatest fluid pocket appears to be in the left lower quadrant. Incidental finding-appearance of minimal right hydronephrosis, patient states she has stent in place. This was noted on prior exam as well. IMPRESSION: 1. Small to moderate ascites throughout the abdomen. 2. Small right hydronephrosis with ureteral stent.
--- NOTE | 2023-04-13 14:19 | P.PN ---
Subjective Progress Note Date: 04/13/23 72-year-old female patient presented again to the hospital because of shortness of breath. She was recently hospitalized on 04/02/2023 for similar complaints, treated and she was discharged to be readmitted for worsening shortness of breath. She is known to have metastatic gastric cancer/adenocarcinoma that was diagnosed on EGD that was done on 03/18/2020. She was started on systemic chemotherapy. She had T3 N0 disease. Following chemotherapy, the patient underwent gastrectomy on 07/25/2020 and postsurgical staging indicated positive lymph nodes 10 out of 12 and she was staged as T3 N3 disease. Subsequently, the patient developed bilateral hydronephrosis and this was identified on a CAT scan of the chest abdomen and pelvis and the patient had ureteral stent placement. Upon subsequent follow-up, the patient had residual disease in the gastrojejunal site and she was started on systemic chemotherapy utilizing FOLFOX/Opdivo. Upon further progress, the patient developed ascites and paracentesis was done on 07/28/2022 indicating malignant ascitic fluid consistent with gastric cancer. T he patient continued the treatment of 5-FU and Opdivo. She continued to have recurrence in the ascitic fluid and her last drainage of 3.5 L was done during her most recent hospitalization. The patient able cardiac rhythm showed a preserved LV function with an EF of around 55-60%. Most recent CAT scan of the chest was done on 04/01/2023 and is associated angiogram that showed no evidence of any pulmonary embolism. There was trace bilateral pleural effusion and background emphysema. She had abdominal ascites with nodular contour to liver consistent with cirrhosis. She also had a fracture deformity of the right humerus related to a fall. Her last paracentesis was done on 04/05/2023. Cur rently she is having progressive dyspnea. She is on 2 L of O2 nasal cannula. Chest x-ray findings are stable without any acute changes. White cell count of 15.9 with a hemoglobin of 11 and a platelet count of 334 sodium is 136 potassium is at 3.5 when necessary is a 50 with a creatinine of 0.5. Noted a potassium level at time of admission was 2.6, replaced. LFTs are normal. Troponins are negative. ProBNP level is 194. On today's evaluation of 04/13/2023, the patient is feeling slightly improved compared to yesterday. Abdomen is feeling slightly distended and today's evaluation. She remains on bronchodilators. She remains on steroids. She is on IV Rocephin and Zithromax as an empiric antibiotic coverage. She remains on 3 L O2 nasal cannula with a pulse ox of 99%. The white cycles at 17.8 with a hemoglobin of 10 and a sodium level is at 141 with a potassium level of 3.7, BUN is 13 with a creatinine of 0.7. As mentioned earlier, the patient is a case of metastatic gastric carcinoma. Objective - Vital Signs Vital signs: Vital Signs Temp 98.6 F 04/13/23 07:25 Pulse 76 04/13/23 09:30 Resp 18 04/13/23 07:25 BP 140/76 04/13/23 07:25 Pulse Ox 96 04/13/23 09:12 FiO2 Intake & Output 04/12/23 04/13/23 04/13/23 18:59 06:59 18:59 Intake Total 300 Balance 300 Weight 49.895 kg 49.895 kg Intake: Oral 300 Other: Voiding Method Toilet Toilet Bedside Commode Bedside Commode # Voids 1 - Exam GENERAL EXAM: Alert, pleasant 72-year-old female, on room air, fairly comfortable in no apparent distress. HEAD: Normocephalic. EYES: Normal reaction of pupils, equal size. NOSE: Clear with pink turbinates. THROAT: No erythema or exudates. NECK: No masses, no JVD. CHEST: No chest wall deformity. LUNGS: Equal air entry with bilateral end expiratory wheeze, diminished. CVS: S1 and S2 normal with no audible murmur, regular rhythm. ABDOMEN: No hepatosplenomegaly, normal bowel sounds, no guarding or rigidity. SPINE: No scoliosis or deformity SKIN: No rashes CENTRAL NERVOUS SYSTEM: No focal deficits, tone is normal in all 4 extremities. EXTREMITIES: There is no peripheral edema. No clubbing, no cyanosis. Peripheral pulses are intact. - Labs CBC & Chem 7: 04/13/23 06:55 04/13/23 06:55 Labs: Abnormal Lab Results - Last 24 Hours (Table) 04/12/23 04/12/23 04/12/23 Range/Units 12:30 12:30 12:30 WBC 15.9 H (3.8-10.6) k/uL RBC 3.63 L (3.80-5.40) m/uL Hgb 11.0 L (11.4-16.0) gm/dL Hct 33.6 L (34.0-46.0) % RDW 15.6 H (11.5-15.5) % Neutrophils # 12.9 H (1.3-7.7) k/uL Eosinophils # (0.04-0.35) X 10*3/uL APTT 19.4 L (22.0-30.0) sec VBG pH (7.31-7.41) VBG HCO3 (24-28) mmol/L Sodium (137-145) mmol/L Potassium 2.6 L* (3.5-5.1) mmol/L Carbon Dioxide 34 H (22-30) mmol/L Glucose (74-99) mg/dL POC Glucose (mg/dL) (70-110) mg/dL Calcium 8.1 L (8.4-10.2) mg/dL Total Protein 4.9 L (6.3-8.2) g/dL Albumin 2.8 L (3.5-5.0) g/dL 04/12/23 04/12/23 04/12/23 Range/Units 15:28 17:10 17:52 WBC (3.8-10.6) k/uL RBC (3.80-5.40) m/uL Hgb (11.4-16.0) gm/dL Hct (34.0-46.0) % RDW (11.5-15.5) % Neutrophils # (1.3-7.7) k/uL Eosinophils # (0.04-0.35) X 10*3/uL APTT (22.0-30.0) sec VBG pH 7.48 H (7.31-7.41) VBG HCO3 32 H (24-28) mmol/L Sodium 136 L (137-145) mmol/L Potassium (3.5-5.1) mmol/L Carbon Dioxide (22-30) mmol/L Glucose 210 H (74-99) mg/dL POC Glucose (mg/dL) 160 H (70-110) mg/dL Calcium 8.0 L (8.4-10.2) mg/dL Total Protein (6.3-8.2) g/dL Albumin (3.5-5.0) g/dL 04/12/23 04/13/23 04/13/23 Range/Units 21:36 06:55 06:55 WBC 17.87 H (3.8-10.6) k/uL RBC 3.27 L (3.80-5.40) m/uL Hgb 10.0 L (11.4-16.0) gm/dL Hct 31.0 L (34.0-46.0) % RDW 16.0 H (11.5-15.5) % Neutrophils # 15.37 H (1.3-7.7) k/uL Eosinophils # 0 L (0.04-0.35) X 10*3/uL APTT (22.0-30.0) sec VBG pH (7.31-7.41) VBG HCO3 (24-28) mmol/L Sodium (137-145) mmol/L Potassium (3.5-5.1) mmol/L Carbon Dioxide (22-30) mmol/L Glucose 132 H (74-99) mg/dL POC Glucose (mg/dL) 265 H (70-110) mg/dL Calcium 8.4 L (8.4-10.2) mg/dL Total Protein (6.3-8.2) g/dL Albumin (3.5-5.0) g/dL 04/13/23 Range/Units 07:32 WBC (3.8-10.6) k/uL RBC (3.80-5.40) m/uL Hgb (11.4-16.0) gm/dL Hct (34.0-46.0) % RDW (11.5-15.5) % Neutrophils # (1.3-7.7) k/uL Eosinophils # (0.04-0.35) X 10*3/uL APTT (22.0-30.0) sec VBG pH (7.31-7.41) VBG HCO3 (24-28) mmol/L Sodium (137-145) mmol/L Potassium (3.5-5.1) mmol/L Carbon Dioxide (22-30) mmol/L Glucose (74-99) mg/dL POC Glucose (mg/dL) 132 H (70-110) mg/dL Calcium (8.4-10.2) mg/dL Total Protein (6.3-8.2) g/dL Albumin (3.5-5.0) g/dL Assessment and Plan Plan: Acute on chronic shortness of breath, multifactorial. The patient has advanced COPD addition to ascites contributing to her shortness of breath. Acute hypoxic respiratory failure currently on 2 L of O2 nasal cannula Metastatic gastric cancer/adenocarcinoma, diagnosed in 2019 with recent recurrence and the patient was initiated on FOLFOX in July 2022 and currently on 5-FU and Opdivo Recurrent ascites and status post paracentesis 04/05/2023 with 3.5 L removed Ascites with previous paracentesis 03/22/2023 with 5 L removed. Fluid positive for metastatic adenocarcinoma consistent with primary upper GI tract origin Abdominal discomfort secondary to above Chronic and ongoing tobacco dependence of greater than 50 years History of bilateral hydronephrosis status post stent placement Hyperlipidemia Osteoarthritis Plan: Continue optimizing COPD exacerbation with accommodation bronchodilators and steroids and antibiotics I reviewed the records. I reviewed the previous CAT scans. Unfortunately not a whole lot preoperative this patient. She is quite debilitated with metastatic gastric carcinoma and malignant ascites. The patient will be chair is with a combination of bronchodilators and steroids for exacerbation Reevaluate for ascites by another ultrasound abdomen, this was ordered for today and possible paracentesis if needed Pulmonary embolism is doubtful as the patient's most recent CTA was negative for PE Antibiotic coverage is essentially empiric Prognosis remains poor Consult oncology again We'll continue to follow Long-term prognosis poor based above-mentioned comorbidities
--- NOTE | 2023-04-13 14:30 | P.CONS ---
History of Present Illness - Reason for Consult Consult date: 04/13/23 hx of gastric cancer Requesting physician: Felix Vickers - Chief Complaint SOB - History of Present Illness Mrs. Mcconnell is a very pleasant patient of Dr. Bay diagnosed with gastric adenocarcinoma in March 2020. She presented with intractable nausea and vomiting with associated weight loss over just a few months. 03/14/20 CT AP revealed gastric thickening at proximal duodenum and gastric distention. 03/18/20 EGD revealed lesion at pre-pylorus, biopsy positive for invasive adenocarcinoma, HER-2/hussein negative. 03/29/20 EUS showed T3 N0 disease. 04/03/20 CT chest was ne gative. She was treated at [facility] in [place], she was started on FLOT regimen, had 4 cycles, repeat CT CAP showed decrease and tumor and borderline enlarged hepatic ligament lymph nodes. 07/25/20 patient had gastrectomy, final path poorly differentiated carcinoma, diffuse type, 07/15 nodes positive, final staging pT3 pN3a, negative margins, positive for lymphovascular invasion. Patient then moved to [place]. Genetic testing negative, follow-up CT scan showed a seroma but no evidence of disease. She received adjuvant FLOT 09/2020 until 10/2020, this was stopped due to neuropathy and fatigue side effects. Patient stayed current on her imaging, no evidence of disease, EGD 09/23 r evealed some gastritis and Roman's esophagus, an abdominal wall lesion in December 23 was negative for malignancy. March 2022 she developed abdominal pain, CT AP showed bilateral hydronephrosis, she had bilateral ureteral stent placement at that time. CT CAP May 2022 showed some thickening of posterior gastric wall. In June 2022 repeat EGD and biopsy of gastric jejunostomy site came back positive for poorly differentiated adenocarcinoma, signet cell subtype, Her2 and PDL 1 negative. She was started on FOLFOX July 2022. 07/28/22 paracentesis done, cytology was negative. CT CAP October 2022 showed mild ascites, no other evidence of disease. CT CAP 01/01/23 showed mild ascites. Patient started 5-FU and opdivo in 2022, and completed cycle 10 on 03/09/23. During last hospitalization on 03/22/23, cytology revealed ascitic fluid was positive for metastatic adenocarcinoma consistent with primary upper gastrointestinal tract origin. CT abdomen and pelvis from 03/12/23 which revealed no evidence of lung mass or adenopathy within the chest. Moderate to marked ascites increased from prior study. Bilateral urethral stents without solid renal mass or hydronephrosis. No pelvic mass or adenopathy noted. Due to her poor performance status treatment has been on hold. Patient has upcoming apt with Dr. Bay, to discuss further recommendations. Patient presented to the ER with worsening shortness of breath. patient was recently admitted for the same on 04/02. On presentation to the ER chest x-ray showed no acute cardiopulmonary disease processes with COPD changes. Pulmo nology is following. Patient has been started on breathing treatments, inhalers and IV steroids. Patient reports mild improvement in breathing since admission. Denies chest pain. Denies fever and chills. WBC 15.9, hemoglobin 11, platelets 334,000. Review of Systems 10 point ROS is negative except as stated in the HPI Past Medical History Past Medical History: Cancer, COPD, Hyperlipidemia, Hypertension, Osteoarthritis (OA) Additional Past Medical History / Comment(s): 03/2020 diagnosed with stomach cancer/had resection and chemo, hemorroids, UTIs, hx stomach ulcer History of Any Multi-Drug Resistant Organisms: None Reported Past Surgical History: Breast Surgery, Cholecystectomy, Joint Replacement, Orthopedic Surgery, Tonsillectomy Additional Past Surgical History / Comment(s): stomach resection, R upper chest port, EGD, colonoscopies, bilateral breast benign biopsies, RK bilateral eyes, rt hip replacement Past Anesthesia/Blood Transfusion Reactions: Motion Sickness Additional Past Anesthesia/Blood Transfusion Reaction / Comm: Pt has claustrophobia Past Psychological History: Anxiety, Depression Additional Psychological History / Comment(s): . Smoking Status: Current every day smoker Past Alcohol Use History: None Reported Additional Past Alcohol Use History / Comment(s): Pt started smoking in 1966 and quit 08/2021, later restarted Past Drug Use History: None Reported - Past Family History Father Family Medical History: Cancer, Deep Vein Thrombosis (DVT) Additional Family Medical History / Comment(s): Stomach cancer. Father of blood clot that travelled to his heart. Mother Family Medical History: Cancer Additional Family Medical History / Comment(s): Bone cancer Sister(s) Family Medical History: Cancer Additional Family Medical History / Comment(s): Breast cancer Medications and Allergies Home Medications Medication Instructions Recorded Confirmed Type Oxybutynin Chloride [oxyBUTYnin 10 mg PO DAILY #30 tab 03/28/22 04/12/23 Rx chloride ER] Omeprazole [PriLOSEC] 20 mg PO AC-BRKFST #90 cap 06/25/22 04/12/23 Rx Lovastatin [Mevacor] 40 mg PO HS 07/27/22 04/12/23 History Ondansetron [Zofran] 4 mg PO Q6H PRN 07/27/22 04/12/23 History Sucralfate [Carafate] 1 gm PO BID 01/19/23 04/12/23 History Venlafaxine HCl ER [Effexor XR] 150 mg PO DAILY 03/22/23 04/12/23 History Budesonide-Formot 160-4.5 Mcg 2 puff INHALATION RT-BID 30 Days 04/06/23 04/12/23 Rx [Symbicort 160-4.5 Mcg Inhaler] #1 each Nicotine 7Mg/24Hr Patch [Habitrol] 1 patch TRANSDERM DAILY #14 patch 04/06/23 04/12/23 Rx cefUROXime axetiL [Ceftin] 500 mg PO BID 5 Days #10 tab 04/06/23 04/12/23 Rx polyethylene glycoL 3350 [Miralax] 17 gm PO DAILY PRN packet 04/06/23 04/12/23 Rx Cools Solution 5 ml PO QID PRN 04/12/23 04/12/23 History Sennosides-Docusate Sodium 1 tab PO DAILY 04/12/23 04/12/23 History [Senokot-S] hydrOXYzine HCL 20 mg PO QID PRN 04/12/23 04/12/23 History predniSONE See Taper PO DIRECTED 04/12/23 04/12/23 History Allergies Allergy/AdvReac Type Severity Reaction Status Date / Time No Known Allergies Allergy Verified 04/12/23 14:28 Physical Exam Vitals: Vital Signs Temp Pulse Pulse Resp BP BP Pulse Ox 04/13/23 07:25 98.6 F 70 18 140/76 96 04/13/23 01:36 98.0 F 64 18 129/74 98 04/12/23 21:40 98.4 F 82 20 123/73 94 L 04/12/23 21:30 20 04/12/23 20:15 82 04/12/23 20:03 79 04/12/23 20:00 79 04/12/23 19:47 79 04/12/23 19:39 98.3 F 04/12/23 17:59 98.3 F 04/12/23 15:29 98.5 F 04/12/23 14:20 79 20 92 L 04/12/23 14:10 79 122/104 95 04/12/23 14:00 83 95 04/12/23 13:50 75 95 04/12/23 13:40 145/71 04/12/23 13:30 74 97 04/12/23 13:27 75 18 123/86 97 04/12/23 13:20 82 100 04/12/23 13:13 75 04/12/23 13:10 83 123/86 100 04/12/23 13:00 76 97 04/12/23 12:58 90 04/12/23 12:50 71 98 04/12/23 12:40 73 134/74 98 04/12/23 12:30 98 04/12/23 12:20 74 133/81 98 04/12/23 12:12 75 04/12/23 11:33 20 04/12/23 11:30 98.7 F 75 20 137/88 95 04/12/23 11:02 98.8 F 79 24 147/86 95 Intake and Output 04/12/23 04/13/23 04/13/23 22:59 06:59 14:59 Intake Total 300 Balance 300 Intake: Oral 300 Other: Voiding Method Toilet Bedside Commode # Voids 1 1 Weight 49.895 kg - Constitutional General appearance: no acute distress, thin - EENT Eyes: anicteric sclerae, EOMI ENT: hearing grossly normal - Respiratory breathing mildly labored Respiratory: bilateral: diminished, wheezing - Cardiovascular Rhythm: regular Heart sounds: normal: S1, S2 Abnormal Heart Sounds: no systolic murmur, no diastolic murmur, no rub, no S3 Ga llop, no S4 Gallop, no click, no other - Gastrointestinal General gastrointestinal: no distended, soft, no tenderness - Integumentary Integumentary: no cyanotic - Neurologic grossly intact - Musculoskeletal Musculoskeletal: generalized weakness - Psychiatric Psychiatric: A&O x's 3, appropriate affect, intact judgment & insight Results CBC & Chem 7: 04/13/23 06:55 04/13/23 06:55 Labs: Abnormal Lab Results - Last 24 Hours (Table) 04/12/23 04/12/23 04/12/23 Range/Units 12:30 12:30 12:30 WBC 15.9 H (3.8-10.6) k/uL RBC 3.63 L (3.80-5.40) m/uL Hgb 11.0 L (11.4-16.0) gm/dL Hct 33.6 L (34.0-46.0) % RDW 15.6 H (11.5-15.5) % Neutrophils # 12.9 H (1.3-7.7) k/uL APTT 19.4 L (22.0-30.0) sec VBG pH (7.31-7.41) VBG HCO3 (24-28) mmol/L Sodium (137-145) mmol/L Potassium 2.6 L* (3.5-5.1) mmol/L Carbon Dioxide 34 H (22-30) mmol/L Glucose (74-99) mg/dL POC Glucose (mg/dL) (70-110) mg/dL Calcium 8.1 L (8.4-10.2) mg/dL Total Protein 4.9 L (6.3-8.2) g/dL Albumin 2.8 L (3.5-5.0) g/dL 04/12/23 04/12/23 04/12/23 Range/Units 15:28 17:10 17:52 WBC (3.8-10.6) k/uL RBC (3.80-5.40) m/uL Hgb (11.4-16.0) gm/dL Hct (34.0-46.0) % RDW (11.5-15.5) % Neutrophils # (1.3-7.7) k/uL APTT (22.0-30.0) sec VBG pH 7.48 H (7.31-7.41) VBG HCO3 32 H (24-28) mmol/L Sodium 136 L (137-145) mmol/L Potassium (3.5-5.1) mmol/L Carbon Dioxide (22-30) mmol/L Glucose 210 H (74-99) mg/dL POC Glucose (mg/dL) 160 H (70-110) mg/dL Calcium 8.0 L (8.4-10.2) mg/dL Total Protein (6.3-8.2) g/dL Albumin (3.5-5.0) g/dL 04/12/23 04/13/23 Range/Units 21:36 07:32 WBC (3.8-10.6) k/uL RBC (3.80-5.40) m/uL Hgb (11.4-16.0) gm/dL Hct (34.0-46.0) % RDW (11.5-15.5) % Neutrophils # (1.3-7.7) k/uL APTT (22.0-30.0) sec VBG pH (7.31-7.41) VBG HCO3 (24-28) mmol/L Sodium (137-145) mmol/L Potassium (3.5-5.1) mmol/L Carbon Dioxide (22-30) mmol/L Glucose (74-99) mg/dL POC Glucose (mg/dL) 265 H 132 H (70-110) mg/dL Calcium (8.4-10.2) mg/dL Total Protein (6.3-8.2) g/dL Albumin (3.5-5.0) g/dL Chest x-ray: report reviewed Assessment and Plan (1) COPD exacerbation Current Visit: Yes Status: Acute Priority: High Code(s): J44.1 - CHRONIC OBSTRUCTIVE PULMONARY DISEASE W (ACUTE) EXACERBATION SNOMED Code(s): 825766117 (2) Gastric adenocarcinoma Current Visit: Yes Status: Chronic Priority: High Code(s): C16.9 - MALIGNANT NEOPLASM OF STOMACH, UNSPECIFIED SNOMED Code(s): 465569452 Plan: COPD exacerbation: -Being treated for COPD exacerbation by Pulmonary -Chest x-ray showed no acute cardiopulmonary disease processes with COPD changes -Reports mild improvement in breathing. Discussed with patient the need to treat her underlying COPD and to stabilize her breathing prior to reinitiating therapy/treatment. Will discuss further at upcoming apt with Dr. Bay Metastatic gastric carcinoma: -Patient has been on treatment with Opdivo/5 FU. On hold since 03/09/23, due to progressive weakness and poor performance status -Recent paracentesis positive for malignant cells. She had positive ascitic fluid previously. CT AP and CTA not reporting any new or enlarging masses or LAD. -Appointment to follow-up with Dr. Bay scheduled for 04/19 for discussion r egarding treatment options, prognosis with and without treatment, and to define set goals of care. attests: I have seen and examined patient, performed H&P, and developed impression and plan of care. Discussed with dictator. Agree with documentation, dictated as a scribe
[2023-04-13 17:07] LABS: Glucose,Whole Blood 144 mg/dL (70-110)
[2023-04-13 20:13] LABS: Glucose,Whole Blood 161 mg/dL (70-110)
[2023-04-13] MEDS: ONDANSETRON 4 MG TAB PO PRN (20:19)
[2023-04-13] MEDS: ATORVASTATIN 10 MG TAB PO SCH (20:20)
[2023-04-14] MEDS: methylPREDNISolone SOD SUCCI 125 MG/2 ML VIAL IV SCH ×4 (00:07→17:54)
[2023-04-14 07:14] LABS: Glucose,Whole Blood 134 mg/dL (70-110)
[2023-04-14] MEDS: INSULIN ASPART (NovoLOG) 100 UNIT/ML VIAL SQ SCH ×4 (07:18→20:16)
[2023-04-14] MEDS: AZITHROMYCIN 500 MG TAB PO SCH (08:20)
[2023-04-14] MEDS: OXYBUTYNIN 10 MG TAB.ER.24 PO SCH (08:20)
[2023-04-14] MEDS: SUCRALFATE 1 GM TAB PO SCH ×2 (08:20→20:15)
[2023-04-14] MEDS: SENNOSIDES-DOCUSATE SODIUM 1 EACH TAB PO SCH (08:20)
[2023-04-14] MEDS: PANTOPRAZOLE 40 MG TABLET PO SCH (08:20)
[2023-04-14] MEDS: NICOTINE 7MG/24HR PATCH TRANSDERM SCH (08:21)
[2023-04-14] MEDS: VENLAFAXINE HCL ER 150 MG CAP PO SCH (08:21)
[2023-04-14] MEDS: HEPARIN SODIUM,PORCINE/PF 5,000 UNIT/0.5 ML SYRINGE SQ SCH ×2 (08:21→20:15)
[2023-04-14] MEDS: BUDESONIDE 1 MG/2 ML NEBU INHALATION SCH ×2 (08:42→19:41)
[2023-04-14] MEDS: FORMOTEROL FUMARATE 20 MCG/2 ML NEBU INHALATION SCH ×2 (08:42→19:41)
[2023-04-14] MEDS: IPRATROPIUM-ALBUTEROL 3 ML NEB INHALATION SCH ×5 (08:42→19:41)
--- NOTE | 2023-04-14 11:27 | PN ---
PROGRESS NOTE DATE OF SERVICE: 04/14/2023 SUBJECTIVE: This is a 72-year-old woman, who was admitted with significant shortness of breath, also developed significant abdominal distention today. The patient is extremely short of breath. The patient had a paracentesis during the previous admission. The ultrasound of abdomen is reviewed personally. PAST MEDICAL HISTORY: Reviewed. REVIEW OF SYSTEMS: A 14-point review is negative except as mentioned earlier. CURRENT MEDICATIONS: Reviewed include DuoNeb. Dose and rest of medications noted. PHYSICAL EXAMINATION: VITAL SIGNS: Pulse is 89, blood pressure is 148/76, respirations 18. HEENT: Conjunctivae normal. NECK: No JVD. CARDIOVASCULAR: S1, S2. RESPIRATIONS: Bilateral scattered rhonchi. ABDOMEN: Distended, tense, nontender. No guarding. No rigidity. Ascites present. LEGS: No edema. NERVOUS SYSTEM: Nonfocal. LABORATORY DATA: Reviewed. ASSESSMENT: 1. Chronic obstructive pulmonary disease acute exacerbation with acute purulent tracheobronchitis. 2. Ascites secondary to gastric adenocarcinoma, possibly malignant, status post recent paracentesis with recurring ascites, tense. 3. Severe hypokalemia, present on admission. 4. Generalized weakness and gait dysfunction. 5. Hypertension. 6. Multiple medical issues. RECOMMENDATIONS: Recommend to continue current medications, continue with intensive bronchodilators, IV steroids, empiric antibiotics, and bronchodilators. Monitor blood sugars closely. The patient has developed significant ascites, even though is not visualized in the ultrasound. I would also discuss with Hematology/Oncology and recommend abdominal paracentesis by Interventional Radiology for therapeutic purposes and relief of the pain and shortness of breath. Once again, the overall prognosis guarded. Repeat labs are ordered. Further recommendations to follow. MMODL / IJN: [id number] /
[2023-04-14 11:53] LABS: Glucose,Whole Blood 108 mg/dL (70-110)
--- NOTE | 2023-04-14 13:13 | P.PN ---
Subjective Progress Note Date: 04/14/23 Principal diagnosis: SOB At today's visit patient is resting comfortably bedside chair. Patient reports breathing has improved. She reports she was able to ambulate up-and-down the hallway without difficulties. Patient does report increased abdominal distention and discomfort since yesterday. Objective - Vital Signs Vital signs: Vital Signs Temp 98.4 F 04/14/23 11:56 Pulse 91 04/14/23 12:20 Resp 18 04/14/23 11:56 BP 136/73 04/14/23 11:56 Pulse Ox 98 04/14/23 11:56 FiO2 Intake & Output 04/13/23 04/14/23 04/14/23 18:59 06:59 18:59 Intake Total 50 Balance 50 Weight 49.895 kg Intake: Intake, IV Titration 50 Amount cefTRIAXone 1 gm In 50 Sodium Chloride 0.9% 50 ml @ 100 mls/hr IVPB Q24HR [facility] Rx#:[id number] Other: Voiding Method Toilet Toilet Toilet Bedside Commode Bedside Commode Bedside Commode # Voids 3 1 - Constitutional General appearance: Present: average body habitus, no acute distress - EENT Eyes: Present: anicteric sclerae, EOMI ENT: Present: hearing grossly normal - Respiratory Details: breathing is even and unlabored - Cardiovascular Details: skin warm and dry - Gastrointestinal General gastrointestinal: Present: distended. Absent: tenderness - Integumentary Integumentary: Absent: cyanotic - Neurologic Neurologic Comment(s): grossly intact - Musculoskeletal Musculoskeletal: Present: strength equal bilaterally - Psychiatric Psychiatric: Present: A&O x's 3, appropriate affect, intact judgment & insight - Labs CBC & Chem 7: 04/13/23 06:55 04/13/23 06:55 Labs: Abnormal Lab Results - Last 24 Hours (Table) 04/13/23 04/13/23 04/14/23 Range/Units 17:06 20:12 07:13 POC Glucose (mg/dL) 144 H 161 H 134 H (70-110) mg/dL Assessment and Plan (1) COPD exacerbation Current Visit: Yes Status: Acute Priority: High Code(s): J44.1 - CHRONIC OBSTRUCTIVE PULMONARY DISEASE W (ACUTE) EXACERBATION SNOMED Code(s): 987128031 (2) Gastric adenocarcinoma Current Visit: Yes Status: Chronic Priority: High Code(s): C16.9 - MALIGNANT NEOPLASM OF STOMACH, UNSPECIFIED SNOMED Code(s): 167434244 Plan: COPD exacerbation: -Being treated for COPD exacerbation by Pulmonary -Chest x-ray showed no acute cardiopulmonary disease processes with COPD changes -Reports improvement in breathing. Discussed with patient the need to treat her underlying COPD and to stabilize her breathing prior to reinitiating therapy/treatment. Will discuss further at upcoming apt with Dr. Bay Metastatic gastric carcinoma: -Patient has been on treatment with Opdivo/5 FU. On hold since 03/09/23, due to progressive weakness and poor performance status -Recent paracentesis positive for malignant cells. She had positive ascitic fluid previously. CT AP and CTA not reporting any new or enlarging masses or LAD. -Increasing abd distention at todays visit, will order paracentesis. Due to recurring ascites, will place standing order for paracentesis. Spoke with IM team, once patient receives her paracentesis and if breathing is stable/continues to improve, pt is cleared from a hem/onc standpoint for discharge -Appointment to follow-up with Dr. Bay scheduled for 04/19 for discussion regarding treatment options, prognosis with and without treatment, and to define set goals of care.
--- NOTE | 2023-04-14 15:47 | P.PN ---
Subjective Progress Note Date: 04/14/23 72-year-old female patient presented again to the hospital because of shortness of breath. She was recently hospitalized on 04/02/2023 for similar complaints, treated and she was discharged to be readmitted for worsening shortness of breath. She is known to have metastatic gastric cancer/adenocarcinoma that was diagnosed on EGD that was done on 03/18/2020. She was started on systemic chemotherapy. She had T3 N0 disease. Following chemotherapy, the patient underwent gastrectomy on 07/25/2020 and postsurgical staging indicated positive lymph nodes 10 out of 12 and she was staged as T3 N3 disease. Subsequently, the patient developed bilateral hydronephrosis and this was identified on a CAT scan of the chest abdomen and pelvis and the patient had ureteral stent placement. Upon subsequent follow-up, the patient had residual disease in the gastrojejunal site and she was started on systemic chemotherapy utilizing FOLFOX/Opdivo. Upon further progress, the patient developed ascites and paracentesis was done on 07/28/2022 indicating malignant ascitic fluid consistent with gastric cancer. T he patient continued the treatment of 5-FU and Opdivo. She continued to have recurrence in the ascitic fluid and her last drainage of 3.5 L was done during her most recent hospitalization. The patient able cardiac rhythm showed a preserved LV function with an EF of around 55-60%. Most recent CAT scan of the chest was done on 04/01/2023 and is associated angiogram that showed no evidence of any pulmonary embolism. There was trace bilateral pleural effusion and background emphysema. She had abdominal ascites with nodular contour to liver consistent with cirrhosis. She also had a fracture deformity of the right humerus related to a fall. Her last paracentesis was done on 04/05/2023. Cur rently she is having progressive dyspnea. She is on 2 L of O2 nasal cannula. Chest x-ray findings are stable without any acute changes. White cell count of 15.9 with a hemoglobin of 11 and a platelet count of 334 sodium is 136 potassium is at 3.5 when necessary is a 50 with a creatinine of 0.5. Noted a potassium level at time of admission was 2.6, replaced. LFTs are normal. Troponins are negative. ProBNP level is 194. On today's evaluation of 04/13/2023, the patient is feeling slightly improved compared to yesterday. Abdomen is feeling slightly distended and today's evaluation. She remains on bronchodilators. She remains on steroids. She is on IV Rocephin and Zithromax as an empiric antibiotic coverage. She remains on 3 L O2 nasal cannula with a pulse ox of 99%. The white cycles at 17.8 with a hemoglobin of 10 and a sodium level is at 141 with a potassium level of 3.7, BUN is 13 with a creatinine of 0.7. As mentioned earlier, the patient is a case of metastatic gastric carcinoma. On 04/14/2023, the patient is reporting marked improvement in respiratory status. Significant improvement yesterday and the patient will be kept essentially on the same treatment with bronchodilators and the patient is also on IV Solu-Medrol 60 mg every 6 hours. The patient is also on empiric antibiotic coverage. On a separate note, the patient was also found to have ascites and interventional radiology will be consulted for possible paracentesis. She remains on oxygen 2 L/m nasal cannula. No new labs are available from today. No chest pain. Abdomen is slightly more distended compared to yesterday. Objective - Vital Signs Vital signs: Vital Signs Temp 98.4 F 04/14/23 11:56 Pulse 91 04/14/23 12:20 Resp 18 04/14/23 11:56 BP 136/73 04/14/23 11:56 Pulse Ox 98 04/14/23 11:56 FiO2 Intake & Output 04/13/23 04/14/23 04/14/23 18:59 06:59 18:59 Intake Total 50 Balance 50 Weight 49.895 kg Intake: Intake, IV Titration 50 Amount cefTRIAXone 1 gm In 50 Sodium Chloride 0.9% 50 ml @ 100 mls/hr IVPB Q24HR COUNTS INCLUDE 234 BEDS AT THE [facility] Rx#:[id number] Other: Voiding Method Toilet Toilet Toilet Bedside Commode Bedside Commode Bedside Commode # Voids 3 1 - Exam GENERAL EXAM: Alert, pleasant 72-year-old female, on room air, fairly comfortable in no apparent distress. HEAD: Normocephalic. EYES: Normal reaction of pupils, equal size. NOSE: Clear with pink turbinates. THROAT: No erythema or exudates. NECK: No masses, no JVD. CHEST: No chest wall deformity. LUNGS: Equal air entry with bilateral end expiratory wheeze, diminished. CVS: S1 and S2 normal with no audible murmur, regular rhythm. ABDOMEN: No hepatosplenomegaly, normal bowel sounds, no guarding or rigidity. SPINE: No scoliosis or deformity SKIN: No rashes CENTRAL NERVOUS SYSTEM: No focal deficits, tone is normal in all 4 extremities. EXTREMITIES: There is no peripheral edema. No clubbing, no cyanosis. Peripheral pulses are intact. - Labs CBC & Chem 7: 04/13/23 06:55 04/13/23 06:55 Labs: Abnormal Lab Results - Last 24 Hours (Table) 04/13/23 04/13/23 04/14/23 Range/Units 17:06 20:12 07:13 POC Glucose (mg/dL) 144 H 161 H 134 H (70-110) mg/dL Assessment and Plan Plan: Acute on chronic shortness of breath, multifactorial. The patient has advanced COPD addition to ascites contributing to her shortness of breath, and the patient is improving. COPD exacerbation is being treated accordingly and the patient was also found to have some residual ascites and interventional radiology was consulted for possible paracentesis. Acute hypoxic respiratory failure currently on 2 L of O2 nasal cannula Metastatic gastric cancer/adenocarcinoma, diagnosed in 2019 with recent recurrence and the patient was initiated on FOLFOX in July 2022 and currently on 5-FU and Opdivo Recurrent ascites and status post paracentesis 04/05/2023 with 3.5 L removed Ascites with previous paracentesis 03/22/2023 with 5 L removed. Fluid positive for metastatic adenocarcinoma consistent with primary upper GI tract origin Abdominal discomfort secondary to above Chronic and ongoing tobacco dependence of greater than 50 years History of bilateral hydronephrosis status post stent placement Hyperlipidemia Osteoarthritis Plan: clinically improving Continue optimizing COPD exacerbation with accommodation bronchodilators and steroids and antibiotics, no changes I reviewed the records. I reviewed the previous CAT scans. Unfortunately not a whole lot preoperative this patient. She is quite debilitated with metastatic gastric carcinoma and malignant ascites. The patient will be chair is with a combination of bronchodilators and steroids consider another paracentesis by interventional radiology based on the ultrasound of the abdomen results Antibiotic coverage is essentially empiric Prognosis remains poor Consult oncology again We'll continue to follow Long-term prognosis poor based above-mentioned comorbidities
[2023-04-14] MEDS: ONDANSETRON 4 MG TAB PO PRN (16:15)
[2023-04-14 17:06] LABS: Glucose,Whole Blood 121 mg/dL (70-110)
[2023-04-14 19:43] LABS: Glucose,Whole Blood 141 mg/dL (70-110)
[2023-04-14] MEDS: ATORVASTATIN 10 MG TAB PO SCH (20:15)
[2023-04-15] MEDS: methylPREDNISolone SOD SUCCI 125 MG/2 ML VIAL IV SCH ×4 (00:07→18:17)
[2023-04-15] MEDS: ONDANSETRON 4 MG TAB PO PRN ×2 (05:55→20:00)
[2023-04-15 07:40] LABS: Glucose,Whole Blood 120 mg/dL (70-110)
[2023-04-15] MEDS: SUCRALFATE 1 GM TAB PO SCH ×2 (07:44→21:00)
[2023-04-15] MEDS: INSULIN ASPART (NovoLOG) 100 UNIT/ML VIAL SQ SCH ×4 (07:44→21:01)
[2023-04-15] MEDS: AZITHROMYCIN 500 MG TAB PO SCH (07:44)
[2023-04-15] MEDS: SENNOSIDES-DOCUSATE SODIUM 1 EACH TAB PO SCH (07:44)
[2023-04-15] MEDS: PANTOPRAZOLE 40 MG TABLET PO SCH (07:44)
[2023-04-15] MEDS: OXYBUTYNIN 10 MG TAB.ER.24 PO SCH (07:45)
[2023-04-15] MEDS: NICOTINE 7MG/24HR PATCH TRANSDERM SCH (07:45)
[2023-04-15] MEDS: HEPARIN SODIUM,PORCINE/PF 5,000 UNIT/0.5 ML SYRINGE SQ SCH ×2 (07:45→21:01)
[2023-04-15] MEDS: VENLAFAXINE HCL ER 150 MG CAP PO SCH (07:45)
[2023-04-15] MEDS: BUDESONIDE 1 MG/2 ML NEBU INHALATION SCH ×2 (07:57→20:11)
[2023-04-15] MEDS: FORMOTEROL FUMARATE 20 MCG/2 ML NEBU INHALATION SCH ×2 (07:57→20:11)
[2023-04-15] MEDS: IPRATROPIUM-ALBUTEROL 3 ML NEB INHALATION SCH ×4 (07:57→20:11)
[2023-04-15 08:52] LABS: BUN/Creat Ratio 33.33 Ratio (12.00-20.00); Calcium 8.5 mg/dL (8.7-10.3); Carbon Dioxide 25.7 mmol/L (21.6-31.8); Chloride 105 mmol/L (96-109); Glucose 115 mg/dL (70-110); Potassium 4.6 mmol/L (3.5-5.5); Sodium 144 mmol/L (135-145)
[2023-04-15 09:33] LABS: Basophils # (A) 0.04 X 10*3/uL (0.00-0.10); Basophils % (A) 0.2 %; Eosinophils # (A) 0 X 10*3/uL (0.04-0.35); Eosinophils % (A) 0 %; HCT 31.7 % (37.2-46.3); Lymphocytes # (A) 0.62 X 10*3/uL (0.90-5.00); Lymphocytes % (A) 2.8 %; MCH 30.3 pg (27.0-32.0); MCHC 31.5 d/dL (32.0-37.0); MCV 96.1 FL (80.0-97.0); Mean Platelet Volume 10.4 FL (9.5-12.2); Monocytes # (A) 0.42 X 10*3/uL (0.20-1.00); Monocytes % (A) 1.9 %; NRBC Per 100 WBC 0 X 10*3/uL (0.00-0.01); Neutrophils # (A) 20.62 X 10*3/uL (1.80-7.70); Neutrophils % (A) 93.9 %; Platelet Count 270 X 10*3/uL (140-440); RDW 16.4 % (11.5-14.5); WBC 21.96 X 10*3/uL (4.50-10.00)
--- NOTE | 2023-04-15 10:41 | US ---
Ultrasound-guided paracentesis. DATE OF EXAM: 04/15/2023 CLINICAL HISTORY: Ascites The procedure was discussed with the patient. The risks, complications, benefits, and alternatives we re discussed and any questions were answered. Informed consent was obtained. The patient was placed s upine on the ultrasound table and prepped and draped in the usual sterile fashion. All elements of maximal barrier technique were utilized. Under ultrasound guidance, access into the right lower quadrant was obtained, via the paracentesis catheter system and direct ultrasound guidanc e. Approximately 2.5 liters of straw-colored fluid was removed. The patient was stable throughout the pr ocedure and remained stable upon discharge from Department of Radiology. IMPRESSION: Successful paracentesis under ultrasound guidance.
[2023-04-15] MEDS ORDERED: MAG HYDROX/AL HYDROX/SIMETH 30 ML, LIDOCAINE VISCOUS 2% 30 ML, NYSTATIN 100,000 UNIT/ML... PO SCH ×3 (12:00)
[2023-04-15 12:12] LABS: Glucose,Whole Blood 93 mg/dL (70-110)
[2023-04-15 13:20] VITALS: BMI 16.8
[2023-04-15] MEDS: MAG HYDROX/AL HYDROX/SIMETH 30 ML, LIDOCAINE VISCOUS 2% 30 ML, NYSTATIN 100,000 UNIT/ML... PO SCH ×9 (14:18→21:03)
[2023-04-15 16:47] LABS: Glucose,Whole Blood 149 mg/dL (70-110)
--- NOTE | 2023-04-15 19:22 | P.PN ---
Subjective Progress Note Date: 04/15/23 This is a 72-year-old female who was recently admitted with significant shortness of breath also developed significant abdominal distention being evaluated with plans for paracentesis with interventional radiology today. Patient is afebrile white count is elevated although maintained on steroids as patient is afebrile. Patient continued on breathing treatments along with supple oxygen. Appetite is poor and reports inability to tolerate diet and having continued vomiting and abdominal discomfort. Review of systems: Constitutional: No reports of fatigue, fever, or chills Cardiovascular: No reports of chest pain or palpitations Respiratory: reports of shortness of breath and continued cough GI: reports of nausea, reports of vomiting last night, : No reports of dysuria or retention Neurovascular: reports of generalized weakness All medications have been reviewed Active Medications Acetaminophen (Acetaminophen Tab 325 Mg Tab) 650 mg PO Q4HR PRN PRN Reason: Mild Pain or Fever > 100.5 Hydrocodone Bitart/Acetaminophen (Hydrocodone/Apap 5-325mg 1 Each Tab) 1 each PO Q6HR PRN PRN Reason: Pain Last Admin: 04/14/23 20:15 Dose: 1 each Albuterol/Ipratropium (Ipratropium-Albuterol 3 Ml Neb) 3 ml INHALATION RT-Q2H PRN PRN Reason: Shortness Of Breath Or Wheezing Albuterol/Ipratropium (Ipratropium-Albuterol 3 Ml Neb) 3 ml INHALATION RT-QID [facility] Last Admin: 04/15/23 15:17 Dose: 3 ml Atorvastatin Calcium (Atorvastatin 10 Mg Tab) 10 mg PO HS [facility] Last Admin: 04/14/23 20:15 Dose: 10 mg Budesonide (Budesonide 1 Mg/2 Ml Nebu) 1 mg INHALATION RT-BID [facility] Last Admin: 04/15/23 07:57 Dose: 1 mg Al Hydroxide/Mg Hydroxide 30 ml/ Diphenhydramine HCl 75 mg/Lidocaine HCl 30 ml 0 ml PO QID PRN PRN Reason: Sore Throat Al Hydroxide/Mg Hydroxide 30 ml/ Lidocaine HCl 30 ml/Nystatin 3,000,000 unit 0 ml PO QID [facility] Last Admin: 04/15/23 18:18 Dose: 5 ml Dextrose/Water (Dextrose 50% Syringe 50 Ml) 25 ml IVP PER PROTOCOL PRN; Protocol PRN Reason: Hypoglycemia Dextrose/Water (Dextrose 50% Syringe 50 Ml) 50 ml IVP PER PROTOCOL PRN; Protocol PRN Reason: Hypoglycemia Formoterol Fumarate (Formoterol Fumarate 20 Mcg/2 Ml Nebu) 20 mcg INHALATION RT-BID [facility] Last Admin: 04/15/23 07:57 Dose: 20 mcg Heparin Sodium (Porcine) (Heparin Sodium,Porcine/Pf 5,000 Unit/0.5 Ml Syringe) 5,000 unit SQ Q12HR [facility] Last Admin: 04/15/23 07:45 Dose: 5,000 unit Hydroxyzine HCl (Hydroxyzine Hcl 10 Mg Tab) 20 mg PO QID PRN PRN Reason: Itching Ceftriaxone Sodium 1 gm/ (Sodium Chloride) 50 mls @ 100 mls/hr IVPB Q24HR [facility]; Protocol Last Admin: 04/15/23 07:45 Dose: 100 mls/hr Insulin Aspart (Insulin Aspart (Novolog) 100 Unit/Ml Vial) 0 unit SQ ACHS [facility]; Protocol Last Admin: 04/15/23 16:49 Dose: Not Given Methylprednisolone Sodium Succinate (Methylprednisolone Sod Succi 125 Mg/2 Ml Vial) 60 mg IV Q6HR [facility] Last Admin: 04/15/23 18:17 Dose: 60 mg Miscellaneous Information (Magnesium Replacement Protocol 1 Each Misc) 1 each MISCELLANE DAILY PRN; Protocol PRN Reason: Per Protocol Miscellaneous Information (Potassium Replacement Protocol 1 Each Misc) 1 each MISCELLANE DAILY PRN; Protocol PRN Reason: Per Protocol Naloxone HCl (Naloxone 0.4 Mg/Ml 1 Ml Vial) 0.2 mg IVP Q2M PRN PRN Reason: Opioid Reversal Nicotine (Nicotine 7mg/24hr Patch) 1 patch TRANSDERM DAILY [facility] Last Admin: 04/15/23 07:45 Dose: 1 patch Ondansetron HCl (Ondansetron 4 Mg Tab) 4 mg PO Q6H PRN PRN Reason: Nausea Last Admin: 04/15/23 05:55 Dose: 4 mg Oxybutynin Chloride (Oxybutynin 10 Mg Tab.Er.24) 10 mg PO DAILY [facility] Last Admin: 04/15/23 07:45 Dose: 10 mg Pantoprazole Sodium (Pantoprazole 40 Mg Tablet) 40 mg PO AC-BRKFST [facility] Last Admin: 04/15/23 07:44 Dose: 40 mg Polyethylene Glycol (Polyethylene Glycol 3350 17 Gm Powd.Pack) 17 gm PO DAILY PRN PRN Reason: Constipation Senna/Docusate Sodium (Sennosides-Docusate Sodium 1 Each Tab) 1 each PO DAILY [facility] Last Admin: 04/15/23 07:44 Dose: 1 each Sucralfate (Sucralfate 1 Gm Tab) 1 gm PO BID [facility] Last Admin: 04/15/23 07:44 Dose: 1 gm Venlafaxine HCl (Venlafaxine Hcl Er 150 Mg Cap) 150 mg PO DAILY [facility] Last Admin: 04/15/23 07:45 Dose: 150 mg PHYSICAL EXAMINATION: GENERAL: The patient is alert and oriented x4, thin built, ill-appearing, muscle wasting noted HEENT: Pupils are round and equally reacting to light. EOMI. no scleral icterus. No conjunctival pallor. Normocephalic, atraumatic. No pharyngeal erythema. No thyromegaly. CARDIOVASCULAR: S1 and S2 muffled PULMONARY: diminished breath sounds bilaterally with some scattered rhonchi and faint crackles at the bases noted. ABDOMEN: soft. tender on exam. distended, normoactive bowel sounds. No palpabl e organomegaly. MUSCULOSKELETAL: No joint swelling or deformity. EXTREMITIES: No cyanosis, clubbing, or pedal edema. NEUROLOGICAL: Gross neurological examination did not reveal any focal deficits. Diffuse weakness SKIN: No rashes. Assessment: Chronic obstructive pulmonary disease, acute exacerbation with acute purulent tracheobronchitis Ascites secondary to gastric adenocarcinoma, possibly malignant, status post recent paracentesis with recurrent ascites, tense Severe hypokalemia, present on admission Revised weakness and gait dysfunction Hypertension Moderate protein calorie malnutrition with a BMI of 16.8 Muscle wasting GI prophylaxis DVT prophylaxis Full code Plan: Recommend to continue with current medications and management multiple medical consultations following including the oncology and pulmonary. Patient is status post paracentesis of approximately 2 L removed and patient reports to feeling some improvement in abdominal distention and shortness of breath. Patient reports not really tolerating diet and is advancing slowly and continues with poor appetite and some nausea. Patient continue with DuoNeb treatments and steroids Recommend replace electrolytes per protocol will follow-up with repeat labs Patient will need nebulizer on discharge to manage COPD. Will assess for possible home O2. Due to multiple complex medical issues, prognosis is extremely guarded Possible discharge in the next 24-48 hours The impression and plan of care has been dictated by Thelma Marlo, nurse practitioner as directed. Dr. Luiz MD I have performed a history and examination and MDM of this patient, discussed the same with the dictator, and agree with the dictator's assessment and plan as written ,documented as a scribe. Based on total visit time, I have performed more than 50% of the visit. Any additional findings or plans will be noted. Objective - Vital Signs Vital signs: Vital Signs Temp 98.9 F 04/15/23 11:36 Pulse 80 04/15/23 11:51 Resp 20 04/15/23 11:36 BP 125/74 04/15/23 11:36 Pulse Ox 95 04/15/23 11:36 FiO2 Intake & Output 04/14/23 04/15/23 04/15/23 18:59 06:59 18:59 Weight 45.9 kg Other: Voiding Method Toilet Toilet Toilet Bedside Commode Bedside Commode Bedside Commode # Voids 1 1 - Labs CBC & Chem 7: 04/15/23 06:06 04/15/23 06:06 Labs: Abnormal Lab Results - Last 24 Hours (Table) 04/14/23 04/14/23 04/15/23 Range/Units 17:04 19:42 06:06 WBC 21.96 H (4.50-10.00) X 10*3/uL RBC 3.30 L (4.10-5.20) X 10*6/uL Hgb 10.0 L (12.0-15.0) d/dL Hct 31.7 L (37.2-46.3) % MCHC 31.5 L (32.0-37.0) d/dL RDW 16.4 H (11.5-14.5) % Neutrophils # 20.62 H (1.80-7.70) X 10*3/uL Lymphocytes # 0.62 L (0.90-5.00) X 10*3/uL Eosinophils # 0 L (0.04-0.35) X 10*3/uL Anion Gap (4.00-12.00) mmol/L BUN/Creatinine Ratio (12.00-20.00) Ratio Glucose (70-110) mg/dL POC Glucose (mg/dL) 121 H 141 H (70-110) mg/dL Calcium (8.7-10.3) mg/dL 04/15/23 04/15/23 Range/Units 06:06 07:37 WBC (4.50-10.00) X 10*3/uL RBC (4.10-5.20) X 10*6/uL Hgb (12.0-15.0) d/dL Hct (37.2-46.3) % MCHC (32.0-37.0) d/dL RDW (11.5-14.5) % Neutrophils # (1.80-7.70) X 10*3/uL Lymphocytes # (0.90-5.00) X 10*3/uL Eosinophils # (0.04-0.35) X 10*3/uL Anion Gap 13.30 H (4.00-12.00) mmol/L BUN/Creatinine Ratio 33.33 H (12.00-20.00) Ratio Glucose 115 H (70-110) mg/dL POC Glucose (mg/dL) 120 H (70-110) mg/dL Calcium 8.5 L (8.7-10.3) mg/dL
[2023-04-15 20:25] LABS: Glucose,Whole Blood 138 mg/dL (70-110)
[2023-04-15] MEDS: ATORVASTATIN 10 MG TAB PO SCH (21:00)
[2023-04-16] MEDS: methylPREDNISolone SOD SUCCI 125 MG/2 ML VIAL IV SCH ×3 (00:47→12:18)
[2023-04-16] MEDS: ONDANSETRON 4 MG TAB PO PRN (06:14)
[2023-04-16 07:30] LABS: Glucose,Whole Blood 118 mg/dL (70-110)
[2023-04-16] MEDS: FORMOTEROL FUMARATE 20 MCG/2 ML NEBU INHALATION SCH (07:42)
[2023-04-16] MEDS: IPRATROPIUM-ALBUTEROL 3 ML NEB INHALATION SCH ×2 (07:42→11:45)
[2023-04-16] MEDS: BUDESONIDE 1 MG/2 ML NEBU INHALATION SCH (07:43)
[2023-04-16 08:42] VITALS: RESP 18
[2023-04-16 08:47] VITALS: BP 122/73; TEMP 98.7
[2023-04-16] MEDS: OXYBUTYNIN 10 MG TAB.ER.24 PO SCH (09:17)
[2023-04-16] MEDS: PANTOPRAZOLE 40 MG TABLET PO SCH (09:17)
[2023-04-16] MEDS: SENNOSIDES-DOCUSATE SODIUM 1 EACH TAB PO SCH (09:18)
[2023-04-16] MEDS: MAG HYDROX/AL HYDROX/SIMETH 30 ML, LIDOCAINE VISCOUS 2% 30 ML, NYSTATIN 100,000 UNIT/ML... PO SCH ×3 (09:18)
[2023-04-16] MEDS: VENLAFAXINE HCL ER 150 MG CAP PO SCH (09:18)
[2023-04-16] MEDS: SUCRALFATE 1 GM TAB PO SCH (09:18)
[2023-04-16] MEDS: HEPARIN SODIUM,PORCINE/PF 5,000 UNIT/0.5 ML SYRINGE SQ SCH (09:20)
[2023-04-16] MEDS: NICOTINE 7MG/24HR PATCH TRANSDERM SCH (09:20)
[2023-04-16] MEDS: INSULIN ASPART (NovoLOG) 100 UNIT/ML VIAL SQ SCH ×2 (09:30→12:18)
[2023-04-16 11:06] LABS: Basophils # (A) 0.04 X 10*3/uL (0.00-0.10); Basophils % (A) 0.2 %; Eosinophils # (A) 0.02 X 10*3/uL (0.04-0.35); Eosinophils % (A) 0.1 %; HCT 29.4 % (37.2-46.3); HGB 9.1 d/dL (12.0-15.0); Lymphocytes % (A) 3.5 %; Monocytes # (A) 0.55 X 10*3/uL (0.20-1.00); Monocytes % (A) 2.7 %; NRBC Per 100 WBC 0 X 10*3/uL (0.00-0.01); Neutrophils # (A) 18.57 X 10*3/uL (1.80-7.70); Neutrophils % (A) 92.3 %; Platelet Count 287 X 10*3/uL (140-440); RBC 3.03 X 10*6/uL (4.10-5.20); RDW 16.1 % (11.5-14.5); WBC 20.12 X 10*3/uL (4.50-10.00)
[2023-04-16 11:31] LABS: BUN/Creat Ratio 25.75 Ratio (12.00-20.00); Blood Urea Nitrogen 20.6 mg/dL (9.0-27.0); Calcium 8.6 mg/dL (8.7-10.3); Carbon Dioxide 27.7 mmol/L (21.6-31.8); Chloride 105 mmol/L (96-109); Glucose 113 mg/dL (70-110); Potassium 4.9 mmol/L (3.5-5.5); Sodium 143 mmol/L (135-145)
[2023-04-16 11:47] VITALS: PULSE 80
[2023-04-16 12:11] LABS: Glucose,Whole Blood 123 mg/dL (70-110)
--- NOTE | 2023-04-16 16:26 | P.PN ---
Subjective Progress Note Date: 04/16/23 Principal diagnosis: SOB At today's visit patient is resting comfortably bedside chair. Patient reports breathing has improved. S/p paracentesis yesterday with 2.5L removed. Reports improvement in adb distention and discomfort. Plan is for discharge today. Objective - Vital Signs Vital signs: Vital Signs Temp 98.7 F 04/16/23 08:46 Pulse 80 04/16/23 11:54 Resp 18 04/16/23 08:46 BP 122/73 04/16/23 08:46 Pulse Ox 95 04/16/23 10:15 FiO2 Intake & Output 04/15/23 04/16/23 04/16/23 18:59 06:59 18:59 Weight 45.9 kg Other: Voiding Method Toilet Toilet Bedside Commode Bedside Commode # Voids 2 1 # Bowel Movements 0 # Emeses 0 - Constitutional General appearance: Present: no acute distress, thin - EENT Eyes: Present: anicteric sclerae, EOMI ENT: Present: hearing grossly normal - Respiratory Details: breathing is even and unlabored - Cardiovascular Details: skin warm and dry - Gastrointestinal General gastrointestinal: Present: soft. Absent: tenderness - Integumentary Integumentary: Absent: cyanotic, jaundiced - Neurologic Neurologic Comment(s): grossly intact - Musculoskeletal Musculoskeletal: Present: strength equal bilaterally - Psychiatric Psychiatric: Present: A&O x's 3, appropriate affect, intact judgment & insight - Labs CBC & Chem 7: 04/16/23 06:03 04/16/23 06:03 Labs: Abnormal Lab Results - Last 24 Hours (Table) 04/15/23 04/15/23 04/16/23 Range/Units 16:45 20:24 06:03 WBC 20.12 H (4.50-10.00) X 10*3/uL RBC 3.03 L (4.10-5.20) X 10*6/uL Hgb 9.1 L (12.0-15.0) d/dL Hct 29.4 L (37.2-46.3) % MCHC 31.0 L (32.0-37.0) d/dL RDW 16.1 H (11.5-14.5) % Neutrophils # 18.57 H (1.80-7.70) X 10*3/uL Lymphocytes # 0.70 L (0.90-5.00) X 10*3/uL Eosinophils # 0.02 L (0.04-0.35) X 10*3/uL BUN/Creatinine Ratio (12.00-20.00) Ratio Glucose (70-110) mg/dL POC Glucose (mg/dL) 149 H 138 H (70-110) mg/dL Calcium (8.7-10.3) mg/dL 04/16/23 04/16/23 04/16/23 Range/Units 06:03 07:24 12:10 WBC (4.50-10.00) X 10*3/uL RBC (4.10-5.20) X 10*6/uL Hgb (12.0-15.0) d/dL Hct (37.2-46.3) % MCHC (32.0-37.0) d/dL RDW (11.5-14.5) % Neutrophils # (1.80-7.70) X 10*3/uL Lymphocytes # (0.90-5.00) X 10*3/uL Eosinophils # (0.04-0.35) X 10*3/uL BUN/Creatinine Ratio 25.75 H (12.00-20.00) Ratio Glucose 113 H (70-110) mg/dL POC Glucose (mg/dL) 118 H 123 H (70-110) mg/dL Calcium 8.6 L (8.7-10.3) mg/dL Assessment and Plan (1) COPD exacerbation Status: Acute Priority: High Code(s): J44.1 - CHRONIC OBSTRUCTIVE PULMONARY DISEASE W (ACUTE) EXACERBATION SNOMED Code(s): 089883712 (2) Gastric adenocarcinoma Status: Chronic Priority: High Code(s): C16.9 - MALIGNANT NEOPLASM OF STOMACH, UNSPECIFIED SNOMED Code(s): 766964259 (3) Ascites Status: Acute Priority: High Code(s): R18.8 - OTHER ASCITES SNOMED Code(s): 447764494 Plan: COPD exacerbation: -Being treated for COPD exacerbation by Pulmonary -Chest x-ray showed no acute cardiopulmonary disease processes with COPD changes -Reports improvement in breathing. Discussed with patient the need to treat her underlying COPD and to stabilize her breathing prior to reinitiating therapy/treatment. Will discuss further at upcoming apt with Dr. Bay Metastatic gastric carcinoma/Ascites: -Patient has been on treatment with Opdivo/5 FU. On hold since 03/09/23, due to progressive weakness and poor performance status -Recent paracentesis positive for malignant cells. She had positive ascitic fluid previously. CT AP and CTA not reporting any new or enlarging masses or LAD. -S/p paracentesis yesterday, with 2.5L removed. Reports improvement in symptoms. Due to recurring ascites, will place standing order for paracentesis. Spoke with IM team, once patient receives her paracentesis and if breathing is stable, pt is cleared from a hem/onc standpoint for discharge -Appointment to follow-up with Dr. Bay scheduled for 04/19 for discussion regarding treatment options, prognosis with and without treatment, and to define set goals of care.
--- NOTE | 2023-04-16 20:15 | P.DS ---
Providers Date of admission: 04/12/23 13:59 Expected date of discharge: 04/16/23 Attending physician: Dakota Rodrigez MD Consults: 04/12/23 14:45 Consult Physician Routine Consulting Provider: Juni Manning Consult Reason/Comments: gastric CA Do you want consulting provider notified?: Yes Consult Physician Urgent Consulting Provider: Nghia Reyes Consult Reason/Comments: COPD Do you want consulting provider notified?: Yes Primary care physician: Aliyah Fink Hospital Course: Final diagnosis Chronic obstructive pulmonary disease, acute exacerbation with acute purulent tracheobronchitis Ascites secondary to gastric adenocarcinoma, possibly malignant, status post recent paracentesis with recurrent ascites, tense Severe hypokalemia, present on admission Revised weakness and gait dysfunction Hypertension Moderate protein calorie malnutrition with a BMI of 16.8 Muscle wasting GI prophylaxis DVT prophylaxis Full code Discharge disposition Patient is being discharged in a stable condition with guarded prognosis to home with home care. Patient will follow-up with Dr. Fink in the outpatient setting upon discharge. Patient is to continue with oral ceftin and prednisone taper with oncology appointment as scheduled. Total time taken is greater than 35 minutes. Hospital course This is a 72-year-old female who was recently admitted with increasing shortness of breath, acute COPD exacerbation with acute purulent tracheobronchitis. Patient being followed closely and also evaluated by oncology as patient does have history of gastric adenocarcinoma and is on continued treatment. Treatment has been on hold currently secondary to multiple hospitalizations. Patient has clinically declined each admission. Patient is also requiring frequent paracentesis of volume overload and ascites which may lead to palliative paracentesis outpatient. This was discussed with oncology. Patient has follow- up appointment this week and instructed to continue with. Patient will continue on DuoNeb treatments in the outpatient setting. Patient has been cleared by consultations for discharge. Please refer to other consultation notes for further HPI. Currently no reports of chest pain, worsening shortness of breath, or palpitations. Patient is afebrile. No reports of nausea or vomiting and patient is tolerating diet. Patient continues with very little diet but is tolerating. Patient will be discharged home with home care today. Extremely guarded and overall poor prognosis. Patient is high risk for readmissions and has had frequent hospitalizations most recently. Physical exam: Gen: This is a 72-year-old female who is awake, alert and oriented 3, thin built, cachectic, muscle wasting, elderly-appearing, ill-appearing HEENT: Head is atraumatic, normocephalic. Pupils equal, round. Sclerae is anicteric. NECK: Supple. No JVD. No lymphadenopathy. No thyromegaly. LUNGS: Diminished breath sounds bilaterally with scattered coarse rhonchi. No intercostal retractions. HEART: Regular rate and rhythm. No murmur. ABDOMEN: Soft. Distended. Bowel sounds are present. No masses. No tenderness. EXTREMITIES: No pedal edema. No calf tenderness. NEUROLOGICAL: Patient is awake, alert and oriented x3. Cranial nerves 2 through 12 are grossly intact. Please refer to medication reconciliation sheet for a list of medications. The impression and plan of care has been dictated by Thelma Sellers, Nurse Practitioner as directed. Dr. Luiz MD I have performed a history and examination and MDM of this patient, discussed the same with the dictator, and agree with the dictator's assessment and plan as written ,documented as a scribe. Based on total visit time, I have performed more than 50% of the visit. Patient Condition at Discharge: Poor Plan - Discharge Summary New Discharge Prescriptions: New Ipratropium-Albuterol Nebulize [Duoneb 0.5 mg-3 mg/3 ml Soln] 3 ml INHALATION RT-QID #120 each Ipratropium-Albuterol Nebulize [Duoneb 0.5 mg-3 mg/3 ml Soln] 3 ml INHALATION RT-Q2H PRN each PRN Reason: Shortness Of Breath Or Wheezing Mag Hydrox/Al Hydrox/Simeth [Maalox] 30 ml PO QID PRN ml PRN Reason: Sore Throat Pantoprazole [Protonix] 40 mg PO AC-BRKFST #30 tab Nystatin 100,000 Unit/ml Susp [Mycostatin Oral Susp] 5 ml PO QID 7 Days #100 ml Ondansetron Odt [Zofran Odt] 4 mg PO Q8HR PRN #20 tab PRN Reason: Nausea Continue Oxybutynin Chloride [oxyBUTYnin chloride ER] 10 mg PO DAILY #30 tab Omeprazole [PriLOSEC] 20 mg PO AC-BRKFST #90 cap Lovastatin [Mevacor] 40 mg PO HS Sucralfate [Carafate] 1 gm PO BID Venlafaxine HCl ER [Effexor XR] 150 mg PO DAILY hydrOXYzine HCL 20 mg PO QID PRN PRN Reason: Itching Sennosides-Docusate Sodium [Senokot-S] 1 tab PO DAILY cefUROXime axetiL [Ceftin] 500 mg PO BID 5 Days #10 tab Ondansetron [Zofran] 4 mg PO Q6H PRN PRN Reason: Nausea Nicotine 7Mg/24Hr Patch [Habitrol] 1 patch TRANSDERM DAILY #14 patch polyethylene glycoL 3350 [Miralax] 17 gm PO DAILY PRN packet PRN Reason: Constipation Budesonide-Formot 160-4.5 Mcg [Symbicort 160-4.5 Mcg Inhaler] 2 puff INHALATION RT-BID 30 Days #1 each Cools Solution 5 ml PO QID PRN PRN Reason: irritation Changed predniSONE See Taper PO DIRECTED #30 tab Discharge Medication List Oxybutynin Chloride [oxyBUTYnin chloride ER] 10 mg PO DAILY #30 tab 03/28/22 [Rx] Omeprazole [PriLOSEC] 20 mg PO AC-BRKFST #90 cap 06/25/22 [Rx] Lovastatin [Mevacor] 40 mg PO HS 07/27/22 [History] Ondansetron [Zofran] 4 mg PO Q6H PRN 07/27/22 [History] Sucralfate [Carafate] 1 gm PO BID 01/19/23 [History] Venlafaxine HCl ER [Effexor XR] 150 mg PO DAILY 03/22/23 [History] Budesonide-Formot 160-4.5 Mcg [Symbicort 160-4.5 Mcg Inhaler] 2 puff INHALATION RT-BID 30 Days #1 each 04/06/23 [Rx] Nicotine 7Mg/24Hr Patch [Habitrol] 1 patch TRANSDERM DAILY #14 patch 04/06/23 [Rx] polyethylene glycoL 3350 [Miralax] 17 gm PO DAILY PRN packet 04/06/23 [Rx] Cools Solution 5 ml PO QID PRN 04/12/23 [History] Sennosides-Docusate Sodium [Senokot-S] 1 tab PO DAILY 04/12/23 [History] hydrOXYzine HCL 20 mg PO QID PRN 04/12/23 [History] Ipratropium-Albuterol Nebulize [Duoneb 0.5 mg-3 mg/3 ml Soln] 3 ml INHALATION RT-Q2H PRN each 04/16/23 [Rx] Ipratropium-Albuterol Nebulize [Duoneb 0.5 mg-3 mg/3 ml Soln] 3 ml INHALATION RT-QID #120 each 04/16/23 [Rx] Mag Hydrox/Al Hydrox/Simeth [Maalox] 30 ml PO QID PRN ml 04/16/23 [Rx] Nystatin 100,000 Unit/ml Susp [Mycostatin Oral Susp] 5 ml PO QID 7 Days #100 ml 04/16/23 [Rx] Ondansetron Odt [Zofran Odt] 4 mg PO Q8HR PRN #20 tab 04/16/23 [Rx] Pantoprazole [Protonix] 40 mg PO AC-BRKFST #30 tab 04/16/23 [Rx] cefUROXime axetiL [Ceftin] 500 mg PO BID 5 Days #10 tab 04/16/23 [Rx] predniSONE See Taper PO DIRECTED #30 tab 04/16/23 [Rx] Follow up Appointment(s)/Referral(s): [facility] [NON-STAFF] - 1 Week Aliyah Fink MD [Primary Care Provider] - 1-2 days (office is closed, please call on Wednesday to schedule a follow up appointment. [phone]) [facility] [[facility]-STAFF] - 1 Week Nisha Bay MD [STAFF PHYSICIAN] - 04/19/23 12:45 pm Patient Instructions/Handouts: Cefuroxime (By mouth), Prednisone (By mouth), Nystatin (By mouth), Ipratropium/Albuterol (By breathing), Pantoprazole (By mouth), COPD (Chronic Obstructive Pulmonary Disease) (DC) Activity/Diet/Wound Care/Special Instructions: Activity Limited until follow-up Follow-up with primary care provider on discharge Follow-up with pulmonary outpatient Follow-up with oncology outpatient Continue DuoNeb treatments 4 times daily and as needed Continue prednisone taper Continue antibiotics until finished Discharge/Stand Alone Forms: Who Do I Call?, Assisted Living Facilities, Community Resources, Help In The Home, Personal Steel Rigger Discharge Disposition: HOME WITH HOME HEALTH SERVICES
== END 2023-04-16 14:02 | disposition home health service (06) | DRG 190 ==
LOC: EC 10:56 → 5NMEDONC 13:59
PROVIDERS: ADMIT Internal Medicine; ATTEND Internal Medicine
PROC: 0W9G3ZZ Drainage of Peritoneal Cavity, Percutaneous Approach (ICD-10-PCS; principal; 2023-04-15)
DX: J44.1 Chronic obstructive pulmonary disease with (acute) exacerbation (principal); J96.01 Acute respiratory failure with hypoxia; C16.9 Malignant neoplasm of stomach, unspecified; R18.0 Malignant ascites; Z68.1 Body mass index [BMI] 19.9 or less, adult; E44.0 Moderate protein-calorie malnutrition; J20.9 Acute bronchitis, unspecified; E78.5 Hyperlipidemia, unspecified; I10 Essential (primary) hypertension; E87.6 Hypokalemia; K74.60 Unspecified cirrhosis of liver; M19.90 Unspecified osteoarthritis, unspecified site; J44.0 Chronic obstructive pulmonary disease with (acute) lower respiratory infection; R53.1 Weakness; R26.89 Other abnormalities of gait and mobility; F40.240 Claustrophobia; M62.50 Muscle wasting and atrophy, not elsewhere classified, unspecified site; Z87.19 Personal history of other diseases of the digestive system; Z90.49 Acquired absence of other specified parts of digestive tract; Z96.641 Presence of right artificial hip joint; Z87.440 Personal history of urinary (tract) infections; Z92.21 Personal history of antineoplastic chemotherapy; Z87.11 Personal history of peptic ulcer disease; Z79.52 Long term (current) use of systemic steroids; Z79.51 Long term (current) use of inhaled steroids; Z79.899 Other long term (current) drug therapy
CPT/HCPCS: 36415; 49083; 71046; 76705; 80048; 80053; 82803; 83036; 83605; 83735; 83880; 84484; 85025; 85610; 85730; 93005; 94640; 94760; 96365; 96368; 96375; 99285

== ENCOUNTER 2023-05-02 13:04 | Inpatient (IN) | payer MEDICARE, OTHER ==
[2023-05-02 14:04] LABS: Basophils % (A) 0 %; Eosinophils % (A) 0 %; Hypochromasia Slight; Lymphocytes # (A) 0.8 k/uL (1.0-4.8); Lymphocytes % (A) 5 %; MCH 30.8 pg (25.0-35.0); MCHC 33.6 g/dL (31.0-37.0); MCV 91.7 fL (80.0-100.0); Mean Platelet Volume 7.9; Monocytes # (A) 0.9 k/uL (0-1.0); Monocytes % (A) 6 %; Neutrophils # (A) 13.9 k/uL (1.3-7.7); Neutrophils % (A) 88 %; Platelet Count 229 k/uL (150-450); RBC 3.06 m/uL (3.80-5.40); RDW 15.6 % (11.5-15.5); WBC 15.8 k/uL (3.8-10.6)
[2023-05-02] MEDS ORDERED: HYDROmorphone 1 MG/ML 1 ML SYRINGE IVP STA (14:04)
[2023-05-02 14:14] LABS: HGB 9.4 gm/dL (11.4-16.0)
[2023-05-02 14:19] LABS: ALT 16 U/L (4-34); AST 24 U/L (14-36); African American GFR (CKD) 31 (>60 ml/min/1.73 sqM); Albumin 2.2 g/dL (3.5-5.0); Alkaline Phosphatase 136 U/L (38-126); Amylase 71 U/L (30-110); Anion Gap 7 mmol/L; Blood Urea Nitrogen 38 mg/dL (7-17); Calcium 7.1 mg/dL (8.4-10.2); Carbon Dioxide 23 mmol/L (22-30); Chloride 97 mmol/L (98-107); Glucose 111 mg/dL (74-99); Lipase 11 U/L (23-300); Non-African American GFR(CKD) 27 (>60 ml/min/1.73 sqM); Potassium 3.8 mmol/L (3.5-5.1); Sodium 127 mmol/L (137-145); Total Bilirubin 0.6 mg/dL (0.2-1.3); Total Protein 4.1 g/dL (6.3-8.2)
--- NOTE | 2023-05-02 14:20 | CT ---
EXAMINATION TYPE: CT abdomen pelvis wo con CT DLP: 365.8 mGycm, Automated exposure control for dose reduction was used. DATE OF EXAM: 05/02/2023 2:08 PM COMPARISON: CT chest abdomen pelvis 03/12/2023. CLINICAL INDICATION:Female, 72 years old with history of abdominal pain; abd pain TECHNIQUE: Standard CT of the abdomen and pelvis without IV or oral contrast. Lack of IV or oral co ntrast limits evaluation of solid and hollow organ viscera. Coronal and sagittal reformats were perfo rmed. FINDINGS: LOWER CHEST: Right middle lobe reticular opacities. ABDOMEN LIVER: No focal lesion within limitations of a noncontrast study. GALLBLADDER AND BILE DUCTS: Gallbladder is surgically absent. No biliary ductal dilatation. PANCREAS: Atrophic appearance. SPLEEN: Unremarkable noncontrast appearance. ADRENAL GLANDS: Stable thickening of both adrenal glands.. KIDNEYS AND URETERS: Bilateral ureteral stents identified again. No hydronephrosis or renal calculi. No definitive ureteral calculi. PELVIS BLADDER: Bilateral stents identified. REPRODUCTIVE: The uterus is surgically absent. ABDOMEN & PELVIS STOMACH AND BOWEL: Post surgical changes from partial gastrectomy. Mild amount stool is present withi n the descending colon. No pneumatosis. Mild gaseous distention of the transverse colon measuring up to 5.1 cm. No focal transition point. Few sigmoid diverticula without evidence for acute diverticulit is. No evidence of bowel obstruction. PERITONEUM: No evidence of pneumoperitoneum. Large volume ascites throughout the abdomen and pelvis. VASCULATURE: Moderate atherosclerotic calcifications are present throughout the abdominal aorta and i ts branches. No evidence of aortic aneurysm. MUSCULOSKELETAL: No acute osseous abnormalities. Postsurgical changes from right total hip arthroplas ty. This creates streak artifact which limits evaluation. Grade 1 anterolisthesis of L3 on L4 without evidence of pars defect. Mild multilevel degenerative disc disease most pronounced at L5-S1. LYMPH NODES: No gross evidence for lymphadenopathy. SOFT TISSUE/ABDOMINAL WALL: Left gluteal soft tissue calcifications. IMPRESSION: 1. Large volume ascites. 2. Bilateral ureteral stents in place without hydronephrosis. 3. Postsurgical changes from partial gastrectomy. 4. Reticular opacities within the right middle lobe suggesting an infectious/laboratory process.
[2023-05-02] MEDS ORDERED: diphenhydrAMINE 50 MG/ML 1 ML VIAL IVP STA (14:38)
[2023-05-02] MEDS ORDERED: METOCLOPRAMIDE 5 MG/ML 2 ML VIAL IVP STA (14:38)
[2023-05-02 15:44] LABS: Lactic Acid, Venous 2.1 mmol/L (0.7-2.0)
[2023-05-02 16:33] LABS: Appearance,Urine Cloudy (Clear); Bilirubin,Urine Negative (Negative); Blood,Urine Large (Negative); Color,Urine Brown; Glucose,Urine (UA) Trace (Negative); Ketones,Urine Negative (Negative); Protein,Urine 2+ (Negative); Specific Gravity,Urine >1.030 (1.001-1.035)
[2023-05-02 16:34] LABS: Bacteria,Urine Few /hpf; Leukocyte Esterase,Urine Negative (Negative); Nitrite,Urine Negative (Negative); RBC,Urine >182 /hpf (0-5); Squamous Epithelial Cell,Urine 2 /hpf (0-4); Urobilinogen,Urine <2.0 mg/dL (<2.0); WBC,Urine 10 /hpf (0-5)
--- NOTE | 2023-05-02 17:34 | ED ---
Abdominal Pain HPI - General Chief Complaint: Abdominal Pain Stated Complaint: Abd Pain Time Seen by Provider: 05/02/23 13:16 Source: EMS Mode of arrival: EMS Limitations: no limitations - History of Present Illness Initial Comments: 5-year-old female with a history of gastric cancer presents to the ED with a chief complaint of abdominal pain. Patient states that she is experiencing pain consistent with her gastric cancer associated nausea. However notes that pain is more severe than usual and due to nausea is unable to tolerate both her medications and food for the last 3 days. Denies fever. Denies chest pain or shortness of breath. No other complaints. - Related Data Home Medications Medication Instructions Recorded Confirmed Lovastatin [Mevacor] 40 mg PO HS 07/27/22 04/19/23 Ondansetron [Zofran] 4 mg PO Q6H PRN 07/27/22 04/19/23 Sucralfate [Carafate] 1 gm PO BID 01/19/23 04/19/23 Venlafaxine HCl ER [Effexor XR] 150 mg PO DAILY 03/22/23 04/19/23 Cools Solution 5 ml PO QID PRN 04/12/23 04/19/23 hydrOXYzine HCL 20 mg PO QID PRN 04/12/23 04/19/23 Previous Rx's Medication Instructions Recorded Oxybutynin Chloride [oxyBUTYnin 10 mg PO DAILY #30 tab 03/28/22 chloride ER] Omeprazole [PriLOSEC] 20 mg PO AC-BRKFST #90 cap 06/25/22 Budesonide-Formot 160-4.5 Mcg 2 puff INHALATION RT-BID 30 Days 04/06/23 [Symbicort 160-4.5 Mcg Inhaler] #1 each Ipratropium-Albuterol Nebulize 3 ml INHALATION RT-QID #120 each 04/16/23 [Duoneb 0.5 mg-3 mg/3 ml Soln] Nystatin 100,000 Unit/ml Susp 5 ml PO QID 7 Days #100 ml 04/16/23 [Mycostatin Oral Susp] Pantoprazole [Protonix] 40 mg PO AC-BRKFST #30 tab 04/16/23 Allergies Allergy/AdvReac Type Severity Reaction Status Date / Time No Known Allergies Allergy Verified 04/19/23 15:27 Review of Systems ROS Statement: Those systems with pertinent positive or pertinent negative responses have been documented in the HPI. ROS Other: All systems not noted in ROS Statement are negative. Past Medical History Past Medical History: Cancer, COPD, Hyperlipidemia, Hypertension, Osteoarthritis (OA) Additional Past Medical History / Comment(s): 03/2020 diagnosed with stomach cancer/had resection and chemo, hemorroids, UTIs, hx stomach ulcer History of Any Multi-Drug Resistant Organisms: None Reported Past Surgical History: Breast Surgery, Cholecystectomy, Joint Replacement, Orthopedic Surgery, Tonsillectomy Additional Past Surgical History / Comment(s): stomach resection, R upper chest port, EGD, colonoscopies, bilateral breast benign biopsies, RK bilateral eyes, rt hip replacement Past Anesthesia/Blood Transfusion Reactions: Motion Sickness Additional Past Anesthesia/Blood Transfusion Reaction / Comment(s): Pt has claustrophobia Past Psychological History: Anxiety, Depression Additional Psychological History / Comment(s): . Smoking Status: Current every day smoker Past Alcohol Use History: None Reported Additional Past Alcohol Use History / Comment(s): Pt started smoking in 1966 and quit 08/2021, later restarted Past Drug Use History: None Reported - Past Family History Father Family Medical History: Cancer, Deep Vein Thrombosis (DVT) Additional Family Medical History / Comment(s): Stomach cancer. Father of blood clot that travelled to his heart. Mother Family Medical History: Cancer Additional Family Medical History / Comment(s): Bone cancer Sister(s) Family Medical History: Cancer Additional Family Medical History / Comment(s): Breast cancer General Exam Limitations: no limitations General appearance: alert, in no apparent distress Respiratory exam: Present: normal lung sounds bilaterally Cardiovascular Exam: Present: regular rate, normal rhythm GI/Abdominal exam: Present: distended, tenderness (Diffuse abdominal tenderness to palpation. No rebound guarding or rigidity. No appreciable fluid wave.) Neurological exam: Present: alert, oriented X3 Psychiatric exam: Present: normal affect, normal mood Skin exam: Present: warm, dry Course Vital Signs 05/02/23 05/02/23 13:06 15:06 Temperature 97.8 F 98.7 F Pulse Rate 105 H 99 Respiratory 18 16 Rate Blood Pressure 153/69 127/81 O2 Sat by Pulse 96 94 L Oximetry Medical Decision Making - Medical Decision Making Was pt. sent in by a medical professional or institution (Dr., PA, AERONAUTICAL ENGINEERING PROFESSOR, urgent care, hospital, or intermediate...) When possible be specific @ -No Did you speak to anyone other than the patient for history (EMS, parent, family, police, friend...)? What history was obtained from this source @ -I spoke to the patient's daughters who noted that due to the severity of the patient's symptoms patient states that she does not want to live anymore. They state that if she were to kill herself, may overdose on her medications however deny homicidal ideation. Did you review nursing and triage notes (agree or disagree)? Why? @ -I reviewed and agree with nursing and triage notes Were old charts reviewed (outside hosp., previous admission, EMS record, old EKG, old radiological studies, urgent care reports/EKG's, intermediate records)? Report findings @ -No old charts were reviewed Differential Diagnosis (chest pain, altered mental status, abdominal pain women, abdominal pain men, vaginal bleeding, weakness, fever, dyspnea, syncope, headache, dizziness, GI bleed, back pain, seizure, CVA, palpatations, mental health, musculoskeletal)? @ -Differential Abdominal Pain Women: Appendicitis, Cholecystitis, diverticulosis, ischemic bowel, pancreatitis, hepatitis, UTI, gastroenteritis, AAA, incarcerated hernia, bowel obstruction, constipation, inflammatory bowel, hepatitis, peptic ulcer disease, splenic infarction, perforated viscus, vulvitis, ovarian torsion, PID, kidney stone, placenta abruption, this is not meant to be an all-inclusive list EKG interpreted by me (3pts min.). @ -As above X-rays interpreted by me (1pt min.). @ -None done CT interpreted by me (1pt min.). @ -None done U/S interpreted by me (1pt. min.). @ -None done What testing was considered but not performed or refused? (CT, X-rays, U/S, labs)? Why? @ -None What meds were considered but not given or refused? Why? @ -None Did you discuss the management of the patient with other professionals (professionals i.e. TERA Carpio, AERONAUTICAL ENGINEERING PROFESSOR, lab, RT, psych nurse, social work nurse, laborer gold leaf, teacher, chief strategy officer, case filler)? Give summary @ -Plan of care discussed with Natalya Tran NP, who accepts admission to [facility] Was smoking cessation discussed for >3mins.? @ -No Was critical care preformed (if so, how long)? @ -No Were there social determinants of health that impacted care today? How? (Homelessness, low income, unemployed, alcoholism, drug addiction, transportation, low edu. Level, literacy, decrease access to med. care, prison, rehab)? @ -No Was there de-escalation of care discussed even if they declined (Discuss DNR or withdrawal of care, Hospice)? DNR status @ -No What co-morbidities impacted this encounter? (DM, HTN, Smoking, COPD, CAD, Cancer, CVA, ARF, Chemo, Hep., AIDS, mental health diagnosis, sleep apnea, morbid obesity)? @ -Cancer Was patient admitted / discharged? Hospital course, mention meds given and route, prescriptions, significant lab abnormalities, going to OR and other pertinent info. @ -Admission. CBC significant for a white blood cell count at 15.8 however chronically elevated. Chemistry significant for hyponatremia at 127 and kidney injury with BUN at 38 creatinine at 1.88. Patient will be admitted for repletion of sodium. Additionally will have consults to GI due to being too for paracentesis, social work nurse, and psychiatry. Discussed plan of care with patient and family who are in agreement. Undiagnosed new problem with uncertain prognosis? @ -No Drug Therapy requiring intensive monitoring for toxicity (Heparin, Nitro, Insulin, Cardizem)? @ -No Were any procedures done? @ -No Diagnosis/symptom? @ -History of gastric cancer, ascites, hyponatremia, ALEXX Acute, or Chronic, or Acute on Chronic? @ -Acute on chronic Uncomplicated (without systemic symptoms) or Complicated (systemic symptoms)? @ -Uncomplicated Side effects of treatment? @ -No Exacerbation, Progression, or Severe Exacerbation? @ -No Poses a threat to life or bodily function? How? (Chest pain, [place], [place], pneumonia, PE, COPD, DKA, ARF, appy, cholecystitis, CVA, Diverticulitis, Homicidal, Suicidal, threat to staff... and all critical care pts) @ -No - Lab Data Result diagrams: 05/02/23 13:47 05/02/23 13:47 Lab Results 05/02/23 05/02/23 05/02/23 Range/Units 13:47 13:47 13:53 WBC 15.8 H (3.8-10.6) k/uL RBC 3.06 L (3.80-5.40) m/uL Hgb 9.4 L D (11.4-16.0) gm/dL Hct 28.0 L (34.0-46.0) % MCV 91.7 (80.0-100.0) fL MCH 30.8 (25.0-35.0) pg MCHC 33.6 (31.0-37.0) g/dL RDW 15.6 H (11.5-15.5) % Plt Count 229 (150-450) k/uL MPV 7.9 Neutrophils % 88 % Lymphocytes % 5 % Monocytes % 6 % Eosinophils % 0 % Basophils % 0 % Neutrophils # 13.9 H (1.3-7.7) k/uL Lymphocytes # 0.8 L (1.0-4.8) k/uL Monocytes # 0.9 (0-1.0) k/uL Eosinophils # 0.0 (0-0.7) k/uL Basophils # 0.0 (0-0.2) k/uL Hypochromasia Slight Sodium 127 L (137-145) mmol/L Potassium 3.8 (3.5-5.1) mmol/L Chloride 97 L (98-107) mmol/L Carbon Dioxide 23 (22-30) mmol/L Anion Gap 7 mmol/L BUN 38 H (7-17) mg/dL Creatinine 1.88 H (0.52-1.04) mg/dL Est GFR (CKD-EPI)AfAm 31 (>60 ml/min/1.73 sqM) Est GFR (CKD-EPI)NonAf 27 (>60 ml/min/1.73 sqM) Glucose 111 H (74-99) mg/dL Plasma Lactic Acid Janak (0.7-2.0) mmol/L Calcium 7.1 L (8.4-10.2) mg/dL Total Bilirubin 0.6 (0.2-1.3) mg/dL AST 24 (14-36) U/L ALT 16 (4-34) U/L Alkaline Phosphatase 136 H (38-126) U/L Ammonia (<30) umol/L Total Protein 4.1 L (6.3-8.2) g/dL Albumin 2.2 L (3.5-5.0) g/dL Amylase 71 (30-110) U/L Lipase 11 L (23-300) U/L Urine Color Brown Urine Appearance Cloudy H (Clear) Urine pH 6.0 (5.0-8.0) Ur Specific Valentine >1.030 (1.001-1.035) Urine Protein 2+ (Negative) Urine Glucose (UA) Trace (Negative) Urine Ketones Negative (Negative) Urine Blood Large (Negative) Urine Nitrite Negative (Negative) Urine Bilirubin Negative (Negative) Urine Urobilinogen <2.0 (<2.0) mg/dL Ur Leukocyte Esterase Negative (Negative) Urine RBC >182 H (0-5) /hpf Urine WBC 10 H (0-5) /hpf Ur Squamous Epith Cells 2 (0-4) /hpf Urine Bacteria Few H (None) /hpf 05/02/23 Range/Units 14:53 WBC (3.8-10.6) k/uL RBC (3.80-5.40) m/uL Hgb (11.4-16.0) gm/dL Hct (34.0-46.0) % MCV (80.0-100.0) fL MCH (25.0-35.0) pg MCHC (31.0-37.0) g/dL RDW (11.5-15.5) % Plt Count (150-450) k/uL MPV Neutrophils % % Lymphocytes % % Monocytes % % Eosinophils % % Basophils % % Neutrophils # (1.3-7.7) k/uL Lymphocytes # (1.0-4.8) k/uL Monocytes # (0-1.0) k/uL Eosinophils # (0-0.7) k/uL Basophils # (0-0.2) k/uL Hypochromasia Sodium (137-145) mmol/L Potassium (3.5-5.1) mmol/L Chloride (98-107) mmol/L Carbon Dioxide (22-30) mmol/L Anion Gap mmol/L BUN (7-17) mg/dL Creatinine (0.52-1.04) mg/dL Est GFR (CKD-EPI)AfAm (>60 ml/min/1.73 sqM) Est GFR (CKD-EPI)NonAf (>60 ml/min/1.73 sqM) Glucose (74-99) mg/dL Plasma Lactic Acid Janak 2.1 H* (0.7-2.0) mmol/L Calcium (8.4-10.2) mg/dL Total Bilirubin (0.2-1.3) mg/dL AST (14-36) U/L ALT (4-34) U/L Alkaline Phosphatase (38-126) U/L Ammonia 11 (<30) umol/L Total Protein (6.3-8.2) g/dL Albumin (3.5-5.0) g/dL Amylase (30-110) U/L Lipase (23-300) U/L Urine Color Urine Appearance (Clear) Urine pH (5.0-8.0) Ur Specific Valentine (1.001-1.035) Urine Protein (Negative) Urine Glucose (UA) (Negative) Urine Ketones (Negative) Urine Blood (Negative) Urine Nitrite (Negative) Urine Bilirubin (Negative) Urine Urobilinogen (<2.0) mg/dL Ur Leukocyte Esterase (Negative) Urine RBC (0-5) /hpf Urine WBC (0-5) /hpf Ur Squamous Epith Cells (0-4) /hpf Urine Bacteria (None) /hpf - EKG Data EKG Comments: EKG shows sinus tachycardia at [address] or T-wave changes. PA 151, QRS 90, QT/QTC 361/420. Disposition Clinical Impression: ALEXX (acute kidney injury), History of gastric cancer, Ascites, Hyponatremia Disposition: ADMITTED IP TO THIS HOSP Referrals: Aliyah Fink MD [Primary Care Provider] - 1-2 days Time of Disposition: 17:00
[2023-05-02] MEDS ORDERED: ACETAMINOPHEN TAB 325 MG TAB PO PRN (17:39)
[2023-05-02] MEDS ORDERED: HYDROmorphone 0.5 MG/0.5 ML SYRINGE IVP PRN (17:39)
[2023-05-02] MEDS ORDERED: NALOXONE 0.4 MG/ML 1 ML VIAL IV PRN (17:39)
[2023-05-02] MEDS: HYDROmorphone 1 MG/ML 1 ML SYRINGE IVP PRN ×2 (22:23→23:45)
[2023-05-02] MEDS: SODIUM CHLORIDE 0.9% 1,000 ML IV SCH ×2 (22:23→23:46)
[2023-05-02] MEDS: ONDANSETRON 4 MG/2 ML VIAL IVP PRN ×2 (22:23→23:45)
[2023-05-03] MEDS: HYDROmorphone 1 MG/ML 1 ML SYRINGE IVP PRN ×3 (05:50→23:45)
[2023-05-03 09:03] LABS: Basophils % (A) 0 %; Eosinophils # (A) 0.1 k/uL (0-0.7); Eosinophils % (A) 1 %; HCT 31.4 % (34.0-46.0); HGB 10.3 gm/dL (11.4-16.0); Hypochromasia Moderate; Lymphocytes % (A) 7 %; MCH 30.9 pg (25.0-35.0); MCHC 32.9 g/dL (31.0-37.0); Monocytes # (A) 0.7 k/uL (0-1.0); Monocytes % (A) 5 %; Neutrophils # (A) 12.8 k/uL (1.3-7.7); Neutrophils % (A) 86 %; Platelet Count 225 k/uL (150-450); RBC 3.34 m/uL (3.80-5.40); RDW 15.5 % (11.5-15.5); WBC 14.9 k/uL (3.8-10.6)
[2023-05-03 09:08] LABS: Prothrombin Time 10.4 sec (9.0-12.0)
[2023-05-03 09:28] LABS: ALT 16 U/L (4-34); AST 24 U/L (14-36); African American GFR (CKD) 40 (>60 ml/min/1.73 sqM); Albumin 2.4 g/dL (3.5-5.0); Albumin/Globulin Ratio 1.1; Alkaline Phosphatase 130 U/L (38-126); Anion Gap 10 mmol/L; Blood Urea Nitrogen 41 mg/dL (7-17); Calcium 7.7 mg/dL (8.4-10.2); Carbon Dioxide 20 mmol/L (22-30); Chloride 97 mmol/L (98-107); Globulin 2.2 g/dL; Glucose 88 mg/dL (74-99); Non-African American GFR(CKD) 34 (>60 ml/min/1.73 sqM); Potassium 4.1 mmol/L (3.5-5.1); Sodium 127 mmol/L (137-145); Total Bilirubin 0.8 mg/dL (0.2-1.3); Total Protein 4.6 g/dL (6.3-8.2)
--- NOTE | 2023-05-03 13:19 | P.CONS ---
History of Present Illness - Reason for Consult Consult date: 05/03/23 Ascites Requesting physician: Shane Barraza - Chief Complaint Abdominal pain - History of Present Illness This is a pleasant 72-year-old female who presented to the emergency department with complaints of abdominal pain and distention. She has a past medical history including gastric cancer diagnosed in 2019 with gastrectomy and chemotherapy. She had followed with Dr. Fink and Dr. Bay. She was on chemotherapy Opdivo/5 FU which was held during her last admission in March. She said it was resumed but she stopped taking it last week because she does not want to have chemotherapy anymore. Patient states she is considering possible palliative/hospice. Patient underwent paracentesis on 03/30/2023 with cytology positive for metastatic adenocarcinoma primary upper GI tract. She had to have another paracentesis on 04/15/2023 with 2.5 L removed. She denies any previous history of liver disease. No history of alcoholism. Gastroenterology consulted for ascites Labs WBC 14.9 hemoglobin 10.3 platelet count 225,000 INR 1.0 sodium 127 potassium 4.1 BUN 41 creatinine 1.5, total bilirubin 0.8 AST 24 AO to 16 alkaline phosphatase 1:30 CT abdomen and pelvis without contrast reports large-volume ascites. Bilateral ureteral stents in place without hydronephrosis. Postsurgical changes from partial gastrectomy. Reticular opacities within the right middle lobe suggesting an infectious/laboratory process. Review of Systems REVIEW OF SYSTEMS: CARDIOPULMONARY: No chest pain or shortness of breath. Gastrointestinal: Abdominal pain and distention. Patient states she was having nausea and vomiting, no nausea or vomiting since she stopped eating. Patient states she is only taking in fluids. No hematemesis, coffee-ground emesis. No rectal bleeding, or melena. GENITOURINARY: No dysuria or hematuria. MUSCULOSKELETAL: Reports normal range of motion. SKIN: No rashes. No jaundice. ENDOCRINE: No chills, fevers. No excessive weight gain or loss. No polydipsia or polyuria. PSYCHIATRIC: Unremarkable. NEUROLOGY: No change in mental status. Denies dizziness, headache. ENT: Vision unremarkable. CONSTITUTIONAL: No recent weight loss. No fever, chills, night sweats. Past Medical History Past Medical History: Cancer, COPD, Hyperlipidemia, Hypertension, Osteoarthritis (OA) Additional Past Medical History / Comment(s): 03/2020 diagnosed with stomach cancer/had resection and chemo, hemorroids, UTIs, hx stomach ulcer History of Any Multi-Drug Resistant Organisms: None Reported Past Surgical History: Breast Surgery, Cholecystectomy, Joint Replacement, Orthopedic Surgery, Tonsillectomy Additional Past Surgical History / Comment(s): stomach resection, R upper chest port, EGD, colonoscopies, bilateral breast benign biopsies, RK bilateral eyes, rt hip replacement Past Anesthesia/Blood Transfusion Reactions: Motion Sickness Additional Past Anesthesia/Blood Transfusion Reaction / Comm: Pt has claustrophobia Past Psychological History: Anxiety, Depression Additional Psychological History / Comment(s): . Smoking Status: Former smoker Past Alcohol Use History: None Reported Additional Past Alcohol Use History / Comment(s): Pt started smoking in 1966 and quit 08/2021, later restarted and quit again Past Drug Use History: None Reported - Past Family History Father Family Medical History: Cancer, Deep Vein Thrombosis (DVT) Additional Family Medical History / Comment(s): Stomach cancer. Father of blood clot that travelled to his heart. Mother Family Medical History: Cancer Additional Family Medical History / Comment(s): Bone cancer Sister(s) Family Medical History: Cancer Additional Family Medical History / Comment(s): Breast cancer Medications and Allergies Home Medications Medication Instructions Recorded Confirmed Type Oxybutynin Chloride [oxyBUTYnin 10 mg PO DAILY #30 tab 03/28/22 05/02/23 Rx chloride ER] Sucralfate [Carafate] 1 gm PO BID 01/19/23 05/02/23 History Venlafaxine HCl ER [Effexor XR] 150 mg PO DAILY 03/22/23 05/02/23 History hydrOXYzine HCL 20 mg PO QID PRN 04/12/23 05/02/23 History Ipratropium-Albuterol Nebulize 3 ml INHALATION RT-QID #120 each 04/16/23 05/02/23 Rx [Duoneb 0.5 mg-3 mg/3 ml Soln] HYDROmorphone [Dilaudid] 4 mg PO Q4H 05/02/23 05/02/23 History Omeprazole [PriLOSEC] 20 mg PO DAILY 05/02/23 05/02/23 History Pantoprazole [Protonix] 40 mg PO DAILY 05/02/23 05/02/23 History Prochlorperazine [Compazine] 10 mg PO Q8H 05/02/23 05/02/23 History Allergies Allergy/AdvReac Type Severity Reaction Status Date / Time No Known Allergies Allergy Verified 05/02/23 19:43 Physical Exam Vitals: Vital Signs Temp Pulse Pulse Resp BP BP Pulse Ox 05/03/23 07:08 98.1 F 91 18 121/78 94 L 05/03/23 02:06 97.9 F 86 16 134/84 95 05/02/23 23:48 18 05/02/23 21:59 98.1 F 96 16 127/84 96 05/02/23 15:06 98.7 F 99 16 127/81 94 L 05/02/23 13:06 97.8 F 105 H 18 153/69 96 Intake and Output 05/02/23 05/03/23 05/03/23 22:59 06:59 14:59 Other: Voiding Method Toilet # Voids 0 Weight 45.813 kg General appearance: The patient is alert, oriented, appears in no acute distress. HET: Head is normocephalic and atraumatic. Conjunctiva pink. Sclera anicteric. Neck: Supple without lymphadenopathy. Trachea midline. Heart: S1 S2. Regular rate and rhythm. Lungs: Clear to auscultation. Abdomen: Tender, distended, ascites. No guarding or rigidity. Skin: No rashes. No jaundice. Extremities: Normal skin color and turgor. No pedal edema. Neurological: No focal deficits. Alert and oriented x3. Results CBC & Chem 7: 05/03/23 08:30 05/03/23 08:30 Labs: Abnormal Lab Results - Last 24 Hours (Table) 05/02/23 05/02/23 05/02/23 Range/Units 13:47 13:47 13:53 WBC 15.8 H (3.8-10.6) k/uL RBC 3.06 L (3.80-5.40) m/uL Hgb 9.4 L D (11.4-16.0) gm/dL Hct 28.0 L (34.0-46.0) % RDW 15.6 H (11.5-15.5) % Neutrophils # 13.9 H (1.3-7.7) k/uL Lymphocytes # 0.8 L (1.0-4.8) k/uL Sodium 127 L (137-145) mmol/L Chloride 97 L (98-107) mmol/L BUN 38 H (7-17) mg/dL Creatinine 1.88 H (0.52-1.04) mg/dL Glucose 111 H (74-99) mg/dL Plasma Lactic Acid Janak (0.7-2.0) mmol/L Calcium 7.1 L (8.4-10.2) mg/dL Alkaline Phosphatase 136 H (38-126) U/L Total Protein 4.1 L (6.3-8.2) g/dL Albumin 2.2 L (3.5-5.0) g/dL Lipase 11 L (23-300) U/L Urine Appearance Cloudy H (Clear) Urine RBC >182 H (0-5) /hpf Urine WBC 10 H (0-5) /hpf Urine Bacteria Few H (None) /hpf 05/02/23 05/03/23 Range/Units 14:53 08:30 WBC 14.9 H (3.8-10.6) k/uL RBC 3.34 L (3.80-5.40) m/uL Hgb 10.3 L (11.4-16.0) gm/dL Hct 31.4 L (34.0-46.0) % RDW (11.5-15.5) % Neutrophils # 12.8 H (1.3-7.7) k/uL Lymphocytes # (1.0-4.8) k/uL Sodium (137-145) mmol/L Chloride (98-107) mmol/L BUN (7-17) mg/dL Creatinine (0.52-1.04) mg/dL Glucose (74-99) mg/dL Plasma Lactic Acid Janak 2.1 H* (0.7-2.0) mmol/L Calcium (8.4-10.2) mg/dL Alkaline Phosphatase (38-126) U/L Total Protein (6.3-8.2) g/dL Albumin (3.5-5.0) g/dL Lipase (23-300) U/L Urine Appearance (Clear) Urine RBC (0-5) /hpf Urine WBC (0-5) /hpf Urine Bacteria (None) /hpf Assessment and Plan (1) Ascites Narrative/Plan: This patient with known metastatic adenocarcinoma primary upper GI tract with a known history of gastric cancer status post partial gastrectomy who recently started presenting with ascites. She had her first paracentesis on 03/30/2023 with cytology showing metastatic adenocarcinoma she since then had a repeat paracentesis on 04/15/2023 with 2.5 L removed. Presenting back with the abdominal pain and ascites. We'll plan for therapeutic paracentesis. At this time patient is sounding that she would like to lean towards palliative/hospice care. Fluid studies without cytology ordered. However patient now planning on following with palliative care/hospice. Currently having meeting. Current Visit: Yes Status: Acute Priority: High Code(s): R18.8 - OTHER ASCITES SNOMED Code(s): 356345028 (2) Metastatic adenocarcinoma Current Visit: Yes Status: Acute Code(s): C79.9 - SECONDARY MALIGNANT NEOPLASM OF UNSPECIFIED SITE SNOMED Code(s): 932123984479463 (3) History of gastric cancer Current Visit: Yes Status: Acute Code(s): Z85.028 - PERSONAL HISTORY OF OTHER MALIGNANT NEOPLASM OF STOMACH SNOMED Code(s): 235182297 Plan: 1. Continue symptomatic and supportive care 2. Consult to interventional radiology with fluid culture ordered 3. Patient may be considering palliative/hospice 4. Consider possible diuretics if kidney function continues to improve 5. Ensure ordered 3 times a day with meals 6. Endocrine recommended with hospice evaluation and consultation as patient does not want to proceed with chemotherapy and treatment. They can set up outpatient therapeutic paracentesis Thank you for this consultation, we will sign off at this time. Dr. Jones Dennis I agree with the dictator's note, documented as a scribe by Prema Boyce.
--- NOTE | 2023-05-03 13:25 | P.PN ---
Progress Note - Text Progress Note Date: 05/03/23 This provider attempted to see the patient at approximately 1:00 PM however the patient is currently undergoing a procedure and was not present in the room. Present in the room are the patient's family members however due to HIPAA, no information was discussed by this provider. The family did note to this provider that they are concerned with the patient's worsening depression, dependence on narcotics, and more recently a decreased will to live. Hospice consult has been placed. Psychiatry will re-attempt to evaluate the patient tomorrow morning. If any acute changes please contact the on-call physician. Claudio Glez MD
[2023-05-03 13:48] VITALS: BMI 16.8
--- NOTE | 2023-05-03 13:52 | US ---
Ultrasound-guided paracentesis. DATE OF EXAM: 05/03/2023 CLINICAL HISTORY: Ascites The procedure was discussed with the patient. The risks, complications, benefits, and alternatives we re discussed and any questions were answered. Informed consent was obtained. The patient was placed s upine on the ultrasound table and prepped and draped in the usual sterile fashion. All elements of maximal barrier technique were utilized. Under ultrasound guidance, access into the right lower quadrant was obtained, via the paracentesis catheter system and direct ultrasound guidanc e. Approximately 3.9 liters of straw-colored fluid was removed. The patient was stable throughout the pr ocedure and remained stable upon discharge from Department of Radiology. IMPRESSION: Successful paracentesis under ultrasound guidance.
[2023-05-03] MEDS ORDERED: ALBUMIN HUMAN 25% 50 ML in EMPTY BAG 1 BAG IVPB ONE (14:22)
--- NOTE | 2023-05-03 14:49 | P.HPIM ---
History of Present Illness H&P Date: 05/03/23 This is a 72-year-old female who presented to the emergency department with significant past medical history of gastric carcinoma presenting to the emergency department with increased abdominal pain and distention. Patient has had multiple hospitalizations most recently requiring paracentesis multiple times and does follow with oncology outpatient as she was actively receiving chemotherapy although has been placed on hold over these last few weeks due to frequent hospitalizations. Interventional radiology consulted along with GI and patient is scheduled to undergo paracentesis sometime today. Patient has been having increasing nausea with inability to tolerate oral intake and steady de terrell in clinical picture and reported to staff in the ER the patient has become increasingly depressed and is tired of chemotherapy and does not want to proceed with any further treatment. Hospice consult was placed and currently pending evaluation. Patient follows with Dr. Aliyah latham in the outpatient setting with a past medical history of stomach cancer with resection, frequent UTIs, hyperli pidemia, COPD, hypertension, osteoarthritis. Patient reports to continuing ongoing nicotine dependence although denies any other illicit drug use or alcohol use. Patient was admitted for abdominal pain and distention with ascites. Labs on admission revealed a WBC of 15.8 with hemoglobin 9.4, plat elets are 229, sodium low at 127 with a potassium of 3.8 kidney functions with a BUN of 38 and creatinine is 1.88, liver functions are within normal limits, total bili is 0.6, ammonia level is 11 and lipase is 11. CT abdomen and pelvis was done in the emergency department showing large volume ascites with bilateral ureteral stents in place without hydronephrosis, surgical changes from the partial gastrectomy. Review Of Systems: Constitutional: No fever, no chills, no night sweats. Reports continued weight loss reports weakness, fatigue or lethargy. Reports daytime sleepiness. EENT: No headache. No blurred vision or double vision, no loss of vision. No loss of Hearing, no ringing in the ears, no dizziness. No nasal drainage or congestion. No epistaxis. No sore throat. Lungs: No shortness of breath, cough, no sputum production. No wheezing. Cardiovascular: No chest pain, no lower extremity edema. No palpitations. No paroxysmal nocturnal dyspnea. No orthopnea. No lightheadedness or dizziness. No syncopal episodes. Abdominal: Reports abdominal pain and distention. Reports nausea, vomiting. No diarrhea. No constipation. No bloody or tarry stools.. Reports loss of mercedes etite. An inability to tolerate oral intake Genitourinary: No dysuria, increased frequency, urgency. No urinary retention. Musculoskeletal: Reports myalgias. Reports muscle weakness, no gait dysfun ction, no frequent falls. No back pain. No neck pain. Integumentary: No wounds, no lesions. No rash or pruritus. No unusual bruising. No change in hair or nails. Neurologic: No aphasia. No facial droop. No change in mentation. No head injury. No headache. No paralysis. No paresthesia. Psychiatric: Reports depression. No anxiety. No mood swings. Denies suicidal ideation Endocrine: No abnormal blood sugars. No weight change. No excessive sweating or thirst. No cold intolerance. PHYSICAL EXAMINATION: GENERAL: The patient is alert and oriented x4, thin built, elderly appearing, c achectic HEENT: Pupils are round and equally reacting to light. EOMI. no scleral icterus. No conjunctival pallor. Normocephalic, atraumatic. No pharyngeal erythema. No thyromegaly. CARDIOVASCULAR: S1 and S2 muffled PULMONARY: diminished breath sounds bilaterally with no wheezing, coarse rhonchi noted. ABDOMEN: soft. Tender on palpation. distended, normoactive bowel sounds. No palpable organomegaly. MUSCULOSKELETAL: No joint swelling or deformity. EXTREMITIES: No cyanosis, clubbing, or pedal edema. NEUROLOGICAL: Gross neurological examination did not reveal any focal deficits. Diffuse weakness SKIN: No rashes. Assessment: Abdominal pain with ascites, likely secondary to gastric adenocarcinoma Metastatic adenocarcinoma COPD, not an exacerbation hyperlipidemia Hypertension Osteoarthritis Severe protein calorie malnutrition with a BMI of 16.8 History of anxiety/depression Continued ongoing nicotine dependence GI prophylaxis DVT prophylaxis Full code Plan: Patient is scheduled to undergo interventional radiology paracentesis for abdominal ascites today GI was consulted and following recommending paracentesis and will sign off Hospice was consulted for informational and unsure if patient and family can handle hospice in the home and looking into possibly [facility] and a consult was placed in pending at this time Psychiatry was also consulted for depression. Patient reports she felt this way prior to admission and is tired of continuing with chemotherapy and overwhelmed and wants to stop treatment asking for hospice consult. Patient denies suicidal ideation or thoughts of wanting to harm herself. Sodium remains low at 127 and is maintained on gentle IV hydration and dietitian has been consulted recommending ensure supplements, encouraged oral intake Will follow-up on repeat labs in the a.m. Overall prognosis is poor Will follow-up with [facility] once they've evaluated the patient for financial assessment for [facility] The impression and plan of care has been dictated by Thelma Sellers, nurse practitioner as directed. Dr. Philip MD I have performed a history and examination and MDM of this patient, discussed the same with the dictator, and agree with the dictator's assessment and plan as written ,documented as a scribe. Based on total visit time, I have performed more than 50% of the visit. Any additional findings or plans will be noted. Past Medical History Past Medical History: Cancer, COPD, Hyperlipidemia, Hypertension, Osteoarthritis (OA) Additional Past Medical History / Comment(s): 03/2020 diagnosed with stomach cancer/had resection and chemo, hemorroids, UTIs, hx stomach ulcer History of Any Multi-Drug Resistant Organisms: None Reported Past Surgical History: Breast Surgery, Cholecystectomy, Joint Replacement, Orthopedic Surgery, Tonsillectomy Additional Past Surgical History / Comment(s): stomach resection, R upper chest port, EGD, colonoscopies, bilateral breast benign biopsies, RK bilateral eyes, rt hip replacement Past Anesthesia/Blood Transfusion Reactions: Motion Sickness Additional Past Anesthesia/Blood Transfusion Reaction / Comment(s): Pt has claustrophobia Past Psychological History: Anxiety, Depression Additional Psychological History / Comment(s): . Smoking Status: Former smoker Past Alcohol Use History: None Reported Additional Past Alcohol Use History / Comment(s): Pt started smoking in 1966 and quit 08/2021, later restarted and quit again Past Drug Use History: None Reported - Past Family History Father Family Medical History: Cancer, Deep Vein Thrombosis (DVT) Additional Family Medical History / Comment(s): Stomach cancer. Father of blood clot that travelled to his heart. Mother Family Medical History: Cancer Additional Family Medical History / Comment(s): Bone cancer Sister(s) Family Medical History: Cancer Additional Family Medical History / Comment(s): Breast cancer Medications and Allergies Home Medications Medication Instructions Recorded Confirmed Type Oxybutynin Chloride [oxyBUTYnin 10 mg PO DAILY #30 tab 03/28/22 05/02/23 Rx chloride ER] Sucralfate [Carafate] 1 gm PO BID 01/19/23 05/02/23 History Venlafaxine HCl ER [Effexor XR] 150 mg PO DAILY 03/22/23 05/02/23 History hydrOXYzine HCL 20 mg PO QID PRN 04/12/23 05/02/23 History Ipratropium-Albuterol Nebulize 3 ml INHALATION RT-QID #120 each 04/16/2304/05 Rx [Duoneb 0.5 mg-3 mg/3 ml Soln] HYDROmorphone [Dilaudid] 4 mg PO Q4H 05/02/23 05/02/23 History Omeprazole [PriLOSEC] 20 mg PO DAILY 05/02/23 05/02/23 History Pantoprazole [Protonix] 40 mg PO DAILY 05/02/23 05/02/23 History Prochlorperazine [Compazine] 10 mg PO Q8H 05/02/23 05/02/23 History Allergies Allergy/AdvReac Type Severity Reaction Status Date / Time No Known Allergies Allergy Verified 05/02/23 19:43 Physical Exam Vitals: Vital Signs Temp Pulse Pulse Resp BP BP Pulse Ox 05/03/23 07:08 98.1 F 91 18 121/78 94 L 05/03/23 02:06 97.9 F 86 16 134/84 95 05/02/23 23:48 18 05/02/23 21:59 98.1 F 96 16 127/84 96 05/02/23 15:06 98.7 F 99 16 127/81 94 L 05/02/23 13:06 97.8 F 105 H 18 153/69 96 Intake and Output 05/02/23 05/03/23 05/03/23 22:59 06:59 14:59 Other: Voiding Method Toilet Toilet # Voids 0 Weight 45.813 kg Results CBC & Chem 7: 05/03/23 08:30 05/03/23 08:30 Labs: Abnormal Lab Results - Last 24 Hours (Table) 05/02/23 05/02/23 05/02/23 Range/Units 13:47 13:47 13:53 WBC 15.8 H (3.8-10.6) k/uL RBC 3.06 L (3.80-5.40) m/uL Hgb 9.4 L D (11.4-16.0) gm/dL Hct 28.0 L (34.0-46.0) % RDW 15.6 H (11.5-15.5) % Neutrophils # 13.9 H (1.3-7.7) k/uL Lymphocytes # 0.8 L (1.0-4.8) k/uL Sodium 127 L (137-145) mmol/L Chloride 97 L (98-107) mmol/L BUN 38 H (7-17) mg/dL Creatinine 1.88 H (0.52-1.04) mg/dL Glucose 111 H (74-99) mg/dL Plasma Lactic Acid Janak (0.7-2.0) mmol/L Calcium 7.1 L (8.4-10.2) mg/dL Alkaline Phosphatase 136 H (38-126) U/L Total Protein 4.1 L (6.3-8.2) g/dL Albumin 2.2 L (3.5-5.0) g/dL Lipase 11 L (23-300) U/L Urine Appearance Cloudy H (Clear) Urine RBC >182 H (0-5) /hpf Urine WBC 10 H (0-5) /hpf Urine Bacteria Few H (None) /hpf 05/02/23 05/03/23 Range/Units 14:53 08:30 WBC 14.9 H (3.8-10.6) k/uL RBC 3.34 L (3.80-5.40) m/uL Hgb 10.3 L (11.4-16.0) gm/dL Hct 31.4 L (34.0-46.0) % RDW (11.5-15.5) % Neutrophils # 12.8 H (1.3-7.7) k/uL Lymphocytes # (1.0-4.8) k/uL Sodium (137-145) mmol/L Chloride (98-107) mmol/L BUN (7-17) mg/dL Creatinine (0.52-1.04) mg/dL Glucose (74-99) mg/dL Plasma Lactic Acid Janak 2.1 H* (0.7-2.0) mmol/L Calcium (8.4-10.2) mg/dL Alkaline Phosphatase (38-126) U/L Total Protein (6.3-8.2) g/dL Albumin (3.5-5.0) g/dL Lipase (23-300) U/L Urine Appearance (Clear) Urine RBC (0-5) /hpf Urine WBC (0-5) /hpf Urine Bacteria (None) /hpf Thrombosis Risk Factor Assmnt - Choose All That Apply Each Risk Factor Represents 2 Points: Age 61-74 years, Malignancy Thrombosis Risk Factor Assessment Total Risk Factor Score: 4 Thrombosis Risk Factor Assessment Level: Moderate Risk Assessment and Plan Time with Patient: Greater than 30
[2023-05-03] MEDS: SODIUM CHLORIDE 0.9% 1,000 ML IV SCH (15:38)
[2023-05-03] MEDS: PROCHLORPERAZINE 10 MG TAB PO SCH (21:34)
[2023-05-04 04:23] LABS: Appearance,BF Bloody (Clear)
[2023-05-04] MEDS: HYDROmorphone 1 MG/ML 1 ML SYRINGE IVP PRN ×4 (05:06→20:56)
[2023-05-04] MEDS: SODIUM CHLORIDE 0.9% 1,000 ML IV SCH (05:08)
[2023-05-04 06:34] LABS: T. Protein, Body Fluid Source Ascities; Total Protein, Body Fluid 2280 mg/dL
[2023-05-04 10:00] LABS: Albumin, Fluid Source Ascites
[2023-05-04] MEDS: PROCHLORPERAZINE 10 MG TAB PO SCH ×2 (11:20→16:10)
--- NOTE | 2023-05-04 12:50 | P.CN ---
Psychiatric Consult - . Consult date: 05/04/23 Consult:: 05/04/23 12:50 IDENTIFYING DATA: This patient is a , retired, 72-year-old female with significant history of gastric carcinoma presented to the hospital on 05/02/2023, with a chief complaint of abdominal pain. HISTORY OF PRESENT ILLNESS: The patient presented to the hospital 05/02/2023 with a chief complaint of abdominal pain was more severe than usual. The patient has significant history of gastric carcinoma. She was subsequently admitted to the medical floor and psychiatry has been consulted for evaluation and management of depression. This provider attempted to evaluate the patient on 05/03/2023 however she was undergoing an abdominal paracentesis. The patient's family who are present in the room reported that they're concerned about the patient's depression and her ongoing reliance on pain medications. Psychiatry was able to assess the patient on 05/04/2023. The patient was seen alone in her room. The patient reports that for the past 2 years she has been struggling with [facility] health both physically and mentally. She states that due to her gastric cancer, she has been experiencing severe pain, decreased appetite, and nausea. She does endorse significant symptoms depression including poor sleep, feelings of hopelessness, helplessness, anhedonia, and overall low mood. However, the patient is overtly denying any suicidal or homicidal ideation, intention, and/or plan. She reports no prior attempts at suicide. The patient does not provide any history consistent with a manic or hypomanic episode. She denies any increased goal-directed activity, grandiosity, mood lability, or pressured speech. She reports no significant history of auditory or visualizations. She denies any paranoia or other delusions. PAST PSYCHIATRIC HISTORY: Patient has a history of depression and anxiety. The patient is currently on home medication regimen that includes Effexor. Patient denies any previous psychiatric hospitalizations. Patient denies any psychiatric outpatient follow-up. Patient denies any history of suicide attempts in the past. The patient also attends outpatient support groups for cancer patients. PAST MEDICAL HISTORY: ALLERGIES: NO KNOWN DRUG ALLERGIES CHEMICAL DEPENDENCY HISTORY: The patient is denying any tobacco, alcohol, marijuana, or illicit drug use FAMILY PSYCHIATRIC/SUBSTANCE USE HISTORY: No reported family psychiatric history SOCIAL HISTORY: The patient was born and raised in [place], [place]. She is after 46 years of marriage. Her in 2019. They have 2 children together. She reports significant support from her family. 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 MENTAL STATUS EXAM: General Appearance: Patient appears to be stated age is alert, pleasant, and cooperative. Patient appears to have fair hygiene and grooming wearing hospital gown with fair eye contact. Behavior: Patient is calmly lying in bed without any agitated behavior. Speech: Patient's speech is fluent and nonpressured. Mood/Affect: Patient reports their mood is "depressed", affect is euthymic Suicidality/Homicidality: Patient reports no suicidal or homicidal ideation, intention, and/or plan. Perceptions: Patient denies any visual hallucinations and denies any auditory hallucinations Though content/process: There is no evidence of any delusional thought content and thought process is linear and goal-directed. Memory and concentration: AOX3, grossly intact for the purposes of this session. Can spell "WORLD" backwards Judgment and insight: Fair Vital Signs Temp 97.6 F 05/04/23 07:09 Pulse 86 05/04/23 07:09 Resp 16 05/04/23 07:09 BP 120/72 05/04/23 07:09 Pulse Ox 97 05/04/23 07:09 FiO2 Intake & Output 05/03/23 05/04/23 05/04/23 18:59 06:59 18:59 Intake Total 720 Balance 720 Weight 45.813 kg Intake: Intake, IV Titration 720 Amount Sodium Chloride 0.9% 1, 720 000 ml @ 60 mls/hr IV . [id number] [facility] Rx#:[id number] Other: Voiding Method Toilet Toilet Toilet # Voids 1 1 Laboratory Results WBC 14.9 k/uL (3.8-10.6) H 05/03/23 08:30 RBC 3.34 m/uL (3.80-5.40) L 05/03/23 08:30 Hgb 10.3 gm/dL (11.4-16.0) L 05/03/23 08:30 Hct 31.4 % (34.0-46.0) L 05/03/23 08:30 MCV 94.0 fL (80.0-100.0) 05/03/23 08:30 MCH 30.9 pg (25.0-35.0) 05/03/23 08:30 MCHC 32.9 g/dL (31.0-37.0) 05/03/23 08:30 RDW 15.5 % (11.5-15.5) 05/03/23 08:30 Plt Count 225 k/uL (150-450) 05/03/23 08:30 MPV 8.0 05/03/23 08:30 Neutrophils % 86 % 05/03/23 08:30 Lymphocytes % 7 % 05/03/23 08:30 Monocytes % 5 % 05/03/23 08:30 Eosinophils % 1 % 05/03/23 08:30 Basophils % 0 % 05/03/23 08:30 Neutrophils # 12.8 k/uL (1.3-7.7) H 05/03/23 08:30 Lymphocytes # 1.0 k/uL (1.0-4.8) 05/03/23 08:30 Monocytes # 0.7 k/uL (0-1.0) 05/03/23 08:30 Eosinophils # 0.1 k/uL (0-0.7) 05/03/23 08:30 Basophils # 0.0 k/uL (0-0.2) 05/03/23 08:30 Hypochromasia Moderate 05/03/23 08:30 PT 10.4 sec (9.0-12.0) 05/03/23 08:46 INR 1.0 (<1.2) 05/03/23 08:46 Sodium 127 mmol/L (137-145) L 05/03/23 08:30 Potassium 4.1 mmol/L (3.5-5.1) 05/03/23 08:30 Chloride 97 mmol/L (98-107) L 05/03/23 08:30 Carbon Dioxide 20 mmol/L (22-30) L 05/03/23 08:30 Anion Gap 10 mmol/L 05/03/23 08:30 BUN 41 mg/dL (7-17) H 05/03/23 08:30 Creatinine 1.53 mg/dL (0.52-1.04) H 05/03/23 08:30 Est GFR (CKD-EPI)AfAm 40 (>60 ml/min/1.73 sqM) 05/03/23 08:30 Est GFR (CKD-EPI)NonAf 34 (>60 ml/min/1.73 sqM) 05/03/23 08:30 Glucose 88 mg/dL (74-99) 05/03/23 08:30 Lactic Ac Sepsis Rflx Y 05/02/23 15:44 Plasma Lactic Acid Janak 1.1 mmol/L (0.7-2.0) 05/02/23 17:47 Calcium 7.7 mg/dL (8.4-10.2) L 05/03/23 08:30 Total Bilirubin 0.8 mg/dL (0.2-1.3) 05/03/23 08:30 AST 24 U/L (14-36) 05/03/23 08:30 ALT 16 U/L (4-34) 05/03/23 08:30 Alkaline Phosphatase 130 U/L (38-126) H 05/03/23 08:30 Ammonia 11 umol/L (<30) 05/02/23 14:53 Total Protein 4.6 g/dL (6.3-8.2) L 05/03/23 08:30 Albumin 2.4 g/dL (3.5-5.0) L 05/03/23 08:30 Globulin 2.2 g/dL 05/03/23 08:30 Albumin/Globulin Ratio 1.1 05/03/23 08:30 Amylase 71 U/L (30-110) 05/02/23 13:47 Lipase 11 U/L (23-300) L 05/02/23 13:47 Urine Color Brown 05/02/23 13:53 Urine Appearance Cloudy (Clear) H 05/02/23 13:53 Urine pH 6.0 (5.0-8.0) 05/02/23 13:53 Ur Specific Gillett >1.030 (1.001-1.035) 05/02/23 13:53 Urine Protein 2+ (Negative) 05/02/23 13:53 Urine Glucose (UA) Trace (Negative) 05/02/23 13:53 Urine Ketones Negative (Negative) 05/02/23 13:53 Urine Blood Large (Negative) 05/02/23 13:53 Urine Nitrite Negative (Negative) 05/02/23 13:53 Urine Bilirubin Negative (Negative) 05/02/23 13:53 Urine Urobilinogen <2.0 mg/dL (<2.0) 05/02/23 13:53 Ur Leukocyte Esterase Negative (Negative) 05/02/23 13:53 Urine RBC >182 /hpf (0-5) H 05/02/23 13:53 Urine WBC 10 /hpf (0-5) H 05/02/23 13:53 Ur Squamous Epith Cells 2 /hpf (0-4) 05/02/23 13:53 Urine Bacteria Few /hpf (None) H 05/02/23 13:53 Fluid Source Ascites 05/03/23 12:53 Fluid Volume 12 mL 05/03/23 12:53 Fluid Appearance Bloody (Clear) A 05/03/23 12:53 Fluid WBC 967 /UL 05/03/23 12:53 Fluid RBC (Auto) [id number] /UL 05/03/23 12:53 Fld Polynuclear WBCs % 47 % 05/03/23 12:53 Fluid Lymphocytes % 38 % 05/03/23 12:53 Fluid Monocytes % 3 % 05/03/23 12:53 Fld Mesothelial Cell % 12 % 05/03/23 12:53 Body Fluid Protein Source Ascities 05/03/23 12:53 Fluid Total Protein 2280 mg/dL 05/03/23 12:53 Fluid Albumin Source Ascites 05/03/23 12:53 Fluid Albumin 1.55 05/03/23 12:53 IMPRESSIONS: Depressive disorder secondary to general medical condition Abdominal pain with ascites, likely secondary to gastric adenocarcinoma Metastatic adenocarcinoma COPD, not an exacerbation hyperlipidemia Hypertension Osteoarthritis Severe protein calorie malnutrition with a BMI of 16.8 PLAN: -Continue your medical management -At this time patient DOES NOT meet criteria for inpatient psychiatric admission. The patient is not presenting with imminent risk of harm to self or others and is not overtly manic or psychotic. -Agree with hospice -Delirium precautions recommended with patient including - avoiding use of narcotics and REAL ESTATE MANAGEMENT SPECIALIST sedatives, limit anticholinergic medications when possible, frequent re-orientation, minimize use of restraints, open window shades during the day and close them at night -Would recommend the following medication changes/additions: We will discontinue Effexor and start the patient on Remeron 15 mg by mouth at bedtime for depression/anxiety/insomnia/nausea -Patient does not require one-to-one sitter -Approximately 20 minutes was spent providing the patient with reflective listening, supportive psychotherapy, and cognitive reframing. -Psychiatry will sign off at this point, please contact with any questions or if there are any acute changes or concerns..
[2023-05-04] MEDS: MIRTAZAPINE 15 MG TAB PO SCH (20:20)
[2023-05-05] MEDS: PROCHLORPERAZINE 10 MG TAB PO SCH ×3 (01:00→15:43)
[2023-05-05] MEDS: SODIUM CHLORIDE 0.9% 1,000 ML IV SCH ×2 (03:50→05:34)
--- NOTE | 2023-05-05 04:07 | P.PN ---
Subjective Progress Note Date: 05/04/23 This is a 72-year-old female who presented to the emergency department with significant past medical history of gastric carcinoma presenting to the emergency department with increased abdominal pain and distention. Patient has had multiple hospitalizations most recently requiring paracentesis multiple times and does follow with oncology outpatient as she was actively receiving chemotherapy although has been placed on hold over these last few weeks due to frequent hospitalizations. Interventional radiology consulted along with GI and patient is scheduled to undergo paracentesis sometime today. Patient has been having increasing nausea with inability to tolerate oral intake and steady decline in clinical picture and reported to staff in the ER the patient has become increasingly depressed and is tired of chemotherapy and does not want to proceed with any further treatment. Hospice consult was placed and currently pending evaluation. Patient follows with Dr. Aliyah latham in the outpatient setting with a past medical history of stomach cancer with resection, frequent UTIs, hyperlipidemia, COPD, hypertension, osteoarthritis. Patient reports to continuing ongoing nicotine dependence although denies any other illicit drug use or alcohol use. Patient was admitted for abdominal pain and distention with ascites. Labs on admission revealed a WBC of 15.8 with hemoglobin 9.4, platelets are 229, sodium low at 127 with a potassium of 3.8 kidney functions with a BUN of 38 and creatinine is 1.88, liver functions are within normal limits, total bili is 0.6, ammonia level is 11 and lipase is 11. CT abdomen and pelvis was done in the emergency department showing large volume ascites with bilateral ureteral stents in place without hydronephrosis, surgical changes from the partial gastrectomy. 05/04/2023 Patient is seen and evaluated in follow-up this morning status post paracentesis of approximately 3-1/2 L removed. GI following agreeable with paracentesis with no further recommendations. Patient is meeting with [facility] to undergo financial evaluation for possible hospice house as family does not feel comfortable with hospice at home due to previous history of drug abuse. Spoke with staff [facility] and will initiate the paperwork although there is no bed available at this time and will follow-up daily. Patient is afebrile denies chest pain or worsening shortness of breath. Patient reports to feeling somewhat improved although continues with very little oral intake. We'll continue with pain management. Overall prognosis is poor and agreeable with hospice. Review of systems: Constitutional: No reports of fatigue, fever, or chills Cardiovascular: No reports of chest pain or palpitations Respiratory: No reports of worsening shortness of breath or cough GI: reports of nausea, no vomiting, or diarrhea, reports some improvement in abdominal distention : No reports of dysuria or retention Neurovascular: reports of generalized weakness All medications have been reviewed PHYSICAL EXAMINATION: GENERAL: The patient is alert and oriented x4, thin built, elderly appearing, cachectic HEENT: Pupils are round and equally reacting to light. EOMI. no scleral icterus. No conjunctival pallor. Normocephalic, atraumatic. No pharyngeal erythema. No thyromegaly. CARDIOVASCULAR: S1 and S2 muffled PULMONARY: diminished breath sounds bilaterally with no wheezing, coarse rhonchi noted. ABDOMEN: soft. Less Tender on palpation. Less distended, normoactive bowel sounds. No palpable organomegaly. MUSCULOSKELETAL: No joint swelling or deformity. EXTREMITIES: No cyanosis, clubbing, or pedal edema. NEUROLOGICAL: Gross neurological examination did not reveal any focal deficits. Diffuse weakness SKIN: No rashes. Assessment: Abdominal pain with ascites, likely secondary to gastric adenocarcinoma status post paracentesis 05/03/2023 Metastatic adenocarcinoma COPD, not an exacerbation hyperlipidemia Hypertension Osteoarthritis Severe protein calorie malnutrition with a BMI of 16.8 History of anxiety/depression Continued ongoing nicotine dependence GI prophylaxis DVT prophylaxis Full code Plan: Patient paracentesis for abdominal ascites with just under 4 L removed GI has evaluated the patient agreeable with paracentesis with no further recommendations and has signed off [facility] evaluated the patient and family does not feel comfortable with continuing with hospice in the home including [facility] consulted for possible hospice house placement. Patient to undergo financial evaluation and currently awaiting a bed as there is no bed available at hospice house Patient does not want to pursue any further oncological care and wants to be made comfortable Encouraged small frequent meals and oral intake with increased activity as tolerated Psychiatry evaluated the patient was a medication adjustments. Patient is not suicidal and will not require sitter Overall prognosis is poor and agreeable with hospice Will follow-up with [facility] once financial assessment is done and once a bed is available The impression and plan of care has been dictated by nurse Luz Maria pr actitioner as directed. Dr. Philip MD I have performed a history and examination and MDM of this patient, discussed the same with the dictator, and agree with the dictator's assessment and plan a s written ,documented as a scribe. Based on total visit time, I have performed more than 50% of the visit. Any additional findings or plans will be noted. Objective - Vital Signs Vital signs: Vital Signs Temp 97.6 F 05/04/23 07:09 Pulse 86 05/04/23 07:09 Resp 16 05/04/23 07:09 BP 120/72 05/04/23 07:09 Pulse Ox 97 05/04/23 07:09 FiO2 Intake & Output 05/03/23 05/04/23 05/04/23 18:59 06:59 18:59 Intake Total 720 Balance 720 Weight 45.813 kg Intake: Intake, IV Titration 720 Amount Sodium Chloride 0.9% 1, 720 000 ml @ 60 mls/hr IV . [id number] Rx#:[id number] Other: Voiding Method Toilet Toilet Toilet # Voids 1 1 - Labs CBC & Chem 7: 05/03/23 08:30 05/03/23 08:30 Labs: Abnormal Lab Results - Last 24 Hours (Table) 05/03/23 Range/Units 12:53 Fluid Appearance Bloody A (Clear)
[2023-05-05] MEDS: HYDROmorphone 1 MG/ML 1 ML SYRINGE IVP PRN ×2 (06:45→19:41)
[2023-05-05] MEDS ORDERED: HYDROcodone/APAP 5-325MG 1 EACH TAB PO PRN (15:36)
[2023-05-05] MEDS ORDERED: ALBUTEROL NEBULIZED 2.5 MG/3 ML INHALATION PRN (15:38)
[2023-05-05] MEDS: MIRTAZAPINE 15 MG TAB PO SCH (19:38)
[2023-05-06] MEDS: PROCHLORPERAZINE 10 MG TAB PO SCH ×2 (00:21→08:54)
--- NOTE | 2023-05-06 05:40 | P.PN ---
Subjective Progress Note Date: 05/05/23 This is a 72-year-old female who presented to the emergency department with significant past medical history of gastric carcinoma presenting to the emergency department with increased abdominal pain and distention. Patient has had multiple hospitalizations most recently requiring paracentesis multiple times and does follow with oncology outpatient as she was actively receiving chemotherapy although has been placed on hold over these last few weeks due to frequent hospitalizations. Interventional radiology consulted along with GI and patient is scheduled to undergo paracentesis sometime today. Patient has been having increasing nausea with inability to tolerate oral intake and steady decline in clinical picture and reported to staff in the ER the patient has become increasingly depressed and is tired of chemotherapy and does not want to proceed with any further treatment. Hospice consult was placed and currently pending evaluation. Patient follows with Dr. Aliyah latham in the outpatient setting with a past medical history of stomach cancer with resection, frequent UTIs, hyperlipidemia, COPD, hypertension, osteoarthritis. Patient reports to continuing ongoing nicotine dependence although denies any other illicit drug use or alcohol use. Patient was admitted for abdominal pain and distention with ascites. Labs on admission revealed a WBC of 15.8 with hemoglobin 9.4, platelets are 229, sodium low at 127 with a potassium of 3.8 kidney functions with a BUN of 38 and creatinine is 1.88, liver functions are within normal limits, total bili is 0.6, ammonia level is 11 and lipase is 11. CT abdomen and pelvis was done in the emergency department showing large volume ascites with bilateral ureteral stents in place without hydronephrosis, surgical changes from the partial gastrectomy. 05/04/2023 Patient is seen and evaluated in follow-up this morning status post paracentesis of approximately 3-1/2 L removed. GI following agreeable with paracentesis with no further recommendations. Patient is meeting with [facility] to undergo financial evaluation for possible hospice house as family does not feel comfortable with hospice at home due to previous history of drug abuse. Spoke with staff approval [facility] and will initiate the paperwork although there is no bed available at this time and will follow-up daily. Patient is afebrile denies chest pain or worsening shortness of breath. Patient reports to feeling somewhat improved although continues with very little oral intake. We'll continue with pain management. Overall prognosis is poor and agreeable with hospice. 05/05/2023 Patient is seen and evaluated in follow-up today with family members at bedside. Family and patient have discussed with [facility] financial assessment was done and patient will be accepted at [facility] with no co-pay although no bed available today. We'll follow daily with liaison to accommodate this discharge planning as patient's family did not feel comfortable taking care of her at home. Patient is having some periods of confusion most likely secondary to IV Dilaudid and medication effect. This was discussed at length with family and overall poor prognosis. Patient is currently afebrile with no reports of chest pain or shortness of breath. Patient reports not eating very much but continuing to eat little and denies significant abdominal distention or pain. Review of systems: Constitutional: No reports of fatigue, fever, or chills Cardiovascular: No reports of chest pain or palpitations Respiratory: No reports of worsening shortness of breath or cough GI: reports of nausea, no vomiting, or diarrhea, reports improvement in a bdominal pain : No reports of dysuria or retention Neurovascular: reports of generalized weakness All medications have been reviewed PHYSICAL EXAMINATION: GENERAL: The patient is alert and oriented x2-3, thin built, elderly appearing, cachectic HEENT: Pupils are round and equally reacting to light. EOMI. no scleral icterus. No conjunctival pallor. Normocephalic, atraumatic. No pharyngeal erythema. No thyromegaly. CARDIOVASCULAR: S1 and S2 muffled PULMONARY: diminished breath sounds bilaterally with no wheezing, coarse rhonchi noted. ABDOMEN: soft. Non-tender on palpation. Less distended, normoactive bowel sounds. No palpable organomegaly. MUSCULOSKELETAL: No joint swelling or deformity. EXTREMITIES: No cyanosis, clubbing, or pedal edema. NEUROLOGICAL: Gross neurological examination did not reveal any focal deficits. Diffuse weakness SKIN: No rashes. Assessment: Abdominal pain with ascites, likely secondary to gastric adenocarcinoma status post paracentesis 05/03/2023 Metastatic adenocarcinoma COPD, not an exacerbation hyperlipidemia Hypertension Osteoarthritis Severe protein calorie malnutrition with a BMI of 16.8 History of anxiety/depression Continued ongoing nicotine dependence GI prophylaxis DVT prophylaxis no code Plan: Patient underwent paracentesis again this admission for abdominal ascites with just under 4 L removed [facility] evaluated the patient and family does not feel comfortable with continuing with hospice in the home. Referral placed to [facility] and financial assessment has been completed and awaiting a bed to become available at the hospice house Family at bedside with questions and concerns were answered to the best of our ability and are agreeable with hospice as well Patient does not want to pursue any further oncological care and wants to be comfortable Encouraged small frequent meals and oral intake with increased activity as tolerated Psychiatry evaluated the patient was a medication adjustments. Patient is not suicidal and will not require sitter Overall prognosis is poor and agreeable with hospice Awaiting a bed at hospice house, possible discharge in 24 hours The impression and plan of care has been dictated by Thelma Sellers, nurse practitioner as directed. Dr. Philip MD I have performed a history and examination and MDM of this patient, discussed the same with the dictator, and agree with the dictator's assessment and plan as written ,documented as a scribe. Based on total visit time, I have performed more than 50% of the visit. Any additional findings or plans will be noted. Objective - Vital Signs Vital signs: Vital Signs Temp 98.7 F 05/05/23 12:21 Pulse 96 05/05/23 12:21 Resp 14 05/05/23 12:21 BP 104/66 05/05/23 12:21 Pulse Ox 98 05/05/23 12:21 FiO2 Intake & Output 05/04/23 05/05/23 05/05/23 18:59 06:59 18:59 Other: Voiding Method Toilet Toilet Toilet # Voids 1 1 - Labs CBC & Chem 7: 05/03/23 08:30 05/03/23 08:30
[2023-05-06 07:36] VITALS: PULSE 87; RESP 14; TEMP 97.7
[2023-05-06 07:44] VITALS: BP 147/72
== END 2023-05-06 12:01 | disposition hospice, inpatient (51) | DRG 374 ==
LOC: EC 13:04 → 5NMEDONC 15:53
PROVIDERS: ADMIT Internal Medicine; ATTEND Internal Medicine
PROC: 0W9G3ZZ Drainage of Peritoneal Cavity, Percutaneous Approach (ICD-10-PCS; principal; 2023-05-03)
DX: C16.9 Malignant neoplasm of stomach, unspecified (principal); E43 Unspecified severe protein-calorie malnutrition; N17.9 Acute kidney failure, unspecified; C79.9 Secondary malignant neoplasm of unspecified site; F11.20 Opioid dependence, uncomplicated; R18.8 Other ascites; E87.1 Hypo-osmolality and hyponatremia; Z68.1 Body mass index [BMI] 19.9 or less, adult; J44.9 Chronic obstructive pulmonary disease, unspecified; F32.A Depression, unspecified; I10 Essential (primary) hypertension; Z66 Do not resuscitate; Z51.5 Encounter for palliative care; E78.5 Hyperlipidemia, unspecified; M19.90 Unspecified osteoarthritis, unspecified site; F41.9 Anxiety disorder, unspecified; Z96.641 Presence of right artificial hip joint; T45.1X6A Underdosing of antineoplastic and immunosuppressive drugs, initial encounter; Z91.128 Patient's intentional underdosing of medication regimen for other reason; Z79.51 Long term (current) use of inhaled steroids; Z87.891 Personal history of nicotine dependence; Z87.11 Personal history of peptic ulcer disease; Z90.3 Acquired absence of stomach [part of]; Z92.21 Personal history of antineoplastic chemotherapy; Z79.899 Other long term (current) drug therapy; Z80.8 Family history of malignant neoplasm of other organs or systems; Z80.0 Family history of malignant neoplasm of digestive organs; Z80.3 Family history of malignant neoplasm of breast
CPT/HCPCS: 36415; 49083; 74176; 80053; 81001; 82042; 82140; 82150; 83605; 83690; 84157; 85025; 85610; 87070; 87075; 87205; 89050; 93005; 96374; 96375; 99285